=== PATIENT | male | born 1945 | race Caucasian/White ===

== ENCOUNTER 2017-11-04 19:55 | Inpatient (IN) | payer MEDICARE ==
[2017-11-04] VITALS (13 sets, daily range): BP systolic 113–253; BP diastolic 59–162; PULSE 56–108; RESP 16–22; TEMP 96.6–98.9; O2SAT 97–100
[~2017-11-04] VITALS: Ht 180.3 cm; Wt 108.0 kg
[~2017-11-04 19:55] MED LIST: AMIODARONE HCL 150 MG/3 ML VIAL IV ONE
[2017-11-04] MEDS ORDERED: AMIODARONE INJ 150 MG in DEXTROSE 5% IN WATER 100ML INJ 97 ML IV ONE ×2 (20:09)
[2017-11-04] MEDS ORDERED: MIDAZOLAM HCL 5 MG/ML VIAL (1 ML) IV PUSH ONE (20:15)
[2017-11-04] MEDS ORDERED: SODIUM CHLORIDE 0.9% FLUSH 10 ML FLUSH IVF PRN (20:15)
[2017-11-04] MEDS ORDERED: SODIUM CHLOR 0.9% 1000 ML INJ 1,000 ML IV SCH (20:15)
[2017-11-04] MEDS ORDERED: fentaNYL DRIP 250 ML IV PRN (20:15)
[2017-11-04] MEDS ORDERED: MIDAZOLAM HCL 5 MG/ML VIAL (1 ML) ONE (20:16)
[2017-11-04] MEDS ORDERED: fentaNYL DRIP 250 ML ONE (20:18)
--- NOTE | 2017-11-04 20:22 | PD ---
HPI Chief Complaint: cardiac Time Seen by Provider: 20:08 Travel History International Travel<30 days: No Contact w/Intl Traveler<30days: No Traveled to known affect area: No History of Present Illness HPI 72-year-old male was brought in by EMS after patient had a cardiopulmonary arrest. Patient was reportedly driving his and collapsed. Patient became unresponsive. Chest compression was started. EMS was called. Patient was found in V. fib. Patient was defibrillated. Patient regained pulse and blood pressure. Patient remained unresponsive. Patient was transported to ED for evaluation. Unable to obtain any past medical history. Unable to obtain medication or allergies. 2100 p.m. I spoke with patient's . Patient has no past medical history. No history hypertension, diabetes, hyperlipidemia. Patient is a nonsmoker. No family history of heart disease. Patient did not have any complaints prior to arrest. [facility] Social History Tobacco Use: No Allergies-Medications (Allergen,Severity, Reaction): Coded Allergies: No Allergy Information Available (Unverified , 11/04/17) Reported Meds & Prescriptions Reported Meds & Active Scripts Active Active Prescriptions or Reported Medications Unobtainable Review of Systems ROS Limitations: Unresponsive Physical Exam Narrative GENERAL: Well-nourished, well-developed patient. SKIN: Focused skin assessment warm/dry. HEAD: Normocephalic. EYES: No scleral icterus. No injection or drainage. Pupils constricted, minimally reactive NECK: Supple, trachea midline. No JVD or lymphadenopathy. CARDIOVASCULAR: Mild tachycardia rate and rhythm without murmurs, gallops, or rubs. RESPIRATORY: Breath sounds equal bilaterally. No accessory muscle use. Patient will has spontaneous respiration. GASTROINTESTINAL: Abdomen soft, nondistended. MUSCULOSKELETAL: No cyanosis, or edema. BACK: Nontender without obvious deformity. No CVA tenderness. Neurologic exam: Patient unresponsive. Data Data Last Documented VS Vital Signs Date Time Temp Pulse Resp B/P (MAP) Pulse Ox O2 Delivery O2 Flow Rate FiO2 11/04/17 21:18 56 16 124/68 (86) 100 Ventilator 100 11/04/17 20:09 98.9 Orders Orders Ecg Monitoring (11/04/17 20:09) Blood Pressure (11/04/17 20:09) Vital Signs (11/04/17 20:09) Iv Access Insert/Monitor (11/04/17 20:09) Oximetry (11/04/17 20:09) Dextrose 5% In Wate... W/Amiodarone Inj (11/04/17 20:09) Dextrose 5% In Wate... W/Amiodarone Inj (11/04/17 20:24) Sodium Chloride 0.9% Flush (Ns Flush) (11/04/17 20:15) Sodium Chlor 0.9% 1000 Ml Inj (Ns 1000 M (11/04/17 20:15) Propofol 1000 Mg/100 Ml Inj (Diprivan 10 (11/04/17 20:15) ^ Infusion (11/04/17 20:10) RASS (11/04/17 20:10) Neurological Rass Scale FAYE.Q2H (11/04/17 20:10) Neurological Rass Scale Q30MX2,Q2HX4,Q4H (11/04/17 20:10) Fentanyl Drip (Fentanyl Drip) (11/04/17 20:15) Restraints Non-Violent FAYE.Q3H (11/04/17 20:10) Electrocardiogram (11/04/17 20:12) Complete Blood Count With Diff (11/04/17 20:12) Comprehensive Metabolic Panel (11/04/17 20:12) Creatine Kinase (Cpk) (11/04/17 20:12) Troponin I (11/04/17 20:12) B-Type Natriuretic Peptide (11/04/17 20:12) Prothrombin Time / Inr (Pt) (11/04/17 20:12) Act Partial Throm Time (Ptt) (11/04/17 20:12) Arterial Blood Gas (Abg) (11/04/17 20:12) Blood Culture (11/04/17 20:12) Thyroid Stimulating Hormone (11/04/17 20:12) Chest, Single Ap (11/04/17 20:12) Ct Brain W/O Iv Contrast(Rout) (11/04/17 20:12) Urinary Catheter Insert/Apply (11/04/17 20:12) Durga-Gastric Tube Insert/Mon (11/04/17 20:12) Midazolam Inj (Versed Inj) (11/04/17 20:15) Midazolam Inj (Versed Inj) (11/04/17 20:16) Fentanyl Drip (Fentanyl Drip) (11/04/17 20:18) Lactic Acid (11/04/17 20:22) Admit Order (Ed Use Only) (11/04/17 21:23) Labs Laboratory Tests Test 11/04/17 20:10 11/04/17 20:15 White Blood Count 11.5 TH/MM3 Red Blood Count 4.54 MIL/MM3 Hemoglobin 14.1 GM/DL Hematocrit 42.6 % Mean Corpuscular Volume 93.7 FL Mean Corpuscular Hemoglobin 31.1 PG Mean Corpuscular Hemoglobin Concent 33.2 % Red Cell Distribution Width 13.6 % Platelet Count 194 TH/MM3 Mean Platelet Volume 10.3 FL Neutrophils (%) (Auto) 50.1 % Lymphocytes (%) (Auto) 40.9 % Monocytes (%) (Auto) 6.4 % Eosinophils (%) (Auto) 1.9 % Basophils (%) (Auto) 0.7 % Neutrophils # (Auto) 5.8 TH/MM3 Lymphocytes # (Auto) 4.7 TH/MM3 Monocytes # (Auto) 0.7 TH/MM3 Eosinophils # (Auto) 0.2 TH/MM3 Basophils # (Auto) 0.1 TH/MM3 CBC Comment DIFF FINAL Differential Comment Prothrombin Time 9.9 SEC Prothromb Time International Ratio 1.0 RATIO Activated Partial Thromboplast Time 23.4 SEC Blood Urea Nitrogen 17 MG/DL Creatinine 1.44 MG/DL Random Glucose 379 MG/DL Total Protein 7.7 GM/DL Albumin 4.0 GM/DL Calcium Level 8.9 MG/DL Alkaline Phosphatase 138 U/L Aspartate Amino Transf (AST/SGOT) 136 U/L Alanine Aminotransferase (ALT/SGPT) 127 U/L Total Bilirubin 0.3 MG/DL Sodium Level 134 MEQ/L Potassium Level 3.8 MEQ/L Chloride Level 99 MEQ/L Carbon Dioxide Level 23.5 MEQ/L Anion Gap 12 MEQ/L Estimat Glomerular Filtration Rate 48 ML/MIN Total Creatine Kinase 307 U/L Troponin I 0.05 NG/ML B-Type Natriuretic Peptide 112 PG/ML Thyroid Stimulating Hormone 3rd Gen 6.550 uIU/ML Lactic Acid Level 5.7 mmol/L MDM Medical Decision Making Medical Screen Exam Complete: Yes Emergency Medical Condition: Yes Interpretation(s) Last Impressions Chest X-Ray 11/04/172011 Signed Impressions: Service Date/Time: Saturday, November 04, 2017 20:40 - CONCLUSION: ET tube in good position. Lungs are clear. Mike Davalos MD 21:14 PM. CBC within normal limit. Sodium 134. Creatinine 1.44. GFR 48. Glucose 379. Lactic acid 5.7. AST 136. ALT 127. Troponin 0.05. TSH 6.55. Differential Diagnosis Differential diagnosis including cardiopulmonary arrest, arrhythmia, TIA, CVA, sepsis. Narrative Course 72-year-old male had cardiopulmonary arrest. Patient was in V. fib. Patient was defibrillated. Patient regained pulse and blood pressure. Patient unresponsive. Patient was intubated. Normal saline solution 100 cc an hour. Amiodarone 150 mg IV given. Amiodarone drip started. Propofol and fentanyl for sedation. Critical Care Narrative Aggregate critical care time was 60 minutes. Time to perform other separately billable procedures was not included in the critical care time. My time did not include minutes spent treating any other patients simultaneously or on activities that did not directly contribute to the patient's treatment. The services I provided to this patient were to treat and/or prevent clinically significant deterioration that could result in: I provided critical care services requiring my management, as noted below: Chart data review, documentation time, medication orders and management, vital sign assessments/reviewing monitor data, ordering and reviewing lab tests, ordering and interpreting/reviewing x-rays and diagnostic studies, care of the patient and discussion of the patient with the admitting physicians. Procedures Procedure Narrative After the risks and benefits were discussed the following procedure was performed: INTUBATION: The patient was put in optimal position for the procedure. Rapid sequence intubation was initiated by me using 20 milligrams of etomidate IV and 100 milligrams of succinylcholine IV. The patient was intubated with a 7.5 cuffed endotracheal tube. Tube placement was confirmed by visualization of the tube and balloon passing through the cords, capnometry and subsequent chest x- ray. Breath sounds were equal and well aerated bilaterally postintubation. No breath sounds over stomach. Patient tolerated procedure well. Diagnosis Primary Impression: Cardiopulmonary arrest Additional Impressions: VF (ventricular fibrillation) Respiratory failure Qualified Codes: J96.00 - Acute respiratory failure, unspecified whether with hypoxia or hypercapnia Hyperglycemia Admitting Information Admitting Physician Requests: Admit Scripts Unable to Obtain Active Prescriptions or Reported Meds Derrell Luciano MD Nov 04, 2017 20:22
[2017-11-04] MEDS ORDERED: AMIODARONE INJ 450 MG in DEXTROSE 5% IN WATE(EXCEL) INJ 241 ML IV SCH ×2 (20:24)
[2017-11-04] MEDS: PROPOFOL 1000 MG/100 ML INJ 100 ML IV PRN (20:25)
[2017-11-04 20:45] LABS: AUTOMATED NEUTROPHIL # 5.8 TH/MM3 (1.8-7.7); BASOPHIL # 0.1 TH/MM3 (0-0.2); BASOPHIL % 0.7 % (0.0-2.0); EOSINOPHIL # 0.2 TH/MM3 (0-0.4); EOSINOPHIL % 1.9 % (0.0-4.0); HEMATOCRIT 42.6 % (39.0-51.0); HEMOGLOBIN 14.1 GM/DL (13.0-17.0); LYMPH % 40.9 % (9.0-44.0); LYMPHOCYTE # 4.7 TH/MM3 (1.0-4.8); MEAN CELL VOLUME 93.7 FL (80.0-100.0); MEAN CORPUSCULAR HEMOGLOBIN 31.1 PG (27.0-34.0); MEAN CORPUSCULAR HGB CONC 33.2 % (32.0-36.0); MEAN PLATELET VOLUME 10.3 FL (7.0-11.0); MONO % 6.4 % (0.0-8.0); MONOCYTE # 0.7 TH/MM3 (0-0.9); NEUT % 50.1 % (16.0-70.0); PLATELET COUNT 194 TH/MM3 (150-450); RED BLOOD COUNT 4.54 MIL/MM3 (4.50-5.90); RED CELL DISTRIBUTION WIDTH 13.6 % (11.6-17.2); WHITE BLOOD COUNT 11.5 TH/MM3 (4.0-11.0)
--- NOTE | 2017-11-04 20:57 | RADRPT ---
EXAM DATE/TIME: 11/04/2017 20:40 [facility] COMPARISON: No previous studies available for comparison. INDICATIONS : Post intubation MEDICAL HISTORY : Unobtainable SURGICAL HISTORY : Unobtainable ENCOUNTER: Initial ACUITY: 1 day PAIN SCORE: Non-responsive. LOCATION: Bilateral chest FINDINGS: A single view of the chest demonstrates the endotracheal tube is just above the opal. The NG tube i s in good position. There small lung volumes with mild pulmonary vascular congestion.. Osseous struc tures are intact. CONCLUSION: ET tube in good position. Lungs are clear. Mike Davalos MD on November 04, 2017 at 20:54 Board Certified Radiologist. This report was verified electronically.
[2017-11-04 21:02] LABS: AST (GOT) 136 U/L (15-37); BICARBONATE 23.5 MEQ/L (21.0-32.0); BLOOD UREA NITROGEN 17 MG/DL (7-18); CALCIUM 8.9 MG/DL (8.5-10.1); CHLORIDE 99 MEQ/L (98-107); CREATININE 1.44 MG/DL (0.60-1.30); GLOMERULAR FILTRATION RATE 48 ML/MIN (>89); GLUCOSE,RANDOM 379 MG/DL (74-106); SODIUM (NA) 134 MEQ/L (136-145)
[2017-11-04 21:06] LABS: PROTHROMBIN TIME - PATIENT 9.9 SEC (9.8-11.6)
[2017-11-04 21:13] LABS: ALKALINE PHOSPHATASE 138 U/L (45-117); ALT (GPT) 127 U/L (12-78); TOTAL BILIRUBIN ADULT 0.3 MG/DL (0.2-1.0); TOTAL PROTEIN 7.7 GM/DL (6.4-8.2); TROPONIN I 0.05 NG/ML (0.02-0.05)
[2017-11-04] MEDS ORDERED: ACETAMINOPHEN 325 MG TAB PO PRN (22:00)
[2017-11-04] MEDS ORDERED: BISACODYL 10 MG SUPP RECTAL PRN (22:00)
[2017-11-04] MEDS: SODIUM CHLOR 0.9% 1000 ML INJ 1,000 ML IV SCH (22:00)
[2017-11-04] MEDS ORDERED: CHLORHEXIDINE GLUCONATE 2 % 1 PACK (2 CLOTHS) TOP PRN (22:00)
[2017-11-04] MEDS ORDERED: HEPARIN SODIUM - IV 10,000 UNITS/10 ML VIAL IV PUSH ONE (22:00)
[2017-11-04] MEDS ORDERED: SENNOSIDES 8.6 MG TAB PO PRN (22:00)
[2017-11-04] MEDS ORDERED: MISCELLANEOUS NURSING INFORMATION XX SCH (22:00)
[2017-11-04] MEDS ORDERED: LACTULOSE SYRUP 20 GM/30 ML CUP PO PRN (22:00)
[2017-11-04] MEDS ORDERED: MAGNESIUM HYDROXIDE SUSP 30 ML CUP PO PRN (22:00)
[2017-11-04] MEDS ORDERED: SODIUM CHLORIDE 0.9% FLUSH 10 ML FLUSH IV FLUSH PRN (22:00)
[2017-11-04] MEDS ORDERED: MIDAZOLAM HCL 2 MG/2 ML VIAL IV PUSH PRN (22:00)
[2017-11-04] MEDS ORDERED: HEPARIN-D5W 25,000 U/250 ML 250 ML IV PRN (22:00)
--- NOTE | 2017-11-04 22:01 | HHI.HP ---
HPI Service Critical Care Medicine Primary Care Physician No Primary Care Physician Admission Diagnosis cardiopulmonary arrest. V. fib. Respiratory failure. Diagnosis: Travel History International Travel<30 Days: No Contact w/Intl Traveler <30 Da: No Traveled to Known Affected Are: No History of Present Illness 72-year-old male was brought in by EMS after patient had a cardiopulmonary arrest. Patient was reportedly driving his and collapsed. Patient became unresponsive. Chest compression were started. EMS was called. Patient's rhythm was found to be in V. fib and the patient was defibrillated. He regained pulse and blood pressure. On the arrival to emergency department the patient remained unresponsive. Patient has a history of known coronary artery disease with a bun stent in place many years ago, no history of diabetes hypertension or COPD. Review of Systems ROS Unobtainable patient is sedated and intubated Past Family Social History Allergies: Coded Allergies: No Allergy Information Available (Unverified , 11/04/17) Past Medical History Coronary artery disease status post stent placement Past Surgical History Appendectomy Reported Medications Reported Meds & Active Scripts Active Active Prescriptions or Reported Medications Unobtainable Per patient's he takes only homeopathic medications however she cannot recall the names Active Ordered Medications Current Medications Medications (Trade) Dose Ordered Sig/Juan Route PRN Reason Start Time Stop Time Status Last Admin Dose Admin Sodium Chloride 1,000 ml @ 84 mls/hr [id number] IV 11/04/17 22:00 Sodium Chloride (NS Flush) 2 ml UNSCH PRN IV FLUSH FLUSH AFTER USING IV ACCESS 11/04/17 22:00 Sodium Chloride (NS Flush) 2 ml BID IV FLUSH 11/05/17 09:00 Acetaminophen (Tylenol) 650 mg Q6H PRN PO PAIN 1-10 AND/OR FEVER >101F 11/04/17 22:00 Famotidine (Pepcid Inj) 20 mg Q12HR IV PUSH 11/05/17 09:00 Midazolam HCl (Versed Inj) 2 mg Q1H PRN IV PUSH SEDATION 11/04/17 22:00 Artificial Tears (Tears Naturale Opth Soln) 1 drop TID EACH EYE 11/05/17 09:00 Ondansetron HCl (Zofran Inj) 4 mg Q6H PRN IV PUSH NAUSEA OR VOMITING 11/04/17 22:00 Albuterol/ Ipratropium (Duoneb Neb) 1 ampule Q2HR NEB PRN INH WHEEZING 11/04/17 22:00 Miscellaneous Information 1 [id number] XX 11/04/17 22:00 Chlorhexidine Gluconate (Chlorhexidine 2% Cloth) 3 pack Taper DAILY@04 TOP 11/05/17 04:00 11/01/18 03:59 Chlorhexidine Gluconate (Chlorhexidine 2% Cloth) 3 pack UNSCH PRN TOP HYGIENIC CARE 11/04/17 22:00 Senna/Docusate Sodium (Ashley-Colace) 1 tab BID PO 11/05/17 09:00 Magnesium Hydroxide (Milk Of Magnesia Liq) 30 ml Q12H PRN PO Mild constipation 11/04/17 22:00 Sennosides (Senokot) 17.2 mg Q12H PRN PO Moderate constipation 11/04/17 22:00 Bisacodyl (Dulcolax Supp) 10 mg DAILY PRN RECTAL SEVERE CONSITIPATION 11/04/17 22:00 Lactulose (Lactulose Liq) 30 ml DAILY PRN PO SEVERE CONSITIPATION 11/04/17 22:00 Heparin Sodium (Porcine) (Heparin Inj) 5,000 units UNSCH PRN IV PUSH APTT LESS THAN 25 11/05/17 04:00 Heparin Sodium (Porcine) (Heparin Inj) 2,500 units UNSCH PRN IV PUSH APTT 25 TO 39 11/05/17 04:00 Heparin Sodium/ Dextrose 250 ml @ 10 mls/hr TITRATE PRN IV Coagulation Management 11/04/17 22:00 Amiodarone HCl 450 mg/Dextrose 250 ml @ 33.33 mls/ hr Q7H31M PRN IV Per Protocol 11/04/17 22:03 11/04/17 22:06 Chlorhexidine Gluconate (Peridex 0.12% Liq) 15 ml BID@08,20 MT 11/05/17 08:00 Propofol 100 ml @ 3.84 mls/hr TITRATE PRN IV SEDATION 11/04/17 22:00 Fentanyl Citrate 250 ml @ 5 mls/hr TITRATE PRN IV SEDATION 11/04/17 22:00 Family History No family history significant of cancer Social History No alcohol, tobacco, or illicit drug abuse Physical Exam Vital Signs Vital Signs Date Time Temp Pulse Resp B/P (MAP) Pulse Ox O2 Delivery O2 Flow Rate FiO2 1/10/18 21:44 100 100 11/04/17 21:18 56 16 124/68 (86) 100 Ventilator 100 11/04/17 21:00 60 16 123/66 (85) 100 Ventilator 100 11/04/17 20:44 65 16 143/70 (94) 100 Ventilator 100 11/04/17 20:30 72 16 163/70 (101) 100 Ventilator 100 11/04/17 20:15 85 16 178/95 (122) 100 Ventilator 100 11/04/17 20:15 98 179/120 11/04/17 20:09 98.9 108 22 253/162 (192) 98 11/04/17 20:04 98.9 107 20 179/120 (139) 97 11/04/17 19:55 8 98 Non-Rebreather 100 Physical Exam GENERAL: Well-nourished, well-developed patient. SKIN: Focused skin assessment warm/dry. HEAD: Normocephalic. EYES: No scleral icterus. No injection or drainage. Pupils constricted, minimally reactive NECK: Supple, trachea midline. No JVD or lymphadenopathy. CARDIOVASCULAR: Mild tachycardia rate and rhythm without murmurs, gallops, or rubs. RESPIRATORY: Breath sounds equal bilaterally. No accessory muscle use. Patient will has spontaneous respiration. GASTROINTESTINAL: Abdomen soft, nondistended. MUSCULOSKELETAL: No cyanosis, or edema. BACK: Nontender without obvious deformity. No CVA tenderness. Neurologic exam: Patient unresponsive. Withdraws to pain, GCS 6 Laboratory Laboratory Tests Test 11/04/17 20:10 11/04/17 20:15 11/04/17 21:27 White Blood Count 11.5 Red Blood Count 4.54 Hemoglobin 14.1 Hematocrit 42.6 Mean Corpuscular Volume 93.7 Mean Corpuscular Hemoglobin 31.1 Mean Corpuscular Hemoglobin Concent 33.2 Red Cell Distribution Width 13.6 Platelet Count 194 Mean Platelet Volume 10.3 Neutrophils (%) (Auto) 50.1 Lymphocytes (%) (Auto) 40.9 Monocytes (%) (Auto) 6.4 Eosinophils (%) (Auto) 1.9 Basophils (%) (Auto) 0.7 Neutrophils # (Auto) 5.8 Lymphocytes # (Auto) 4.7 Monocytes # (Auto) 0.7 Eosinophils # (Auto) 0.2 Basophils # (Auto) 0.1 CBC Comment DIFF FINAL Differential Comment Prothrombin Time 9.9 Prothromb Time International Ratio 1.0 Activated Partial Thromboplast Time 23.4 Blood Urea Nitrogen 17 Creatinine 1.44 Random Glucose 379 Total Protein 7.7 Albumin 4.0 Calcium Level 8.9 Alkaline Phosphatase 138 Aspartate Amino Transf (AST/SGOT) 136 Alanine Aminotransferase (ALT/SGPT) 127 Total Bilirubin 0.3 Sodium Level 134 Potassium Level 3.8 Chloride Level 99 Carbon Dioxide Level 23.5 Anion Gap 12 Estimat Glomerular Filtration Rate 48 Total Creatine Kinase 307 Troponin I 0.05 B-Type Natriuretic Peptide 112 Thyroid Stimulating Hormone 3rd Gen 6.550 Lactic Acid Level 5.7 Blood Gas Puncture Site RT RADIAL Blood Gas Patient Temperature 96.6 Blood Gas HCO3 25 Blood Gas Base Excess -0.4 Blood Gas Oxygen Saturation 98 Arterial Blood pH 7.35 Arterial Blood Partial Pressure CO2 45 Arterial Blood Partial Pressure O2 479 Arterial Blood Oxygen Content 17.9 Arterial Blood Carboxyhemoglobin 0.6 Arterial Blood Methemoglobin 1.1 Blood Gas Hemoglobin 12.1 Oxygen Delivery Device VENTILATOR Blood Gas Ventilator Setting [id number]/550/+5 Blood Gas Inspired Oxygen 100 Date/Time Source Procedure Growth Status 11/04/17 20:15 Blood Peripheral Aerobic Blood Culture Pending Received 11/04/17 20:15 Blood Peripheral Anaerobic Blood Culture Pending Received Result Diagram: 11/04/17200911/04/172009 Imaging Last [address] 11/04/172011 Signed Impressions: Service Date/Time: Saturday, November 04, 2017 22:10 - CONCLUSION: No acute disease. Mike Davalos MD Chest X-Ray 11/04/172011 Signed Impressions: Service Date/Time: Saturday, November 04, 2017 20:40 - CONCLUSION: ET tube in good position. Lungs are clear. Mike Davalos MD Septic Shock Reassessment Septic shock perfusion: reassessment completed Caprini VTE Risk Assessment Caprini VTE Risk Assessment: Mod/High Risk (score >= 2) Caprini Risk Assessment Model Point Value = 1 Point Value = 2 Point Value = 3 Point Value = 5 Age 41-60 Minor surgery BMI > 25 kg/m2 Swollen legs Varicose veins or History of unexplained or recurrent spontaneous Oral contraceptives or hormone replacement Sepsis (< 1 month) Serious lung disease, including pneumonia (< 1 month) Abnormal pulmonary function Acute myocardial infarction Congestive heart failure (< 1 month) History of inflammatory bowel disease Medical patient at bed rest Age 61-74 Arthroscopic surgery Major open surgery (> 45 min) Laparoscopic surgery (> 45 min) Malignancy Confined to bed (> 72 hours) Immobilizing plaster cast Central venous access Age >= 75 History of VTE Family history of VTE Factor V Leiden Prothrombin [id number] Lupus anticoagulant Anticardiolipin antibodies Elevated serum homocysteine Heparin-induced thrombocytopenia Other congenital or acquired thrombophilia Stroke (< 1 month) Elective arthroplasty Hip, pelvis, or leg fracture Acute spinal cord injury (< 1 month) Prophylaxis Regimen Total Risk Factor Score Risk Level Prophylaxis Regimen 0-1 Low Early ambulation 2 Moderate Order ONE of the following: *Sequential Compression Device (SCD) *Heparin 5000 units SQ BID 3-4 Higher Order ONE of the following medications: *Heparin 5000 units SQ TID *Enoxaparin/Lovenox 40 mg SQ daily (WT < 150 kg, CrCl > 30 mL/min) *Enoxaparin/Lovenox 30 mg SQ daily (WT < 150 kg, CrCl > 10-29 mL/min) *Enoxaparin/Lovenox 30 mg SQ BID (WT < 150 kg, CrCl > 30 mL/min) AND/OR *Sequential Compression Device (SCD) 5 or more Highest Order ONE of the following medications: *Heparin 5000 units SQ TID (Preferred with Epidurals) *Enoxaparin/Lovenox 40 mg SQ daily (WT < 150 kg, CrCl > 30 mL/min) *Enoxaparin/Lovenox 30 mg SQ daily (WT < 150 kg, CrCl > 10-29 mL/min) *Enoxaparin/Lovenox 30 mg SQ BID (WT < 150 kg, CrCl > 30 mL/min) AND *Sequential Compression Device (SCD) Assessment and Plan Assessment and Plan Respiratory failure - Intubated for airway protection - Post cardiac arrest - No weaning until neurologically improved - DuoNeb's when necessary - Chest x-ray and ABG daily Cardiac arrest - V. fib arrest - Underlying coronary artery disease - Ischemic workup per cardiology Dr. Young - Therapeutic hypothermia protocol - Amiodarone drip - Heparin drip - Series of EKGs and troponin levels Lactic acidosis - IV fluid hydration - Monitor trend Acute kidney injury - Unknown baseline - IV fluid hydration - Strict I's and O's - Monitor creatinine and electrolytes levels DVT GI prophylaxis - Teds SCDs - IV heparin - Mina Duarte MD Nov 04, 2017 22:01
[2017-11-04] MEDS: AMIODARONE INJ 450 MG in DEXTROSE 5% IN WATE(EXCEL) INJ 241 ML IV PRN ×2 (22:06)
--- NOTE | 2017-11-04 22:31 | RADRPT ---
EXAM DATE/TIME: 11/04/2017 22:10 [facility] COMPARISON: No previous studies available for comparison. INDICATIONS : Altered mental status, post code. RADIATION DOSE: 69.17 CTDIvol (mGy) MEDICAL HISTORY : Non-responsive. SURGICAL HISTORY : Non-responsive. ENCOUNTER: Initial ACUITY: 1 day PAIN SCALE: Non-responsive LOCATION: cranial TECHNIQUE: Multiple contiguous axial images were obtained of the head. Using automated exposure control and adj ustment of the mA and/or kV according to patient size, radiation dose was kept as low as reasonably a chievable to obtain optimal diagnostic quality images. DICOM format image data is available electro nically for review and comparison. FINDINGS: There is marked central and cortical atrophy with dilatation of ventricular and sulcal spaces. There is no parenchymal hemorrhage, acute infarction or mass lesion identified. There are no extra-axial fluid collections appreciated. The posterior fossa is unremarkable with midline fourth ventricle. T he portion of the orbits and paranasal sinuses visualized are unremarkable. CONCLUSION: No acute disease. Mike Davalos MD on November 04, 2017 at 22:28 Board Certified Radiologist. This report was verified electronically.
--- NOTE | 2017-11-04 23:21 | PD.PROCEDR ---
Procedure Note Procedure Hypothermia cooling catheter placement A time-out was completed verifying correct patient, procedure, site, positioning , and special equipment if applicable. The patient was placed in a dependent position appropriate for central line placement based on the vein to be cannulated. The patients right groin was prepped and draped in sterile fashion. 1% Lidocaine was used to anesthetize the surrounding skin area. A triple lumen 9-[place] hypothermia catheter was introduced into the the common femoral vein using the Seldinger technique and under ultrasound guidance. The catheter was threaded smoothly over the guide wire and appropriate blood return was obtained. Each lumen of the catheter was evacuated of air and flushed with sterile saline. The catheter was then sutured in place to the skin and a sterile dressing applied. Perfusion to the extremity distal to the point of catheter insertion was checked and found to be adequate. Estimated Blood Loss: 1ml The patient tolerated the procedure well and there were no complications. Mina Obando MD Nov 04, 2017 23:21
[2017-11-05] VITALS (34 sets, daily range): BP systolic 86–206; BP diastolic 49–108; PULSE 35–56; RESP 16–18; TEMP 91.4–96.4; O2SAT 100
[2017-11-05] MEDS: PROPOFOL 1000 MG/100 ML INJ 100 ML IV PRN ×4 (00:46→13:26)
[2017-11-05] MEDS: CHLORHEXIDINE GLUCONATE 2 % 1 PACK (2 CLOTHS) TOP SCH (00:46)
[2017-11-05] MEDS ORDERED: busPIRone HCL 5 MG TAB NG PRN (01:15)
[2017-11-05] MEDS ORDERED: MEPERIDINE HCL 25 MG/ML VIAL IV PUSH PRN (01:15)
[2017-11-05] MEDS ORDERED: ARTIFICIAL TEARS OPTH OINT 3.5 APPLIC/3.5 GM TUBO EACH EYE PRN (01:15)
[2017-11-05] MEDS ORDERED: Mix all IV Meds in NS IV SCH (01:15)
[2017-11-05] MEDS ORDERED: POTASSIUM PHOSPHATE MONOBASIC 500 MG TAB PO PRN (01:30)
[2017-11-05] MEDS ORDERED: MAGNESIUM SULFATE INJ 4 GM in SODIUM CHLORIDE 0.9% INJ 92 ML IV PRN (01:30)
[2017-11-05] MEDS ORDERED: POTASSIUM CHLOR 40 MEQ PREMIX 100 ML IV PRN (01:30)
[2017-11-05] MEDS ORDERED: MAGNESIUM OXIDE 400 MG TAB PO PRN (01:30)
[2017-11-05] MEDS ORDERED: POTASSIUM CHLOR 20 MEQ PREMIX 100 ML IV PRN ×2 (01:30)
[2017-11-05] MEDS ORDERED: POTASSIUM PHOSPHATE MONOBASIC 500 MG TAB PO/TUBE PRN (01:30)
[2017-11-05] MEDS ORDERED: MAGNESIUM SULFATE INJ 2 GM in SODIUM CHLORIDE 0.9% INJ 96 ML IV PRN (01:30)
[2017-11-05] MEDS ORDERED: POTASSIUM PHOSPHATE INJ 30 MMOL in SODIUM CHLOR 0.9% 250 ML INJ 250 ML IV PRN (01:30)
[2017-11-05] MEDS: CISATRACURIUM 100 MG/NS 250 ML IV PRN ×10 (01:40→16:40)
[2017-11-05] MEDS: ACETAMINOPHEN 650 MG/20.3 ML UDC NG PRN (01:42)
[2017-11-05] MEDS: ARTIFICIAL TEARS OPTH SOLN 15 ML BTL EACH EYE SCH ×3 (02:19→17:16)
[2017-11-05] MEDS ORDERED: HEPARIN SODIUM - IV 10,000 UNITS/10 ML VIAL IV PUSH PRN (04:00)
[2017-11-05] MEDS: NOREPINEPHRINE 4 MG/250 ML NS IV PRN ×4 (04:00→18:39)
[2017-11-05 04:23] LABS: BASOPHIL % 0.2 % (0.0-2.0); EOSINOPHIL # 0.1 TH/MM3 (0-0.4); EOSINOPHIL % 1.4 % (0.0-4.0); HEMATOCRIT 34.5 % (39.0-51.0); HEMOGLOBIN 11.8 GM/DL (13.0-17.0); LYMPH % 17.7 % (9.0-44.0); LYMPHOCYTE # 1.4 TH/MM3 (1.0-4.8); MEAN CELL VOLUME 91.1 FL (80.0-100.0); MEAN CORPUSCULAR HEMOGLOBIN 31.1 PG (27.0-34.0); MEAN CORPUSCULAR HGB CONC 34.1 % (32.0-36.0); MEAN PLATELET VOLUME 9.8 FL (7.0-11.0); MONO % 4.9 % (0.0-8.0); MONOCYTE # 0.4 TH/MM3 (0-0.9); NEUT % 75.8 % (16.0-70.0); PLATELET COUNT 149 TH/MM3 (150-450); RED BLOOD COUNT 3.78 MIL/MM3 (4.50-5.90); RED CELL DISTRIBUTION WIDTH 13.5 % (11.6-17.2); WHITE BLOOD COUNT 7.9 TH/MM3 (4.0-11.0)
[2017-11-05 04:36] LABS: PROTHROMBIN TIME - PATIENT 10.6 SEC (9.8-11.6)
[2017-11-05 04:59] LABS: ALKALINE PHOSPHATASE 73 U/L (45-117); ALT (GPT) 98 U/L (12-78); AST (GOT) 92 U/L (15-37); BLOOD UREA NITROGEN 20 MG/DL (7-18); CALCIUM 7.9 MG/DL (8.5-10.1); CHLORIDE 106 MEQ/L (98-107); CREATININE 1.13 MG/DL (0.60-1.30); GLOMERULAR FILTRATION RATE 64 ML/MIN (>89); GLUCOSE,RANDOM 244 MG/DL (74-106); MAGNESIUM 1.7 MG/DL (1.5-2.5); PHOSPHORUS 2.8 MG/DL (2.5-4.9); SODIUM (NA) 139 MEQ/L (136-145); TOTAL BILIRUBIN ADULT 0.5 MG/DL (0.2-1.0)
--- NOTE | 2017-11-05 05:22 | RADRPT ---
EXAM DATE/TIME: 11/05/2017 04:15 [facility] COMPARISON: CHEST SINGLE AP, November 04, 2017, 20:40. INDICATIONS : Shortness of breath MEDICAL HISTORY : Non-responsive SURGICAL HISTORY : Non-responsive ENCOUNTER: Subsequent ACUITY: 1 day PAIN SCORE: Non-responsive. LOCATION: Bilateral chest FINDINGS: The cardiac silhouette is enlarged in transverse diameter. The lungs are hypoinflated. Endotracheal t ube is at the opal and could be retracted 2-3 cmThere is prominence of the central pulmonary vascul ature with indistinct vascular margins compatible with vascular congestion but no evidence of overt f ailure. There is no evidence of pneumonia. CONCLUSION: 1. Cardiomegaly and findings of vascular congestion without overt failure. The findings are similar t o the prior exam. 2. Endotracheal tube is above Fredis Connor MD on November 05, 2017 at 5:18 Board Certified Radiologist. This report was verified electronically.
[2017-11-05] MEDS: AMIODARONE INJ 450 MG in DEXTROSE 5% IN WATE(EXCEL) INJ 241 ML IV PRN ×2 (05:36)
[2017-11-05 05:37] LABS: TROPONIN I 4.08 NG/ML (0.02-0.05)
[2017-11-05] MEDS ORDERED: AMIODARONE INJ 450 MG in SODIUM CHLOR 0.9% (EXCEL) INJ 241 ML IV PRN (05:45)
[2017-11-05] MEDS: HEPARIN INJ 25,000 UNITS in SODIUM CHLOR 0.9% 250 ML INJ 247.5 ML IV PRN ×2 (06:05→21:48)
[2017-11-05] MEDS: fentaNYL DRIP 250 ML IV PRN ×2 (07:50→23:37)
[2017-11-05] MEDS: FAMOTIDINE 20 MG/2 ML VIAL IV PUSH SCH ×2 (07:56→20:38)
[2017-11-05] MEDS: SODIUM CHLORIDE 0.9% FLUSH 10 ML FLUSH IV FLUSH SCH ×2 (07:56→20:38)
[2017-11-05] MEDS: DOCUSATE SODIUM 50 MG/SENNA 8.6 MG TAB PO SCH ×2 (07:56→20:38)
[2017-11-05] MEDS: CHLORHEXIDINE 0.12% (ORAL KIT) 15 ML CUP MT SCH ×2 (08:00→20:36)
[2017-11-05] MEDS: POTASSIUM CHLOR 40 MEQ PREMIX 100 ML IV PRN (09:26)
[2017-11-05] MEDS: HEPARIN SODIUM - IV 10,000 UNITS/10 ML VIAL IV PUSH PRN (11:56)
[2017-11-05] MEDS ORDERED: PLEASE DISCONTINUE PREVIOUS SUPPLEMENTAL SCALE INSULIN ORDERS ONE ×2 (12:15→19:45)
[2017-11-05] MEDS ORDERED: GLUCAGON 1 MG/ML VIAL OTHER PRN ×2 (12:15→19:45)
[2017-11-05] MEDS ORDERED: DEXTROSE 50% IN WATER 50 ML VIAL(D50) IV PUSH PRN ×2 (12:15→19:45)
[2017-11-05] MEDS: MIDAZOLAM 100 MG/NS 100 ML DRIP Premix IV PRN (12:18)
[2017-11-05] MEDS: LOW DOSE INSULIN NOVOLIN REGULAR SUPPLEMENTAL SCALE SQ SCH ×2 (12:18→16:00)
[2017-11-05 12:57] LABS: TROPONIN I 1.77 NG/ML (0.02-0.05)
[2017-11-05] MEDS: SODIUM CHLOR 0.9% 1000 ML INJ 1,000 ML IV SCH (13:26)
[2017-11-05] MEDS: SODIUM PHOSPHATE INJ 30 MMOL in SODIUM CHLOR 0.9% 250 ML INJ 240 ML IV PRN (13:41)
[2017-11-05 14:06] LABS: BACTERIA, URINE OCC /hpf; BILIRUBIN, URINE NEG (NEG); BLOOD, URINE NEG (NEG); GLUCOSE,URINE 1000 mg/dL (NEG); KETONE, URINE TRACE mg/dL (NEG); MUCUS URINE FEW /lpf (OCC); NITRITE,URINE NEG (NEG); URINE COLOR LIGHT-YELLOW (YELLW/STRAW); URINE LEUKOCYTE ESTERASE LARGE (NEG); WHITE BLOOD CELL CLUMPS OCC
--- NOTE | 2017-11-05 16:14 | HHI.CCPN ---
Subjective Remarks/Hospital Course 72-year-old male was brought in by EMS after patient had a cardiopulmonary arrest. Patient was reportedly driving his and collapsed. Patient became unresponsive. Chest compression were started. EMS was called. Patient's rhythm was found to be in V. fib and the patient was defibrillated. He regained pulse and blood pressure. On the arrival to emergency department the patient remained unresponsive. Patient has a history of known coronary artery disease with a bun stent in place many years ago, no history of diabetes hypertension or COPD. Subjective: 11/05: Hypothermic cooling in progress. Amiodarone discontinued. She continues on propofol and fentanyl for sedation as well as Nimbex for paralysis. Norepinephrine has been discontinued. Blood urine and sputum cultures obtained. His blood culture specimen revealing gram-positive cocci. Empiric antibiotics initiated. Objective Vital Signs Date Time Temp Pulse Resp B/P (MAP) Pulse Ox O2 Delivery O2 Flow Rate FiO2 11/05/17 15:17 100 40 11/05/17 15:00 91.9 46 16 121/65 (83) 110/57 (74) 11/04/17 22:04 Ventilator Intake and Output 11/05/17 11/05/17 11/06/17 08:00 16:00 00:00 Intake Total 600 ml 2145 ml Output Total 290 ml 996 ml Balance 310 ml 1149 ml Result Diagram: 11/05/17 0340 11/05/17 0340 Other Results Laboratory Tests Test 11/04/17 21:27 Blood Gas Puncture Site RT RADIAL Blood Gas Patient Temperature 96.6 Blood Gas HCO3 25 mmol/L (22-26) Blood Gas Base Excess -0.4 mmol/L (-2-2) Blood Gas Oxygen Saturation 98 % (90-100) Arterial Blood pH 7.35 (7.380-7.420) Arterial Blood Partial Pressure CO2 45 mmHg (38-42) Arterial Blood Partial Pressure O2 479 mmHG (61-120) Arterial Blood Oxygen Content 17.9 Vol % (12.0-20.0) Arterial Blood Carboxyhemoglobin 0.6 % (0-4) Arterial Blood Methemoglobin 1.1 % (0-2) Blood Gas Hemoglobin 12.1 G/DL (12.0-16.0) Oxygen Delivery Device VENTILATOR Blood Gas Ventilator Setting VAC16/550/+5 Blood Gas Inspired Oxygen 100 % Imaging Last [address] 11/04/172011 Signed Impressions: Service Date/Time: Saturday, November 04, 2017 22:10 - CONCLUSION: No acute disease. Mike Davalos MD Chest X-Ray 11/04/172011 Signed Impressions: Service Date/Time: Saturday, November 04, 2017 20:40 - CONCLUSION: ET tube in good position. Lungs are clear. Mike Davalos MD Objective Remarks GENERAL: Well-nourished, well-developed obese male patient obese male patient sedated intubated and paralyzed. SKIN: Focused skin assessment warm/dry. HEAD: Normocephalic. EYES: No scleral icterus. No injection or drainage. Pupils constricted, minimally reactive NECK: Supple, trachea midline. No JVD or lymphadenopathy. CARDIOVASCULAR: Mild tachycardia rate and rhythm without murmurs, gallops, or rubs. RESPIRATORY: Breath sounds equal bilaterally. No accessory muscle use. Patient will has spontaneous respiration. GASTROINTESTINAL: Abdomen soft, nondistended. MUSCULOSKELETAL: No cyanosis, or edema. BACK: Nontender without obvious deformity. No CVA tenderness. Neurologic exam: Patient unresponsive. Withdraws to pain, GCS 6 A/P Assessment and Plan Respiratory failure - Intubated for airway protection - Post cardiac arrest - No weaning until neurologically improved - DuoNeb's when necessary - Chest x-ray and ABG daily ID - Blood urine and sputum cultures - Blood culture gram-positive cocci-vancomycin, cefepime, azithromycin initiated - Follow-up urine and sputum culture Cardiac arrest - V. fib arrest - Underlying coronary artery disease - Ischemic workup per cardiology Dr. Young - Therapeutic hypothermia protocol-begin rewarming at 3 AM - Amiodarone discontinued 11/06 - Heparin drip - Series of EKGs and troponin levels Lactic acidosis - IV fluid hydration - Monitor trend Acute kidney injury - Unknown baseline - IV fluid hydration - Strict I's and O's - Monitor creatinine and electrolytes levels DVT GI prophylaxis - Teds SCDs - IV heparin - Pepcid my billing statement This patient remains critically ill with one or more organ systems which are or may become a threat to life. I have spent in excess of 30 minutes discontinuously in the care and management of this patient. This time is exclusive of procedures, and includes, but is not limited to, evaluation of the patient, review of the medical record, discussions with family, consultants, nursing staff, or respiratory therapy, and documentation in the medical record. Physician Margaret Alvarado MD Nov 05, 2017 16:14
[2017-11-05] MEDS ORDERED: Vancomycin Consult Pharmacy 1 EA OTHER SCH (16:15)
--- NOTE | 2017-11-05 16:45 | MB ---
cc: NATACHA GILMAN MD DATE OF CONSULTATION 11/05/17 HISTORY OF PRESENT ILLNESS A 72 year old white male who was brought after he had a cardiopulmonary arrest. He was driving his . He collapsed, was unresponsive. He was given CPR. EMS found him in ventricle fibrillation and he was defibrillated and began pulse and blood pressure. He remained unresponsive. He was admitted to the ICU. Cooling protocol was started. He has previous history of coronary artery disease with coronary stenting. MEDICAL HISTORY There is no history of diabetes mellitus, hypertension, COPD. There is previous history of appendectomy. MEDICATIONS IV Amiodarone. The patient is sedated and paralyzed. SOCIAL HISTORY The patient does not smoke. He does not drink alcohol. He is . FAMILY HISTORY Negative for heart disease. REVIEW OF SYSTEMS Otherwise negative. PHYSICAL EXAMINATION VITAL SIGNS: Blood pressure 150/73, pulse 48 and regular. The patient is intubated, sedated and paralyzed. HEENT: Negative. 2+ carotid upstrokes. No bruits. LUNGS: Clear. HEART: Regular with no murmur, gallop or rub. ABDOMEN: Soft. No bruits. EXTREMITIES: Without edema. 2+ distal pulses NEUROLOGIC: Exam is grossly nonfocal. The patient is unresponsive. CARDIOLOGY STUDIES EKG was reviewed and showed normal sinus rhythm, inferior Q-waves and nonspecific ST-T changes. LABORATORY DATA Hemoglobin 11.8, potassium 3.5, creatinine 1.1, troponin 4.1 and 1.8. BNP 112, AST 92, ALT 98. DIAGNOSES 1. Ventricular fibrillation arrest. 2. Respiratory failure 3. Acute renal insufficiency. 4. Coronary artery disease, history of coronary stenting DISPOSITION Mr. Back will be monitored in the ICU. We will complete cooling protocol. We will obtain a echocardiogram to evaluate his left ventricular function. We will discontinue IV Amiodarone at this time. If his neurologic status improves, we will proceed with further cardiac evaluation including cardiac catheterization and possible placement of implantable defibrillator. MD MAYRA Soria/ /3:47 PM /4:29 PM [facility]
[2017-11-05] MEDS: CISATRACURIUM INJ 200 MG in SODIUM CHLORID 0.9% 500 ML INJ 480 ML IV PRN (16:57)
[2017-11-05] MEDS: CEFEPIME INJ 2,000 MG in SODIUM CHLORIDE 0.9% INJ 100 ML IV SCH (17:02)
[2017-11-05] MEDS: AZITHROMYCIN INJ 250 MG in SODIUM CHLOR 0.9% 250 ML INJ 250 ML IV SCH (17:15)
[2017-11-05] MEDS: VANCOMYCIN INJ 1,500 MG in SODIUM CHLORID 0.9% 500 ML INJ 500 ML IV SCH (17:15)
[2017-11-05] MEDS ORDERED: MEDIUM DOSE INSULIN NOVOLIN REGULAR SUPPLEMENTAL SCALE SQ SCH (21:00)
[2017-11-06] VITALS (26 sets, daily range): BP systolic 90–174; BP diastolic 51–79; PULSE 40–102; RESP 16–34; O2SAT 94–100
[2017-11-06] MEDS: CISATRACURIUM INJ 200 MG in SODIUM CHLORID 0.9% 500 ML INJ 480 ML IV PRN ×3 (00:45→11:29)
[2017-11-06] MEDS: SODIUM CHLOR 0.9% 1000 ML INJ 1,000 ML IV SCH ×4 (00:46→16:12)
[2017-11-06] MEDS: CEFEPIME INJ 2,000 MG in SODIUM CHLORIDE 0.9% INJ 100 ML IV SCH ×3 (00:46→16:13)
[2017-11-06] MEDS: PROPOFOL 1000 MG/100 ML INJ 100 ML IV PRN ×2 (01:11→07:50)
[2017-11-06] MEDS ORDERED: TERBUTALINE INJ 1 MG/ML AMP SQ PRN (01:15)
[2017-11-06] MEDS: DOPamine 800 MG/D5W PREMIX 500 ML IV PRN ×2 (01:18→21:47)
[2017-11-06] MEDS: SODIUM PHOSPHATE INJ 30 MMOL in SODIUM CHLOR 0.9% 250 ML INJ 240 ML IV PRN (02:45)
[2017-11-06] MEDS: CHLORHEXIDINE GLUCONATE 2 % 1 PACK (2 CLOTHS) TOP SCH (03:11)
[2017-11-06] MEDS: VANCOMYCIN INJ 1,500 MG in SODIUM CHLORID 0.9% 500 ML INJ 500 ML IV SCH ×2 (05:19→17:38)
[2017-11-06] MEDS: MEDIUM DOSE INSULIN NOVOLIN REGULAR SUPPLEMENTAL SCALE SQ SCH ×5 (07:10→23:55)
[2017-11-06] MEDS: DOCUSATE SODIUM 50 MG/SENNA 8.6 MG TAB PO SCH ×2 (07:49→21:00)
[2017-11-06] MEDS: FAMOTIDINE 20 MG/2 ML VIAL IV PUSH SCH ×2 (07:49→21:42)
[2017-11-06] MEDS: ARTIFICIAL TEARS OPTH SOLN 15 ML BTL EACH EYE SCH ×3 (07:49→17:38)
[2017-11-06] MEDS: CHLORHEXIDINE 0.12% (ORAL KIT) 15 ML CUP MT SCH ×2 (07:50→21:41)
[2017-11-06 08:14] LABS: AUTOMATED NEUTROPHIL # 9.9 TH/MM3 (1.8-7.7); BASOPHIL % 0.4 % (0.0-2.0); EOSINOPHIL # 0.1 TH/MM3 (0-0.4); EOSINOPHIL % 0.9 % (0.0-4.0); HEMATOCRIT 33.9 % (39.0-51.0); HEMOGLOBIN 11.6 GM/DL (13.0-17.0); LYMPH % 5.8 % (9.0-44.0); LYMPHOCYTE # 0.6 TH/MM3 (1.0-4.8); MEAN CELL VOLUME 92.2 FL (80.0-100.0); MEAN CORPUSCULAR HEMOGLOBIN 31.4 PG (27.0-34.0); MEAN CORPUSCULAR HGB CONC 34.1 % (32.0-36.0); MEAN PLATELET VOLUME 10.4 FL (7.0-11.0); MONO % 3.2 % (0.0-8.0); MONOCYTE # 0.4 TH/MM3 (0-0.9); NEUT % 89.7 % (16.0-70.0); PLATELET COUNT 122 TH/MM3 (150-450); RED BLOOD COUNT 3.68 MIL/MM3 (4.50-5.90); RED CELL DISTRIBUTION WIDTH 13.4 % (11.6-17.2)
[2017-11-06 08:33] LABS: ALBUMIN 2.5 GM/DL (3.4-5.0); BICARBONATE 21.4 MEQ/L (21.0-32.0); CALCIUM-PROTEIN CORRECTED 7.9 MG/DL (8.5-10.1); CREATININE 0.86 MG/DL (0.60-1.30); MAGNESIUM 1.5 MG/DL (1.5-2.5); TOTAL BILIRUBIN ADULT 0.5 MG/DL (0.2-1.0); TOTAL PROTEIN 5.3 GM/DL (6.4-8.2)
[2017-11-06] MEDS: POTASSIUM CHLOR 40 MEQ PREMIX 100 ML IV PRN (08:53)
[2017-11-06] MEDS ORDERED: CALCIUM GLUCONATE INJ 2 GM in SODIUM CHLORIDE 0.9% INJ 100 ML IV ONE (10:15)
--- NOTE | 2017-11-06 13:31 | PD.CARD.PN ---
Subjective Subjective Remarks Intubated, sedated, warming in process Objective Medications Current Medications Medications (Trade) Dose Ordered Sig/Juan Route Start Time Stop Time Status Last Admin Sodium Chloride 1,000 ml @ 84 mls/hr [id number] IV 11/04/17 22:00 11/06/17 00:46 (Tylenol) 650 mg Q6H PRN PO 11/04/17 22:00 (Pepcid Inj) 20 mg Q12HR IV PUSH 11/05/17 09:00 11/06/17 07:49 (Versed Inj) 2 mg Q1H PRN IV PUSH 11/04/17 22:00 (Tears Naturale Opth Soln) 1 drop TID EACH EYE 11/05/17 09:00 11/06/17 12:29 (Zofran Inj) 4 mg Q6H PRN IV PUSH 11/04/17 22:00 (Duoneb Neb) 1 ampule Q2HR NEB PRN INH 11/04/17 22:00 Miscellaneous Information 1 Q361D XX 11/04/17 22:00 (Chlorhexidine 2% Cloth) 3 pack Taper DAILY@04 TOP 11/05/17 04:00 11/01/18 03:59 (Chlorhexidine 2% Cloth) 3 pack UNSCH PRN TOP 11/04/17 22:00 (Ashley-Colace) 1 tab BID PO 11/05/17 09:00 11/06/17 07:49 (Milk Of Magnesia Liq) 30 ml Q12H PRN PO 11/04/17 22:00 (Senokot) 17.2 mg Q12H PRN PO 11/04/17 22:00 (Dulcolax Supp) 10 mg DAILY PRN RECTAL 11/04/17 22:00 (Lactulose Liq) 30 ml DAILY PRN PO 11/04/17 22:00 (Heparin Inj) 5,000 units UNSCH PRN IV PUSH 11/05/17 04:00 (Heparin Inj) 2,500 units UNSCH PRN IV PUSH 11/05/17 04:00 11/05/17 11:56 (Peridex 0.12% Liq) 15 ml BID@08,20 MT 11/05/17 08:00 11/06/17 07:50 Propofol 100 ml @ 3.84 mls/hr TITRATE PRN IV 11/04/17 22:00 11/06/17 07:50 Fentanyl Citrate 250 ml @ 5 mls/hr TITRATE PRN IV 11/04/17 22:00 11/05/17 23:37 (Ativan Inj) 1 mg Q1H PRN IV PUSH 11/05/17 01:15 Miscellaneous Information ml @ 0 mls/hr UNSCH IV 11/05/17 01:15 (NS Flush) 2 ml UNSCH PRN IV FLUSH 11/05/17 01:15 (NS Flush) 2 ml UNSCH PRN IV FLUSH 11/05/17 01:15 (Demerol Inj) 25 mg Q2H PRN IV PUSH 11/05/17 01:15 11/05/17 01:32 (Tylenol 650 Mg/ 20 ml Liq) 650 mg Q6H PRN NG 11/05/17 01:15 11/05/17 01:42 (Buspar) 15 mg BID PRN NG 11/05/17 01:15 11/05/17 01:42 (Lacrilube Opht Oint) 1 applic Q4H PRN EACH EYE 11/05/17 01:15 Norepinephrine Bitartrate 4 mg/ Sodium Chloride 250 ml @ 7.5 mls/hr Q24H PRN IV 11/05/17 01:15 11/05/17 18:39 Potassium Chloride 100 ml @ 50 mls/hr Q2H PRN IV 11/05/17 01:30 Potassium Chloride 100 ml @ 50 mls/hr Q2H PRN IV 11/05/17 01:30 (K-Lyte Cl Eff) 50 meq UNSCH PRN PO 11/05/17 01:30 Potassium Chloride 100 ml @ 25 mls/hr UNSCH PRN IV 11/05/17 01:30 11/06/17 08:53 Potassium Chloride 100 ml @ 50 mls/hr Q2H PRN IV 11/05/17 01:30 Magnesium Sulfate 4 gm/Sodium Chloride 100 ml @ 50 mls/hr UNSCH PRN IV 11/05/17 01:30 (Mag-Ox) 800 mg UNSCH PRN PO 11/05/17 01:30 Magnesium Sulfate 2 gm/Sodium Chloride 100 ml @ 50 mls/hr UNSCH PRN IV 11/05/17 01:30 11/06/17 09:12 (K-Phos) 2,000 mg Q4H PRN PO 11/05/17 01:30 Sodium Phosphate 30 mmol/Sodium Chloride 250 ml @ 42 mls/hr UNSCH PRN IV 11/05/17 01:30 11/06/17 02:45 (K-Phos) 2,000 mg UNSCH PRN PO/TUBE 11/05/17 01:30 Potassium Phosphate 30 mmol/ Sodium Chloride 260 ml @ 42 mls/hr UNSCH PRN IV 11/05/17 01:30 Amiodarone HCl 450 mg/Sodium Chloride 250 ml @ 33.33 mls/ hr Q7H31M PRN IV 11/05/17 05:45 11/05/17 06:03 Heparin Sodium (Porcine) 16830 units/Sodium Chloride 250 ml @ 10 mls/hr TITRATE PRN IV 11/05/17 06:00 11/05/17 21:48 Midazolam HCl 100 ml @ 2 mls/hr TITRATE PRN IV 11/05/17 12:15 11/05/17 12:18 Pharmacy Profile Note 0 ml @ 0 mls/hr UNSCH OTHER 11/05/17 16:15 Cefepime HCl 2000 mg/Sodium Chloride 100 ml @ 200 mls/hr Q8H IV 11/05/17 17:00 11/06/17 07:50 Azithromycin 250 mg/Sodium Chloride 250 ml @ 250 mls/hr Q24H IV 11/05/17 18:00 11/05/17 17:15 Cisatracurium Besylate 200 mg/ Sodium Chloride 500 ml @ 63.36 mls/ hr TITRATE PRN IV 11/05/17 17:00 11/06/17 11:29 Vancomycin HCl 1500 mg/Sodium Chloride 515 ml @ 250 mls/hr Q12H IV 11/05/17 18:00 11/06/17 05:19 Miscellaneous Information SPECIFIC LAB TO BE DRAWN:[facility]ANCO TROUGH DATE TO BE DRCece. ONCE ONCE .XX 11/07/17 05:45 11/07/17 05:46 (D50w (Vial) Inj) 50 ml UNSCH PRN IV PUSH 11/05/17 19:45 (Glucagon Inj) 1 mg UNSCH PRN OTHER 11/05/17 19:45 Dopamine HCl/ Dextrose 500 ml @ 24 mls/hr CONTINUOUS PRN IV 11/06/17 01:15 1/12/18 01:18 (Brethine Inj) 1 mg UNSCH PRN SQ 11/06/17 01:15 (NovoLIN R SUPPLEMENTAL SCALE) 1 Q4HR SQ 11/06/17 08:00 11/06/17 11:28 Vital Signs / I&O Vital Signs Date Time Temp Pulse Resp B/P (MAP) Pulse Ox O2 Delivery O2 Flow Rate FiO2 11/06/17 13:00 97.5 83 16 125/61 (82) 97 138/59 (85) 11/06/17 13:00 83 11/06/17 12:00 75 11/06/17 12:00 40 11/06/17 12:00 97.0 75 16 114/59 (77) 98 133/56 (81) 11/06/17 11:45 98 40 11/06/17 11:00 96.4 75 16 108/58 (75) 98 131/54 (79) 11/06/17 11:00 75 11/06/17 10:00 95.9 73 16 118/56 (76) 96 141/58 (85) 11/06/17 10:00 73 11/06/17 09:00 75 11/06/17 09:00 95.4 75 16 126/60 (82) 95 150/60 (90) 11/06/17 08:27 98 40 11/06/17 08:00 95.0 66 16 136/66 (89) 96 155/72 (99) 11/06/17 08:00 66 11/06/17 08:00 40 11/06/17 07:50 60 111/46 11/06/17 07:00 58 123/51 11/06/17 07:00 94.3 58 16 104/57 (73) 98 123/51 (75) 11/06/17 07:00 58 11/06/17 06:00 57 11/06/17 06:00 93.7 56 16 108/55 (72) 99 128/53 (78) 11/06/17 05:00 92.8 54 16 118/58 (78) 98 133/56 (81) 11/06/17 05:00 54 11/06/17 04:00 40 11/06/17 04:00 92.1 53 16 114/56 (75) 97 131/54 (79) 11/06/17 04:00 54 11/06/17 03:17 96 40 11/06/17 03:00 52 11/06/17 03:00 91.6 52 16 127/59 (81) 96 142/58 (86) 11/06/17 02:00 58 11/06/17 02:00 91.4 60 16 94 174/79 (110) 11/06/17 01:18 41 98/51 11/06/17 01:00 91.8 42 16 90/51 (64) 100 101/52 (68) 11/06/17 01:00 42 11/06/17 00:21 96 40 11/06/17 00:00 91.8 40 16 100 119/68 (85) 11/06/17 00:00 40 11/06/17 00:00 40 11/05/17 23:00 91.8 43 16 102/57 (72) 100 106/57 (73) 11/05/17 23:00 43 11/05/17 22:00 43 11/05/17 22:00 91.8 43 16 104/59 (74) 100 110/57 (74) 11/05/17 21:00 91.9 44 16 110/62 (78) 100 110/57 (74) 11/05/17 21:00 44 11/05/17 20:00 91.9 42 16 150/66 (94) 100 135/70 (91) 11/05/17 20:00 42 11/05/17 20:00 40 11/05/17 19:54 100 40 11/05/17 19:00 45 11/05/17 18:39 46 100/55 11/05/17 18:00 46 11/05/17 18:00 91.9 46 16 97/57 (70) 100 95/49 (64) 11/05/17 17:00 91.9 45 16 111/63 (79) 100 112/59 (76) 11/05/17 17:00 45 11/05/17 16:00 40 11/05/17 16:00 46 11/05/17 16:00 91.9 46 16 112/65 (81) 100 105/56 (72) 11/05/17 15:17 100 40 11/05/17 15:00 91.9 46 16 121/65 (83) 100 110/57 (74) 11/05/17 15:00 46 11/05/17 14:00 91.9 48 16 150/73 (98) 100 134/61 (85) 11/05/17 14:00 48 I/O 11/05/17 11/05/17 11/05/17 11/06/17 11/06/17 11/06/17 07:00 15:00 23:00 07:00 15:00 23:00 Intake Total 350 ml 2395 ml 2519 ml 9642 ml 1474 ml Output Total 250 ml 1056 ml 385 ml 745 ml 660 ml Balance 100 ml 1339 ml 2134 ml 8897 ml 814 ml Intake IV Total 350 ml 2395 ml 2459 ml 9642 ml 1474 ml Tube Irrigant 60 ml Output Urine Total 250 ml 1056 ml 285 ml 645 ml 660 ml Stool Total 0 ml Gastric Drainage Total 100 ml 100 ml # Voids 25 # Bowel Movements 0 Laboratory Laboratory Tests Test 11/05/17 17:25 11/06/17 00:30 11/06/17 06:40 11/06/17 07:43 Activated Partial Thromboplast Time 65.1 SEC 81.1 SEC 62.6 SEC Potassium Level 3.7 MEQ/L 3.5 MEQ/L Phosphorus Level 2.2 MG/DL White Blood Count 11.0 TH/MM3 Red Blood Count 3.68 MIL/MM3 Hemoglobin 11.6 GM/DL Hematocrit 33.9 % Mean Corpuscular Volume 92.2 FL Mean Corpuscular Hemoglobin 31.4 PG Mean Corpuscular Hemoglobin Concent 34.1 % Red Cell Distribution Width 13.4 % Platelet Count 122 TH/MM3 Mean Platelet Volume 10.4 FL Neutrophils (%) (Auto) 89.7 % Lymphocytes (%) (Auto) 5.8 % Monocytes (%) (Auto) 3.2 % Eosinophils (%) (Auto) 0.9 % Basophils (%) (Auto) 0.4 % Neutrophils # (Auto) 9.9 TH/MM3 Lymphocytes # (Auto) 0.6 TH/MM3 Monocytes # (Auto) 0.4 TH/MM3 Eosinophils # (Auto) 0.1 TH/MM3 Basophils # (Auto) 0.0 TH/MM3 CBC Comment DIFF FINAL Differential Comment Blood Urea Nitrogen 18 MG/DL Creatinine 0.86 MG/DL Random Glucose 207 MG/DL Total Protein 5.3 GM/DL Albumin 2.5 GM/DL Calcium Level 7.0 MG/DL Magnesium Level 1.5 MG/DL Alkaline Phosphatase 53 U/L Aspartate Amino Transf (AST/SGOT) 48 U/L Alanine Aminotransferase (ALT/SGPT) 85 U/L Total Bilirubin 0.5 MG/DL Sodium Level 144 MEQ/L Chloride Level 113 MEQ/L Carbon Dioxide Level 21.4 MEQ/L Anion Gap 10 MEQ/L Estimat Glomerular Filtration Rate 88 ML/MIN Protein Corrected Calcium 7.9 MG/DL Test 11/06/17 13:08 Assessment and Plan Problem List: (1) VF (ventricular fibrillation) ICD Codes: I49.01 - Ventricular fibrillation Status: Acute (2) Respiratory failure ICD Codes: J96.90 - Respiratory failure, unspecified, unspecified whether with hypoxia or hypercapnia Status: Acute (3) Hyperglycemia ICD Codes: R73.9 - Hyperglycemia, unspecified Status: Acute Assessment and Plan Continue ICU care. Sedation withdrawn, cooling completed. Neurologic status unclear, if improved, will proceed with cath and possibly ICD placement next week. Problem Qualifiers (1) Respiratory failure: Qualified Codes: J96.00 - Acute respiratory failure, unspecified whether with hypoxia or hypercapnia Lawrence Alvares MD Nov 06, 2017 13:30
--- NOTE | 2017-11-06 14:22 | EKG ---
Date Performed: 11/04/2017 Time Performed: 20:08:37 PTAGE: 72 years EKG: Sinus rhythm WITH SHORT MT INTERVAL INFERIOR MYOCARDIAL INFARCTION - age indeterminate Repolarization abnormality ABNORMAL ECG NO PREVIOUS TRACING DOCTOR: Jose Bar Interpretating Date/Time 11/06/2017 14:21:15
[2017-11-06] MEDS: fentaNYL DRIP 250 ML IV PRN (14:25)
--- NOTE | 2017-11-06 15:27 | ECHRPT ---
Indication: SHORTNESS OF BREATH CONCLUSIONS The left ventricular systolic function is severely reduced with an estimated ejection fraction in th e range of 30-35%. Normal left ventricular size. Mild concentric left ventricular hypertrophy. No regional wall motion abnormalities are present. Mild thickening of the mitral valve leaflets. Mild mitral valve stenosis. Moderate thickening of the aortic valve leaflets. There is trace tricuspid valve regurgitation. The estimated pulmonary arterial pressure is 35 mmHg. BP: / HR: Rhythm: Sinus MEASUREMENTS (Male / Female) Normal Values Technical Quality:Fair 2D ECHO LV Diastolic Diameter PLAX 4.5 cm 4.2 - 5.9 / 3.9 - 5.3 cm LV Systolic Diameter PLAX 3.8 cm IVS Diastolic Thickness 1.5 cm 0.6 - 1.0 / 0.6 - 0.9 cm LVPW Diastolic Thickness 1.5 cm 0.6 - 1.0 / 0.6 - 0.9 cm LV Relative Wall Thickness 0.7 LVOT Diameter 1.9 cm LV Ejection Fraction MOD 4C 34.2 % LV Ejection Fraction 4C AL 36.1 % M-MODE LV Diastolic Diameter MM 4.8 cm 4.2 - 5.9 / 3.9 - 5.3 cm LV Systolic Diameter MM 4.4 cm LV Ejection Fraction MM Teich 16.3 % IVS Diastolic Thickness MM 1.1 cm 0.6 - 1.0 / 0.6 - 0.9 cm LVPW Diastolic Thickness MM 1.1 cm 0.6 - 1.0 / 0.6 - 0.9 cm LV Relative Wall Thickness MM 0.5 0.24 - 0.42 / 0.22 - 0.42 LV Mass Index MM 78.3 g/m 49 - 115 / 43 - 95 g/m Aortic Root Diameter MM 3.2 cm LA Systolic Diameter MM 3.9 cm LA Ao Ratio MM 1.2 AV Cusp Separation MM 2.1 cm DOPPLER AV Peak Velocity 113.0 cm/s AV Peak Gradient 5.1 mmHg LVOT Peak Velocity 71.6 cm/s LVOT Peak Gradient 2.1 mmHg AV Area Cont Eq pk 1.8 cm MV Peak Velocity 86.8 cm/s MV Peak Gradient 3.0 mmHg MV Mean Velocity 47.8 cm/s MV Mean Gradient 1.0 mmHg MV Area PHT 2.4 cm Mitral E Point Velocity 73.5 cm/s Mitral A Point Velocity 91.3 cm/s Mitral E to A Ratio 0.8 TR Peak Velocity 250.0 cm/s TR Peak Gradient 25.0 mmHg Right Atrial Pressure 10.0 mmHg Pulmonary Artery Systolic Pressu 35.0 mmHg Right Ventricular Systolic Press 35.0 mmHg PV Peak Velocity 60.8 cm/s PV Peak Gradient 1.5 mmHg FINDINGS LEFT VENTRICLE The left ventricular systolic function is severely reduced with an estimated ejection fraction in th e range of 30-35%. Normal left ventricular size. Mild concentric left ventricular hypertrophy. No regional wall motion abnormalities are present. RIGHT VENTRICLE Normal right ventricular size and systolic function. LEFT ATRIUM The left atrial size is normal. RIGHT ATRIUM The right atrial size is normal. ATRIAL SEPTUM Normal atrial septal thickness without atrial level shunting by limited color doppler interrogation. AORTA The aortic root and proximal ascending aorta are normal in size on limited imaging. MITRAL VALVE Mild thickening of the mitral valve leaflets. Mild mitral valve stenosis. AORTIC VALVE Trileaflet aortic valve. Moderate thickening of the aortic valve leaflets. TRICUSPID VALVE Structurally normal tricuspid valve. There is trace tricuspid valve regurgitation. The estimated pulmonary arterial pressure is 35 mmHg. PULMONARY VALVE No pulmonary valve regurgitation or stenosis. VESSELS The inferior vena cava is normal in size. PERICARDIUM No pericardial effusion. Mike Vega MD, FACC (Electronically Signed) Final Date:06 November 2017 15:26
[2017-11-06] MEDS: AZITHROMYCIN INJ 250 MG in SODIUM CHLOR 0.9% 250 ML INJ 250 ML IV SCH (16:48)
--- NOTE | 2017-11-06 17:26 | HHI.CCPN ---
Subjective Remarks/Hospital Course 72-year-old male was brought in by EMS after patient had a cardiopulmonary arrest. Patient was reportedly driving his and collapsed. Patient became unresponsive. Chest compression were started. EMS was called. Patient's rhythm was found to be in V. fib and the patient was defibrillated. He regained pulse and blood pressure. On the arrival to emergency department the patient remained unresponsive. Patient has a history of known coronary artery disease with a bun stent in place many years ago, no history of diabetes hypertension or COPD. Subjective: 11/05: Hypothermic cooling in progress. Amiodarone discontinued. She continues on propofol and fentanyl for sedation as well as Nimbex for paralysis. Norepinephrine has been discontinued. Blood urine and sputum cultures obtained. His blood culture specimen revealing gram-positive cocci. Empiric antibiotics initiated. 11/06-Patient rewarmed to 37 at approximately 1400 today. Muscle relaxants discontinued. Sedation, Versed and fentanyl infusions, currently being weaned off. The patient continues on dopamine at 5 mcgs, to maintain a map greater than 65mmHG. levo fed has been discontinued. Plan for EEG tomorrow. Echo revealed an EF of 30-35 %. Objective Vital Signs Date Time Temp Pulse Resp B/P (MAP) Pulse Ox O2 Delivery O2 Flow Rate FiO2 11/06/17 16:00 99.0 91 34 118/59 (78) 96 125/54 (77) 11/06/17 16:00 40 11/04/17 22:04 Ventilator Intake and Output 11/06/17 11/06/17 11/07/17 08:00 16:00 00:00 Intake Total 9182 ml 2017 ml 530 ml Output Total 805 ml 770 ml Balance 8377 ml 1247 ml 530 ml Result Diagram: 11/06/17 0743 11/06/17 0743 Imaging Last [address] 11/04/172011 Signed Impressions: Service Date/Time: Saturday, November 04, 2017 22:10 - CONCLUSION: No acute disease. Mike Davalos MD Chest X-Ray 11/04/172011 Signed Impressions: Service Date/Time: Saturday, November 04, 2017 20:40 - CONCLUSION: ET tube in good position. Lungs are clear. Mike Davalos MD Objective Remarks GENERAL: Well-nourished, well-developed obese male patient obese male patient sedated and intubated SKIN: Focused skin assessment warm/dry. HEAD: Normocephalic. EYES: No scleral icterus. No injection or drainage. Pupils constricted, minimally reactive NECK: Supple, trachea midline. No JVD or lymphadenopathy. CARDIOVASCULAR: Mild tachycardia rate and rhythm without murmurs, gallops, or rubs. RESPIRATORY: Breath sounds equal bilaterally. No accessory muscle use. Clear to auscultation bilaterally GASTROINTESTINAL: Abdomen soft, nondistended. MUSCULOSKELETAL: No cyanosis, or edema. BACK: Nontender without obvious deformity. No CVA tenderness. Neurologic exam: Currently nonresponsive sedated and intubated A/P Assessment and Plan Respiratory failure - Intubated for airway protection - Post cardiac arrest - No weaning until neurologically improved - DuoNeb's when necessary - Chest x-ray and ABG daily ID - Blood urine and sputum cultures-urine gram-negative rods, sputum Moraxella catarrhalis - Blood culture-staph [id number], cefepime, azithromycin initiated -ID consulted Cardiac arrest - V. fib arrest - Underlying coronary artery disease -IV infusions dopamine at 5 nelida - Ischemic workup per cardiology Dr. Young - Rewarmed 11/06 1330 - Amiodarone discontinued 11/06 - Heparin drip - Series of EKGs and troponin levels - 11/06 EF 30-35 %. No regional wall motion abnormalities. PAP 35. Mild MV stenosis trace TR Lactic acidosis - IV fluid hydration - Monitor trend Acute kidney injury - Unknown baseline - IV fluid hydration - Strict I's and O's - Monitor creatinine and electrolytes levels DVT GI prophylaxis - Teds SCDs - IV heparin infusion - Pepcid my billing statement This patient remains critically ill with one or more organ systems which are or may become a threat to life. I have spent in excess of 35 minutes discontinuously in the care and management of this patient. This time is exclusive of procedures, and includes, but is not limited to, evaluation of the patient, review of the medical record, discussions with family, consultants, nursing staff, or respiratory therapy, and documentation in the medical record. Physician Margaret Alvarado MD Nov 06, 2017 17:26
[2017-11-06] MEDS: MIDAZOLAM 100 MG/NS 100 ML DRIP Premix IV PRN (21:42)
[2017-11-06] MEDS: HEPARIN INJ 25,000 UNITS in SODIUM CHLOR 0.9% 250 ML INJ 247.5 ML IV PRN (21:45)
[2017-11-07] VITALS (19 sets, daily range): BP systolic 95–138; BP diastolic 55–70; PULSE 76–97; RESP 16; TEMP 79–99.3; O2SAT 98–100
[2017-11-07] MEDS: ONDANSETRON HCL 4 MG/2 ML VIAL IV PUSH PRN
[2017-11-07] MEDS: fentaNYL DRIP 250 ML IV PRN
[2017-11-07] MEDS: CHLORHEXIDINE GLUCONATE 2 % 1 PACK (2 CLOTHS) TOP SCH (04:00)
[2017-11-07] MEDS: MEDIUM DOSE INSULIN NOVOLIN REGULAR SUPPLEMENTAL SCALE SQ SCH ×5 (04:00→20:06)
[2017-11-07] MEDS ORDERED: PHARMACY ORDERED LAB ONE (05:45)
[2017-11-07 05:59] LABS: HEMATOCRIT 36.5 % (39.0-51.0); HEMOGLOBIN 12.2 GM/DL (13.0-17.0); MEAN CELL VOLUME 94.2 FL (80.0-100.0); MEAN CORPUSCULAR HEMOGLOBIN 31.4 PG (27.0-34.0); MEAN CORPUSCULAR HGB CONC 33.3 % (32.0-36.0); MEAN PLATELET VOLUME 10.8 FL (7.0-11.0); PLATELET COUNT 132 TH/MM3 (150-450); RED BLOOD COUNT 3.88 MIL/MM3 (4.50-5.90); RED CELL DISTRIBUTION WIDTH 13.7 % (11.6-17.2); WHITE BLOOD COUNT 13.1 TH/MM3 (4.0-11.0)
[2017-11-07 06:16] LABS: INTERNATIONAL NORMALIZED RATIO 1.1 RATIO; PROTHROMBIN TIME - PATIENT 11.6 SEC (9.8-11.6)
[2017-11-07 06:36] LABS: CREATININE 1.33 MG/DL (0.60-1.30)
[2017-11-07] MEDS: CEFEPIME INJ 2,000 MG in SODIUM CHLORIDE 0.9% INJ 100 ML IV SCH ×4 (08:36→20:01)
[2017-11-07] MEDS: FAMOTIDINE 20 MG/2 ML VIAL IV PUSH SCH ×2 (08:37→20:00)
[2017-11-07] MEDS: DOCUSATE SODIUM 50 MG/SENNA 8.6 MG TAB PO SCH ×2 (08:37→20:01)
[2017-11-07] MEDS: ARTIFICIAL TEARS OPTH SOLN 15 ML BTL EACH EYE SCH ×3 (08:37→18:47)
[2017-11-07] MEDS: CHLORHEXIDINE 0.12% (ORAL KIT) 15 ML CUP MT SCH ×2 (08:39→20:02)
[2017-11-07] MEDS: SODIUM CHLOR 0.9% 1000 ML INJ 1,000 ML IV SCH ×2 (08:39→20:56)
[2017-11-07 11:17] LABS: AUTOMATED NEUTROPHIL # 10.5 TH/MM3 (1.8-7.7); BASOPHIL % 0.4 % (0.0-2.0); EOSINOPHIL % 0.2 % (0.0-4.0); HEMATOCRIT 35.3 % (39.0-51.0); HEMOGLOBIN 11.7 GM/DL (13.0-17.0); LYMPH % 5.3 % (9.0-44.0); LYMPHOCYTE # 0.6 TH/MM3 (1.0-4.8); MEAN CELL VOLUME 93.7 FL (80.0-100.0); MEAN CORPUSCULAR HEMOGLOBIN 31.1 PG (27.0-34.0); MEAN CORPUSCULAR HGB CONC 33.2 % (32.0-36.0); MEAN PLATELET VOLUME 11.2 FL (7.0-11.0); MONO % 4.4 % (0.0-8.0); MONOCYTE # 0.5 TH/MM3 (0-0.9); NEUT % 89.7 % (16.0-70.0); PLATELET COUNT 136 TH/MM3 (150-450); RED BLOOD COUNT 3.77 MIL/MM3 (4.50-5.90); RED CELL DISTRIBUTION WIDTH 13.9 % (11.6-17.2); WHITE BLOOD COUNT 11.7 TH/MM3 (4.0-11.0)
[2017-11-07 11:36] LABS: BICARBONATE 22.2 MEQ/L (21.0-32.0); CALCIUM 7.4 MG/DL (8.5-10.1); CREATININE 1.3 MG/DL (0.60-1.30)
[2017-11-07 12:23] LABS: CALCIUM-PROTEIN CORRECTED 7.9 MG/DL (8.5-10.1); TOTAL PROTEIN 6.1 GM/DL (6.4-8.2)
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
[2017-11-07] MEDS: LACTOBACILLUS ACIDOPHILUS TAB PO SCH ×2 (13:29→20:00)
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
[2017-11-07] MEDS: SODIUM CHLORIDE 0.9% FLUSH 10 ML FLUSH IV FLUSH PRN ×2 (20:01)
[2017-11-07] MEDS: DOPamine 800 MG/D5W PREMIX 500 ML IV PRN (20:55)
[2017-11-07] MEDS: HEPARIN INJ 25,000 UNITS in SODIUM CHLOR 0.9% 250 ML INJ 247.5 ML IV PRN (21:35)
[2017-11-08] VITALS (19 sets, daily range): BP systolic 121–188; BP diastolic 62–89; PULSE 57–97; RESP 16–18; TEMP 98.4–98.9; O2SAT 98–100
[2017-11-08] MEDS: CHLORHEXIDINE GLUCONATE 2 % 1 PACK (2 CLOTHS) TOP SCH (03:24)
[2017-11-08 03:49] LABS: HEMOGLOBIN 11.8 GM/DL (13.0-17.0); MEAN CELL VOLUME 94.3 FL (80.0-100.0); MEAN CORPUSCULAR HEMOGLOBIN 31.8 PG (27.0-34.0); MEAN CORPUSCULAR HGB CONC 33.7 % (32.0-36.0); MEAN PLATELET VOLUME 10.2 FL (7.0-11.0); PLATELET COUNT 134 TH/MM3 (150-450); RED CELL DISTRIBUTION WIDTH 13.7 % (11.6-17.2); WHITE BLOOD COUNT 11.5 TH/MM3 (4.0-11.0)
[2017-11-08] MEDS: MEDIUM DOSE INSULIN NOVOLIN REGULAR SUPPLEMENTAL SCALE SQ SCH ×7 (04:00→23:51)
[2017-11-08 04:18] LABS: BICARBONATE 20.2 MEQ/L (21.0-32.0); CALCIUM 7.9 MG/DL (8.5-10.1); CREATININE 1.44 MG/DL (0.60-1.30); FREE T4 0.86 NG/DL (0.76-1.46); MAGNESIUM 2.1 MG/DL (1.5-2.5); PHOSPHORUS 3.4 MG/DL (2.5-4.9)
--- NOTE | 2017-11-08 04:43 | RADRPT ---
EXAM DATE/TIME: 11/08/2017 03:03 [facility] COMPARISON: CHEST SINGLE AP, November 05, 2017, 4:15. INDICATIONS : Shortness of breath, possible pulmonary disease. MEDICAL HISTORY : None. SURGICAL HISTORY : None. ENCOUNTER: Subsequent ACUITY: 4 - 6 days PAIN SCORE: Non-responsive. LOCATION: Bilateral chest FINDINGS: The support devices remain in place. There is a parenchymal infiltrate in the right lung base. There is a smaller infiltrate in the left lung base. There is no pneumothorax. The heart size is stable. Th e bony structures are stable. CONCLUSION: There are new Basilar infiltrates, right greater than left suggestive of atelectasis. Dillan Rosen MD on November 08, 2017 at 4:40 Board Certified Radiologist. This report was verified electronically.
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
[2017-11-08] MEDS: ARTIFICIAL TEARS OPTH SOLN 15 ML BTL EACH EYE SCH ×3 (09:06→17:12)
[2017-11-08] MEDS: CHLORHEXIDINE 0.12% (ORAL KIT) 15 ML CUP MT SCH ×2 (09:06→21:06)
[2017-11-08] MEDS: CEFEPIME INJ 2,000 MG in SODIUM CHLORIDE 0.9% INJ 100 ML IV SCH ×2 (09:07→21:06)
[2017-11-08] MEDS: LACTOBACILLUS ACIDOPHILUS TAB PO SCH ×2 (09:08→21:06)
[2017-11-08] MEDS: FAMOTIDINE 20 MG/2 ML VIAL IV PUSH SCH ×2 (09:08→21:06)
[2017-11-08] MEDS: DOCUSATE SODIUM 50 MG/SENNA 8.6 MG TAB PO SCH ×2 (09:08→21:06)
[2017-11-08] MEDS: SODIUM CHLOR 0.9% 1000 ML INJ 1,000 ML IV SCH ×2 (09:25→21:15)
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
[2017-11-08] MEDS ORDERED: HALOPERIDOL LACTATE 5 MG/ML AMP IV PUSH PRN (13:00)
[2017-11-08] MEDS: fentaNYL DRIP 250 ML IV PRN (17:43)
[2017-11-08] MEDS: HEPARIN INJ 25,000 UNITS in SODIUM CHLOR 0.9% 250 ML INJ 247.5 ML IV PRN (18:03)
[2017-11-08] MEDS: SODIUM CHLORIDE 0.9% FLUSH 10 ML FLUSH IV FLUSH PRN ×2 (21:07)
[2017-11-09] VITALS (23 sets, daily range): BP systolic 129–260; BP diastolic 62–114; PULSE 65–138; RESP 14–24; TEMP 98.8–100.9; O2SAT 93–100
[2017-11-09] MEDS: fentaNYL DRIP 250 ML IV PRN ×2 (02:52→04:57)
[2017-11-09] MEDS: LORazepam 2 MG/ML VIAL IV PUSH PRN ×2 (03:18→04:20)
[2017-11-09 03:43] LABS: HEMATOCRIT 30.6 % (39.0-51.0); HEMOGLOBIN 10.4 GM/DL (13.0-17.0); MEAN CELL VOLUME 94.3 FL (80.0-100.0); MEAN CORPUSCULAR HEMOGLOBIN 31.9 PG (27.0-34.0); MEAN CORPUSCULAR HGB CONC 33.8 % (32.0-36.0); PLATELET COUNT 122 TH/MM3 (150-450); RED BLOOD COUNT 3.25 MIL/MM3 (4.50-5.90); RED CELL DISTRIBUTION WIDTH 13.7 % (11.6-17.2); WHITE BLOOD COUNT 7.9 TH/MM3 (4.0-11.0)
[2017-11-09 03:56] LABS: BICARBONATE 25.4 MEQ/L (21.0-32.0); CALCIUM 8.2 MG/DL (8.5-10.1); CREATININE 1.35 MG/DL (0.60-1.30)
[2017-11-09] MEDS: MEDIUM DOSE INSULIN NOVOLIN REGULAR SUPPLEMENTAL SCALE SQ SCH ×5 (04:00→22:06)
[2017-11-09] MEDS: CHLORHEXIDINE GLUCONATE 2 % 1 PACK (2 CLOTHS) TOP SCH (04:00)
[2017-11-09] MEDS: HEPARIN SODIUM - IV 10,000 UNITS/10 ML VIAL IV PUSH PRN ×2 (05:19→11:47)
[2017-11-09] MEDS: HEPARIN INJ 25,000 UNITS in SODIUM CHLOR 0.9% 250 ML INJ 247.5 ML IV PRN (06:14)
[2017-11-09] MEDS: LACTOBACILLUS ACIDOPHILUS TAB PO SCH ×2 (08:34→22:03)
[2017-11-09] MEDS: DOCUSATE SODIUM 50 MG/SENNA 8.6 MG TAB PO SCH ×2 (08:34→22:03)
[2017-11-09] MEDS: CEFEPIME INJ 2,000 MG in SODIUM CHLORIDE 0.9% INJ 100 ML IV SCH (08:35)
[2017-11-09] MEDS: CHLORHEXIDINE 0.12% (ORAL KIT) 15 ML CUP MT SCH ×2 (08:35→22:03)
[2017-11-09] MEDS: FAMOTIDINE 20 MG/2 ML VIAL IV PUSH SCH ×2 (08:35→22:02)
[2017-11-09] MEDS: ARTIFICIAL TEARS OPTH SOLN 15 ML BTL EACH EYE SCH ×3 (08:35→17:12)
[2017-11-09] MEDS ORDERED: LABETALOL HCL 100 MG/20 ML VIAL IV PUSH ONE ×2 (10:00→15:15)
[2017-11-09] MEDS ORDERED: LABETALOL HCL 100 MG/20 ML VIAL ONE (10:08)
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
[2017-11-09] MEDS: AMIODARONE 200 MG TAB PO SCH ×2 (11:21→22:03)
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
[2017-11-09] MEDS: LABETALOL HCL 100 MG/20 ML VIAL IV PUSH PRN (13:24)
[2017-11-09] MEDS: HALOPERIDOL LACTATE 5 MG/ML AMP IV PUSH PRN (13:30)
[2017-11-09] MEDS: CIPROFLOXACIN 500 MG TAB PO SCH ×2 (13:56→22:05)
[2017-11-09] MEDS: hydrALAZINE HCL 20 MG/ML VIAL IV PUSH PRN ×2 (14:43→22:53)
[2017-11-09] MEDS: SODIUM CHLORIDE 0.9% FLUSH 10 ML FLUSH IV FLUSH PRN (14:43)
--- NOTE | 2017-11-09 16:19 | PD.CARD.PN ---
Subjective Subjective Remarks Intubated, sedated, restless Objective Medications Current Medications Medications (Trade) Dose Ordered Sig/Juan Route Start Time Stop Time Status Last Admin (Tylenol) 650 mg Q6H PRN PO 11/04/17 22:00 (Pepcid Inj) 20 mg Q12HR IV PUSH 11/05/17 09:00 11/09/17 08:35 (Tears Naturale Opth Soln) 1 drop TID EACH EYE 11/05/17 09:00 11/09/17 12:08 (Zofran Inj) 4 mg Q6H PRN IV PUSH 11/04/17 22:00 11/07/17 00:00 (Duoneb Neb) 1 ampule Q2HR NEB PRN INH 11/04/17 22:00 Miscellaneous Information 1 Q361D XX 11/04/17 22:00 11/04/17 22:00 (Chlorhexidine 2% Cloth) 3 pack Taper DAILY@04 TOP 11/05/17 04:00 11/01/18 03:59 11/08/17 03:24 (Chlorhexidine 2% Cloth) 3 pack UNSCH PRN TOP 11/04/17 22:00 (Ashley-Colace) 1 tab BID PO 11/05/17 09:00 11/09/17 08:34 (Milk Of Magnesia Liq) 30 ml Q12H PRN PO 11/04/17 22:00 (Senokot) 17.2 mg Q12H PRN PO 11/04/17 22:00 (Dulcolax Supp) 10 mg DAILY PRN RECTAL 11/04/17 22:00 (Lactulose Liq) 30 ml DAILY PRN PO 11/04/17 22:00 (Heparin Inj) 5,000 units UNSCH PRN IV PUSH 11/05/17 04:00 (Heparin Inj) 2,500 units UNSCH PRN IV PUSH 11/05/17 04:00 11/09/17 11:47 (Peridex 0.12% Liq) 15 ml BID@08,20 MT 11/05/17 08:00 11/09/17 08:35 Fentanyl Citrate 250 ml @ 5 mls/hr TITRATE PRN IV 11/04/17 22:00 11/09/17 04:57 (Ativan Inj) 1 mg Q1H PRN IV PUSH 11/05/17 01:15 11/09/17 04:20 Miscellaneous Information ml @ 0 mls/hr UNSCH IV 11/05/17 01:15 (NS Flush) 2 ml UNSCH PRN IV FLUSH 11/05/17 01:15 11/08/17 21:07 (NS Flush) 2 ml UNSCH PRN IV FLUSH 11/05/17 01:15 11/09/17 14:43 (Tylenol 650 Mg/ 20 ml Liq) 650 mg Q6H PRN NG 11/05/17 01:15 11/05/17 01:42 (Lacrilube Opht Oint) 1 applic Q4H PRN EACH EYE 11/05/17 01:15 Potassium Chloride 100 ml @ 50 mls/hr Q2H PRN IV 11/05/17 01:30 Potassium Chloride 100 ml @ 50 mls/hr Q2H PRN IV 11/05/17 01:30 (K-Lyte Cl Eff) 50 meq UNSCH PRN PO 11/05/17 01:30 Potassium Chloride 100 ml @ 25 mls/hr UNSCH PRN IV 11/05/17 01:30 11/06/17 08:53 Potassium Chloride 100 ml @ 50 mls/hr Q2H PRN IV 11/05/17 01:30 Magnesium Sulfate 4 gm/Sodium Chloride 100 ml @ 50 mls/hr UNSCH PRN IV 11/05/17 01:30 (Mag-Ox) 800 mg UNSCH PRN PO 11/05/17 01:30 Magnesium Sulfate 2 gm/Sodium Chloride 100 ml @ 50 mls/hr UNSCH PRN IV 11/05/17 01:30 11/06/17 09:12 (K-Phos) 2,000 mg Q4H PRN PO 11/05/17 01:30 Sodium Phosphate 30 mmol/Sodium Chloride 250 ml @ 42 mls/hr UNSCH PRN IV 11/05/17 01:30 11/06/17 02:45 (K-Phos) 2,000 mg UNSCH PRN PO/TUBE 11/05/17 01:30 Potassium Phosphate 30 mmol/ Sodium Chloride 260 ml @ 42 mls/hr UNSCH PRN IV 11/05/17 01:30 Heparin Sodium (Porcine) 19515 units/Sodium Chloride 250 ml @ 10 mls/hr TITRATE PRN IV 11/05/17 06:00 11/09/17 06:14 (D50w (Vial) Inj) 50 ml UNSCH PRN IV PUSH 11/05/17 19:45 (Glucagon Inj) 1 mg UNSCH PRN OTHER 11/05/17 19:45 (Brethine Inj) 1 mg UNSCH PRN SQ 11/06/17 01:15 (NovoLIN R SUPPLEMENTAL SCALE) 1 Q4HR SQ 11/06/17 08:00 11/09/17 15:28 (Lactinex) 1 tab Q12HR PO 11/07/17 12:45 11/09/17 08:34 (Trandate Inj) 20 mg Q5M PRN IV PUSH 11/09/17 10:15 11/09/17 13:24 (Apresoline Inj) 10 mg Q30M PRN IV PUSH 11/09/17 10:15 11/09/17 14:43 (Haldol Inj) 10 mg Q1H PRN IV PUSH 11/09/17 10:30 11/09/17 13:30 (Cordarone) 400 mg Q12HR PO 11/09/17 11:00 11/09/17 11:21 (Cipro) 500 mg Q12HR PO 11/09/17 13:00 11/09/17 13:56 (Inderal) 40 mg Q6H PO 11/09/17 16:00 Vital Signs / I&O Vital Signs Date Time Temp Pulse Resp B/P (MAP) Pulse Ox O2 Delivery O2 Flow Rate FiO2 11/09/17 16:08 98 35 11/09/17 14:00 69 11/09/17 12:21 97 35 11/09/17 12:00 76 11/09/17 12:00 35 11/09/17 12:00 100.7 76 17 166/72 (103) 99 194/76 (115) 11/09/17 10:00 74 11/09/17 08:00 101 11/09/17 08:00 35 11/09/17 08:00 100.9 101 17 156/74 (101) 95 204/87 (126) 11/09/17 07:50 100 35 11/09/17 06:00 76 11/09/17 04:45 100 35 11/09/17 04:00 99.5 87 19 133/63 (86) 98 163/63 (96) 11/09/17 04:00 35 11/09/17 04:00 75 11/09/17 03:45 99.5 92 19 163/67 (99) 96 11/09/17 03:30 99.5 100 18 158/68 (98) 93 11/09/17 03:15 99.3 138 14 260/114 (162) 100 11/09/17 03:00 99.1 74 16 129/62 (84) 98 144/64 (90) 11/09/17 02:00 70 11/09/17 01:20 35 11/09/17 01:08 99 35 11/09/17 00:00 71 11/09/17 00:00 98.9 77 16 144/66 (92) 97 163/69 (100) 11/09/17 00:00 40 11/08/17 22:06 100 40 11/08/17 22:00 71 11/08/17 20:00 66 11/08/17 20:00 40 11/08/17 20:00 98.9 63 16 121/64 (83) 100 11/08/17 19:09 100 40 11/08/17 18:00 66 I/O 11/08/17 11/08/17 11/08/17 11/09/17 11/09/17 11/09/17 07:00 15:00 23:00 07:00 15:00 23:00 Intake Total 1528 ml 185 ml 243 ml 1279 ml 562 ml Output Total 830 ml 565 ml 805.0 ml 660.0 ml 520.0 ml Balance 698 ml -380 ml -562.0 ml 619.0 ml 42.0 ml Intake Oral 0 ml IV Total 1428 ml 185 ml 243 ml 707 ml 262 ml Tube Feeding 472 ml 200 ml Tube Irrigant 100 ml Other 100 ml 100 ml Output Urine Total 630 ml 565 ml 505 ml 660 ml 520 ml Gastric Drainage Total 200 ml 300 ml Tube Feeding Residual Discard 0 ml 0 ml 0 ml # Bowel Movements 0 Physical Exam GENERAL: Intubated, sedated SKIN: Warm and dry. HEAD: Normocephalic. EYES: No scleral icterus. No injection or drainage. NECK: Supple, trachea midline. No JVD or lymphadenopathy. CARDIOVASCULAR: Regular rate and rhythm without murmurs, gallops, or rubs. RESPIRATORY: Breath sounds equal bilaterally. No accessory muscle use. GASTROINTESTINAL: Abdomen soft, non-tender, nondistended. MUSCULOSKELETAL: No cyanosis, or edema. Restless, no purposeful movement Laboratory Laboratory Tests Test 11/09/17 03:18 11/09/17 10:55 White Blood Count 7.9 TH/MM3 Red Blood Count 3.25 MIL/MM3 Hemoglobin 10.4 GM/DL Hematocrit 30.6 % Mean Corpuscular Volume 94.3 FL Mean Corpuscular Hemoglobin 31.9 PG Mean Corpuscular Hemoglobin Concent 33.8 % Red Cell Distribution Width 13.7 % Platelet Count 122 TH/MM3 Mean Platelet Volume 10.0 FL Activated Partial Thromboplast Time 29.2 SEC 26.4 SEC Blood Urea Nitrogen 40 MG/DL Creatinine 1.35 MG/DL Random Glucose 220 MG/DL Calcium Level 8.2 MG/DL Sodium Level 144 MEQ/L Potassium Level 4.4 MEQ/L Chloride Level 115 MEQ/L Carbon Dioxide Level 25.4 MEQ/L Anion Gap 4 MEQ/L Estimat Glomerular Filtration Rate 52 ML/MIN Assessment and Plan Problem List: (1) VF (ventricular fibrillation) ICD Codes: I49.01 - Ventricular fibrillation Status: Acute (2) Respiratory failure ICD Codes: J96.90 - Respiratory failure, unspecified, unspecified whether with hypoxia or hypercapnia Status: Acute (3) Hyperglycemia ICD Codes: R73.9 - Hyperglycemia, unspecified Status: Acute (4) Anoxic encephalopathy ICD Codes: G93.1 - Anoxic brain damage, not elsewhere classified Assessment and Plan Continue ICU care. Neurologic status without significant improvement. EEG c/w anoxic encephalopathy. Recommend palliative care involvement. Overall prognosis poor. Problem Qualifiers (1) Respiratory failure: Qualified Codes: J96.00 - Acute respiratory failure, unspecified whether with hypoxia or hypercapnia Lawrence Alvares MD Nov 09, 2017 16:19
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
[2017-11-09] MEDS: PROPRANOLOL HCL 40 MG TAB PO SCH ×2 (17:12→22:03)
[2017-11-10] VITALS (19 sets, daily range): BP systolic 146–209; BP diastolic 68–107; PULSE 57–85; RESP 23–26; TEMP 98.2–101.6; O2SAT 96–100
[2017-11-10] MEDS: HEPARIN INJ 25,000 UNITS in SODIUM CHLOR 0.9% 250 ML INJ 247.5 ML IV PRN ×2 (00:16→16:13)
[2017-11-10] MEDS: HEPARIN SODIUM - IV 10,000 UNITS/10 ML VIAL IV PUSH PRN ×3 (00:26→16:14)
[2017-11-10] MEDS: MEDIUM DOSE INSULIN NOVOLIN REGULAR SUPPLEMENTAL SCALE SQ SCH ×6 (00:26→21:45)
[2017-11-10] MEDS: hydrALAZINE HCL 20 MG/ML VIAL IV PUSH PRN ×3 (00:35→21:44)
[2017-11-10 06:13] LABS: HEMATOCRIT 31.4 % (39.0-51.0); HEMOGLOBIN 10.4 GM/DL (13.0-17.0); MEAN CELL VOLUME 93.4 FL (80.0-100.0); MEAN CORPUSCULAR HGB CONC 33.2 % (32.0-36.0); PLATELET COUNT 132 TH/MM3 (150-450); RED BLOOD COUNT 3.36 MIL/MM3 (4.50-5.90); RED CELL DISTRIBUTION WIDTH 14.2 % (11.6-17.2)
[2017-11-10] MEDS: PROPRANOLOL HCL 40 MG TAB PO SCH ×4 (06:15→21:45)
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
[2017-11-10 07:01] LABS: BICARBONATE 21.4 MEQ/L (21.0-32.0); CALCIUM 9.1 MG/DL (8.5-10.1); CREATININE 1.38 MG/DL (0.60-1.30)
[2017-11-10] MEDS: CHLORHEXIDINE 0.12% (ORAL KIT) 15 ML CUP MT SCH (07:32)
[2017-11-10] MEDS: SODIUM CHLORIDE 0.9% FLUSH 10 ML FLUSH IV FLUSH PRN (07:32)
[2017-11-10] MEDS: POTASSIUM CHLORIDE 25 MEQ EFFERVESCENT TAB PO PRN (07:32)
[2017-11-10] MEDS: ACETAMINOPHEN 650 MG/20.3 ML UDC NG PRN (07:48)
[2017-11-10] MEDS: DOCUSATE SODIUM 50 MG/SENNA 8.6 MG TAB PO SCH ×2 (08:11→21:45)
[2017-11-10] MEDS: CIPROFLOXACIN 500 MG TAB PO SCH ×2 (08:11→21:45)
[2017-11-10] MEDS: FAMOTIDINE 20 MG/2 ML VIAL IV PUSH SCH ×2 (08:11→21:44)
[2017-11-10] MEDS: LACTOBACILLUS ACIDOPHILUS TAB PO SCH ×2 (08:11→21:46)
[2017-11-10] MEDS: AMIODARONE 200 MG TAB PO SCH ×2 (08:11→21:45)
[2017-11-10] MEDS: ARTIFICIAL TEARS OPTH SOLN 15 ML BTL EACH EYE SCH ×3 (08:12→16:18)
[2017-11-10] MEDS: HALOPERIDOL LACTATE 5 MG/ML AMP IV PUSH PRN ×3 (08:25→21:44)
--- NOTE | 2017-11-10 09:42 | HHI.CCPN ---
Subjective Remarks/Hospital Course 72-year-old male was brought in by EMS after patient had a cardiopulmonary arrest. Patient was reportedly driving his and collapsed. Patient became unresponsive. Chest compression were started. EMS was called. Patient's rhythm was found to be in V. fib and the patient was defibrillated. He regained pulse and blood pressure. On the arrival to emergency department the patient remained unresponsive. Patient has a history of known coronary artery disease with a bun stent in place many years ago, no history of diabetes hypertension or COPD. Subjective: 11/05: Hypothermic cooling in progress. Amiodarone discontinued. She continues on propofol and fentanyl for sedation as well as Nimbex for paralysis. Norepinephrine has been discontinued. Blood urine and sputum cultures obtained. His blood culture specimen revealing gram-positive cocci. Empiric antibiotics initiated. 11/06-Patient rewarmed to 37 at approximately 1400 today. Muscle relaxants discontinued. Sedation, Versed and fentanyl infusions, currently being weaned off. The patient continues on dopamine at 5 mcgs, to maintain a map greater than 65mmHG. levo fed has been discontinued. Plan for EEG tomorrow. Echo revealed an EF of 30-35 %. 11/07: Patient continues to be nonresponsive all sedation 12 hours. Patient withdraws to pain. EEG in process, awaiting results. Neurology consulted. The patient continues on Dopamine at 5 mcgs. 11/08: encephalopathy persists. does ?localize. vigorously withdraws to pain. EEG c/w encephalopathy. on fentanyl at 100mcg/hr. 11/09: remains encephalopathic. on fentanyl. becomes agitated with sedation vacation. hemodynamics stabilized. 11/10 Patient remains intubated and sedated. T: 101.6/ For MRI brain and EEG today. Objective Vital Signs Date Time Temp Pulse Resp B/P (MAP) Pulse Ox O2 Delivery O2 Flow Rate FiO2 11/10/17 07:27 96 35 11/10/17 06:00 79 11/10/17 04:00 99.1 25 156/74 (101) 171/78 (109) Intake and Output 11/10/17 11/10/17 11/11/17 08:00 16:00 00:00 Intake Total 1031 ml Output Total 300 ml Balance 731 ml Result Diagram: 11/10/1730 11/10/17 0530 Other Results Laboratory Tests Test 11/09/17 10:55 11/09/17 19:00 11/10/17 05:30 Activated Partial Thromboplast Time 26.4 SEC 34.7 SEC 37.5 SEC White Blood Count 10.0 TH/MM3 Red Blood Count 3.36 MIL/MM3 Hemoglobin 10.4 GM/DL Hematocrit 31.4 % Mean Corpuscular Volume 93.4 FL Mean Corpuscular Hemoglobin 31.0 PG Mean Corpuscular Hemoglobin Concent 33.2 % Red Cell Distribution Width 14.2 % Platelet Count 132 TH/MM3 Mean Platelet Volume 10.0 FL Blood Urea Nitrogen 45 MG/DL Creatinine 1.38 MG/DL Random Glucose 253 MG/DL Calcium Level 9.1 MG/DL Sodium Level 142 MEQ/L Potassium Level 3.5 MEQ/L Chloride Level 112 MEQ/L Carbon Dioxide Level 21.4 MEQ/L Anion Gap 9 MEQ/L Estimat Glomerular Filtration Rate 51 ML/MIN Imaging Last Impressions Chest X-Ray 11/08/17 0600 Signed Impressions: Service Date/Time: Wednesday, November 08, 2017 03:03 - CONCLUSION: There are new Basilar infiltrates, right greater than left suggestive of atelectasis. Dillan Rosen MD Head CT 11/04/172011 Signed Impressions: Service Date/Time: Saturday, November 04, 2017 22:10 - CONCLUSION: No acute disease. Mike Davalos MD Objective Remarks GENERAL: elderly obese male patient intubated, encephalopathic SKIN: Focused skin assessment warm/dry. HEAD: Normocephalic. EYES: No scleral icterus. No injection or drainage. Pupils 3 mm and reactive, sluggish. NECK: Supple, trachea midline. No JVD. CARDIOVASCULAR: Normal rate and rhythm. sinus by telemetry. RESPIRATORY: equal chest rise. volume control ventilation. fio2 35%. GASTROINTESTINAL: Abdomen soft, nondistended. no guarding. MUSCULOSKELETAL: No cyanosis, or edema. Neurologic exam: RASS -3. pupils as above. eyes open spontaneously and pupils are conjugate but do not track. withdraws briskly x 4. ?localizes to pain, but not consistently. does not follow commands. +cough. +gag. A/P Assessment and Plan [id number] with hypoxic ischemic encephalopathy s/p [id number] v. fib arrest. continue frequent neuro checks and supportive care. off pathway and remains intubated and encephalopathic. critically ill. if we withdraw support, he would . will work towards controlling agitation and hemodynamics. family continues to press on for aggressive care: will likely need long-term care in LTAC facility. may require tracheostomy if encephalopathy persists. Acute hypoxic and hypercarbic Respiratory failure - Post cardiac arrest -Continue with vent support keep sat >92% -Bronchodilators - No weaning until neurologically improved - DuoNeb's when necessary Hypoxic ischemic encephalopathy Agitated Delirium -Neurology consulted 11/07. -EEG 11/07 c/w severe encephalopathy. no ictal activity. - continue frequent neuro checks - Off sedation. For MRI and EEG today - Haldol to 10mg iv q1h prn for agitation. Hypertension - Monitor HR and BP keep MAP>65mmHg -On Amiodarone 400mg BID, Inderal 40mg Q6 ID Community Acquired Klebsiella UTI Coag negative staph bacteremia- likely contaminant Pneumonia _ sputum cx: + M. Catarrhalis, strep pneumonia Continue with abx ( Cipro) -ID following Monitor for signs of infections ( Fever, WBC) Will panculture for new onset fever GI: Continue with tube feeds- Jevity 1.5@60ml/hr On Pepcid for GI prophylaxis Out of Hospital V. Fib Cardiac arrest Hypertension - Monitor HR and BP keep MAP>65mmHg -On Amiodarone 400mg BID, Inderal 40mg Q6 - V. fib arrest - Underlying coronary artery disease - Ischemic workup per cardiology Dr. Alvares - Rewarmed 11/06 1330 - Heparin drip-Monitor PTT - 11/06 EF 30-35 %. No regional wall motion abnormalities. PAP 35. Mild MV stenosis trace TR Lactic acidosis - resolved. : Acute kidney injury - -Monitor renal function, I/O's, avoid nephrotoxins -Cr: 1.38 today Heme: Monitor CBC Endi: On medium SSI, add Levemir 5unuts qhs DVT GI prophylaxis - Teds SCDs - IV heparin infusion - Pepcid Level 3 Kesha Salcedo MD Nov 10, 2017 09:42
--- NOTE | 2017-11-10 11:56 | RADRPT ---
EXAM DATE/TIME: 11/10/2017 10:59 [facility] COMPARISON: No previous studies available for comparison. INDICATIONS : Evaluate for MRI clearance. MEDICAL HISTORY : Unobtainable. SURGICAL HISTORY : Unobtainable. ENCOUNTER: Subsequent ACUITY: 4 - 6 days PAIN SCORE: Non-responsive. LOCATION: Bilateral Abdomen FINDINGS: 2 supine frontal views of the abdomen demonstrate no metallic or concerning radiopaque foreign bodies . Nasogastric tube is present. There is a nonobstructive bowel gas pattern. Degenerative changes are present throughout the visualized spine. CONCLUSION: No metallic radiopaque foreign bodies are present to preclude MRI. Sancho Clifford MD on November 10, 2017 at 11:53 Board Certified Radiologist. This report was verified electronically.
--- NOTE | 2017-11-10 14:08 | HHI.HCPN ---
Reason for visit a. To assist with evaluation and management of symptoms including: pain; dyspnea, encephalopathy. b. To assist medical decision maker(s) with: better understanding of current medical conditions; weighing benefits/burdens of medical treatment options; making medical treatment decisions. Subjective/Interval History Patient seen and examined in ICU. Discussed with nurse and Dr. Cross. No family at bedside. Patient does not open eyes to voice, exam or pain. He withdraws to painful stimuli all extremities. Non purposeful movements noted. Tmax 101.6. WBC 10.0. Creatinine stable at 1.38. Repeat sputum culture pending. Radiology at bedside for Abdominal xray to evaluate for metallic foreign bodies , as family has not returned call to complete MRI history sheet. Later resulted no metallic radiopaque foreign bodies present. Awaiting MRI brain per neurology, Dr. Llanes recommendations. . Family/friend interactions Attempted to call spouse 11/09, unable to leave message. Left message for spouse to return call 11/10. awaiting return call. Asked nursing staff to call if family arrives at bedside. 5:30pm call from nurse to report (Katie) and daughter (Nargis) at bedside. Met with them in consult room. Also present Candy PEREZ. Items discussed: * Palliative care role, purpose, approach * Additional medical, psychosocial, and spiritual history * Patients general health, functional status, and cognitive changes in the months leading up to the current hospitalization * Patient/family understanding of the current medical problems * Patient/family understanding of prognosis * Code Status [FULL CODE] * Current medical treatment options and benefits/burdens of those options * Likely scenarios comparing ongoing aggressive care with a transition to comfort measures only * Questions answered to the best of my ability * Palliative care contact information provided Additional social information obtained: for 52 years. Had one son and one daughter, Nargis who lives in [place].. Son , of renal issues 3 years ago. Patient worked for [employer] for 42 years. Was recently working at [employer]. No experience. Has not sought medical attention since his PA in 1991, was seen a homeopathic provider. Attends [employer] in [facility]. Past medical history: PA 1991 - no cardiac stents hiatal hernia asthma GERD right trigger finger - requests splint knees hurt - question arthritis Past surgical history: cardiac catheterization times 2 appendectomy 45 years ago indicates that they do not want surgeries Medication use: used only herbal/natural medications senior multivitamin occasional aspirin enzymes for food digestion natural anti-inflammatory In summary, has a great deal of celine and is hoping for a miracle. She now has a good understanding of current medical problems and challenges ahead. desires continued aggressive care including FULL CODE. At the end of the meeting , she indicates she feels sick. Palliative care number provided. Offered support. . Advance Directives Advance Directive Specifics Health Care Surrogate(s): Patient is incapacitated to make his own health care decision, unlikely he will regain capacity due to anoxic brain injury. In the absence of written advanced directives, according to [place] statutes, health care proxy decision making falls to his spouse. . Significant change in goals: FULL CODE. Goals remain aggressive. . Objective Vital Signs Date Time Temp Pulse Resp B/P (MAP) Pulse Ox O2 Delivery O2 Flow Rate FiO2 11/10/17 11:38 99 35 11/10/17 10:00 67 11/10/17 08:00 75 11/10/17 08:00 101.6 75 26 155/72 (99) 97 169/75 (106) 11/10/17 08:00 35 11/10/17 07:27 96 35 11/10/17 06:00 79 11/10/17 04:00 35 11/10/17 04:00 99.1 79 25 156/74 (101) 98 171/78 (109) 11/10/17 04:00 79 11/10/17 03:13 96 35 11/10/17 02:00 85 11/10/17 00:00 85 11/10/17 00:00 98.7 80 24 146/70 (95) 96 209/107 (141) 11/09/17 23:30 96 35 11/09/17 22:00 85 11/09/17 20:00 35 11/09/17 20:00 85 11/09/17 20:00 98.8 74 24 169/98 (121) 98 204/96 (132) 11/09/17 20:00 98.8 74 24 169/98 (121) 96 204/96 (132) 11/09/17 19:21 99 35 11/09/17 18:00 65 11/09/17 16:08 98 35 11/09/17 16:00 99.1 73 24 143/65 (91) 98 167/83 (111) 11/09/17 16:00 73 11/09/17 16:00 35 11/09/17 14:00 69 Intake & Output 11/10/17 11/10/17 07:00 19:00 Intake Total 1031 ml Output Total 300 ml 0 ml Balance 731 ml 0 ml IV Total 316 ml Tube Feeding 715 ml Output Urine Total 300 ml Tube Feeding Residual Discard 0 ml # Voids 2 Physical Exam CONSTITUTIONAL/GENERAL: This is an adequately nourished patient, in no apparent distress, on mechanical ventilation. TUBES/LINES/DRAINS: ETT, OG tube with TF; PIVs; christopher catheter; SCDs; podus boots SKIN: No jaundice, rashes, or lesions. Ecchymoses on upper extremities. Skin temperature appropriate. Not diaphoretic. EYES: Pupils sluggish. No injection or drainage. ENT: Unable to assess hearing. no bleeding or drainage; oral mucosa difficult to visualize given multiple oral tubes CARDIOVASCULAR: Heart sounds somewhat faint; difficult to auscultate. RESPIRATORY/CHEST: Symmetric, unlabored respirations on vent. Breath sounds equal bilaterally. Scattered rales bilaterally GASTROINTESTINAL: Abdomen soft, protuberant. No guarding. Bowel sounds present. GENITOURINARY: Without palpable bladder distension. Christopher catheter in place. MUSCULOSKELETAL: Extremities without clubbing or cyanosis; generalized anasarca but no gross deformities NEUROLOGICAL: Does not arouse or follow commands; withdraws to noxious stimuli. PSYCHIATRIC: Unable to assess . Diagnostic Tests Laboratory Laboratory Tests Test 11/07/17 20:15 11/08/17 03:30 11/08/17 04:58 11/09/17 03:18 Activated Partial Thromboplast Time 39.6 SEC (24.3-30.1) 40.1 SEC (24.3-30.1) 29.2 SEC (24.3-30.1) White Blood Count 11.5 TH/MM3 (4.0-11.0) 7.9 TH/MM3 (4.0-11.0) Red Blood Count 3.70 MIL/MM3 (4.50-5.90) 3.25 MIL/MM3 (4.50-5.90) Hemoglobin 11.8 GM/DL (13.0-17.0) 10.4 GM/DL (13.0-17.0) Hematocrit 35.0 % (39.0-51.0) 30.6 % (39.0-51.0) Mean Corpuscular Volume 94.3 FL (80.0-100.0) 94.3 FL (80.0-100.0) Mean Corpuscular Hemoglobin 31.8 PG (27.0-34.0) 31.9 PG (27.0-34.0) Mean Corpuscular Hemoglobin Concent 33.7 % (32.0-36.0) 33.8 % (32.0-36.0) Red Cell Distribution Width 13.7 % (11.6-17.2) 13.7 % (11.6-17.2) Platelet Count 134 TH/MM3 (150-450) 122 TH/MM3 (150-450) Mean Platelet Volume 10.2 FL (7.0-11.0) 10.0 FL (7.0-11.0) Blood Urea Nitrogen 31 MG/DL (7-18) 40 MG/DL (7-18) Creatinine 1.44 MG/DL (0.60-1.30) 1.35 MG/DL (0.60-1.30) Random Glucose 188 MG/DL (74-106) 220 MG/DL (74-106) Calcium Level 7.9 MG/DL (8.5-10.1) 8.2 MG/DL (8.5-10.1) Phosphorus Level 3.4 MG/DL (2.5-4.9) Magnesium Level 2.1 MG/DL (1.5-2.5) Sodium Level 143 MEQ/L (136-145) 144 MEQ/L (136-145) Potassium Level 4.4 MEQ/L (3.5-5.1) 4.4 MEQ/L (3.5-5.1) Chloride Level 114 MEQ/L (98-107) 115 MEQ/L (98-107) Carbon Dioxide Level 20.2 MEQ/L (21.0-32.0) 25.4 MEQ/L (21.0-32.0) Anion Gap 9 MEQ/L (5-15) 4 MEQ/L (5-15) Estimat Glomerular Filtration Rate 48 ML/MIN (>89) 52 ML/MIN (>89) Ammonia 24 MCMOL/L (11-32) Free Thyroxine 0.86 NG/DL (0.76-1.46) Thyroid Stimulating Hormone 3rd Gen 0.439 uIU/ML (0.358-3.740) Random Cortisol 39.2 MCG/DL Blood Gas Puncture Site LT RADIAL Blood Gas Patient Temperature 98.6 Blood Gas HCO3 19 mmol/L (22-26) Blood Gas Base Excess -6.2 mmol/L (-2-2) Blood Gas Oxygen Saturation 96 % (90-100) Arterial Blood pH 7.30 (7.380-7.420) Arterial Blood Partial Pressure CO2 40 mmHg (38-42) Arterial Blood Partial Pressure O2 152 mmHg (61-120) Arterial Blood Oxygen Content 16.5 Vol % (12.0-20.0) Arterial Blood Carboxyhemoglobin 0.7 % (0-4) Arterial Blood Methemoglobin 1.6 % (0-2) Blood Gas Hemoglobin 12.0 G/DL (12.0-16.0) Oxygen Delivery Device VENT Blood Gas Ventilator Setting SEE COMMENTS Blood Gas Inspired Oxygen 40 % Test 11/09/17 10:55 11/09/17 19:00 11/10/17 05:30 Activated Partial Thromboplast Time 26.4 SEC (24.3-30.1) 34.7 SEC (24.3-30.1) 37.5 SEC (24.3-30.1) White Blood Count 10.0 TH/MM3 (4.0-11.0) Red Blood Count 3.36 MIL/MM3 (4.50-5.90) Hemoglobin 10.4 GM/DL (13.0-17.0) Hematocrit 31.4 % (39.0-51.0) Mean Corpuscular Volume 93.4 FL (80.0-100.0) Mean Corpuscular Hemoglobin 31.0 PG (27.0-34.0) Mean Corpuscular Hemoglobin Concent 33.2 % (32.0-36.0) Red Cell Distribution Width 14.2 % (11.6-17.2) Platelet Count 132 TH/MM3 (150-450) Mean Platelet Volume 10.0 FL (7.0-11.0) Blood Urea Nitrogen 45 MG/DL (7-18) Creatinine 1.38 MG/DL (0.60-1.30) Random Glucose 253 MG/DL (74-106) Calcium Level 9.1 MG/DL (8.5-10.1) Sodium Level 142 MEQ/L (136-145) Potassium Level 3.5 MEQ/L (3.5-5.1) Chloride Level 112 MEQ/L (98-107) Carbon Dioxide Level 21.4 MEQ/L (21.0-32.0) Anion Gap 9 MEQ/L (5-15) Estimat Glomerular Filtration Rate 51 ML/MIN (>89) Result Diagram: 11/10/17 0530 11/10/17 0530 Microbiology Microbiology Date/Time Source Procedure Growth Status 11/10/17 12:30 Sputum Endotracheal Gram Stain Pending Received 11/10/17 12:30 Sputum Endotracheal Sputum Culture Pending Received Imaging Last Impressions Abdomen X-Ray 11/10/17 0000 Signed Impressions: Service Date/Time: Friday, November 10, 2017 10:59 - CONCLUSION: No metallic radiopaque foreign bodies are present to preclude MRI. Sancho Clifford MD Chest X-Ray 11/08/17 0600 Signed Impressions: Service Date/Time: Wednesday, November 08, 2017 03:03 - CONCLUSION: There are new Basilar infiltrates, right greater than left suggestive of atelectasis. Dillan Rosen MD Head CT 11/04/172011 Signed Impressions: Service Date/Time: Saturday, November 04, 2017 22:10 - CONCLUSION: No acute disease. Mike Davalos MD Procedures * 11/04/17 - emergent intubation * 11/04/17 - right groin central line placement . Assessment and Plan Disease Oriented Problem List: (1) VF (ventricular fibrillation) (2) Cardiopulmonary arrest (3) Respiratory failure (4) Anoxic encephalopathy (5) Hyperglycemia Symptom Scale: (1) Pain 0-10 Scale: Unable to quantify Comment: Off sedation, no evidence of neurologic improvement. . (2) Dyspnea 0-10 Scale: Unable to quantify Comment: Continues on mechanical ventilation Pertinent Non-Medical Issues Psychosocial: . Spiritual: Caodaism celine. Legal: Patient is incapacitated to make his own health care decision, unlikely he will regain capacity due to anoxic brain injury. In the absence of written advanced directives, according to [place] statutes, health care proxy decision making falls to his spouse. Ethical issues impacting care: Important Contacts * Katie Back, spouse/ HCP; [phone] (call this number 1st) or [phone] * Nargis Back, daughter: [phone] lives in [place], here until Thursday . Prognosis Mr. Back is a 72 year old male with hypoxic ischemic encephalopathy s/p out-of- hospital V. fib arrest. He remains intubated and encephalopathic, critically ill. Overall prognosis for meaningful recovery is poor. If he survives, he will likely need LTAC facility and then possible usp care. . Code Status: Full Code Plan * Patient is incapacitated to make his own health care decision, unlikely he will regain capacity due to anoxic brain injury. In the absence of written advanced directives, according to [place] statutes, health care proxy decision making falls to his spouse. * FULL CODE * Discussed with Dr. Cross and nursing staff. * 11/10/17: Palliative care Met with , Katie and daughter, Nargis. In summary, has a great deal of celine and is hoping for a miracle. She now has a good understanding of current medical problems and challenges ahead. desires continued aggressive care including FULL CODE. At the end of the meeting , she indicates she feels sick, escorted to restroom and then brought to patient room. * SYMPTOMS: Pain: due to recent V. Fib arrest, resuscitation, tubes, etc. Has Fentanyl drip currently on hold to monitor neuro status. Dyspnea: on [facility] vent. No new medication recommendations at this time. * Palliative care number provided. * Palliative care will continue to follow to assist with symptom management and clarification of treatment goals throughout hospital course. . Attestation To help prompt me to consider important information that might be impacting today's encounter and assessment, information from prior notes written by myself or my colleagues may have been "brought forward" into today's note. My signature on this note, however, is an attestation that I personally performed the exam, history, and/or decision-making noted today, and, unless otherwise indicated, the interactions with patient, family, and staff as well as the review of records all occurred today. I also attest that the listed assessment and stated plan reflect my best clinical judgment today based on the combination of historical information, prior notes, and today's exam/ interactions. When time spent is documented, it refers only to time spent today by the signer, or if indicated, combined time spent today by collaborating physician/nurse practitioner. Kerri Lord Nov 10, 2017 14:08
--- NOTE | 2017-11-10 14:43 | RADRPT ---
EXAM DATE/TIME: 11/10/2017 14:05 [facility] COMPARISON: CT BRAIN W/O CONTRAST, November 04, 2017, 22:10. INDICATIONS : Post code. Altered mental status. MEDICAL HISTORY : Cleared by rad. SURGICAL HISTORY : Appendectomy. ENCOUNTER: Initial ACUITY: 2 weeks PAIN SCORE: Nonresponsive. LOCATION: head TECHNIQUE: Multiplanar, multisequence MRI of the brain was performed without contrast. FINDINGS: CEREBRUM: The ventricles are normal for age. No evidence of midline shift, mass lesion, hemorrhage or acute in farction. No extraaxial fluid collections are seen. The pituitary gland and suprasellar cistern are normal in configuration. WHITE MATTER: Periventricular and deep white matter coalesce microvascular ischemic demyelinization. POSTERIOR FOSSA: The cerebellum and brainstem are intact. The 4th ventricle is midline. The cerebellopontine angle is unremarkable. The cerebellar tonsils are normal in position. DIFFUSION IMAGING: No focal areas of restricted diffusion are seen. No evidence of acute infarction. EXTRACRANIAL: The visualized portions of the orbits and paranasal sinuses are unremarkable. CONCLUSION: No acute intracranial process. Periventricular and deep white matter coalesced demyelinizati on most likely microvascular ischemic basis Octaviano Holland MD on November 10, 2017 at 14:38 Board Certified Radiologist. This report was verified electronically.
--- NOTE | 2017-11-10 17:07 | PD.CARD.PN ---
Subjective Subjective Remarks Intubated, sedated, restless Objective Medications Current Medications Medications (Trade) Dose Ordered Sig/Juan Route Start Time Stop Time Status Last Admin (Tylenol) 650 mg Q6H PRN PO 11/04/17 22:00 (Pepcid Inj) 20 mg Q12HR IV PUSH 11/05/17 09:00 11/10/17 08:11 (Tears Naturale Opth Soln) 1 drop TID EACH EYE 11/05/17 09:00 11/10/17 16:18 (Zofran Inj) 4 mg Q6H PRN IV PUSH 11/04/17 22:00 11/07/17 00:00 (Duoneb Neb) 1 ampule Q2HR NEB PRN INH 11/04/17 22:00 Miscellaneous Information 1 Q361D XX 11/04/17 22:00 11/04/17 22:00 (Chlorhexidine 2% Cloth) Taper DAILY@04 TOP 11/05/17 04:00 11/01/18 03:59 11/08/17 03:24 (Chlorhexidine 2% Cloth) 3 pack UNSCH PRN TOP 11/04/17 22:00 (Ashley-Colace) 1 tab BID PO 11/05/17 09:00 11/10/17 08:11 (Milk Of Magnesia Liq) 30 ml Q12H PRN PO 11/04/17 22:00 (Senokot) 17.2 mg Q12H PRN PO 11/04/17 22:00 (Dulcolax Supp) 10 mg DAILY PRN RECTAL 11/04/17 22:00 (Lactulose Liq) 30 ml DAILY PRN PO 11/04/17 22:00 (Heparin Inj) 5,000 units UNSCH PRN IV PUSH 11/05/17 04:00 (Heparin Inj) 2,500 units UNSCH PRN IV PUSH 11/05/17 04:00 11/10/17 16:14 (Peridex 0.12% Liq) 15 ml BID@08,20 MT 11/05/17 08:00 11/10/17 07:32 Fentanyl Citrate 250 ml @ 5 mls/hr TITRATE PRN IV 11/04/17 22:00 11/09/17 04:57 (Ativan Inj) 1 mg Q1H PRN IV PUSH 11/05/17 01:15 11/09/17 04:20 Miscellaneous Information ml @ 0 mls/hr UNSCH IV 11/05/17 01:15 (NS Flush) 2 ml UNSCH PRN IV FLUSH 11/05/17 01:15 11/10/17 07:32 (NS Flush) 2 ml UNSCH PRN IV FLUSH 11/05/17 01:15 11/09/17 14:43 (Tylenol 650 Mg/ 20 ml Liq) 650 mg Q6H PRN NG 11/05/17 01:15 11/10/17 07:48 (Lacrilube Opht Oint) 1 applic Q4H PRN EACH EYE 11/05/17 01:15 Potassium Chloride 100 ml @ 50 mls/hr Q2H PRN IV 11/05/17 01:30 Potassium Chloride 100 ml @ 50 mls/hr Q2H PRN IV 11/05/17 01:30 (K-Lyte Cl Eff) 50 meq UNSCH PRN PO 11/05/17 01:30 11/10/17 07:32 Potassium Chloride 100 ml @ 25 mls/hr UNSCH PRN IV 11/05/17 01:30 11/06/17 08:53 Potassium Chloride 100 ml @ 50 mls/hr Q2H PRN IV 11/05/17 01:30 Magnesium Sulfate 4 gm/Sodium Chloride 100 ml @ 50 mls/hr UNSCH PRN IV 11/05/17 01:30 (Mag-Ox) 800 mg UNSCH PRN PO 11/05/17 01:30 Magnesium Sulfate 2 gm/Sodium Chloride 100 ml @ 50 mls/hr UNSCH PRN IV 11/05/17 01:30 11/06/17 09:12 (K-Phos) 2,000 mg Q4H PRN PO 11/05/17 01:30 Sodium Phosphate 30 mmol/Sodium Chloride 250 ml @ 42 mls/hr UNSCH PRN IV 11/05/17 01:30 11/06/17 02:45 (K-Phos) 2,000 mg UNSCH PRN PO/TUBE 11/05/17 01:30 Potassium Phosphate 30 mmol/ Sodium Chloride 260 ml @ 42 mls/hr UNSCH PRN IV 11/05/17 01:30 Heparin Sodium (Porcine) 31363 units/Sodium Chloride 250 ml @ 10 mls/hr TITRATE PRN IV 11/05/17 06:00 11/10/17 16:13 (D50w (Vial) Inj) 50 ml UNSCH PRN IV PUSH 11/05/17 19:45 (Glucagon Inj) 1 mg UNSCH PRN OTHER 11/05/17 19:45 (Brethine Inj) 1 mg UNSCH PRN SQ 11/06/17 01:15 (NovoLIN R SUPPLEMENTAL SCALE) 1 Q4HR SQ 11/06/17 08:00 11/10/17 16:18 (Lactinex) 1 tab Q12HR PO 11/07/17 12:45 11/10/17 08:11 (Trandate Inj) 20 mg Q5M PRN IV PUSH 11/09/17 10:15 11/09/17 13:24 (Apresoline Inj) 10 mg Q30M PRN IV PUSH 11/09/17 10:15 11/10/17 06:23 (Haldol Inj) 10 mg Q1H PRN IV PUSH 11/09/17 10:30 11/10/17 14:00 (Cordarone) 400 mg Q12HR PO 11/09/17 11:00 11/10/17 08:11 (Cipro) 500 mg Q12HR PO 11/09/17 13:00 11/12/17 12:59 11/10/17 08:11 (Inderal) 40 mg Q6H PO 11/09/17 16:00 11/10/17 16:12 (Levemir Inj) 5 units HS SQ 11/10/17 21:00 Vital Signs / I&O Vital Signs Date Time Temp Pulse Resp B/P (MAP) Pulse Ox O2 Delivery O2 Flow Rate FiO2 11/10/17 16:00 100.3 61 23 160/68 (98) 99 11/10/17 16:00 61 11/10/17 16:00 35 11/10/17 15:55 99 35 11/10/17 14:44 100 100 11/10/17 14:00 61 11/10/17 12:00 63 11/10/17 12:00 98.9 63 24 151/72 (98) 99 181/83 (115) 11/10/17 12:00 35 11/10/17 11:38 99 35 11/10/17 10:00 67 11/10/17 08:00 75 11/10/17 08:00 101.6 75 26 155/72 (99) 97 169/75 (106) 11/10/17 08:00 35 11/10/17 07:27 96 35 11/10/17 06:00 79 11/10/17 04:00 35 11/10/17 04:00 99.1 79 25 156/74 (101) 98 171/78 (109) 11/10/17 04:00 79 11/10/17 03:13 96 35 11/10/17 02:00 85 11/10/17 00:00 85 11/10/17 00:00 98.7 80 24 146/70 (95) 96 209/107 (141) 11/09/17 23:30 96 35 11/09/17 22:00 85 11/09/17 20:00 35 11/09/17 20:00 85 11/09/17 20:00 98.8 74 24 169/98 (121) 98 204/96 (132) 11/09/17 20:00 98.8 74 24 169/98 (121) 96 204/96 (132) 11/09/17 19:21 99 35 11/09/17 18:00 65 I/O 11/09/17 11/09/17 11/09/17 11/10/17 11/10/17 11/10/17 07:00 15:00 23:00 07:00 15:00 23:00 Intake Total 1279 ml 562 ml 1023 ml 1031 ml Output Total 660.0 ml 520.0 ml 525 ml 300 ml 0 ml 0 ml Balance 619.0 ml 42.0 ml 498 ml 731 ml 0 ml 0 ml IV Total 707 ml 262 ml 203 ml 316 ml Tube Feeding 472 ml 200 ml 720 ml 715 ml Other 100 ml 100 ml 100 ml Output Urine Total 660 ml 520 ml 525 ml 300 ml Tube Feeding Residual Discard 0 ml 0 ml 0 ml 0 ml 0 ml # Voids 2 # Bowel Movements 0 0 Physical Exam GENERAL: Intubated, sedated SKIN: Warm and dry. HEAD: Normocephalic. EYES: No scleral icterus. No injection or drainage. NECK: Supple, trachea midline. No JVD or lymphadenopathy. CARDIOVASCULAR: Regular rate and rhythm without murmurs, gallops, or rubs. RESPIRATORY: Breath sounds equal bilaterally. No accessory muscle use. GASTROINTESTINAL: Abdomen soft, non-tender, nondistended. MUSCULOSKELETAL: No cyanosis, or edema. Restless, no purposeful movement Laboratory Laboratory Tests Test 11/09/17 19:00 11/10/17 05:30 11/10/17 14:50 Activated Partial Thromboplast Time 34.7 SEC 37.5 SEC 33.9 SEC White Blood Count 10.0 TH/MM3 Red Blood Count 3.36 MIL/MM3 Hemoglobin 10.4 GM/DL Hematocrit 31.4 % Mean Corpuscular Volume 93.4 FL Mean Corpuscular Hemoglobin 31.0 PG Mean Corpuscular Hemoglobin Concent 33.2 % Red Cell Distribution Width 14.2 % Platelet Count 132 TH/MM3 Mean Platelet Volume 10.0 FL Blood Urea Nitrogen 45 MG/DL Creatinine 1.38 MG/DL Random Glucose 253 MG/DL Calcium Level 9.1 MG/DL Sodium Level 142 MEQ/L Potassium Level 3.5 MEQ/L Chloride Level 112 MEQ/L Carbon Dioxide Level 21.4 MEQ/L Anion Gap 9 MEQ/L Estimat Glomerular Filtration Rate 51 ML/MIN Imaging Last 24 hours Impressions Brain MRI 11/10/17 0000 Signed Impressions: Service Date/Time: Friday, November 10, 2017 14:05 - CONCLUSION: No acute intracranial process. Periventricular and deep white matter coalesced demyelinization most likely microvascular ischemic basis Octaviano Holland MD Abdomen X-Ray 11/10/17 0000 Signed Impressions: Service Date/Time: Friday, November 10, 2017 10:59 - CONCLUSION: No metallic radiopaque foreign bodies are present to preclude MRI. Sancho Clifford MD Assessment and Plan Problem List: (1) VF (ventricular fibrillation) ICD Codes: I49.01 - Ventricular fibrillation Status: Acute (2) Respiratory failure ICD Codes: J96.90 - Respiratory failure, unspecified, unspecified whether with hypoxia or hypercapnia Status: Acute (3) Hyperglycemia ICD Codes: R73.9 - Hyperglycemia, unspecified Status: Acute (4) Anoxic encephalopathy ICD Codes: G93.1 - Anoxic brain damage, not elsewhere classified Assessment and Plan No change. Continue ICU care. Neurologic status without significant improvement. EEG c/w anoxic encephalopathy, neurology following. Recommend palliative care, DNR status and comfort care. Overall prognosis very poor. Problem Qualifiers (1) Respiratory failure: Qualified Codes: J96.00 - Acute respiratory failure, unspecified whether with hypoxia or hypercapnia Lawrence Alvares MD Nov 10, 2017 17:07
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
[2017-11-10] MEDS ORDERED: INSULIN DETEMIR 100 UNITS/ML VIAL SQ SCH (21:00)
[2017-11-11] VITALS (30 sets, daily range): BP systolic 109–211; BP diastolic 76–143; PULSE 58–89; RESP 22–32; TEMP 98.7–100.4; O2SAT 96–100
[2017-11-11] MEDS: MEDIUM DOSE INSULIN NOVOLIN REGULAR SUPPLEMENTAL SCALE SQ SCH ×6 (00:50→20:24)
[2017-11-11] MEDS: HEPARIN SODIUM - IV 10,000 UNITS/10 ML VIAL IV PUSH PRN (01:10)
--- NOTE | 2017-11-11 05:08 | RADRPT ---
EXAM DATE/TIME: 11/11/2017 03:31 [facility] COMPARISON: CHEST SINGLE AP, November 08, 2017, 3:03. INDICATIONS : Short of breath. MEDICAL HISTORY : None. SURGICAL HISTORY : None. ENCOUNTER: Subsequent ACUITY: 4 - 6 days PAIN SCORE: 0/10 LOCATION: Bilateral chest FINDINGS: ET tube and NG tube are well placed. The heart size is enlarged. There is diffuse increased density s een throughout the lungs. There is silhouetting of the hemidiaphragms. CONCLUSION: Diffuse consolidation likely represent diffuse edema. Some degree of effusions cannot be excluded. Sancho Ruiz MD on November 11, 2017 at 5:04 Board Certified Radiologist. This report was verified electronically.
[2017-11-11] MEDS: PROPRANOLOL HCL 40 MG TAB PO SCH ×4 (05:19→22:07)
[2017-11-11] MEDS: HEPARIN INJ 25,000 UNITS in SODIUM CHLOR 0.9% 250 ML INJ 247.5 ML IV PRN (05:22)
[2017-11-11 05:56] LABS: HEMATOCRIT 31.1 % (39.0-51.0); HEMOGLOBIN 10.5 GM/DL (13.0-17.0); MEAN CELL VOLUME 93.5 FL (80.0-100.0); MEAN CORPUSCULAR HEMOGLOBIN 31.7 PG (27.0-34.0); MEAN CORPUSCULAR HGB CONC 33.9 % (32.0-36.0); MEAN PLATELET VOLUME 9.8 FL (7.0-11.0); PLATELET COUNT 137 TH/MM3 (150-450); RED BLOOD COUNT 3.32 MIL/MM3 (4.50-5.90); RED CELL DISTRIBUTION WIDTH 14.3 % (11.6-17.2); WHITE BLOOD COUNT 12.2 TH/MM3 (4.0-11.0)
[2017-11-11 06:24] LABS: BICARBONATE 23.2 MEQ/L (21.0-32.0); CALCIUM 8.8 MG/DL (8.5-10.1); CREATININE 1.42 MG/DL (0.60-1.30)
[2017-11-11] MEDS: FAMOTIDINE 20 MG/2 ML VIAL IV PUSH SCH ×2 (08:20→20:23)
[2017-11-11] MEDS: CIPROFLOXACIN 500 MG TAB PO SCH ×2 (08:20→20:23)
[2017-11-11] MEDS: DOCUSATE SODIUM 50 MG/SENNA 8.6 MG TAB PO SCH ×2 (08:20→20:23)
[2017-11-11] MEDS: LACTOBACILLUS ACIDOPHILUS TAB PO SCH ×2 (08:20→20:23)
[2017-11-11] MEDS: ARTIFICIAL TEARS OPTH SOLN 15 ML BTL EACH EYE SCH ×3 (08:20→16:05)
[2017-11-11] MEDS: AMIODARONE 200 MG TAB PO SCH ×2 (08:20→20:23)
[2017-11-11] MEDS: CHLORHEXIDINE 0.12% (ORAL KIT) 15 ML CUP MT SCH ×2 (08:21→20:42)
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
[2017-11-11] MEDS: LABETALOL HCL 100 MG/20 ML VIAL IV PUSH PRN ×5 (12:28→23:55)
[2017-11-11] MEDS: SODIUM CHLORIDE 0.9% FLUSH 10 ML FLUSH IV FLUSH PRN ×2 (14:07→20:23)
--- NOTE | 2017-11-11 15:52 | HHI.HCPN ---
Reason for visit a. To assist with evaluation and management of symptoms including: pain; dyspnea, encephalopathy. b. To assist medical decision maker(s) with: better understanding of current medical conditions; weighing benefits/burdens of medical treatment options; making medical treatment decisions. Subjective/Interval History Patient seen and examined in ICU. Discussed with nurse. No family at bedside during exam. Patient does not open eyes to voice, exam or pain. He withdraws to painful stimuli all extremities. Non purposeful movements noted. Tmax 100.2. Intermittent hypertension. WBC 12.2. Creatinine stable at 1.42. Repeat sputum culture moderate growth normal respiratory lorrie. Blood culture, no growth in 1 day. Chest xray - diffuse consolidation likely represents diffuse edema, effusions cannot be excluded. MRI brain no acute intracranial process, periventricular and deep white matter coalesced demyelinization likely microvascular ischemic nolan. EEG moderate diffuse encephalopathy, no seizures. Dr. Griffith asked me to talk to family about trach/PEG decisions. Discussed with GI and general surgery, Dr. Smith. . Family/friend interactions Met with and daughter at bedside. Also present Heidi Harding LCSW and Isis nurse. Items discussed: * Medical update provided * Reviewed options of continued aggressive care with trach/PEG vs transition to comfort - Family considering options, wants to think it about it overnight and pray about it. In summary, is leaning toward proceeding with proceeding with trach and PEG , but not yet ready to make this decision. Family will let me know on 11/12/17. . Advance Directives Living Will: Never completed Health Care Surrogate: Never completed Durable Power of Dairy Clerk: Never completed Advance Directive Specifics Health Care Surrogate(s): Patient is incapacitated to make his own health care decision, unlikely he will regain capacity due to anoxic brain injury. In the absence of written advanced directives, according to [place] statutes, health care proxy decision making falls to his spouse. . Significant change in goals: FULL CODE. Family considering trach and PEG decisions, will notify pal care of decision on 11/12/17. . Objective Vital Signs Date Time Temp Pulse Resp B/P (MAP) Pulse Ox O2 Delivery O2 Flow Rate FiO2 11/11/17 15:29 98 35 11/11/17 14:00 63 11/11/17 12:31 61 26 183/88 (119) 96 11/11/17 12:30 62 25 97 11/11/17 12:00 35 11/11/17 12:00 62 22 210/94 (132) 98 11/11/17 12:00 59 11/11/17 11:40 66 22 199/127 (151) 98 11/11/17 11:30 64 25 99 11/11/17 11:04 98 35 11/11/17 11:00 65 26 202/139 (160) 98 180/143 (155) 11/11/17 10:30 64 25 123/104 (110) 99 11/11/17 10:00 66 28 204/94 (130) 99 128/111 (117) 11/11/17 10:00 66 11/11/17 09:30 64 32 124/96 (105) 97 11/11/17 09:01 64 23 184/81 (115) 97 117/101 (106) 11/11/17 09:00 64 24 109/92 (98) 96 11/11/17 08:30 62 24 109/86 (94) 100 11/11/17 08:01 64 26 211/103 (139) 99 183/94 (123) 11/11/17 08:00 63 27 152/111 (125) 100 11/11/17 08:00 98.7 63 27 184/81 (115) 100 11/11/17 08:00 63 11/11/17 08:00 35 11/11/17 07:12 98 35 11/11/17 06:00 89 11/11/17 04:00 100.2 89 25 123/95 (104) 98 202/88 (126) 11/11/17 04:00 35 11/11/17 04:00 89 11/11/17 03:43 99 35 11/11/17 02:00 84 11/11/17 00:00 35 11/11/17 00:00 99.2 66 22 161/76 (104) 98 163/98 (119) 11/11/17 00:00 84 11/10/17 23:32 98 35 18 22:00 78 11/10/17 20:00 78 18 20:00 35 11/10/17 20:00 98.2 60 23 191/87 (121) 98 11/10/17 19:16 99 35 11/10/17 18:00 57 1/16/18 16:00 100.3 61 23 160/68 (98) 99 11/10/17 16:00 61 11/10/17 16:00 35 11/10/17 15:55 99 35 Intake & Output 11/11/17 11/11/17 07:00 19:00 Intake Total 794 ml Output Total 701 ml 0 ml Balance 93 ml 0 ml IV Total 127 ml Tube Feeding 667 ml Output Urine Total 700 ml Stool Total 1 ml Tube Feeding Residual Discard 0 ml Physical Exam CONSTITUTIONAL/GENERAL: This is an adequately nourished patient, in no apparent distress, on mechanical ventilation. TUBES/LINES/DRAINS: ETT, OG tube with TF; PIVs; christopher catheter; SCDs; podus boots SKIN: No jaundice, rashes, or lesions. Ecchymoses on upper extremities. Skin temperature appropriate. Not diaphoretic. EYES: Pupils sluggish. No injection or drainage. ENT: Unable to assess hearing. no bleeding or drainage; oral mucosa difficult to visualize given multiple oral tubes CARDIOVASCULAR: Heart sounds somewhat faint; difficult to auscultate. RESPIRATORY/CHEST: Symmetric, unlabored respirations on vent. Breath sounds equal bilaterally. Scattered rales bilaterally GASTROINTESTINAL: Abdomen soft, protuberant. No guarding. Bowel sounds present. GENITOURINARY: Without palpable bladder distension. Christopher catheter in place. MUSCULOSKELETAL: Extremities without clubbing or cyanosis; generalized anasarca but no gross deformities NEUROLOGICAL: Does not arouse or follow commands; withdraws to noxious stimuli. PSYCHIATRIC: Unable to assess . Diagnostic Tests Laboratory Laboratory Tests Test 11/09/17 03:18 11/09/17 10:55 11/09/17 19:00 11/10/17 05:30 White Blood Count 7.9 TH/MM3 (4.0-11.0) 10.0 TH/MM3 (4.0-11.0) Red Blood Count 3.25 MIL/MM3 (4.50-5.90) 3.36 MIL/MM3 (4.50-5.90) Hemoglobin 10.4 GM/DL (13.0-17.0) 10.4 GM/DL (13.0-17.0) Hematocrit 30.6 % (39.0-51.0) 31.4 % (39.0-51.0) Mean Corpuscular Volume 94.3 FL (80.0-100.0) 93.4 FL (80.0-100.0) Mean Corpuscular Hemoglobin 31.9 PG (27.0-34.0) 31.0 PG (27.0-34.0) Mean Corpuscular Hemoglobin Concent 33.8 % (32.0-36.0) 33.2 % (32.0-36.0) Red Cell Distribution Width 13.7 % (11.6-17.2) 14.2 % (11.6-17.2) Platelet Count 122 TH/MM3 (150-450) 132 TH/MM3 (150-450) Mean Platelet Volume 10.0 FL (7.0-11.0) 10.0 FL (7.0-11.0) Activated Partial Thromboplast Time 29.2 SEC (24.3-30.1) 26.4 SEC (24.3-30.1) 34.7 SEC (24.3-30.1) 37.5 SEC (24.3-30.1) Blood Urea Nitrogen 40 MG/DL (7-18) 45 MG/DL (7-18) Creatinine 1.35 MG/DL (0.60-1.30) 1.38 MG/DL (0.60-1.30) Random Glucose 220 MG/DL (74-106) 253 MG/DL (74-106) Calcium Level 8.2 MG/DL (8.5-10.1) 9.1 MG/DL (8.5-10.1) Sodium Level 144 MEQ/L (136-145) 142 MEQ/L (136-145) Potassium Level 4.4 MEQ/L (3.5-5.1) 3.5 MEQ/L (3.5-5.1) Chloride Level 115 MEQ/L (98-107) 112 MEQ/L (98-107) Carbon Dioxide Level 25.4 MEQ/L (21.0-32.0) 21.4 MEQ/L (21.0-32.0) Anion Gap 4 MEQ/L (5-15) 9 MEQ/L (5-15) Estimat Glomerular Filtration Rate 52 ML/MIN (>89) 51 ML/MIN (>89) Test 11/10/17 14:50 11/10/17 23:40 11/11/17 05:40 11/11/17 14:10 Activated Partial Thromboplast Time 33.9 SEC (24.3-30.1) 31.2 SEC (24.3-30.1) 45.1 SEC (24.3-30.1) White Blood Count 12.2 TH/MM3 (4.0-11.0) Red Blood Count 3.32 MIL/MM3 (4.50-5.90) Hemoglobin 10.5 GM/DL (13.0-17.0) Hematocrit 31.1 % (39.0-51.0) Mean Corpuscular Volume 93.5 FL (80.0-100.0) Mean Corpuscular Hemoglobin 31.7 PG (27.0-34.0) Mean Corpuscular Hemoglobin Concent 33.9 % (32.0-36.0) Red Cell Distribution Width 14.3 % (11.6-17.2) Platelet Count 137 TH/MM3 (150-450) Mean Platelet Volume 9.8 FL (7.0-11.0) Blood Urea Nitrogen 52 MG/DL (7-18) Creatinine 1.42 MG/DL (0.60-1.30) Random Glucose 276 MG/DL (74-106) Calcium Level 8.8 MG/DL (8.5-10.1) Sodium Level 146 MEQ/L (136-145) Potassium Level 3.8 MEQ/L (3.5-5.1) Chloride Level 114 MEQ/L (98-107) Carbon Dioxide Level 23.2 MEQ/L (21.0-32.0) Anion Gap 9 MEQ/L (5-15) Estimat Glomerular Filtration Rate 49 ML/MIN (>89) Result Diagram: 11/11/17 0540 11/11/17 0540 Microbiology Microbiology Date/Time Source Procedure Growth Status 11/10/17 19:35 Blood Peripheral Aerobic Blood Culture - Preliminary NO GROWTH IN 1 DAY Resulted 11/10/17 19:35 Blood Peripheral Anaerobic Blood Culture - Preliminary NO GROWTH IN 1 DAY Resulted 11/10/17 19:30 Blood Peripheral Aerobic Blood Culture - Preliminary NO GROWTH IN 1 DAY Resulted 11/10/17 19:30 Blood Peripheral Anaerobic Blood Culture - Preliminary NO GROWTH IN 1 DAY Resulted 11/10/17 12:30 Sputum Endotracheal Gram Stain - Final Resulted 11/10/17 12:30 Sputum Endotracheal Sputum Culture - Preliminary MODERATE GROWTH NORMAL RESPIRATORY FL... Resulted Procedures * 11/04/17 - emergent intubation * 11/04/17 - right groin central line placement . Assessment and Plan Disease Oriented Problem List: (1) VF (ventricular fibrillation) (2) Cardiopulmonary arrest (3) Respiratory failure (4) Anoxic encephalopathy (5) Hyperglycemia Symptom Scale: (1) Pain 0-10 Scale: Unable to quantify Comment: Off sedation, no evidence of neurologic improvement. . (2) Dyspnea 0-10 Scale: Unable to quantify Comment: Continues on mechanical ventilation Pertinent Non-Medical Issues Psychosocial: . Spiritual: Mormonism celine. Legal: Patient is incapacitated to make his own health care decision, unlikely he will regain capacity due to anoxic brain injury. In the absence of written advanced directives, according to [place] statutes, health care proxy decision making falls to his spouse. Ethical issues impacting care: Important Contacts * Katie Back, spouse/ HCP; (call this number 1st) or * Nargis Back, daughter: [phone] lives in [place], here until Thursday . Prognosis Mr. Back is a 72 year old male with hypoxic ischemic encephalopathy s/p out-of- hospital V. fib arrest. He remains intubated and encephalopathic, critically ill. Overall prognosis for meaningful recovery is poor. If he survives, he will likely need LTAC facility and then possible half-way care. . Code Status: Full Code Plan * Patient is incapacitated to make his own health care decision, unlikely he will regain capacity due to anoxic brain injury. In the absence of written advanced directives, according to [place] statutes, health care proxy decision making falls to his spouse. * FULL CODE * Discussed with general surgery, GI and nursing staff. * 11/11/17: Palliative care Met with , Katie and daughter, Nargis. In summary, is leaning toward proceeding with proceeding with trach and PEG, but not yet ready to make this decision. Family will let me know on 11/12/17. * SYMPTOMS: Pain: due to recent V. Fib arrest, resuscitation, tubes, etc. Has Fentanyl drip currently on hold to monitor neuro status. Dyspnea: on mech vent. No new medication recommendations at this time. * Palliative care will continue to follow to assist with symptom management and clarification of treatment goals throughout hospital course. . Attestation To help prompt me to consider important information that might be impacting today's encounter and assessment, information from prior notes written by myself or my colleagues may have been "brought forward" into today's note. My signature on this note, however, is an attestation that I personally performed the exam, history, and/or decision-making noted today, and, unless otherwise indicated, the interactions with patient, family, and staff as well as the review of records all occurred today. I also attest that the listed assessment and stated plan reflect my best clinical judgment today based on the combination of historical information, prior notes, and today's exam/ interactions. When time spent is documented, it refers only to time spent today by the signer, or if indicated, combined time spent today by collaborating physician/nurse practitioner. Kerri Lord Nov 11, 2017 15:52
--- NOTE | 2017-11-11 16:02 | PD.CONS ---
HPI History of Present Illness This is a 72 year old male who presented after cardiopulmonary arrest. He was found to be in V fib, defibrillated, unresponsive. He is s/p cooling, encephalopathic. GI consulted for poss PEG tube placement. Pt has had mainly alternative and homeopathic medical care and therapies since the 's when he had an NC. Tolerating TF via OGT. Per RN and palliative care family is to discuss care goals this evening and make decision on whether to proceed with tracheostomy and PEG tube placement. (Esther Banerjee) PFSH Past Medical History NC 1991 - no cardiac stents per report, she wants everyone to be clear that history of cardiac stents is not accurate hiatal hernia asthma GERD right trigger finger - requests splint knees hurt - ?? arthritis . Past Surgical History Appendectomy ~ 45 years ago cardiac catheterization x 2 - No cardiac stents indicates that they do not want surgeries . (Esther Banerjee) Coded Allergies: No Known Allergies (Verified Allergy, Unknown, 11/07/17) Family History Son , of renal issues 3 years ago. . Social History unk (Esther Banerjee) Review of Systems noncontributory (Esther Banerjee) GI Exam Vitals I&O Vital Signs Date Time Temp Pulse Resp B/P (MAP) Pulse Ox O2 Delivery O2 Flow Rate FiO2 11/11/17 15:29 98 35 11/11/17 14:00 63 11/11/17 12:31 61 26 183/88 (119) 96 11/11/17 12:30 62 25 97 11/11/17 12:00 35 11/11/17 12:00 62 22 210/94 (132) 98 11/11/17 12:00 59 11/11/17 11:40 66 22 199/127 (151) 98 11/11/17 11:30 64 25 99 11/11/17 11:04 98 35 11/11/17 11:00 65 26 202/139 (160) 98 180/143 (155) 11/11/17 10:30 64 25 123/104 (110) 99 11/11/17 10:00 66 28 204/94 (130) 99 128/111 (117) 11/11/17 10:00 66 11/11/17 09:30 64 32 124/96 (105) 97 11/11/17 09:01 64 23 184/81 (115) 97 117/101 (106) 11/11/17 09:00 64 24 109/92 (98) 96 11/11/17 08:30 62 24 109/86 (94) 100 11/11/17 08:01 64 26 211/103 (139) 99 183/94 (123) 11/11/17 08:00 63 27 152/111 (125) 100 11/11/17 08:00 98.7 63 27 184/81 (115) 100 18 08:00 63 11/11/17 08:00 35 11/11/17 07:12 98 35 11/11/17 06:00 89 11/11/17 04:00 100.2 89 25 123/95 (104) 98 202/88 (126) 11/11/17 04:00 35 11/11/17 04:00 89 11/11/17 03:43 99 35 11/11/17 02:00 84 11/11/17 00:00 35 11/11/17 00:00 99.2 66 22 161/76 (104) 98 163/98 (119) 11/11/17 00:00 84 11/10/17 23:32 98 35 11/10/17 22:00 78 11/10/17 20:00 78 11/10/17 20:00 35 11/10/17 20:00 98.2 60 23 191/87 (121) 98 11/10/17 19:16 99 35 11/10/17 18:00 57 11/10/17 16:00 100.3 61 23 160/68 (98) 99 18 16:00 61 18 16:00 35 18 15:55 99 35 I/O 11/10/18 11/10/18 18 18 11/11/17 11/11/17 07:00 15:00 23:00 07:00 15:00 23:00 Intake Total 1031 ml 1140 ml 794 ml Output Total 300 ml 0 ml 450 ml 701 ml 0 ml Balance 731 ml 0 ml 690 ml 93 ml 0 ml IV Total 316 ml 286 ml 127 ml Tube Feeding 715 ml 614 ml 667 ml Other 240 ml Output Urine Total 300 ml 450 ml 700 ml Stool Total 1 ml Tube Feeding Residual Discard 0 ml 0 ml 0 ml # Voids 2 Imaging Last Impressions Chest X-Ray 11/11/17 0000 Signed Impressions: Service Date/Time: Saturday, November 11, 2017 03:31 - CONCLUSION: Diffuse consolidation likely represent diffuse edema. Some degree of effusions cannot be excluded. Sancho Ruiz MD Brain MRI 11/10/17 0000 Signed Impressions: Service Date/Time: Friday, November 10, 2017 14:05 - CONCLUSION: No acute intracranial process. Periventricular and deep white matter coalesced demyelinization most likely microvascular ischemic basis Octaviano Holland MD Abdomen X-Ray 11/10/17 0000 Signed Impressions: Service Date/Time: Friday, November 10, 2017 10:59 - CONCLUSION: No metallic radiopaque foreign bodies are present to preclude MRI. Sancho Clifford MD Head CT 11/04/172011 Signed Impressions: Service Date/Time: Saturday, November 04, 2017 22:10 - CONCLUSION: No acute disease. Mike Daavlos MD Laboratory Test 11/10/17 23:40 11/11/17 05:40 11/11/17 14:10 Activated Partial Thromboplast Time 31.2 SEC 45.1 SEC 41.7 SEC White Blood Count 12.2 TH/MM3 Red Blood Count 3.32 MIL/MM3 Hemoglobin 10.5 GM/DL Hematocrit 31.1 % Mean Corpuscular Volume 93.5 FL Mean Corpuscular Hemoglobin 31.7 PG Mean Corpuscular Hemoglobin Concent 33.9 % Red Cell Distribution Width 14.3 % Platelet Count 137 TH/MM3 Mean Platelet Volume 9.8 FL Blood Urea Nitrogen 52 MG/DL Creatinine 1.42 MG/DL Random Glucose 276 MG/DL Calcium Level 8.8 MG/DL Sodium Level 146 MEQ/L Potassium Level 3.8 MEQ/L Chloride Level 114 MEQ/L Carbon Dioxide Level 23.2 MEQ/L Anion Gap 9 MEQ/L Estimat Glomerular Filtration Rate 49 ML/MIN Date/Time Source Procedure Growth Status 11/10/17 19:35 Blood Peripheral Aerobic Blood Culture - Preliminary NO GROWTH IN 1 DAY Resulted 11/10/17 19:35 Blood Peripheral Anaerobic Blood Culture - Preliminary NO GROWTH IN 1 DAY Resulted 11/10/17 12:30 Sputum Endotracheal Gram Stain - Final Resulted 11/10/17 12:30 Sputum Endotracheal Sputum Culture - Preliminary MODERATE GROWTH NORMAL RESPIRATORY FL... Resulted 11/05/17 13:20 Urine Catheterized Urine Urine Culture - Final Klebsiella Oxytoca Complete Physical Examination HEENT: PERRL; normocephalic; atraumatic; no jaundice. intubated OGT CHEST: coarse CARDIAC: RRR ABDOMEN: Soft, obese, nontender; no hepatosplenomegaly; bowel sounds are present in all four quadrants. EXTREMITIES: No clubbing, cyanosis, or edema. SKIN: Normal; no rash; no jaundice. MODEL MAKING SUPERVISOR: intubated, sedated on vent (Esther Banerjee) Assessment and Plan Plan ASSESSMENT - dysphagia - pt had cardiopulmonary arrest, now in [facility] [place], encephalopathic. GI consulted for PEG tube placement. per palliative care family will discuss goals of care this evening and decide tomorrow if they want to proceed with trach and PEG tube. GS will plan to do trach tomorrow afternoon if it can be done in concert with bedside PEG placement. d/w GS, d/w RN, d/w palliative PLAN - EGD with PEG tube placement if family agrees - call GI when family has made decision - hold TF after MN - will need to hold heparin gtt - further recs to follow pt seen by myself and Dr Alonzo and this note is written on his behalf (Esther Banerjee) Physician Comments Patient seen and examined Agree with above Continue with current supportive care Monitor labs Await family decision for PEG placement Reconsult as needed we will sign off for now (Yasmani Alonzo MD) Esther Banerjee Nov 11, 2017 16:02 Yasmani Alonzo MD Nov 11, 2017 21:30
--- NOTE | 2017-11-11 18:08 | PD.CARD.PN ---
Subjective Subjective Remarks Intubated, on the vent Objective Medications Current Medications Medications (Trade) Dose Ordered Sig/Juan Route Start Time Stop Time Status Last Admin (Tylenol) 650 mg Q6H PRN PO 11/04/17 22:00 (Pepcid Inj) 20 mg Q12HR IV PUSH 11/05/17 09:00 11/11/17 08:20 (Tears Naturale Opth Soln) 1 drop TID EACH EYE 11/05/17 09:00 11/11/17 16:05 (Zofran Inj) 4 mg Q6H PRN IV PUSH 11/04/17 22:00 11/07/17 00:00 (Duoneb Neb) 1 ampule Q2HR NEB PRN INH 11/04/17 22:00 Miscellaneous Information 1 Q361D XX 11/04/17 22:00 11/04/17 22:00 (Chlorhexidine 2% Cloth) Taper DAILY@04 TOP 11/05/17 04:00 11/01/18 03:59 11/08/17 03:24 (Chlorhexidine 2% Cloth) 3 pack UNSCH PRN TOP 11/04/17 22:00 (Ashley-Colace) 1 tab BID PO 11/05/17 09:00 11/11/17 08:20 (Milk Of Magnesia Liq) 30 ml Q12H PRN PO 11/04/17 22:00 (Senokot) 17.2 mg Q12H PRN PO 11/04/17 22:00 (Dulcolax Supp) 10 mg DAILY PRN RECTAL 11/04/17 22:00 (Lactulose Liq) 30 ml DAILY PRN PO 11/04/17 22:00 (Heparin Inj) 5,000 units UNSCH PRN IV PUSH 11/05/17 04:00 (Heparin Inj) 2,500 units UNSCH PRN IV PUSH 11/05/17 04:00 11/11/17 01:10 (Peridex 0.12% Liq) 15 ml BID@08,20 MT 11/05/17 08:00 11/11/17 08:21 (Ativan Inj) 1 mg Q1H PRN IV PUSH 11/05/17 01:15 11/09/17 04:20 Miscellaneous Information ml @ 0 mls/hr UNSCH IV 11/05/17 01:15 (NS Flush) 2 ml UNSCH PRN IV FLUSH 11/05/17 01:15 11/11/17 14:07 (NS Flush) 2 ml UNSCH PRN IV FLUSH 11/05/17 01:15 11/09/17 14:43 (Tylenol 650 Mg/ 20 ml Liq) 650 mg Q6H PRN NG 11/05/17 01:15 11/10/17 07:48 (Lacrilube Opht Oint) 1 applic Q4H PRN EACH EYE 11/05/17 01:15 Potassium Chloride 100 ml @ 50 mls/hr Q2H PRN IV 11/05/17 01:30 Potassium Chloride 100 ml @ 50 mls/hr Q2H PRN IV 11/05/17 01:30 (K-Lyte Cl Eff) 50 meq UNSCH PRN PO 11/05/17 01:30 11/10/17 07:32 Potassium Chloride 100 ml @ 25 mls/hr UNSCH PRN IV 11/05/17 01:30 11/06/17 08:53 Potassium Chloride 100 ml @ 50 mls/hr Q2H PRN IV 11/05/17 01:30 Magnesium Sulfate 4 gm/Sodium Chloride 100 ml @ 50 mls/hr UNSCH PRN IV 11/05/17 01:30 (Mag-Ox) 800 mg UNSCH PRN PO 11/05/17 01:30 Magnesium Sulfate 2 gm/Sodium Chloride 100 ml @ 50 mls/hr UNSCH PRN IV 11/05/17 01:30 11/06/17 09:12 (K-Phos) 2,000 mg Q4H PRN PO 11/05/17 01:30 Sodium Phosphate 30 mmol/Sodium Chloride 250 ml @ 42 mls/hr UNSCH PRN IV 11/05/17 01:30 11/06/17 02:45 (K-Phos) 2,000 mg UNSCH PRN PO/TUBE 11/05/17 01:30 Potassium Phosphate 30 mmol/ Sodium Chloride 260 ml @ 42 mls/hr UNSCH PRN IV 11/05/17 01:30 Heparin Sodium (Porcine) 90659 units/Sodium Chloride 250 ml @ 10 mls/hr TITRATE PRN IV 11/05/17 06:00 11/11/17 05:22 (D50w (Vial) Inj) 50 ml UNSCH PRN IV PUSH 11/05/17 19:45 (Glucagon Inj) 1 mg UNSCH PRN OTHER 11/05/17 19:45 (Brethine Inj) 1 mg UNSCH PRN SQ 11/06/17 01:15 (NovoLIN R SUPPLEMENTAL SCALE) 1 Q4HR SQ 11/06/17 08:00 11/11/17 16:05 (Lactinex) 1 tab Q12HR PO 11/07/17 12:45 11/11/17 08:20 (Trandate Inj) 20 mg Q5M PRN IV PUSH 11/09/17 10:15 11/11/17 17:49 (Apresoline Inj) 10 mg Q30M PRN IV PUSH 11/09/17 10:15 11/10/17 21:44 (Cordarone) 400 mg Q12HR PO 11/09/17 11:00 11/11/17 08:20 (Cipro) 500 mg Q12HR PO 11/09/17 13:00 11/12/17 12:59 11/11/17 08:20 (Inderal) 40 mg Q6H PO 11/09/17 16:00 11/11/17 16:05 (Levemir Inj) 10 units Q12HR SQ 11/11/17 21:00 Propofol 100 ml @ 0 mls/hr TITRATE PRN IV 11/11/17 09:30 Vital Signs / I&O Vital Signs Date Time Temp Pulse Resp B/P (MAP) Pulse Ox O2 Delivery O2 Flow Rate FiO2 11/11/17 16:00 35 11/11/17 16:00 99.9 64 25 177/81 (113) 96 11/11/17 16:00 64 11/11/17 15:29 98 35 11/11/17 14:00 63 11/11/17 12:31 61 26 183/88 (119) 96 11/11/17 12:30 62 25 97 11/11/17 12:00 35 11/11/17 12:00 62 22 210/94 (132) 98 11/11/17 12:00 59 11/11/17 11:40 66 22 199/127 (151) 98 11/11/17 11:30 64 25 99 11/11/17 11:04 98 35 11/11/17 11:00 65 26 202/139 (160) 98 180/143 (155) 11/11/17 10:30 64 25 123/104 (110) 99 11/11/17 10:00 66 28 204/94 (130) 99 128/111 (117) 11/11/17 10:00 66 11/11/17 09:30 64 32 124/96 (105) 97 11/11/17 09:01 64 23 184/81 (115) 97 117/101 (106) 11/11/17 09:00 64 24 109/92 (98) 96 11/11/17 08:30 62 24 109/86 (94) 100 11/11/17 08:01 64 26 211/103 (139) 99 183/94 (123) 11/11/17 08:00 63 27 152/111 (125) 100 11/11/17 08:00 98.7 63 27 184/81 (115) 100 11/11/17 08:00 63 11/11/17 08:00 35 11/11/17 07:12 98 35 11/11/17 06:00 89 11/11/17 04:00 100.2 89 25 123/95 (104) 98 202/88 (126) 11/11/17 04:00 35 11/11/17 04:00 89 11/11/17 03:43 99 35 11/11/17 02:00 84 11/11/17 00:00 35 11/11/17 00:00 99.2 66 22 161/76 (104) 98 163/98 (119) 11/11/17 00:00 84 11/10/17 23:32 98 35 11/10/17 22:00 78 11/10/17 20:00 78 11/10/17 20:00 35 11/10/17 20:00 98.2 60 23 191/87 (121) 98 11/10/17 19:16 99 35 I/O 11/10/17 11/10/17 11/10/17 11/11/17 11/11/17 11/11/17 07:00 15:00 23:00 07:00 15:00 23:00 Intake Total 1031 ml 1140 ml 794 ml Output Total 300 ml 0 ml 450 ml 701 ml 0 ml 0 ml Balance 731 ml 0 ml 690 ml 93 ml 0 ml 0 ml IV Total 316 ml 286 ml 127 ml Tube Feeding 715 ml 614 ml 667 ml Other 240 ml Output Urine Total 300 ml 450 ml 700 ml Stool Total 1 ml Tube Feeding Residual Discard 0 ml 0 ml 0 ml 0 ml # Voids 2 Physical Exam GENERAL: Intubated, sedated SKIN: Warm and dry. HEAD: Normocephalic. EYES: No scleral icterus. No injection or drainage. NECK: Supple, trachea midline. No JVD or lymphadenopathy. CARDIOVASCULAR: Regular rate and rhythm without murmurs, gallops, or rubs. RESPIRATORY: Breath sounds equal bilaterally. No accessory muscle use. GASTROINTESTINAL: Abdomen soft, non-tender, nondistended. MUSCULOSKELETAL: No cyanosis, or edema. Restless, no purposeful movement Laboratory Laboratory Tests Test 11/10/17 23:40 11/11/17 05:40 11/11/17 14:10 Activated Partial Thromboplast Time 31.2 SEC 45.1 SEC 41.7 SEC White Blood Count 12.2 TH/MM3 Red Blood Count 3.32 MIL/MM3 Hemoglobin 10.5 GM/DL Hematocrit 31.1 % Mean Corpuscular Volume 93.5 FL Mean Corpuscular Hemoglobin 31.7 PG Mean Corpuscular Hemoglobin Concent 33.9 % Red Cell Distribution Width 14.3 % Platelet Count 137 TH/MM3 Mean Platelet Volume 9.8 FL Blood Urea Nitrogen 52 MG/DL Creatinine 1.42 MG/DL Random Glucose 276 MG/DL Calcium Level 8.8 MG/DL Sodium Level 146 MEQ/L Potassium Level 3.8 MEQ/L Chloride Level 114 MEQ/L Carbon Dioxide Level 23.2 MEQ/L Anion Gap 9 MEQ/L Estimat Glomerular Filtration Rate 49 ML/MIN Imaging Last 24 hours Impressions Chest X-Ray 11/11/17 0000 Signed Impressions: Service Date/Time: Saturday, November 11, 2017 03:31 - CONCLUSION: Diffuse consolidation likely represent diffuse edema. Some degree of effusions cannot be excluded. Sancho Ruiz MD Assessment and Plan Problem List: (1) VF (ventricular fibrillation) ICD Codes: I49.01 - Ventricular fibrillation Status: Acute (2) Respiratory failure ICD Codes: J96.90 - Respiratory failure, unspecified, unspecified whether with hypoxia or hypercapnia Status: Acute (3) Hyperglycemia ICD Codes: R73.9 - Hyperglycemia, unspecified Status: Acute (4) Anoxic encephalopathy ICD Codes: G93.1 - Anoxic brain damage, not elsewhere classified Assessment and Plan No change, neurologic status without any improvement. EEG c/w anoxic encephalopathy, neurology following. Recommend palliative care, DNR status and comfort care. Overall prognosis extremely poor. deciding about care withdrawal vs trach/PEG. Problem Qualifiers (1) Respiratory failure: Qualified Codes: J96.00 - Acute respiratory failure, unspecified whether with hypoxia or hypercapnia Lawrence Alvares MD Nov 11, 2017 18:08
[2017-11-11] MEDS ORDERED: HEPARIN INJ 25,000 UNITS in SODIUM CHLOR 0.9% 250 ML INJ 247.5 ML IV PRN (19:30)
[2017-11-11] MEDS: INSULIN DETEMIR 100 UNITS/ML VIAL SQ SCH (20:24)
[2017-11-11 22:43] LABS: ALBUMIN 2.2 GM/DL (3.4-5.0); MAGNESIUM 2.4 MG/DL (1.5-2.5)
[2017-11-11 22:46] LABS: PHOSPHORUS 2.3 MG/DL (2.5-4.9)
[2017-11-11 22:49] LABS: TOTAL BILIRUBIN ADULT 0.3 MG/DL (0.2-1.0); TOTAL PROTEIN 6.4 GM/DL (6.4-8.2)
[2017-11-12] VITALS (27 sets, daily range): BP systolic 116–203; BP diastolic 56–98; PULSE 49–78; RESP 18–27; TEMP 98.9–100.2; O2SAT 95–100
[2017-11-12] MEDS: SODIUM CHLOR 0.45% 1000 ML INJ 1,000 ML IV SCH ×2 (00:01→10:00)
[2017-11-12] MEDS: PROPOFOL 1000 MG/100 ML INJ 100 ML IV PRN (01:59)
[2017-11-12] MEDS: CHLORHEXIDINE GLUCONATE 2 % 1 PACK (2 CLOTHS) TOP SCH (04:00)
[2017-11-12] MEDS: PROPRANOLOL HCL 40 MG TAB PO SCH ×2 (04:00→10:29)
[2017-11-12] MEDS: MEDIUM DOSE INSULIN NOVOLIN REGULAR SUPPLEMENTAL SCALE SQ SCH ×6 (04:06→20:28)
[2017-11-12 06:22] LABS: HEMATOCRIT 27.6 % (39.0-51.0); HEMOGLOBIN 9.4 GM/DL (13.0-17.0); MEAN CELL VOLUME 93.5 FL (80.0-100.0); MEAN CORPUSCULAR HEMOGLOBIN 31.8 PG (27.0-34.0); MEAN PLATELET VOLUME 10.6 FL (7.0-11.0); PLATELET COUNT 146 TH/MM3 (150-450); RED BLOOD COUNT 2.95 MIL/MM3 (4.50-5.90); WHITE BLOOD COUNT 11.1 TH/MM3 (4.0-11.0)
--- NOTE | 2017-11-12 06:39 | MB ---
cc: TANIA JESUS M.D. DATE OF CONSULTATION 11/11/2017 REASON FOR CONSULTATION Tracheostomy placement. HISTORY OF PRESENT ILLNESS The patient is a 72-year-old gentleman with a history of coronary artery disease with stent placement and who developed pulseless defibrillation on 11/04/2017. The patient was resuscitated and placed under cold/cool. The patient had rewarming, but continued to remain unresponsive and had EEG findings consistent with moderate to severe hypoxemia. The patient remained in ICU on mechanical ventilation. He is off pressors, but is encephalopathic. There is some withdrawal to pain. REVIEW OF SYSTEMS Unable to be obtained as the patient is unresponsive. ALLERGIES He has no known allergies. PAST MEDICAL HISTORY 1. He had an UT in 1991. 2. History of hiatal hernia. 3. Asthma 4. GE reflux disease 5. Right trigger finger PAST SURGICAL HISTORY Past surgeries include: 1. Appendectomy 45 years ago. 2. Cardiac catheterization x2. MEDICATIONS He has had no active prescriptions upon arrival to the facility. He is only naturopathic compounds prior to the event. SOCIAL HISTORY Substance use, he is a former smoker, does not drink alcohol and no illicit drug use. PHYSICAL EXAMINATION An obese male who is intubated and unresponsive other than grimacing to manipulation. VITALS: BP 177/81, pulse 64 and respiratory rate 25, temperature 99.9 and 96% saturation on 35% FIO2. CHEST: Clear to auscultation. CARDIAC: Exam reveals a regular rate and rhythm. ABDOMEN: Soft with some grimacing to deep palpation. Pulses are present. NEUROLOGIC EXAMINATION: Patient is intermittently partially responsive to painful stimuli. LABORATORY VALUES Demonstrate WBC of 12.2, platelets 137,000, PTT is 41.7 and the patient is on a heparin drip. BUN and creatinine are elevated at 52 and 1.4. Sodium is 146, glucose 276. IMAGING STUDIES Chest x-ray from today demonstrates heart size enlarged with diffuse increased density throughout the lungs. Abdominal film yesterday demonstrates a nonobstructive bowel gas pattern. ASSESSMENT Unresponsiveness secondary hypoxic injury from a cardiac event. PLAN The patient's is deciding on whether or not to continue to pursue aggressive care or have palliative care take over and have the patient have comfort measures only. We will stand by and depending on the 's decision tomorrow morning, we will proceed accordingly. If she decides on withdrawing care, we will stand down; if she wants further intervention, we will plan for percutaneous tracheostomy on November 12. MD ROMAIN Briseno/DJL /7:01 PM /6:24 AM
[2017-11-12 06:49] LABS: BICARBONATE 25.1 MEQ/L (21.0-32.0); CALCIUM 8.5 MG/DL (8.5-10.1); CREATININE 1.32 MG/DL (0.60-1.30)
[2017-11-12] MEDS: ARTIFICIAL TEARS OPTH SOLN 15 ML BTL EACH EYE SCH ×3 (08:03→17:10)
[2017-11-12] MEDS: CIPROFLOXACIN 500 MG TAB PO SCH (08:03)
[2017-11-12] MEDS: FAMOTIDINE 20 MG/2 ML VIAL IV PUSH SCH ×2 (08:04→20:28)
[2017-11-12] MEDS: DOCUSATE SODIUM 50 MG/SENNA 8.6 MG TAB PO SCH ×2 (08:04→20:28)
[2017-11-12] MEDS: AMIODARONE 200 MG TAB PO SCH ×3 (08:04→20:28)
[2017-11-12] MEDS: LACTOBACILLUS ACIDOPHILUS TAB PO SCH ×2 (08:04→20:29)
[2017-11-12] MEDS: INSULIN DETEMIR 100 UNITS/ML VIAL SQ SCH ×2 (08:05→20:28)
[2017-11-12] MEDS: CHLORHEXIDINE 0.12% (ORAL KIT) 15 ML CUP MT SCH ×2 (08:06→20:28)
[2017-11-12] MEDS ORDERED: MISC INFORMATION OTHER ONE (08:30)
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
[2017-11-12] MEDS ORDERED: FUROSEMIDE 40 MG/4 ML VIAL IV PUSH ONE (11:00)
--- NOTE | 2017-11-12 11:12 | HHI.HCPN ---
Reason for visit a. To assist with evaluation and management of symptoms including: pain; dyspnea. b. To assist medical decision maker(s) with: better understanding of current medical conditions; weighing benefits/burdens of medical treatment options; making medical treatment decisions. Subjective/Interval History Patient seen and examined in ICU. Discussed with nurse. No family at bedside during exam. Off sedation. Patient opens eyes to voice. He is following simple and some more complex commands today. Left upper extremity appears weak, not squeezing with left. Shows thumbs up on right. Attempts to lift feet off bed ( profoundly weak, not really able to lift) and wiggles toes on command. Opens and closes eyes on command. He withdraws to painful stimuli all extremities. [facility], FiO2 35%. Tmax 100.4. Intermittent hypertension. WBC 11.1. Creatinine stable at 1.32. Repeat sputum culture moderate growth normal respiratory lorrie. Blood culture, no growth in 1 day. No new imaging today. Spoke with Dr. Cross we agreed we should monitor patient status over the weekend in hopes for continued neurologic recovery and possible medical extubation. Trach and PEG on hold for now, notified GI and general surgery. Will reevaluate on Thursday. . Family/friend interactions Called to notify of clinical change. I advised we will monitor clinical status over the weekend in hopes that patient will be able to make more neurologic improvement and attempt CPAP trials. Explained will place trach and PEG on hold for now and that we would reevaluate on Thursday. I explained he may still need to consider trach and PEG if unable to be weaned. is of course thrilled with changes and will be here in about an hour. She tells me they have been praying, the protestant has been fasting and praying for him and that God is good. . Advance Directives Living Will: Never completed Health Care Surrogate: Never completed Durable Power of Mingler Operator: Never completed Advance Directive Specifics Health Care Surrogate(s): Patient is incapacitated to make his own health care decision, unlikely he will regain capacity due to anoxic brain injury. In the absence of written advanced directives, according to [place] statutes, health care proxy decision making falls to his spouse. . Significant change in goals: FULL CODE. Goals remain aggressive. . Objective Vital Signs Date Time Temp Pulse Resp B/P (MAP) Pulse Ox O2 Delivery O2 Flow Rate FiO2 1/18/18 10:12 98 35 11/12/17 10:11 35 11/12/17 07:33 95 35 11/12/17 06:00 51 11/12/17 04:31 96 35 11/12/17 04:01 99.2 51 18 117/56 (76) 96 11/12/17 04:00 35 11/12/17 04:00 51 11/12/17 02:00 59 11/12/17 01:47 98 35 11/12/17 00:00 98.9 60 24 156/76 (102) 97 11/12/17 00:00 60 11/12/17 00:00 35 11/11/17 22:29 97 35 11/11/17 22:00 63 11/11/17 20:07 100.4 66 28 171/76 (107) 97 Arterial Line 11/11/17 20:00 66 11/11/17 20:00 35 11/11/17 19:20 97 35 11/11/17 18:00 58 11/11/17 16:00 35 11/11/17 16:00 99.9 64 25 177/81 (113) 96 11/11/17 16:00 64 11/11/17 15:29 98 35 11/11/17 14:00 63 11/11/17 12:31 61 26 183/88 (119) 96 11/11/17 12:30 62 25 97 11/11/17 12:00 35 11/11/17 12:00 62 22 210/94 (132) 98 11/11/17 12:00 59 11/11/17 11:40 66 22 199/127 (151) 98 11/11/17 11:30 64 25 99 11/11/17 11:04 98 35 11/11/17 11:00 65 26 202/139 (160) 98 180/143 (155) Intake & Output 11/12/17 11/12/17 06:59 18:59 Intake Total 1008 ml Output Total 725 ml Balance 283 ml IV Total 448 ml Tube Feeding 360 ml Other 200 ml Output Urine Total 725 ml Physical Exam CONSTITUTIONAL/GENERAL: This is an adequately nourished patient, in no apparent distress, on mechanical ventilation. TUBES/LINES/DRAINS: ETT, OG tube with TF; PIVs; christopher catheter; SCDs; podus boots SKIN: No jaundice, rashes, or lesions. Ecchymoses on upper extremities. Skin temperature appropriate. Not diaphoretic. EYES: Pupils equal and reactive. ENT: Unable to assess hearing. no bleeding or drainage; oral mucosa difficult to visualize given multiple oral tubes CARDIOVASCULAR: Heart sounds somewhat faint; difficult to auscultate. RESPIRATORY/CHEST: Symmetric, unlabored respirations on vent. Breath sounds equal bilaterally. Scattered rales bilaterally GASTROINTESTINAL: Abdomen soft, protuberant. No guarding. Bowel sounds present. GENITOURINARY: Without palpable bladder distension. Christopher catheter in place. MUSCULOSKELETAL: Extremities without clubbing or cyanosis; generalized anasarca but no gross deformities NEUROLOGICAL: Awakens easily, follows some simple and complex commands. PSYCHIATRIC: Awakens, intermittent restlessness. . Diagnostic Tests Laboratory Laboratory Tests Test 11/09/17 10:55 11/09/17 19:00 11/10/17 05:30 11/10/17 14:50 Activated Partial Thromboplast Time 26.4 SEC (24.3-30.1) 34.7 SEC (24.3-30.1) 37.5 SEC (24.3-30.1) 33.9 SEC (24.3-30.1) White Blood Count 10.0 TH/MM3 (4.0-11.0) Red Blood Count 3.36 MIL/MM3 (4.50-5.90) Hemoglobin 10.4 GM/DL (13.0-17.0) Hematocrit 31.4 % (39.0-51.0) Mean Corpuscular Volume 93.4 FL (80.0-100.0) Mean Corpuscular Hemoglobin 31.0 PG (27.0-34.0) Mean Corpuscular Hemoglobin Concent 33.2 % (32.0-36.0) Red Cell Distribution Width 14.2 % (11.6-17.2) Platelet Count 132 TH/MM3 (150-450) Mean Platelet Volume 10.0 FL (7.0-11.0) Blood Urea Nitrogen 45 MG/DL (7-18) Creatinine 1.38 MG/DL (0.60-1.30) Random Glucose 253 MG/DL (74-106) Calcium Level 9.1 MG/DL (8.5-10.1) Sodium Level 142 MEQ/L (136-145) Potassium Level 3.5 MEQ/L (3.5-5.1) Chloride Level 112 MEQ/L (98-107) Carbon Dioxide Level 21.4 MEQ/L (21.0-32.0) Anion Gap 9 MEQ/L (5-15) Estimat Glomerular Filtration Rate 51 ML/MIN (>89) Test 11/10/17 23:40 11/11/17 05:40 11/11/17 14:10 11/12/17 04:31 Activated Partial Thromboplast Time 31.2 SEC (24.3-30.1) 45.1 SEC (24.3-30.1) 41.7 SEC (24.3-30.1) White Blood Count 12.2 TH/MM3 (4.0-11.0) 11.1 TH/MM3 (4.0-11.0) Red Blood Count 3.32 MIL/MM3 (4.50-5.90) 2.95 MIL/MM3 (4.50-5.90) Hemoglobin 10.5 GM/DL (13.0-17.0) 9.4 GM/DL (13.0-17.0) Hematocrit 31.1 % (39.0-51.0) 27.6 % (39.0-51.0) Mean Corpuscular Volume 93.5 FL (80.0-100.0) 93.5 FL (80.0-100.0) Mean Corpuscular Hemoglobin 31.7 PG (27.0-34.0) 31.8 PG (27.0-34.0) Mean Corpuscular Hemoglobin Concent 33.9 % (32.0-36.0) 34.0 % (32.0-36.0) Red Cell Distribution Width 14.3 % (11.6-17.2) 14.0 % (11.6-17.2) Platelet Count 137 TH/MM3 (150-450) 146 TH/MM3 (150-450) Mean Platelet Volume 9.8 FL (7.0-11.0) 10.6 FL (7.0-11.0) Blood Urea Nitrogen 52 MG/DL (7-18) 51 MG/DL (7-18) Creatinine 1.42 MG/DL (0.60-1.30) 1.32 MG/DL (0.60-1.30) Random Glucose 276 MG/DL (74-106) 218 MG/DL (74-106) Calcium Level 8.8 MG/DL (8.5-10.1) 8.5 MG/DL (8.5-10.1) Sodium Level 146 MEQ/L (136-145) 147 MEQ/L (136-145) Potassium Level 3.8 MEQ/L (3.5-5.1) 3.6 MEQ/L (3.5-5.1) Chloride Level 114 MEQ/L (98-107) 114 MEQ/L (98-107) Carbon Dioxide Level 23.2 MEQ/L (21.0-32.0) 25.1 MEQ/L (21.0-32.0) Anion Gap 9 MEQ/L (5-15) 8 MEQ/L (5-15) Estimat Glomerular Filtration Rate 49 ML/MIN (>89) 53 ML/MIN (>89) Phosphorus Level 2.3 MG/DL (2.5-4.9) Magnesium Level 2.4 MG/DL (1.5-2.5) Total Bilirubin 0.3 MG/DL (0.2-1.0) Aspartate Amino Transf (AST/SGOT) 15 U/L (15-37) Alanine Aminotransferase (ALT/SGPT) 34 U/L (12-78) Alkaline Phosphatase 69 U/L (45-117) Total Protein 6.4 GM/DL (6.4-8.2) Albumin 2.2 GM/DL (3.4-5.0) Test 11/12/17 04:37 Activated Partial Thromboplast Time 38.9 SEC (24.3-30.1) Result Diagram: 11/12/17 0431 11/12/17 0431 Microbiology Microbiology Date/Time Source Procedure Growth Status 11/10/17 19:35 Blood Peripheral Aerobic Blood Culture - Preliminary NO GROWTH IN 1 DAY Resulted 11/10/17 19:35 Blood Peripheral Anaerobic Blood Culture - Preliminary NO GROWTH IN 1 DAY Resulted 11/10/17 19:30 Blood Peripheral Aerobic Blood Culture - Preliminary NO GROWTH IN 1 DAY Resulted 11/10/17 19:30 Blood Peripheral Anaerobic Blood Culture - Preliminary NO GROWTH IN 1 DAY Resulted 11/10/17 12:30 Sputum Endotracheal Gram Stain - Final Complete 1/16/18 12:30 Sputum Endotracheal Sputum Culture - Final MODERATE GROWTH NORMAL RESPIRATORY LORRIE Complete Imaging Last Impressions Chest X-Ray 11/11/17 0000 Signed Impressions: Service Date/Time: Saturday, November 11, 2017 03:31 - CONCLUSION: Diffuse consolidation likely represent diffuse edema. Some degree of effusions cannot be excluded. Sancoh Ruiz MD Brain MRI 11/10/17 0000 Signed Impressions: Service Date/Time: Friday, November 10, 2017 14:05 - CONCLUSION: No acute intracranial process. Periventricular and deep white matter coalesced demyelinization most likely microvascular ischemic basis Octaviano Holland MD Abdomen X-Ray 11/10/17 0000 Signed Impressions: Service Date/Time: Friday, November 10, 2017 10:59 - CONCLUSION: No metallic radiopaque foreign bodies are present to preclude MRI. Sancho Clifford MD Head CT 11/04/172011 Signed Impressions: Service Date/Time: Saturday, November 04, 2017 22:10 - CONCLUSION: No acute disease. Mike Davalos MD . Procedures * 11/04/17 - emergent intubation * 11/04/17 - right groin central line placement . Assessment and Plan Disease Oriented Problem List: (1) VF (ventricular fibrillation) (2) Cardiopulmonary arrest (3) Respiratory failure (4) Anoxic encephalopathy (5) Hyperglycemia Symptom Scale: (1) Pain 0-10 Scale: Unable to quantify Comment: Off sedation, no evidence of neurologic improvement. . (2) Dyspnea 0-10 Scale: Unable to quantify Comment: Continues on mechanical ventilation Pertinent Non-Medical Issues Psychosocial: . Spiritual: [employer] celine. Legal: Patient is incapacitated to make his own health care decision, unlikely he will regain capacity due to anoxic brain injury. In the absence of written advanced directives, according to [place] statutes, health care proxy decision making falls to his spouse. Ethical issues impacting care: Important Contacts * Katie Back, spouse/ HCP; (call this number 1st) or [phone] * Nargis Back, daughter: [phone] lives in [place], here until Thursday . Prognosis Mr. Back is a 72 year old male with hypoxic ischemic encephalopathy s/p out-of- hospital V. fib arrest. He remains intubated and encephalopathic, critically ill. Overall prognosis for meaningful recovery is poor. If he survives, he will likely need LTAC facility and then possible rat exterminator care. . Code Status: Full Code Plan * Patient is incapacitated to make his own health care decision, unlikely he will regain capacity due to anoxic brain injury. In the absence of written advanced directives, according to [place] statutes, health care proxy decision making falls to his spouse. * FULL CODE * Discussed with Dr. Cross, general surgery, GI and nursing staff. Trach and PEG on hold for now, will reevaluate on Thursday for possible trach/PEG need. * Goals remain aggressive. * SYMPTOMS: Pain: due to recent V. Fib arrest, resuscitation, tubes, etc. Off sedation to monitor neuro status. Dyspnea: on [facility]. No new medication recommendations at this time. * Palliative care will continue to follow to assist with symptom management and clarification of treatment goals throughout hospital course. . Attestation To help prompt me to consider important information that might be impacting today's encounter and assessment, information from prior notes written by myself or my colleagues may have been "brought forward" into today's note. My signature on this note, however, is an attestation that I personally performed the exam, history, and/or decision-making noted today, and, unless otherwise indicated, the interactions with patient, family, and staff as well as the review of records all occurred today. I also attest that the listed assessment and stated plan reflect my best clinical judgment today based on the combination of historical information, prior notes, and today's exam/ interactions. When time spent is documented, it refers only to time spent today by the signer, or if indicated, combined time spent today by collaborating physician/nurse practitioner. Kerri Lord Nov 12, 2017 11:12
[2017-11-12] MEDS: hydrALAZINE HCL 20 MG/ML VIAL IV PUSH PRN ×2 (12:04→17:10)
--- NOTE | 2017-11-12 13:29 | PD.CARD.PN ---
Subjective Subjective Remarks Intubated, on the vent, no improvement Objective Medications Current Medications Medications (Trade) Dose Ordered Sig/Juan Route Start Time Stop Time Status Last Admin (Tylenol) 650 mg Q6H PRN PO 11/04/17 22:00 (Pepcid Inj) 20 mg Q12HR IV PUSH 11/05/17 09:00 11/12/17 08:04 (Tears Naturale Opth Soln) 1 drop TID EACH EYE 11/05/17 09:00 11/12/17 12:05 (Zofran Inj) 4 mg Q6H PRN IV PUSH 11/04/17 22:00 11/07/17 00:00 (Duoneb Neb) 1 ampule Q2HR NEB PRN INH 11/04/17 22:00 Miscellaneous Information 1 Q361D XX 11/04/17 22:00 11/04/17 22:00 (Chlorhexidine 2% Cloth) Taper DAILY@04 TOP 11/05/17 04:00 11/01/18 03:59 11/08/17 03:24 (Chlorhexidine 2% Cloth) 3 pack UNSCH PRN TOP 11/04/17 22:00 (Ashley-Colace) 1 tab BID PO 11/05/17 09:00 11/11/17 20:23 (Milk Of Magnesia Liq) 30 ml Q12H PRN PO 11/04/17 22:00 (Senokot) 17.2 mg Q12H PRN PO 11/04/17 22:00 (Dulcolax Supp) 10 mg DAILY PRN RECTAL 11/04/17 22:00 (Lactulose Liq) 30 ml DAILY PRN PO 11/04/17 22:00 (Heparin Inj) 5,000 units UNSCH PRN IV PUSH 11/05/17 04:00 (Heparin Inj) 2,500 units UNSCH PRN IV PUSH 11/05/17 04:00 11/11/17 01:10 (Peridex 0.12% Liq) 15 ml BID@08,20 MT 11/05/17 08:00 11/12/17 08:06 (Ativan Inj) 1 mg Q1H PRN IV PUSH 11/05/17 01:15 11/09/17 04:20 Miscellaneous Information ml @ 0 mls/hr UNSCH IV 11/05/17 01:15 (NS Flush) 2 ml UNSCH PRN IV FLUSH 11/05/17 01:15 11/11/17 20:23 (NS Flush) 2 ml UNSCH PRN IV FLUSH 11/05/17 01:15 11/09/17 14:43 (Tylenol 650 Mg/ 20 ml Liq) 650 mg Q6H PRN NG 11/05/17 01:15 11/10/17 07:48 (Lacrilube Opht Oint) 1 applic Q4H PRN EACH EYE 11/05/17 01:15 Potassium Chloride 100 ml @ 50 mls/hr Q2H PRN IV 11/05/17 01:30 Potassium Chloride 100 ml @ 50 mls/hr Q2H PRN IV 11/05/17 01:30 (K-Lyte Cl Eff) 50 meq UNSCH PRN PO 11/05/17 01:30 11/10/17 07:32 Potassium Chloride 100 ml @ 25 mls/hr UNSCH PRN IV 11/05/17 01:30 11/06/17 08:53 Potassium Chloride 100 ml @ 50 mls/hr Q2H PRN IV 11/05/17 01:30 Magnesium Sulfate 4 gm/Sodium Chloride 100 ml @ 50 mls/hr UNSCH PRN IV 11/05/17 01:30 (Mag-Ox) 800 mg UNSCH PRN PO 11/05/17 01:30 Magnesium Sulfate 2 gm/Sodium Chloride 100 ml @ 50 mls/hr UNSCH PRN IV 11/05/17 01:30 11/06/17 09:12 (K-Phos) 2,000 mg Q4H PRN PO 11/05/17 01:30 Sodium Phosphate 30 mmol/Sodium Chloride 250 ml @ 42 mls/hr UNSCH PRN IV 11/05/17 01:30 11/06/17 02:45 (K-Phos) 2,000 mg UNSCH PRN PO/TUBE 11/05/17 01:30 Potassium Phosphate 30 mmol/ Sodium Chloride 260 ml @ 42 mls/hr UNSCH PRN IV 11/05/17 01:30 (D50w (Vial) Inj) 50 ml UNSCH PRN IV PUSH 11/05/17 19:45 (Glucagon Inj) 1 mg UNSCH PRN OTHER 11/05/17 19:45 (Brethine Inj) 1 mg UNSCH PRN SQ 11/06/17 01:15 (NovoLIN R SUPPLEMENTAL SCALE) 1 Q4HR SQ 11/06/17 08:00 11/12/17 12:05 (Lactinex) 1 tab Q12HR PO 11/07/17 12:45 11/12/17 08:04 (Trandate Inj) 20 mg Q5M PRN IV PUSH 11/09/17 10:15 11/11/17 23:55 (Apresoline Inj) 10 mg Q30M PRN IV PUSH 11/09/17 10:15 11/12/17 12:04 (Cordarone) 400 mg Q12HR PO 11/09/17 11:00 11/11/17 20:23 (Inderal) 40 mg Q6H PO 11/09/17 16:00 11/12/17 10:29 (Levemir Inj) 10 units Q12HR SQ 11/11/17 21:00 11/12/17 08:05 Propofol 100 ml @ 3.84 mls/hr TITRATE PRN IV 11/11/17 09:30 Future hold 11/12/17 01:59 Heparin Sodium (Porcine) 80248 units/Sodium Chloride 250 ml @ 10 mls/hr TITRATE PRN IV 11/11/17 19:30 Future Hold 11/11/17 19:29 Vital Signs / I&O Vital Signs Date Time Temp Pulse Resp B/P (MAP) Pulse Ox O2 Delivery O2 Flow Rate FiO2 11/12/17 12:00 53 11/12/17 12:00 53 19 184/98 (126) 98 11/12/17 12:00 35 11/12/17 11:30 97 35 11/12/17 11:01 55 20 181/87 (118) 98 11/12/17 10:30 35 11/12/17 10:12 98 35 11/12/17 10:11 35 11/12/17 10:00 57 11/12/17 10:00 57 24 203/88 (126) 96 11/12/17 09:41 57 23 177/87 (117) 97 11/12/17 09:00 58 24 192/93 (126) 97 11/12/17 08:00 99.1 49 18 116/56 (76) 95 11/12/17 08:00 35 11/12/17 08:00 49 11/12/17 07:33 95 35 11/12/17 06:00 51 11/12/17 04:31 96 35 11/12/17 04:01 99.2 51 18 117/56 (76) 96 11/12/17 04:00 35 11/12/17 04:00 51 11/12/17 02:00 59 11/12/17 01:47 98 35 11/12/17 00:00 98.9 60 24 156/76 (102) 97 11/12/17 00:00 60 11/12/17 00:00 35 11/11/17 22:29 97 35 11/11/17 22:00 63 11/11/17 20:07 100.4 66 28 171/76 (107) 97 Arterial Line 11/11/17 20:00 66 11/11/17 20:00 35 11/11/17 19:20 97 35 11/11/17 18:00 58 11/11/17 16:00 35 11/11/17 16:00 99.9 64 25 177/81 (113) 96 11/11/17 16:00 64 11/11/17 15:29 98 35 11/11/17 14:00 63 I/O 11/11/17 11/11/17 11/11/17 11/12/17 11/12/17 11/12/17 07:00 15:00 23:00 07:00 15:00 23:00 Intake Total 794 ml 1170 ml 758 ml 68 ml Output Total 701 ml 0 ml 1201 ml 725 ml Balance 93 ml 0 ml -31 ml 33 ml 68 ml IV Total 127 ml 250 ml 198 ml 68 ml Tube Feeding 667 ml 720 ml 360 ml Other 200 ml 200 ml Output Urine Total 700 ml 1200 ml 725 ml Stool Total 1 ml 1 ml Tube Feeding Residual Discard 0 ml 0 ml Physical Exam GENERAL: Intubated SKIN: Warm and dry. HEAD: Normocephalic. EYES: No scleral icterus. No injection or drainage. NECK: Supple, trachea midline. No JVD or lymphadenopathy. CARDIOVASCULAR: Regular rate and rhythm without murmurs, gallops, or rubs. RESPIRATORY: Breath sounds equal bilaterally. No accessory muscle use. GASTROINTESTINAL: Abdomen soft, non-tender, nondistended. MUSCULOSKELETAL: No cyanosis, trace edema. Laboratory Laboratory Tests Test 11/11/17 14:10 11/12/17 04:31 11/12/17 04:37 11/12/17 12:08 Activated Partial Thromboplast Time 41.7 SEC 38.9 SEC White Blood Count 11.1 TH/MM3 Red Blood Count 2.95 MIL/MM3 Hemoglobin 9.4 GM/DL Hematocrit 27.6 % Mean Corpuscular Volume 93.5 FL Mean Corpuscular Hemoglobin 31.8 PG Mean Corpuscular Hemoglobin Concent 34.0 % Red Cell Distribution Width 14.0 % Platelet Count 146 TH/MM3 Mean Platelet Volume 10.6 FL Blood Urea Nitrogen 51 MG/DL Creatinine 1.32 MG/DL Random Glucose 218 MG/DL Calcium Level 8.5 MG/DL Sodium Level 147 MEQ/L Potassium Level 3.6 MEQ/L Chloride Level 114 MEQ/L Carbon Dioxide Level 25.1 MEQ/L Anion Gap 8 MEQ/L Estimat Glomerular Filtration Rate 53 ML/MIN Assessment and Plan Problem List: (1) VF (ventricular fibrillation) ICD Codes: I49.01 - Ventricular fibrillation Status: Acute (2) Respiratory failure ICD Codes: J96.90 - Respiratory failure, unspecified, unspecified whether with hypoxia or hypercapnia Status: Acute (3) Hyperglycemia ICD Codes: R73.9 - Hyperglycemia, unspecified Status: Acute (4) Anoxic encephalopathy ICD Codes: G93.1 - Anoxic brain damage, not elsewhere classified Assessment and Plan Remains comatose. Neurologic status without any improvement. EEG c/w anoxic encephalopathy, neurology following. Recommend palliative care, DNR status and comfort care. Overall prognosis extremely poor. to decide about trach/PEG. Problem Qualifiers (1) Respiratory failure: Qualified Codes: J96.00 - Acute respiratory failure, unspecified whether with hypoxia or hypercapnia Lawrence Alvares MD Nov 12, 2017 13:28
[2017-11-12] MEDS: hydrALAZINE HCL 50 MG TAB PO SCH ×2 (15:00→22:06)
[2017-11-12] MEDS: SODIUM CHLORIDE 0.9% FLUSH 10 ML FLUSH IV FLUSH PRN (20:30)
[2017-11-13] VITALS (34 sets, daily range): BP systolic 133–188; BP diastolic 63–96; PULSE 64–102; RESP 18–31; TEMP 99–99.8; O2SAT 89–98
[2017-11-13] MEDS: hydrALAZINE HCL 20 MG/ML VIAL IV PUSH PRN ×3 (00:10→22:41)
[2017-11-13] MEDS: MEDIUM DOSE INSULIN NOVOLIN REGULAR SUPPLEMENTAL SCALE SQ SCH ×6 (00:17→20:00)
[2017-11-13] MEDS: DEXMEDETOMIDINE 200 MCG in NS 48 ML IV PRN ×2 (03:11→07:00)
[2017-11-13] MEDS: CHLORHEXIDINE GLUCONATE 2 % 1 PACK (2 CLOTHS) TOP SCH (04:00)
[2017-11-13] MEDS: hydrALAZINE HCL 50 MG TAB PO SCH ×4 (06:34→22:26)
[2017-11-13] MEDS: SODIUM CHLORIDE 0.9% FLUSH 10 ML FLUSH IV FLUSH PRN ×2 (07:31→20:06)
[2017-11-13] MEDS: INSULIN DETEMIR 100 UNITS/ML VIAL SQ SCH ×2 (07:31→20:10)
[2017-11-13] MEDS: FAMOTIDINE 20 MG/2 ML VIAL IV PUSH SCH ×2 (07:31→20:05)
[2017-11-13] MEDS: AMIODARONE 200 MG TAB PO SCH ×3 (07:32→20:06)
[2017-11-13] MEDS: ARTIFICIAL TEARS OPTH SOLN 15 ML BTL EACH EYE SCH ×3 (07:32→18:02)
[2017-11-13] MEDS: DOCUSATE SODIUM 50 MG/SENNA 8.6 MG TAB PO SCH ×2 (07:32→20:06)
[2017-11-13] MEDS: LACTOBACILLUS ACIDOPHILUS TAB PO SCH ×2 (07:32→20:06)
[2017-11-13] MEDS: CHLORHEXIDINE 0.12% (ORAL KIT) 15 ML CUP MT SCH ×2 (07:33→20:00)
[2017-11-13 07:50] LABS: AUTOMATED NEUTROPHIL # 10.9 TH/MM3 (1.8-7.7); BASOPHIL % 0.3 % (0.0-2.0); EOSINOPHIL % 0.3 % (0.0-4.0); HEMATOCRIT 32.2 % (39.0-51.0); HEMOGLOBIN 10.7 GM/DL (13.0-17.0); LYMPH % 5.5 % (9.0-44.0); LYMPHOCYTE # 0.7 TH/MM3 (1.0-4.8); MEAN CELL VOLUME 93.2 FL (80.0-100.0); MEAN CORPUSCULAR HEMOGLOBIN 31.1 PG (27.0-34.0); MEAN CORPUSCULAR HGB CONC 33.3 % (32.0-36.0); MEAN PLATELET VOLUME 10.7 FL (7.0-11.0); MONOCYTE # 0.7 TH/MM3 (0-0.9); NEUT % 87.9 % (16.0-70.0); PLATELET COUNT 169 TH/MM3 (150-450); RED BLOOD COUNT 3.45 MIL/MM3 (4.50-5.90); RED CELL DISTRIBUTION WIDTH 13.8 % (11.6-17.2); WHITE BLOOD COUNT 12.4 TH/MM3 (4.0-11.0)
[2017-11-13 08:05] LABS: BICARBONATE 27.8 MEQ/L (21.0-32.0); CALCIUM 8.3 MG/DL (8.5-10.1); CREATININE 1.25 MG/DL (0.60-1.30); MAGNESIUM 2.4 MG/DL (1.5-2.5); PHOSPHORUS 3.3 MG/DL (2.5-4.9)
--- NOTE | 2017-11-13 08:06 | HHI.CCPN ---
Subjective Remarks/Hospital Course 72-year-old male was brought in by EMS after patient had a cardiopulmonary arrest. Patient was reportedly driving his and collapsed. Patient became unresponsive. Chest compression were started. EMS was called. Patient's rhythm was found to be in V. fib and the patient was defibrillated. He regained pulse and blood pressure. On the arrival to emergency department the patient remained unresponsive. Patient has a history of known coronary artery disease with a bun stent in place many years ago, no history of diabetes hypertension or COPD. Subjective: 11/05: Hypothermic cooling in progress. Amiodarone discontinued. She continues on propofol and fentanyl for sedation as well as Nimbex for paralysis. Norepinephrine has been discontinued. Blood urine and sputum cultures obtained. His blood culture specimen revealing gram-positive cocci. Empiric antibiotics initiated. 11/06-Patient rewarmed to 37 at approximately 1400 today. Muscle relaxants discontinued. Sedation, Versed and fentanyl infusions, currently being weaned off. The patient continues on dopamine at 5 mcgs, to maintain a map greater than 65mmHG. levo fed has been discontinued. Plan for EEG tomorrow. Echo revealed an EF of 30-35 %. 11/07: Patient continues to be nonresponsive all sedation 12 hours. Patient withdraws to pain. EEG in process, awaiting results. Neurology consulted. The patient continues on Dopamine at 5 mcgs. 11/08: encephalopathy persists. does ?localize. vigorously withdraws to pain. EEG c/w encephalopathy. on fentanyl at 100mcg/hr. 11/09: remains encephalopathic. on fentanyl. becomes agitated with sedation vacation. hemodynamics stabilized. 11/10 Patient remains intubated and sedated. T: 101.6/ For MRI brain and EEG today. 11/11: Remains encephalopathic, orally intubated on mechanical ventilation. Fingerstick glucose in the 200s. We will change tube feeds from Jevity to Glucerna. 11/12 No events overnight. Remains intubated and on low dose Diprivan drip for sedation. 11/13 Patient remains intubated improving neurologically and now following commands. On Precedex drip. T:100.2 last night. Tolerated CPAP for several hrs yesterday, Off Heparin drip. Objective Vital Signs Date Time Temp Pulse Resp B/P (MAP) Pulse Ox O2 Delivery O2 Flow Rate FiO2 11/13/17 06:00 68 11/13/17 04:25 96 35 11/13/17 04:00 99.4 23 160/75 (103) Intake and Output 11/13/17 11/13/17 11/14/17 08:00 16:00 00:00 Intake Total 667 ml Output Total 500 ml Balance 167 ml Result Diagram: 11/13/17 0527 11/12/17 0431 Other Results Laboratory Tests Test 11/12/17 14:01 11/13/17 05:27 Activated Partial Thromboplast Time 25.7 SEC White Blood Count 12.4 TH/MM3 Red Blood Count 3.45 MIL/MM3 Hemoglobin 10.7 GM/DL Hematocrit 32.2 % Mean Corpuscular Volume 93.2 FL Mean Corpuscular Hemoglobin 31.1 PG Mean Corpuscular Hemoglobin Concent 33.3 % Red Cell Distribution Width 13.8 % Platelet Count 169 TH/MM3 Mean Platelet Volume 10.7 FL Neutrophils (%) (Auto) 87.9 % Lymphocytes (%) (Auto) 5.5 % Monocytes (%) (Auto) 6.0 % Eosinophils (%) (Auto) 0.3 % Basophils (%) (Auto) 0.3 % Neutrophils # (Auto) 10.9 TH/MM3 Lymphocytes # (Auto) 0.7 TH/MM3 Monocytes # (Auto) 0.7 TH/MM3 Eosinophils # (Auto) 0.0 TH/MM3 Basophils # (Auto) 0.0 TH/MM3 CBC Comment AUTO DIFF Imaging Last Impressions Chest X-Ray 11/11/17 0000 Signed Impressions: Service Date/Time: Saturday, November 11, 2017 03:31 - CONCLUSION: Diffuse consolidation likely represent diffuse edema. Some degree of effusions cannot be excluded. Sancho Ruiz MD Brain MRI 11/10/17 0000 Signed Impressions: Service Date/Time: Friday, November 10, 2017 14:05 - CONCLUSION: No acute intracranial process. Periventricular and deep white matter coalesced demyelinization most likely microvascular ischemic basis Octaviano Holland MD Abdomen X-Ray 11/10/17 0000 Signed Impressions: Service Date/Time: Friday, November 10, 2017 10:59 - CONCLUSION: No metallic radiopaque foreign bodies are present to preclude MRI. Sancho Clifford MD Head CT 11/04/172011 Signed Impressions: Service Date/Time: Saturday, November 04, 2017 22:10 - CONCLUSION: No acute disease. Mike Davalos MD Objective Remarks GENERAL: elderly obese male patient intubated, SKIN: Focused skin assessment warm/dry. HEAD: Normocephalic. EYES: No scleral icterus. No injection or drainage. Pupils 3 mm and reactive, sluggish. NECK: Supple, trachea midline. No JVD. CARDIOVASCULAR: Normal rate and rhythm. sinus by telemetry. RESPIRATORY: equal chest rise. volume control ventilation. fio2 35%. GASTROINTESTINAL: Abdomen soft, nondistended. no guarding. MUSCULOSKELETAL: No cyanosis, or edema. Neurologic exam: Intubated follows commands off sedation. A/P Assessment and Plan Acute hypoxic and hypercarbic Respiratory failure - Post cardiac arrest -Continue with vent support keep sat >92% -Bronchodilators, ICU vent bundle. Check CXR -Daily C Pap trials. - DuoNeb's when necessary Hypoxic ischemic encephalopathy Agitated Delirium -Neurology consulted 11/07. -EEG 11/07 c/w severe encephalopathy. no ictal activity. - continue frequent neuro checks -On Precedex drip to facilitate with weaning trials. -MRI brain 11/10: No acute intracranial process EEG 11/10: Mod encephalopathy, no seizure activity. CV Hypertension Out of Hospital V. Fib Cardiac arrest - Monitor HR and BP keep MAP>65mmHg -Decrease Amiodarone 200mg BID, Hydralazine 50mg Q8 - V. fib arrest - Underlying coronary artery disease - Ischemic workup per cardiology Quadrat - Rewarmed 11/06 1330 - 11/06 EF 30-35 %. No regional wall motion abnormalities. PAP 35. Mild MV stenosis trace TR ID Community Acquired Klebsiella UTI Coag negative staph bacteremia- likely contaminant Pneumonia _ sputum cx: + M. Catarrhalis, strep pneumonia Off abx ( Cipro) -ID following- last dose Cipro 11/12 Monitor for signs of infections ( Fever, WBC) BC 11/10: NGTD, sputum: normal resp lorrie GI: Continue tube feeds (Glucerna 1.5 tube feeds on hold) On Pepcid for GI prophylaxis : Acute kidney injury -Resolved -Monitor renal function, I/O's, avoid nephrotoxins -Electrolytes replacement per protocol. Will need K replacement today -Add Free water 250ml Q8, monitor sodium level. Heme: Monitor CBC Endi: On medium SSI, Levemir to 10 units [id number] DVT GI prophylaxis - Teds SCDs - Heparin SQ - Pepcid Level 3 Kesha Salcedo MD Nov 13, 2017 08:06
[2017-11-13] MEDS: FREE WATER G-TUBE SCH ×3 (08:15→21:31)
[2017-11-13 08:33] LABS: BANDS 1 % (0-6); LYMPHOCYTES 5 % (9-44); MONOCYTES 6 % (0-8); MYELOCYTES 2 % (0-0); POLYS (SEG NEUTROPHILS) 86 % (16-70)
--- NOTE | 2017-11-13 08:50 | RADRPT ---
EXAM DATE/TIME: 11/13/2017 08:09 [facility] COMPARISON: CHEST SINGLE AP, November 11, 2017, 3:31. INDICATIONS : Short of breath, respiratory failure, VDRL MEDICAL HISTORY : Venous insufficiency. VDRL, cardiopulmonary arrest SURGICAL HISTORY : None. ENCOUNTER: Subsequent ACUITY: 1 week PAIN SCORE: Non-responsive. LOCATION: Bilateral chest FINDINGS: Endotracheal tube is present good position with tip 3 cm above the opal. Nasogastric tube descends into the stomach. Diffuse hazy bilateral pleural-parenchymal opacity persists without significant eva nge. Cardiac contours are grossly stable. CONCLUSION: No significant change Sancho Preston MD on November 13, 2017 at 8:48 Board Certified Radiologist. This report was verified electronically.
[2017-11-13] MEDS: POTASSIUM CHLORIDE 25 MEQ EFFERVESCENT TAB PO PRN (08:51)
--- NOTE | 2017-11-13 11:28 | HHI.HCPN ---
Reason for visit a. To assist with evaluation and management of symptoms including: pain; dyspnea. b. To assist medical decision maker(s) with: better understanding of current medical conditions; weighing benefits/burdens of medical treatment options; making medical treatment decisions. Subjective/Interval History Patient seen and examined in ICU. No family at bedside during exam. Discussed with Dr. Cross, plan for possible medical extubation later today. Off sedation. Patient opens eyes to voice, following commands. Nods yes/no appropriately. On CPAP this morning. Tmax 100.2. Vital signs stable. WBC 12.4. Creatinine stable at 1.25. Repeat sputum culture moderate growth normal respiratory lorrie. Blood culture, no growth in 3 day. Chest xray with persistent diffuse hazy bilateral pleural-parenchymal opacity. . Family/friend interactions No family present. . Advance Directives Living Will: Never completed Health Care Surrogate: Never completed Durable Power of [employer]: Never completed Advance Directive Specifics Health Care Surrogate(s): Patient is incapacitated to make his own health care decision, unlikely he will regain capacity due to anoxic brain injury. In the absence of written advanced directives, according to [place] statutes, health care proxy decision making falls to his spouse. . Significant change in goals: FULL CODE. Goals remain aggressive. Will attempt to speak with patient regarding goals of care if able to be extubated. . Objective Vital Signs Date Time Temp Pulse Resp B/P (MAP) Pulse Ox O2 Delivery O2 Flow Rate FiO2 11/13/17 11:01 78 22 144/67 (92) 97 11/13/17 10:01 75 20 148/68 (94) 98 11/13/17 10:00 72 11/13/17 09:00 70 24 148/96 (113) 96 11/13/17 08:34 35 11/13/17 08:30 35 11/13/17 08:11 92 35 11/13/17 08:00 99.5 66 23 136/64 (88) 92 11/13/17 08:00 35 11/13/17 08:00 66 11/13/17 07:53 66 24 137/67 (90) 92 11/13/17 07:00 68 24 146/66 (92) 97 11/13/17 06:30 64 18 133/63 (86) 96 11/13/17 06:00 68 23 151/72 (98) 97 1/19/18 06:00 68 11/13/17 05:31 71 28 145/71 (95) 92 11/13/17 05:00 67 21 158/77 (104) 95 11/13/17 04:25 96 35 11/13/17 04:00 74 11/13/17 04:00 35 11/13/17 04:00 99.4 74 23 160/75 (103) 96 11/13/17 02:00 70 11/13/17 01:05 96 35 11/13/17 00:06 99.8 70 22 173/79 (110) 96 11/13/17 00:00 73 11/13/17 00:00 35 11/12/17 22:10 97 35 11/12/17 22:00 72 11/12/17 20:00 77 11/12/17 20:00 35 11/12/17 20:00 100.2 77 27 184/79 (114) 96 11/12/17 19:07 96 35 11/12/17 18:00 78 11/12/17 17:34 35 11/12/17 17:29 95 35 11/12/17 16:20 100 35 11/12/17 16:00 35 11/12/17 16:00 66 11/12/17 16:00 99.2 66 26 165/73 (103) 95 11/12/17 15:00 62 23 161/73 (102) 95 11/12/17 14:00 63 23 166/77 (106) 95 11/12/17 14:00 63 11/12/17 13:00 61 26 155/74 (101) 96 11/12/17 12:00 53 11/12/17 12:00 53 19 184/98 (126) 98 11/12/17 12:00 35 11/12/17 11:30 97 35 Intake & Output 11/13/17 11/13/17 07:00 19:00 Intake Total 667 ml 55 ml Output Total 500 ml Balance 167 ml 55 ml IV Total 55 ml Tube Feeding 667 ml Output Urine Total 500 ml # Voids 3 # Bowel Movements 2 Physical Exam CONSTITUTIONAL/GENERAL: This is an adequately nourished patient, in no apparent distress, on mechanical ventilation. TUBES/LINES/DRAINS: ETT, OG tube with TF; PIVs; christopher catheter; SCDs; podus boots SKIN: No jaundice, rashes, or lesions. Ecchymoses on upper extremities. Skin temperature appropriate. Not diaphoretic. EYES: Pupils equal and reactive. ENT: Unable to assess hearing. no bleeding or drainage; oral mucosa difficult to visualize given multiple oral tubes CARDIOVASCULAR: Heart sounds somewhat faint; difficult to auscultate. RESPIRATORY/CHEST: Symmetric, unlabored respirations on vent. Breath sounds equal bilaterally. Scattered rales bilaterally GASTROINTESTINAL: Abdomen soft, protuberant. No guarding. Bowel sounds present. GENITOURINARY: Without palpable bladder distension. Christopher catheter in place. MUSCULOSKELETAL: Extremities without clubbing or cyanosis; generalized anasarca but no gross deformities NEUROLOGICAL: Awakens easily, follows some simple and complex commands. PSYCHIATRIC: Awakens, intermittent restlessness. . Diagnostic Tests Laboratory Laboratory Tests Test 11/10/17 14:50 11/10/17 23:40 11/11/17 05:40 11/11/17 14:10 Activated Partial Thromboplast Time 33.9 SEC (24.3-30.1) 31.2 SEC (24.3-30.1) 45.1 SEC (24.3-30.1) 41.7 SEC (24.3-30.1) White Blood Count 12.2 TH/MM3 (4.0-11.0) Red Blood Count 3.32 MIL/MM3 (4.50-5.90) Hemoglobin 10.5 GM/DL (13.0-17.0) Hematocrit 31.1 % (39.0-51.0) Mean Corpuscular Volume 93.5 FL (80.0-100.0) Mean Corpuscular Hemoglobin 31.7 PG (27.0-34.0) Mean Corpuscular Hemoglobin Concent 33.9 % (32.0-36.0) Red Cell Distribution Width 14.3 % (11.6-17.2) Platelet Count 137 TH/MM3 (150-450) Mean Platelet Volume 9.8 FL (7.0-11.0) Blood Urea Nitrogen 52 MG/DL (7-18) Creatinine 1.42 MG/DL (0.60-1.30) Random Glucose 276 MG/DL (74-106) Calcium Level 8.8 MG/DL (8.5-10.1) Sodium Level 146 MEQ/L (136-145) Potassium Level 3.8 MEQ/L (3.5-5.1) Chloride Level 114 MEQ/L (98-107) Carbon Dioxide Level 23.2 MEQ/L (21.0-32.0) Anion Gap 9 MEQ/L (5-15) Estimat Glomerular Filtration Rate 49 ML/MIN (>89) Phosphorus Level 2.3 MG/DL (2.5-4.9) Magnesium Level 2.4 MG/DL (1.5-2.5) Total Bilirubin 0.3 MG/DL (0.2-1.0) Aspartate Amino Transf (AST/SGOT) 15 U/L (15-37) Alanine Aminotransferase (ALT/SGPT) 34 U/L (12-78) Alkaline Phosphatase 69 U/L (45-117) Total Protein 6.4 GM/DL (6.4-8.2) Albumin 2.2 GM/DL (3.4-5.0) Test 11/12/17 04:31 11/12/17 04:37 11/12/17 14:01 11/13/17 05:27 White Blood Count 11.1 TH/MM3 (4.0-11.0) 12.4 TH/MM3 (4.0-11.0) Red Blood Count 2.95 MIL/MM3 (4.50-5.90) 3.45 MIL/MM3 (4.50-5.90) Hemoglobin 9.4 GM/DL (13.0-17.0) 10.7 GM/DL (13.0-17.0) Hematocrit 27.6 % (39.0-51.0) 32.2 % (39.0-51.0) Mean Corpuscular Volume 93.5 FL (80.0-100.0) 93.2 FL (80.0-100.0) Mean Corpuscular Hemoglobin 31.8 PG (27.0-34.0) 31.1 PG (27.0-34.0) Mean Corpuscular Hemoglobin Concent 34.0 % (32.0-36.0) 33.3 % (32.0-36.0) Red Cell Distribution Width 14.0 % (11.6-17.2) 13.8 % (11.6-17.2) Platelet Count 146 TH/MM3 (150-450) 169 TH/MM3 (150-450) Mean Platelet Volume 10.6 FL (7.0-11.0) 10.7 FL (7.0-11.0) Blood Urea Nitrogen 51 MG/DL (7-18) 52 MG/DL (7-18) Creatinine 1.32 MG/DL (0.60-1.30) 1.25 MG/DL (0.60-1.30) Random Glucose 218 MG/DL (74-106) 154 MG/DL (74-106) Calcium Level 8.5 MG/DL (8.5-10.1) 8.3 MG/DL (8.5-10.1) Sodium Level 147 MEQ/L (136-145) 149 MEQ/L (136-145) Potassium Level 3.6 MEQ/L (3.5-5.1) 3.2 MEQ/L (3.5-5.1) Chloride Level 114 MEQ/L (98-107) 113 MEQ/L (98-107) Carbon Dioxide Level 25.1 MEQ/L (21.0-32.0) 27.8 MEQ/L (21.0-32.0) Anion Gap 8 MEQ/L (5-15) 8 MEQ/L (5-15) Estimat Glomerular Filtration Rate 53 ML/MIN (>89) 57 ML/MIN (>89) Activated Partial Thromboplast Time 38.9 SEC (24.3-30.1) 25.7 SEC (24.3-30.1) Neutrophils (%) (Auto) 87.9 % (16.0-70.0) Lymphocytes (%) (Auto) 5.5 % (9.0-44.0) Monocytes (%) (Auto) 6.0 % (0.0-8.0) Eosinophils (%) (Auto) 0.3 % (0.0-4.0) Basophils (%) (Auto) 0.3 % (0.0-2.0) Neutrophils # (Auto) 10.9 TH/MM3 (1.8-7.7) Lymphocytes # (Auto) 0.7 TH/MM3 (1.0-4.8) Monocytes # (Auto) 0.7 TH/MM3 (0-0.9) Eosinophils # (Auto) 0.0 TH/MM3 (0-0.4) Basophils # (Auto) 0.0 TH/MM3 (0-0.2) CBC Comment AUTO DIFF Differential Total Cells Counted 100 Neutrophils % (Manual) 86 % (16-70) Band Neutrophils % 1 % (0-6) Lymphocytes % 5 % (9-44) Monocytes % 6 % (0-8) Neutrophils # (Manual) 11.0 TH/MM3 (1.8-7.7) Myelocytes 2 % (0-0) Differential Comment FINAL DIFF MANUAL Platelet Estimate NORMAL (NORMAL) Platelet Morphology Comment ENLARGED (NORMAL) Red Cell Morphology Comment NORMAL (NORMAL) Phosphorus Level 3.3 MG/DL (2.5-4.9) Magnesium Level 2.4 MG/DL (1.5-2.5) Result Diagram: 11/13/1752611/13/17526 Microbiology Microbiology Date/Time Source Procedure Growth Status 11/10/17 19:35 Blood Peripheral Aerobic Blood Culture - Preliminary NO GROWTH IN 3 DAYS Resulted 11/10/17 19:35 Blood Peripheral Anaerobic Blood Culture - Preliminary NO GROWTH IN 3 DAYS Resulted 11/10/17 19:30 Blood Peripheral Aerobic Blood Culture - Preliminary NO GROWTH IN 3 DAYS Resulted 11/10/17 19:30 Blood Peripheral Anaerobic Blood Culture - Preliminary NO GROWTH IN 3 DAYS Resulted 11/10/17 12:30 Sputum Endotracheal Gram Stain - Final Complete 11/10/17 12:30 Sputum Endotracheal Sputum Culture - Final MODERATE GROWTH NORMAL RESPIRATORY LORRIE Complete Imaging Last Impressions Chest X-Ray 11/13/17 0000 Signed Impressions: Service Date/Time: Monday, November 13, 2017 08:09 - CONCLUSION: No significant change Sancho Preston MD Brain MRI 11/10/17 0000 Signed Impressions: Service Date/Time: Friday, November 10, 2017 14:05 - CONCLUSION: No acute intracranial process. Periventricular and deep white matter coalesced demyelinization most likely microvascular ischemic basis Octaviano Holland MD Abdomen X-Ray 11/10/17 0000 Signed Impressions: Service Date/Time: Friday, November 10, 2017 10:59 - CONCLUSION: No metallic radiopaque foreign bodies are present to preclude MRI. Sancho Clifford MD Head CT 11/04/172011 Signed Impressions: Service Date/Time: Saturday, November 04, 2017 22:10 - CONCLUSION: No acute disease. Mike Davalos MD Procedures * 11/04/17 - emergent intubation * 11/04/17 - right groin central line placement . Assessment and Plan Disease Oriented Problem List: (1) VF (ventricular fibrillation) (2) Cardiopulmonary arrest (3) Respiratory failure (4) Anoxic encephalopathy (5) Hyperglycemia Symptom Scale: (1) Pain 0-10 Scale: Unable to quantify Comment: Off sedation, no evidence of neurologic improvement. . (2) Dyspnea 0-10 Scale: Unable to quantify Comment: Continues on mechanical ventilation Pertinent Non-Medical Issues Psychosocial: . Spiritual: Zoroastrianism celine. Legal: Patient is incapacitated to make his own health care decision, unlikely he will regain capacity due to anoxic brain injury. In the absence of written advanced directives, according to [place] statutes, health care proxy decision making falls to his spouse. Ethical issues impacting care: Important Contacts * Katie Back, spouse/ HCP; (call this number 1st) or * Nargis Back, daughter: [phone] lives in [place], here until Thursday . Prognosis Mr. Back is a 72 year old male with hypoxic ischemic encephalopathy s/p out-of- hospital V. fib arrest. He remains intubated and encephalopathic, critically ill. Overall prognosis for meaningful recovery is poor. If he survives, he will likely need LTAC facility and then possible longterm care. . Code Status: Full Code Plan * Patient is incapacitated to make his own health care decision, unlikely he will regain capacity due to anoxic brain injury. In the absence of written advanced directives, according to [place] statutes, health care proxy decision making falls to his spouse. * FULL CODE * Discussed with Dr. Cross, possible medical extubation. Will need to clarify goals if medically extubated. * Goals remain aggressive. * SYMPTOMS: Pain: due to recent V. Fib arrest, resuscitation, tubes, etc. Off sedation to monitor neuro status. Dyspnea: on mech vent. No new medication recommendations at this time. * Palliative care will continue to follow to assist with symptom management and clarification of treatment goals throughout hospital course. . Attestation To help prompt me to consider important information that might be impacting today's encounter and assessment, information from prior notes written by myself or my colleagues may have been "brought forward" into today's note. My signature on this note, however, is an attestation that I personally performed the exam, history, and/or decision-making noted today, and, unless otherwise indicated, the interactions with patient, family, and staff as well as the review of records all occurred today. I also attest that the listed assessment and stated plan reflect my best clinical judgment today based on the combination of historical information, prior notes, and today's exam/ interactions. When time spent is documented, it refers only to time spent today by the signer, or if indicated, combined time spent today by collaborating physician/nurse practitioner. Kerri Lord Nov 13, 2017 11:28
--- NOTE | 2017-11-13 16:04 | HHI.PR ---
cc: Alfredo Smith MD Subjective Subjective Notes Extubated; on NC Objective Vitals/I&O Vital Signs Date Time Temp Pulse Resp B/P (MAP) Pulse Ox O2 Delivery O2 Flow Rate FiO2 11/13/17 15:12 96 Nasal Cannula 5.00 11/13/17 15:09 40 11/13/17 12:00 79 11/13/17 12:00 99.4 22 148/71 (96) Labs Laboratory Tests Test 11/13/17 05:27 11/13/17 14:22 White Blood Count 12.4 Red Blood Count 3.45 Hemoglobin 10.7 Hematocrit 32.2 Mean Corpuscular Volume 93.2 Mean Corpuscular Hemoglobin 31.1 Mean Corpuscular Hemoglobin Concent 33.3 Red Cell Distribution Width 13.8 Platelet Count 169 Mean Platelet Volume 10.7 Neutrophils (%) (Auto) 87.9 Lymphocytes (%) (Auto) 5.5 Monocytes (%) (Auto) 6.0 Eosinophils (%) (Auto) 0.3 Basophils (%) (Auto) 0.3 Neutrophils # (Auto) 10.9 Lymphocytes # (Auto) 0.7 Monocytes # (Auto) 0.7 Eosinophils # (Auto) 0.0 Basophils # (Auto) 0.0 CBC Comment AUTO DIFF Differential Total Cells Counted 100 Neutrophils % (Manual) 86 Band Neutrophils % 1 Lymphocytes % 5 Monocytes % 6 Neutrophils # (Manual) 11.0 Myelocytes 2 Differential Comment FINAL DIFF MANUAL Platelet Estimate NORMAL Platelet Morphology Comment ENLARGED Red Cell Morphology Comment NORMAL Blood Urea Nitrogen 52 Creatinine 1.25 Random Glucose 154 Calcium Level 8.3 Sodium Level 149 Potassium Level 3.2 Chloride Level 113 Carbon Dioxide Level 27.8 Anion Gap 8 Estimat Glomerular Filtration Rate 57 Phosphorus Level 3.3 Magnesium Level 2.4 Blood Gas Puncture Site RT RADIAL Blood Gas Patient Temperature 98.6 Blood Gas HCO3 26 Blood Gas Base Excess 3.0 Blood Gas Oxygen Saturation 96 Arterial Blood pH 7.48 Arterial Blood Partial Pressure CO2 36 Arterial Blood Partial Pressure O2 92 Arterial Blood Oxygen Content 17.2 Arterial Blood Carboxyhemoglobin 1.0 Arterial Blood Methemoglobin 0.9 Blood Gas Hemoglobin 12.7 Oxygen Delivery Device VENTILATOR Blood Gas Ventilator Setting CPAP 10/5 Blood Gas Inspired Oxygen 35 Date/Time Source Procedure Growth Status 11/10/17 19:35 Blood Peripheral Aerobic Blood Culture - Preliminary NO GROWTH IN 3 DAYS Resulted 11/10/17 19:35 Blood Peripheral Anaerobic Blood Culture - Preliminary NO GROWTH IN 3 DAYS Resulted 11/10/17 12:30 Sputum Endotracheal Gram Stain - Final Complete 11/10/17 12:30 Sputum Endotracheal Sputum Culture - Final MODERATE GROWTH NORMAL RESPIRATORY BENNY Complete 11/05/17 13:20 Urine Catheterized Urine Urine Culture - Final Klebsiella Oxytoca Complete Cardiovascular: Regular Lungs: Clear Abdomen: Non-distended, Non-tender Extremities: No edema A/P Assessment and Plan 72 year old male s/p cardiopulmonary arrest; possible need for trach placement -Patient extubated today -GS will sign off; please call if needed Attending Note - Dr. Smith Extubated and responsive. No need for trach at this time The exam, history, and the medical decision-making described in the above note were completed with the assistance of the mid-level provider. I reviewed and agree with the findings presented. I attest that I had a [id number] encounter with the patient on the same day, and personally performed and documented my assessment and findings in the medical record. Annita Flores Nov 13, 2017 16:04 Alfredo Smith MD Nov 17, 2017 11:52
--- NOTE | 2017-11-13 17:30 | HHI.HCPN ---
Follow-up for further clarifications of goals of care. Patient medically extubated this afternoon, currently tolerating O2 via nasal cannula. Patient intermittently confused, following simple commands. Verbal but not always able to communicate needs secondary to confusion. Patient's and daughter Nargis bedside. Cardiology, Dr. Alvares discussing case with family. Plan for cardiac catheter this coming Thursday, likely AICD placement sometime next week. Goals of care readdressed with family given recent medical extubation. Goals of care remain aggressive, family and patient wishing to pursue aggressive management to include FULL code. Reviewed with patient and family high risk for reintubation, continue decline and . Family verbalized understanding. ANA Matta. Palliative care . . Jes Salvador Nov 13, 2017 17:30
--- NOTE | 2017-11-13 18:24 | PD.CARD.PN ---
Subjective Subjective Remarks Extubated, confused, but responding to questions, family present Objective Medications Current Medications Medications (Trade) Dose Ordered Sig/Juan Route Start Time Stop Time Status Last Admin (Tylenol) 650 mg Q6H PRN PO 11/04/17 22:00 (Pepcid Inj) 20 mg Q12HR IV PUSH 11/05/17 09:00 11/13/17 07:31 (Tears Naturale Opth Soln) 1 drop TID EACH EYE 11/05/17 09:00 11/13/17 18:02 (Zofran Inj) 4 mg Q6H PRN IV PUSH 11/04/17 22:00 11/07/17 00:00 (Duoneb Neb) 1 ampule Q2HR NEB PRN INH 11/04/17 22:00 Miscellaneous Information 1 Q361D XX 11/04/17 22:00 11/04/17 22:00 (Chlorhexidine 2% Cloth) Taper DAILY@04 TOP 11/05/17 04:00 11/01/18 03:59 11/08/17 03:24 (Chlorhexidine 2% Cloth) 3 pack UNSCH PRN TOP 11/04/17 22:00 (Ashley-Colace) 1 tab BID PO 11/05/17 09:00 11/13/17 07:32 (Milk Of Magnesia Liq) 30 ml Q12H PRN PO 11/04/17 22:00 (Senokot) 17.2 mg Q12H PRN PO 11/04/17 22:00 (Dulcolax Supp) 10 mg DAILY PRN RECTAL 11/04/17 22:00 (Lactulose Liq) 30 ml DAILY PRN PO 11/04/17 22:00 (Heparin Inj) 5,000 units UNSCH PRN IV PUSH 11/05/17 04:00 (Heparin Inj) 2,500 units UNSCH PRN IV PUSH 11/05/17 04:00 11/11/17 01:10 (Peridex 0.12% Liq) 15 ml BID@08,20 MT 11/05/17 08:00 11/13/17 07:33 (Ativan Inj) 1 mg Q1H PRN IV PUSH 11/05/17 01:15 11/09/17 04:20 Miscellaneous Information ml @ 0 mls/hr UNSCH IV 11/05/17 01:15 (NS Flush) 2 ml UNSCH PRN IV FLUSH 11/05/17 01:15 11/13/17 07:31 (NS Flush) 2 ml UNSCH PRN IV FLUSH 11/05/17 01:15 11/09/17 14:43 (Tylenol 650 Mg/ 20 ml Liq) 650 mg Q6H PRN NG 11/05/17 01:15 11/10/17 07:48 (Lacrilube Opht Oint) 1 applic Q4H PRN EACH EYE 11/05/17 01:15 Potassium Chloride 100 ml @ 50 mls/hr Q2H PRN IV 11/05/17 01:30 Potassium Chloride 100 ml @ 50 mls/hr Q2H PRN IV 11/05/17 01:30 11/13/17 08:51 (K-Lyte Cl Eff) 50 meq UNSCH PRN PO 11/05/17 01:30 11/13/17 08:51 Potassium Chloride 100 ml @ 25 mls/hr UNSCH PRN IV 11/05/17 01:30 11/06/17 08:53 Potassium Chloride 100 ml @ 50 mls/hr Q2H PRN IV 11/05/17 01:30 Magnesium Sulfate 4 gm/Sodium Chloride 100 ml @ 50 mls/hr UNSCH PRN IV 11/05/17 01:30 (Mag-Ox) 800 mg UNSCH PRN PO 11/05/17 01:30 Magnesium Sulfate 2 gm/Sodium Chloride 100 ml @ 50 mls/hr UNSCH PRN IV 11/05/17 01:30 11/06/17 09:12 (K-Phos) 2,000 mg Q4H PRN PO 11/05/17 01:30 Sodium Phosphate 30 mmol/Sodium Chloride 250 ml @ 42 mls/hr UNSCH PRN IV 11/05/17 01:30 11/06/17 02:45 (K-Phos) 2,000 mg UNSCH PRN PO/TUBE 11/05/17 01:30 Potassium Phosphate 30 mmol/ Sodium Chloride 260 ml @ 42 mls/hr UNSCH PRN IV 11/05/17 01:30 (D50w (Vial) Inj) 50 ml UNSCH PRN IV PUSH 11/05/17 19:45 (Glucagon Inj) 1 mg UNSCH PRN OTHER 11/05/17 19:45 (Brethine Inj) 1 mg UNSCH PRN SQ 11/06/17 01:15 (NovoLIN R SUPPLEMENTAL SCALE) 1 Q4HR SQ 11/06/17 08:00 11/13/17 11:41 (Lactinex) 1 tab Q12HR PO 11/07/17 12:45 11/13/17 07:32 (Trandate Inj) 20 mg Q5M PRN IV PUSH 11/09/17 10:15 11/11/17 23:55 (Apresoline Inj) 10 mg Q30M PRN IV PUSH 11/09/17 10:15 11/13/17 00:10 (Levemir Inj) 10 units Q12HR SQ 11/11/17 21:00 11/13/17 07:31 Propofol 100 ml @ 3.84 mls/hr TITRATE PRN IV 11/11/17 09:30 Future hold 11/12/17 01:59 Heparin Sodium (Porcine) 03462 units/Sodium Chloride 250 ml @ 10 mls/hr TITRATE PRN IV 11/11/17 19:30 Future Hold 11/11/17 19:29 (Apresoline) 50 mg Q8H PO 11/12/17 15:00 11/13/17 06:34 Dexmedetomidine HCl 200 mcg/ Sodium Chloride 50 ml @ 6.4 mls/hr TITRATE PRN IV 11/13/17 03:00 11/13/17 07:00 (Cordarone) 200 mg Q12HR PO 11/13/17 09:00 11/13/17 08:52 (Free Water) VOLUME OF WATER: ( 250 ) ML Q8HR G-TUBE 11/13/17 08:15 11/13/17 11:41 Vital Signs / I&O Vital Signs Date Time Temp Pulse Resp B/P (MAP) Pulse Ox O2 Delivery O2 Flow Rate FiO2 11/13/17 16:00 87 11/13/17 15:12 96 Nasal Cannula 5.00 11/13/17 15:09 96 Nasal Cannula 5 40 11/13/17 14:00 85 11/13/17 12:03 97 35 11/13/17 12:00 79 11/13/17 12:00 99.4 79 22 148/71 (96) 97 11/13/17 12:00 35 11/13/17 11:01 78 22 144/67 (92) 97 18 10:01 75 20 148/68 (94) 98 18 10:00 72 18 09:00 70 24 148/96 (113) 96 11/13/17 08:34 Nasal Cannula 40 35 18 08:30 35 18 08:11 92 35 18 08:00 99.5 66 23 136/64 (88) 92 18 08:00 35 18 08:00 66 18 07:53 66 24 137/67 (90) 92 18 07:53 66 24 137/67 (90) 92 18 07:00 68 24 146/66 (92) 97 18 07:00 68 24 146/66 (92) 97 11/13/17 06:30 64 18 133/63 (86) 96 11/13/17 06:30 64 18 133/63 (86) 96 11/13/17 06:00 68 23 151/72 (98) 97 18 06:00 68 23 151/72 (98) 97 18 06:00 68 11/13/17 05:31 71 28 145/71 (95) 92 18 05:31 71 28 145/71 (95) 92 18 05:00 67 21 158/77 (104) 95 18 05:00 67 21 158/77 (104) 95 18 04:25 96 35 18 04:00 74 18 04:00 35 18 04:00 99.4 74 23 160/75 (103) 96 18 02:00 70 18 01:05 96 35 18 00:06 99.8 70 22 173/79 (110) 96 18 00:00 73 18 00:00 35 18 22:10 97 35 18 22:00 72 11/12/18 20:00 77 1818 20:00 35 18 20:00 100.2 77 27 184/79 (114) 96 11/12/17 19:07 96 35 I/O 11/12/17 11/12/17 11/12/17 11/13/17 11/13/17 11/13/17 06:59 14:59 22:59 06:59 14:59 22:59 Intake Total 758 ml 68 ml 185 ml 667 ml 155 ml Output Total 725 ml 3500 ml 500 ml Balance 33 ml 68 ml -3315 ml 167 ml 155 ml IV Total 198 ml 68 ml 155 ml Tube Feeding 360 ml 185 ml 667 ml Other 200 ml Output Urine Total 725 ml 3500 ml 500 ml Stool Total 0 ml # Voids 3 # Bowel Movements 2 Physical Exam GENERAL: Confused, in NAD SKIN: Warm and dry. HEAD: Normocephalic. EYES: No scleral icterus. No injection or drainage. NECK: Supple, trachea midline. No JVD or lymphadenopathy. CARDIOVASCULAR: Regular rate and rhythm without murmurs, gallops, or rubs. RESPIRATORY: Breath sounds equal bilaterally. No accessory muscle use. GASTROINTESTINAL: Abdomen soft, non-tender, nondistended. MUSCULOSKELETAL: No cyanosis, trace edema. Laboratory Laboratory Tests Test 11/13/17 05:27 11/13/17 14:22 White Blood Count 12.4 TH/MM3 Red Blood Count 3.45 MIL/MM3 Hemoglobin 10.7 GM/DL Hematocrit 32.2 % Mean Corpuscular Volume 93.2 FL Mean Corpuscular Hemoglobin 31.1 PG Mean Corpuscular Hemoglobin Concent 33.3 % Red Cell Distribution Width 13.8 % Platelet Count 169 TH/MM3 Mean Platelet Volume 10.7 FL Neutrophils (%) (Auto) 87.9 % Lymphocytes (%) (Auto) 5.5 % Monocytes (%) (Auto) 6.0 % Eosinophils (%) (Auto) 0.3 % Basophils (%) (Auto) 0.3 % Neutrophils # (Auto) 10.9 TH/MM3 Lymphocytes # (Auto) 0.7 TH/MM3 Monocytes # (Auto) 0.7 TH/MM3 Eosinophils # (Auto) 0.0 TH/MM3 Basophils # (Auto) 0.0 TH/MM3 CBC Comment AUTO DIFF Differential Total Cells Counted 100 Neutrophils % (Manual) 86 % Band Neutrophils % 1 % Lymphocytes % 5 % Monocytes % 6 % Neutrophils # (Manual) 11.0 TH/MM3 Myelocytes 2 % Differential Comment FINAL DIFF MANUAL Platelet Estimate NORMAL Platelet Morphology Comment ENLARGED Red Cell Morphology Comment NORMAL Blood Urea Nitrogen 52 MG/DL Creatinine 1.25 MG/DL Random Glucose 154 MG/DL Calcium Level 8.3 MG/DL Sodium Level 149 MEQ/L Potassium Level 3.2 MEQ/L Chloride Level 113 MEQ/L Carbon Dioxide Level 27.8 MEQ/L Anion Gap 8 MEQ/L Estimat Glomerular Filtration Rate 57 ML/MIN Phosphorus Level 3.3 MG/DL Magnesium Level 2.4 MG/DL Blood Gas Puncture Site RT RADIAL Blood Gas Patient Temperature 98.6 Blood Gas HCO3 26 mmol/L Blood Gas Base Excess 3.0 mmol/L Blood Gas Oxygen Saturation 96 % Arterial Blood pH 7.48 Arterial Blood Partial Pressure CO2 36 mmHg Arterial Blood Partial Pressure O2 92 mmHG Arterial Blood Oxygen Content 17.2 Vol % Arterial Blood Carboxyhemoglobin 1.0 % Arterial Blood Methemoglobin 0.9 % Blood Gas Hemoglobin 12.7 G/DL Oxygen Delivery Device VENTILATOR Blood Gas Ventilator Setting CPAP 10/5 Blood Gas Inspired Oxygen 35 % Imaging Last 24 hours Impressions Chest X-Ray 11/13/17 0000 Signed Impressions: Service Date/Time: Monday, November 13, 2017 08:09 - CONCLUSION: No significant change Sancho Preston MD Assessment and Plan Problem List: (1) VF (ventricular fibrillation) ICD Codes: I49.01 - Ventricular fibrillation Status: Acute (2) Respiratory failure ICD Codes: J96.90 - Respiratory failure, unspecified, unspecified whether with hypoxia or hypercapnia Status: Acute (3) Hyperglycemia ICD Codes: R73.9 - Hyperglycemia, unspecified Status: Acute (4) Anoxic encephalopathy ICD Codes: G93.1 - Anoxic brain damage, not elsewhere classified Assessment and Plan Neurologic status markedly improved. Now extubated and stable. Proceed with cath and possible PCI on Thu. D/w pt's family. Problem Qualifiers (1) Respiratory failure: Qualified Codes: J96.00 - Acute respiratory failure, unspecified whether with hypoxia or hypercapnia Lawrence Alvares MD Nov 13, 2017 18:24
[2017-11-13] MEDS: RESP: ALBUTEROL 2.5 MG/IPRATROPIUM 0.5 MG NEB (PRN) INH (23:15)
[2017-11-14] VITALS (19 sets, daily range): BP systolic 112–183; BP diastolic 69–93; PULSE 68–100; RESP 23–34; TEMP 98.2–98.8; O2SAT 91–98
[2017-11-14] MEDS: CHLORHEXIDINE GLUCONATE 2 % 1 PACK (2 CLOTHS) TOP SCH (00:10)
[2017-11-14] MEDS: hydrALAZINE HCL 20 MG/ML VIAL IV PUSH PRN ×6 (01:03→22:36)
[2017-11-14] MEDS: RESP: ALBUTEROL 2.5 MG/IPRATROPIUM 0.5 MG NEB (PRN) INH (03:58)
[2017-11-14] MEDS: MEDIUM DOSE INSULIN NOVOLIN REGULAR SUPPLEMENTAL SCALE SQ SCH ×7 (04:00→23:26)
[2017-11-14] MEDS: FREE WATER G-TUBE SCH (05:41)
[2017-11-14 06:13] LABS: BASOPHIL % 0.2 % (0.0-2.0); EOSINOPHIL % 0.1 % (0.0-4.0); HEMATOCRIT 36.4 % (39.0-51.0); LYMPH % 8.6 % (9.0-44.0); LYMPHOCYTE # 1.3 TH/MM3 (1.0-4.8); MEAN CELL VOLUME 94.2 FL (80.0-100.0); MEAN CORPUSCULAR HEMOGLOBIN 31.1 PG (27.0-34.0); MEAN PLATELET VOLUME 10.6 FL (7.0-11.0); MONO % 5.5 % (0.0-8.0); MONOCYTE # 0.8 TH/MM3 (0-0.9); NEUT % 85.6 % (16.0-70.0); PLATELET COUNT 230 TH/MM3 (150-450); RED BLOOD COUNT 3.86 MIL/MM3 (4.50-5.90); RED CELL DISTRIBUTION WIDTH 14.3 % (11.6-17.2); WHITE BLOOD COUNT 15.2 TH/MM3 (4.0-11.0)
[2017-11-14 06:35] LABS: BICARBONATE 27.6 MEQ/L (21.0-32.0); CALCIUM 8.7 MG/DL (8.5-10.1); CREATININE 1.24 MG/DL (0.60-1.30)
[2017-11-14] MEDS: hydrALAZINE HCL 50 MG TAB PO SCH ×3 (06:44→22:36)
[2017-11-14] MEDS: CHLORHEXIDINE 0.12% (ORAL KIT) 15 ML CUP MT SCH ×2 (07:20→20:00)
[2017-11-14] MEDS: SODIUM CHLORIDE 0.9% FLUSH 10 ML FLUSH IV FLUSH PRN (07:20)
[2017-11-14] MEDS: ARTIFICIAL TEARS OPTH SOLN 15 ML BTL EACH EYE SCH ×3 (07:21→17:27)
[2017-11-14] MEDS: INSULIN DETEMIR 100 UNITS/ML VIAL SQ SCH (07:21)
[2017-11-14] MEDS: FAMOTIDINE 20 MG/2 ML VIAL IV PUSH SCH ×2 (07:21→20:49)
[2017-11-14 07:24] LABS: BANDS 1 % (0-6); LYMPHOCYTES 5 % (9-44); MONOCYTES 6 % (0-8); MYELOCYTES 2 % (0-0); NEUTROPHIL # MANUAL DIFF 13.4 TH/MM3 (1.8-7.7); POLYS (SEG NEUTROPHILS) 85 % (16-70)
[2017-11-14] MEDS: DOCUSATE SODIUM 50 MG/SENNA 8.6 MG TAB PO SCH ×2 (08:22→20:46)
[2017-11-14] MEDS: AMIODARONE 200 MG TAB PO SCH ×2 (08:23→20:45)
[2017-11-14] MEDS: LACTOBACILLUS ACIDOPHILUS TAB PO SCH ×2 (08:23→20:45)
--- NOTE | 2017-11-14 08:51 | HHI.CCPN ---
Subjective Remarks/Hospital Course 72-year-old male was brought in by EMS after patient had a cardiopulmonary arrest. Patient was reportedly driving his and collapsed. Patient became unresponsive. Chest compression were started. EMS was called. Patient's rhythm was found to be in V. fib and the patient was defibrillated. He regained pulse and blood pressure. On the arrival to emergency department the patient remained unresponsive. Patient has a history of known coronary artery disease with a bun stent in place many years ago, no history of diabetes hypertension or COPD. Subjective: 11/05: Hypothermic cooling in progress. Amiodarone discontinued. She continues on propofol and fentanyl for sedation as well as Nimbex for paralysis. Norepinephrine has been discontinued. Blood urine and sputum cultures obtained. His blood culture specimen revealing gram-positive cocci. Empiric antibiotics initiated. 11/06-Patient rewarmed to 37 at approximately 1400 today. Muscle relaxants discontinued. Sedation, Versed and fentanyl infusions, currently being weaned off. The patient continues on dopamine at 5 mcgs, to maintain a map greater than 65mmHG. levo fed has been discontinued. Plan for EEG tomorrow. Echo revealed an EF of 30-35 %. 11/07: Patient continues to be nonresponsive all sedation 12 hours. Patient withdraws to pain. EEG in process, awaiting results. Neurology consulted. The patient continues on Dopamine at 5 mcgs. 11/08: encephalopathy persists. does ?localize. vigorously withdraws to pain. EEG c/w encephalopathy. on fentanyl at 100mcg/hr. 11/09: remains encephalopathic. on fentanyl. becomes agitated with sedation vacation. hemodynamics stabilized. 11/10 Patient remains intubated and sedated. T: 101.6/ For MRI brain and EEG today. 11/11: Remains encephalopathic, orally intubated on mechanical ventilation. Fingerstick glucose in the 200s. We will change tube feeds from Jevity to Glucerna. 11/12 No events overnight. Remains intubated and on low dose Diprivan drip for sedation. 11/13 Patient remains intubated improving neurologically and now following commands. On Precedex drip. T:100.2 last night. Tolerated CPAP for several hrs yesterday, Off Heparin drip. 11/14 Patient s/p extubation yesterday on 4L oxygen with good sats. Hypertensive. Objective Vital Signs Date Time Temp Pulse Resp B/P (MAP) Pulse Ox O2 Delivery O2 Flow Rate FiO2 11/14/17 08:04 95 Nasal Cannula 4.00 11/14/17 08:00 98.4 98 23 176/90 (118) 11/13/17 15:09 40 Intake and Output 11/14/17 11/14/17 11/15/17 08:00 16:00 00:00 Output Total 750 ml Balance -750 ml Result Diagram: 11/14/17 0425 11/14/17 0425 Other Results Laboratory Tests Test 11/13/17 14:22 11/14/17 04:25 Blood Gas Puncture Site RT RADIAL Blood Gas Patient Temperature 98.6 Blood Gas HCO3 26 mmol/L Blood Gas Base Excess 3.0 mmol/L Blood Gas Oxygen Saturation 96 % Arterial Blood pH 7.48 Arterial Blood Partial Pressure CO2 36 mmHg Arterial Blood Partial Pressure O2 92 mmHG Arterial Blood Oxygen Content 17.2 Vol % Arterial Blood Carboxyhemoglobin 1.0 % Arterial Blood Methemoglobin 0.9 % Blood Gas Hemoglobin 12.7 G/DL Oxygen Delivery Device VENTILATOR Blood Gas Ventilator Setting CPAP 10/5 Blood Gas Inspired Oxygen 35 % White Blood Count 15.2 TH/MM3 Red Blood Count 3.86 MIL/MM3 Hemoglobin 12.0 GM/DL Hematocrit 36.4 % Mean Corpuscular Volume 94.2 FL Mean Corpuscular Hemoglobin 31.1 PG Mean Corpuscular Hemoglobin Concent 33.0 % Red Cell Distribution Width 14.3 % Platelet Count 230 TH/MM3 Mean Platelet Volume 10.6 FL Neutrophils (%) (Auto) 85.6 % Lymphocytes (%) (Auto) 8.6 % Monocytes (%) (Auto) 5.5 % Eosinophils (%) (Auto) 0.1 % Basophils (%) (Auto) 0.2 % Neutrophils # (Auto) 13.0 TH/MM3 Lymphocytes # (Auto) 1.3 TH/MM3 Monocytes # (Auto) 0.8 TH/MM3 Eosinophils # (Auto) 0.0 TH/MM3 Basophils # (Auto) 0.0 TH/MM3 CBC Comment AUTO DIFF Differential Total Cells Counted 100 Neutrophils % (Manual) 85 % Band Neutrophils % 1 % Lymphocytes % 5 % Monocytes % 6 % Eosinophils % 1 % Neutrophils # (Manual) 13.4 TH/MM3 Myelocytes 2 % Differential Comment FINAL DIFF MANUAL Platelet Estimate NORMAL Platelet Morphology Comment ENLARGED Red Cell Morphology Comment NORMAL Blood Urea Nitrogen 41 MG/DL Creatinine 1.24 MG/DL Random Glucose 137 MG/DL Calcium Level 8.7 MG/DL Sodium Level 150 MEQ/L Potassium Level 3.5 MEQ/L Chloride Level 111 MEQ/L Carbon Dioxide Level 27.6 MEQ/L Anion Gap 11 MEQ/L Estimat Glomerular Filtration Rate 57 ML/MIN Imaging Last Impressions Chest X-Ray 11/13/17 0000 Signed Impressions: Service Date/Time: Monday, November 13, 2017 08:09 - CONCLUSION: No significant change Sancho Preston MD Brain MRI 11/10/17 0000 Signed Impressions: Service Date/Time: Friday, November 10, 2017 14:05 - CONCLUSION: No acute intracranial process. Periventricular and deep white matter coalesced demyelinization most likely microvascular ischemic basis Octaviano Holland MD Abdomen X-Ray 11/10/17 0000 Signed Impressions: Service Date/Time: Friday, November 10, 2017 10:59 - CONCLUSION: No metallic radiopaque foreign bodies are present to preclude MRI. Sancho Clifford MD Head CT 11/04/172011 Signed Impressions: Service Date/Time: Saturday, November 04, 2017 22:10 - CONCLUSION: No acute disease. Mike Davalos MD Objective Remarks GENERAL: elderly male lying in bed in NAD SKIN: Focused skin assessment warm/dry. HEAD: Normocephalic. EYES: No scleral icterus. No injection or drainage. Pupils 3 mm and reactive, sluggish. NECK: Supple, trachea midline. No JVD. CARDIOVASCULAR: RRR, nl S1, S2. RESPIRATORY: B/L equal air entry GASTROINTESTINAL: Abdomen soft, nondistended. no guarding. MUSCULOSKELETAL: No cyanosis, or edema. Neuro: Awake and alert A/P Assessment and Plan Acute hypoxic and hypercarbic Respiratory failure - Post cardiac arrest -Continue with oxygent keep sat >92% -Bronchodilators, IS Hypoxic ischemic encephalopathy Agitated Delirium Patient is awake and alert -Neurology consulted 11/07. -EEG 11/07 c/w severe encephalopathy. no ictal activity. - continue frequent neuro checks -MRI brain 11/10: No acute intracranial process EEG 11/10: Mod encephalopathy, no seizure activity. CV Hypertension Out of Hospital V. Fib Cardiac arrest - Monitor HR and BP keep MAP>65mmHg -Amiodarone 200mg BID, Hydralazine 50mg Q8, add Coreg 3.125mg BID, Lisinopril 2.5mg daily - V. fib arrest - Underlying coronary artery disease - cardiology Dr. Alvares- for possible cardiac cath with PCI on Thursday 11/16 - Rewarmed 11/06 1330 - 11/06 EF 30-35 %. No regional wall motion abnormalities. PAP 35. Mild MV stenosis trace TR ID Community Acquired Klebsiella UTI Coag negative staph bacteremia- likely contaminant Pneumonia _ sputum cx: + M. Catarrhalis, strep pneumonia Off abx ( Cipro) -ID following- last dose Cipro 11/12 Monitor for signs of infections ( Fever, WBC) BC 11/10: NGTD, sputum: normal resp lorrie GI: Place on Pureed with Necator thick liquid diet per speech On Pepcid for GI prophylaxis : Acute kidney injury -Resolved Hypernatremia -Monitor renal function, I/O's, avoid nephrotoxins -Electrolytes replacement per protocol. -Place on D5W@50ml/hr, monitor sodium level. Heme: Monitor CBC Endo: On medium SSI, DVT GI prophylaxis - Teds SCDs - Heparin SQ - Pepcid Level 3 Kesha Salcedo MD Nov 14, 2017 08:51
[2017-11-14] MEDS ORDERED: PILL SPLITTER OTHER PRN (09:00)
[2017-11-14] MEDS: LABETALOL HCL 100 MG/20 ML VIAL IV PUSH PRN ×4 (09:00→23:26)
[2017-11-14] MEDS: DEXTROSE 5% IN WATE 1000ML INJ 1,000 ML IV SCH (09:02)
[2017-11-14] MEDS: HEPARIN SODIUM - SQ 10,000 UNITS/ML VIAL SQ SCH ×2 (09:48→20:46)
[2017-11-14] MEDS: CARVEDILOL 3.125 MG TAB PO SCH ×2 (09:48→20:45)
[2017-11-14] MEDS: LISINOPRIL 5 MG TAB PO SCH (09:49)
[2017-11-14] MEDS: RESP: ALBUTEROL 2.5 MG/IPRATROPIUM 0.5 MG NEB (SCH) NEB ×4 (11:42→23:07)
[2017-11-15] VITALS (20 sets, daily range): BP systolic 136–166; BP diastolic 64–90; PULSE 61–85; RESP 19–33; TEMP 97.6–99.7; O2SAT 94–99
[2017-11-15] MEDS: ONDANSETRON HCL 4 MG/2 ML VIAL IV PUSH PRN ×2 (02:55→15:35)
[2017-11-15] MEDS: hydrALAZINE HCL 20 MG/ML VIAL IV PUSH PRN ×2 (02:55→18:42)
[2017-11-15] MEDS: CHLORHEXIDINE GLUCONATE 2 % 1 PACK (2 CLOTHS) TOP SCH (03:44)
[2017-11-15] MEDS: MEDIUM DOSE INSULIN NOVOLIN REGULAR SUPPLEMENTAL SCALE SQ SCH ×6 (03:44→23:45)
[2017-11-15] MEDS: LABETALOL HCL 100 MG/20 ML VIAL IV PUSH PRN (03:47)
[2017-11-15] MEDS: RESP: ALBUTEROL 2.5 MG/IPRATROPIUM 0.5 MG NEB (SCH) NEB ×6 (03:48→23:56)
[2017-11-15] MEDS: DEXTROSE 5% IN WATE 1000ML INJ 1,000 ML IV SCH (05:12)
[2017-11-15 06:21] LABS: HEMATOCRIT 33.7 % (39.0-51.0); HEMOGLOBIN 11.1 GM/DL (13.0-17.0); MEAN CELL VOLUME 94.6 FL (80.0-100.0); MEAN CORPUSCULAR HEMOGLOBIN 31.1 PG (27.0-34.0); MEAN CORPUSCULAR HGB CONC 32.8 % (32.0-36.0); MEAN PLATELET VOLUME 10.2 FL (7.0-11.0); PLATELET COUNT 236 TH/MM3 (150-450); RED BLOOD COUNT 3.56 MIL/MM3 (4.50-5.90); RED CELL DISTRIBUTION WIDTH 14.1 % (11.6-17.2); WHITE BLOOD COUNT 14.9 TH/MM3 (4.0-11.0)
[2017-11-15 06:36] LABS: BICARBONATE 29.6 MEQ/L (21.0-32.0); CALCIUM 8.4 MG/DL (8.5-10.1); CREATININE 1.27 MG/DL (0.60-1.30)
[2017-11-15] MEDS: hydrALAZINE HCL 50 MG TAB PO SCH ×3 (06:38→22:51)
[2017-11-15] MEDS: ARTIFICIAL TEARS OPTH SOLN 15 ML BTL EACH EYE SCH ×3 (07:56→17:23)
[2017-11-15] MEDS: LISINOPRIL 5 MG TAB PO SCH (07:58)
[2017-11-15] MEDS: CARVEDILOL 3.125 MG TAB PO SCH ×2 (07:58→19:37)
[2017-11-15] MEDS: FAMOTIDINE 20 MG/2 ML VIAL IV PUSH SCH ×2 (07:58→19:37)
[2017-11-15] MEDS: LACTOBACILLUS ACIDOPHILUS TAB PO SCH ×2 (07:59→19:37)
[2017-11-15] MEDS: AMIODARONE 200 MG TAB PO SCH ×2 (07:59→19:37)
[2017-11-15] MEDS: HEPARIN SODIUM - SQ 10,000 UNITS/ML VIAL SQ SCH ×2 (07:59→19:38)
[2017-11-15] MEDS: CHLORHEXIDINE 0.12% (ORAL KIT) 15 ML CUP MT SCH ×2 (08:00→20:00)
[2017-11-15] MEDS: SODIUM CHLORIDE 0.9% FLUSH 10 ML FLUSH IV FLUSH PRN (08:00)
[2017-11-15] MEDS: DOCUSATE SODIUM 50 MG/SENNA 8.6 MG TAB PO SCH ×2 (08:00→19:37)
--- NOTE | 2017-11-15 08:03 | HHI.CCPN ---
Subjective Remarks/Hospital Course 72-year-old male was brought in by EMS after patient had a cardiopulmonary arrest. Patient was reportedly driving his and collapsed. Patient became unresponsive. Chest compression were started. EMS was called. Patient's rhythm was found to be in V. fib and the patient was defibrillated. He regained pulse and blood pressure. On the arrival to emergency department the patient remained unresponsive. Patient has a history of known coronary artery disease with a bun stent in place many years ago, no history of diabetes hypertension or COPD. Subjective: 11/05: Hypothermic cooling in progress. Amiodarone discontinued. She continues on propofol and fentanyl for sedation as well as Nimbex for paralysis. Norepinephrine has been discontinued. Blood urine and sputum cultures obtained. His blood culture specimen revealing gram-positive cocci. Empiric antibiotics initiated. 11/06-Patient rewarmed to 37 at approximately 1400 today. Muscle relaxants discontinued. Sedation, Versed and fentanyl infusions, currently being weaned off. The patient continues on dopamine at 5 mcgs, to maintain a map greater than 65mmHG. levo fed has been discontinued. Plan for EEG tomorrow. Echo revealed an EF of 30-35 %. 11/07: Patient continues to be nonresponsive all sedation 12 hours. Patient withdraws to pain. EEG in process, awaiting results. Neurology consulted. The patient continues on Dopamine at 5 mcgs. 11/08: encephalopathy persists. does ?localize. vigorously withdraws to pain. EEG c/w encephalopathy. on fentanyl at 100mcg/hr. 11/09: remains encephalopathic. on fentanyl. becomes agitated with sedation vacation. hemodynamics stabilized. 11/10 Patient remains intubated and sedated. T: 101.6/ For MRI brain and EEG today. 11/11: Remains encephalopathic, orally intubated on mechanical ventilation. Fingerstick glucose in the 200s. We will change tube feeds from Jevity to Glucerna. 11/12 No events overnight. Remains intubated and on low dose Diprivan drip for sedation. 11/13 Patient remains intubated improving neurologically and now following commands. On Precedex drip. T:100.2 last night. Tolerated CPAP for several hrs yesterday, Off Heparin drip. 11/14 Patient s/p extubation yesterday on 4L oxygen with good sats. Hypertensive. 11/15 No events overnight. On 4L oxygen with good sats. Afebrile. For possible cardiac cath tomorrow, Objective Vital Signs Date Time Temp Pulse Resp B/P (MAP) Pulse Ox O2 Delivery O2 Flow Rate FiO2 11/15/17 06:00 61 11/15/17 04:00 98.5 24 139/64 (89) 97 11/14/17 19:19 Nasal Cannula 4.00 11/13/17 15:09 40 Intake and Output 11/15/17 11/15/17 11/16/17 08:00 16:00 00:00 Intake Total 1240 ml Output Total 500 ml Balance 740 ml Result Diagram: 11/15/17 0430 11/15/17 0430 Other Results Laboratory Tests Test 11/15/17 04:30 White Blood Count 14.9 TH/MM3 Red Blood Count 3.56 MIL/MM3 Hemoglobin 11.1 GM/DL Hematocrit 33.7 % Mean Corpuscular Volume 94.6 FL Mean Corpuscular Hemoglobin 31.1 PG Mean Corpuscular Hemoglobin Concent 32.8 % Red Cell Distribution Width 14.1 % Platelet Count 236 TH/MM3 Mean Platelet Volume 10.2 FL Blood Urea Nitrogen 38 MG/DL Creatinine 1.27 MG/DL Random Glucose 243 MG/DL Calcium Level 8.4 MG/DL Sodium Level 143 MEQ/L Potassium Level 3.4 MEQ/L Chloride Level 106 MEQ/L Carbon Dioxide Level 29.6 MEQ/L Anion Gap 7 MEQ/L Estimat Glomerular Filtration Rate 56 ML/MIN Imaging Last Impressions Chest X-Ray 11/13/17 0000 Signed Impressions: Service Date/Time: Monday, November 13, 2017 08:09 - CONCLUSION: No significant change Sancho Preston MD Brain MRI 11/10/17 0000 Signed Impressions: Service Date/Time: Friday, November 10, 2017 14:05 - CONCLUSION: No acute intracranial process. Periventricular and deep white matter coalesced demyelinization most likely microvascular ischemic basis Octaviano Holland MD Abdomen X-Ray 11/10/17 0000 Signed Impressions: Service Date/Time: Friday, November 10, 2017 10:59 - CONCLUSION: No metallic radiopaque foreign bodies are present to preclude MRI. Sancho Clifford MD Head CT 11/04/172011 Signed Impressions: Service Date/Time: Saturday, November 04, 2017 22:10 - CONCLUSION: No acute disease. Mike Davalos MD Objective Remarks GENERAL: elderly male lying in bed in NAD SKIN: Focused skin assessment warm/dry. HEAD: Normocephalic. EYES: No scleral icterus. No injection or drainage. Pupils 3 mm and reactive, sluggish. NECK: Supple, trachea midline. No JVD. CARDIOVASCULAR: RRR, nl S1, S2. RESPIRATORY: B/L equal air entry GASTROINTESTINAL: Abdomen soft, nondistended. no guarding. MUSCULOSKELETAL: No cyanosis, or edema. Neuro: Awake and alert A/P Assessment and Plan Acute hypoxic and hypercarbic Respiratory failure - Post cardiac arrest -Continue with oxygen keep sat >92% -Bronchodilators, IS Hypoxic ischemic encephalopathy Agitated Delirium Patient is awake and alert -Neurology consulted 11/07. -EEG 11/07 c/w severe encephalopathy. no ictal activity. - continue frequent neuro checks -MRI brain 11/10: No acute intracranial process EEG 11/10: Mod encephalopathy, no seizure activity. CV Hypertension Out of Hospital V. Fib Cardiac arrest - Monitor HR and BP keep MAP>65mmHg -Amiodarone 200mg BID, Hydralazine 50mg Q8, Coreg 3.125mg BID, Lisinopril 2.5mg daily - V. fib arrest - Underlying coronary artery disease - cardiology Dr. Alvares- for possible cardiac cath with PCI tomorrow - Rewarmed 11/06 1330 - 11/06 EF 30-35 %. No regional wall motion abnormalities. PAP 35. Mild MV stenosis trace TR ID Community Acquired Klebsiella UTI Coag negative staph bacteremia- likely contaminant Pneumonia _ sputum cx: + M. Catarrhalis, strep pneumonia Off abx ( Cipro) -ID following- last dose Cipro 11/12 Monitor for signs of infections ( Fever, WBC) BC 11/10: NGTD, sputum: normal resp lorrie GI: on Pureed with Necator thick liquid diet per speech On Pepcid for GI prophylaxis : Acute kidney injury -Resolved Hypernatremia -Monitor renal function, I/O's, avoid nephrotoxins -Electrolytes replacement per protocol. Will need K replacement today -D/c IVF Heme: Monitor CBC Endo: On medium SSI, DVT GI prophylaxis - Teds SCDs - Heparin SQ - Pepcid Level 3 Kesha Salcedo MD Nov 15, 2017 08:03
[2017-11-15] MEDS: POTASSIUM CHLORIDE 25 MEQ EFFERVESCENT TAB PO PRN (11:52)
[2017-11-16] VITALS (24 sets, daily range): BP systolic 138–183; BP diastolic 65–89; PULSE 67–89; RESP 15–30; TEMP 98–98.5; O2SAT 95–100
[2017-11-16] MEDS: hydrALAZINE HCL 20 MG/ML VIAL IV PUSH PRN ×3 (01:15→23:40)
[2017-11-16] MEDS: CHLORHEXIDINE GLUCONATE 2 % 1 PACK (2 CLOTHS) TOP SCH (04:00)
[2017-11-16] MEDS: MEDIUM DOSE INSULIN NOVOLIN REGULAR SUPPLEMENTAL SCALE SQ SCH ×6 (04:00→23:44)
[2017-11-16] MEDS: RESP: ALBUTEROL 2.5 MG/IPRATROPIUM 0.5 MG NEB (SCH) NEB ×6 (04:43→23:18)
[2017-11-16] MEDS: hydrALAZINE HCL 50 MG TAB PO SCH ×3 (07:58→22:13)
[2017-11-16] MEDS: ARTIFICIAL TEARS OPTH SOLN 15 ML BTL EACH EYE SCH ×3 (08:00→18:00)
[2017-11-16] MEDS: CHLORHEXIDINE 0.12% (ORAL KIT) 15 ML CUP MT SCH ×2 (08:00→20:00)
[2017-11-16 08:02] LABS: AUTOMATED NEUTROPHIL # 11.2 TH/MM3 (1.8-7.7); BASOPHIL % 0.2 % (0.0-2.0); EOSINOPHIL # 0.2 TH/MM3 (0-0.4); EOSINOPHIL % 1.5 % (0.0-4.0); HEMATOCRIT 34.5 % (39.0-51.0); HEMOGLOBIN 11.4 GM/DL (13.0-17.0); LYMPH % 6.5 % (9.0-44.0); LYMPHOCYTE # 0.8 TH/MM3 (1.0-4.8); MEAN CELL VOLUME 93.8 FL (80.0-100.0); MEAN CORPUSCULAR HEMOGLOBIN 30.9 PG (27.0-34.0); MEAN PLATELET VOLUME 9.4 FL (7.0-11.0); MONO % 5.6 % (0.0-8.0); MONOCYTE # 0.7 TH/MM3 (0-0.9); NEUT % 86.2 % (16.0-70.0); PLATELET COUNT 279 TH/MM3 (150-450); RED BLOOD COUNT 3.68 MIL/MM3 (4.50-5.90); RED CELL DISTRIBUTION WIDTH 13.9 % (11.6-17.2)
[2017-11-16] MEDS: LACTOBACILLUS ACIDOPHILUS TAB PO SCH ×2 (08:10→21:10)
[2017-11-16] MEDS: DOCUSATE SODIUM 50 MG/SENNA 8.6 MG TAB PO SCH ×2 (08:10→21:15)
[2017-11-16] MEDS: HEPARIN SODIUM - SQ 10,000 UNITS/ML VIAL SQ SCH ×2 (08:10→21:10)
[2017-11-16] MEDS: FAMOTIDINE 20 MG/2 ML VIAL IV PUSH SCH ×2 (08:12→21:14)
[2017-11-16 08:42] LABS: BICARBONATE 31.5 MEQ/L (21.0-32.0); CALCIUM 8.6 MG/DL (8.5-10.1); CREATININE 1.18 MG/DL (0.60-1.30); MAGNESIUM 2.4 MG/DL (1.5-2.5); PHOSPHORUS 3.4 MG/DL (2.5-4.9)
--- NOTE | 2017-11-16 08:42 | HHI.CCPN ---
Subjective Remarks/Hospital Course 72-year-old male was brought in by EMS after patient had a cardiopulmonary arrest. Patient was reportedly driving his and collapsed. Patient became unresponsive. Chest compression were started. EMS was called. Patient's rhythm was found to be in V. fib and the patient was defibrillated. He regained pulse and blood pressure. On the arrival to emergency department the patient remained unresponsive. Patient has a history of known coronary artery disease with a bun stent in place many years ago, no history of diabetes hypertension or COPD. Subjective: 11/05: Hypothermic cooling in progress. Amiodarone discontinued. She continues on propofol and fentanyl for sedation as well as Nimbex for paralysis. Norepinephrine has been discontinued. Blood urine and sputum cultures obtained. His blood culture specimen revealing gram-positive cocci. Empiric antibiotics initiated. 11/06-Patient rewarmed to 37 at approximately 1400 today. Muscle relaxants discontinued. Sedation, Versed and fentanyl infusions, currently being weaned off. The patient continues on dopamine at 5 mcgs, to maintain a map greater than 65mmHG. levo fed has been discontinued. Plan for EEG tomorrow. Echo revealed an EF of 30-35 %. 11/07: Patient continues to be nonresponsive all sedation 12 hours. Patient withdraws to pain. EEG in process, awaiting results. Neurology consulted. The patient continues on Dopamine at 5 mcgs. 11/08: encephalopathy persists. does ?localize. vigorously withdraws to pain. EEG c/w encephalopathy. on fentanyl at 100mcg/hr. 11/09: remains encephalopathic. on fentanyl. becomes agitated with sedation vacation. hemodynamics stabilized. 11/10 Patient remains intubated and sedated. T: 101.6/ For MRI brain and EEG today. 11/11: Remains encephalopathic, orally intubated on mechanical ventilation. Fingerstick glucose in the 200s. We will change tube feeds from Jevity to Glucerna. 11/12 No events overnight. Remains intubated and on low dose Diprivan drip for sedation. 11/13 Patient remains intubated improving neurologically and now following commands. On Precedex drip. T:100.2 last night. Tolerated CPAP for several hrs yesterday, Off Heparin drip. 11/14 Patient s/p extubation yesterday on 4L oxygen with good sats. Hypertensive. 11/15 No events overnight. On 4L oxygen with good sats. Afebrile. For possible cardiac cath tomorrow, 11/16 No events overnight. For cardiac cath today. Afebrile. Objective Vital Signs Date Time Temp Pulse Resp B/P (MAP) Pulse Ox O2 Delivery O2 Flow Rate FiO2 11/16/17 07:54 100 Nasal Cannula 4.00 11/16/17 06:00 77 11/16/17 04:00 98.4 24 150/71 (97) 11/13/17 15:09 40 Result Diagram: 11/16/17 0748 11/15/17 0430 Other Results Laboratory Tests Test 11/16/17 07:48 White Blood Count 13.0 TH/MM3 Red Blood Count 3.68 MIL/MM3 Hemoglobin 11.4 GM/DL Hematocrit 34.5 % Mean Corpuscular Volume 93.8 FL Mean Corpuscular Hemoglobin 30.9 PG Mean Corpuscular Hemoglobin Concent 33.0 % Red Cell Distribution Width 13.9 % Platelet Count 279 TH/MM3 Mean Platelet Volume 9.4 FL Neutrophils (%) (Auto) 86.2 % Lymphocytes (%) (Auto) 6.5 % Monocytes (%) (Auto) 5.6 % Eosinophils (%) (Auto) 1.5 % Basophils (%) (Auto) 0.2 % Neutrophils # (Auto) 11.2 TH/MM3 Lymphocytes # (Auto) 0.8 TH/MM3 Monocytes # (Auto) 0.7 TH/MM3 Eosinophils # (Auto) 0.2 TH/MM3 Basophils # (Auto) 0.0 TH/MM3 CBC Comment DIFF FINAL Differential Comment Imaging Last Impressions Chest X-Ray 11/13/17 0000 Signed Impressions: Service Date/Time: Monday, November 13, 2017 08:09 - CONCLUSION: No significant change Sancho Preston MD Brain MRI 11/10/17 0000 Signed Impressions: Service Date/Time: Friday, November 10, 2017 14:05 - CONCLUSION: No acute intracranial process. Periventricular and deep white matter coalesced demyelinization most likely microvascular ischemic basis Octaviano Holland MD Abdomen X-Ray 11/10/17 0000 Signed Impressions: Service Date/Time: Friday, November 10, 2017 10:59 - CONCLUSION: No metallic radiopaque foreign bodies are present to preclude MRI. Sancho Clifford MD Head CT 11/04/172011 Signed Impressions: Service Date/Time: Saturday, November 04, 2017 22:10 - CONCLUSION: No acute disease. Mike Davalos MD Objective Remarks GENERAL: elderly male lying in bed in NAD SKIN: Focused skin assessment warm/dry. HEAD: Normocephalic. EYES: No scleral icterus. No injection or drainage. Pupils 3 mm and reactive, sluggish. NECK: Supple, trachea midline. No JVD. CARDIOVASCULAR: RRR, nl S1, S2. RESPIRATORY: B/L equal air entry GASTROINTESTINAL: Abdomen soft, nondistended. no guarding. MUSCULOSKELETAL: No cyanosis, or edema. Neuro: Awake and alert A/P Assessment and Plan Acute hypoxic and hypercarbic Respiratory failure - Post cardiac arrest -Continue with oxygen keep sat >92% -Bronchodilators, IS -Check CXR Hypoxic ischemic encephalopathy Agitated Delirium Patient is awake and alert -Neurology consulted 11/07. -EEG 11/07 c/w severe encephalopathy. no ictal activity. - continue frequent neuro checks -MRI brain 11/10: No acute intracranial process EEG 11/10: Mod encephalopathy, no seizure activity. CV Hypertension Out of Hospital V. Fib Cardiac arrest - Monitor HR and BP keep MAP>65mmHg -Amiodarone 200mg BID, Hydralazine 50mg Q8, Coreg 3.125mg BID, Lisinopril 2.5mg daily - V. fib arrest - Underlying coronary artery disease - cardiology Dr. Alvares- for cardiac cath with PCI today - Rewarmed 11/06 1330 - 11/06 EF 30-35 %. No regional wall motion abnormalities. PAP 35. Mild MV stenosis trace TR ID Community Acquired Klebsiella UTI Coag negative staph bacteremia- likely contaminant Pneumonia _ sputum cx: + M. Catarrhalis, strep pneumonia Off abx ( Cipro) -ID following- last dose Cipro 11/12 Monitor for signs of infections ( Fever, WBC) BC 11/10: NGTD, sputum: normal resp lorrie GI: on Pureed with Necator thick liquid diet per speech On Pepcid for GI prophylaxis : Acute kidney injury -Resolved Hypernatremia -Monitor renal function, I/O's, avoid nephrotoxins -Electrolytes replacement per protocol. Diurese with Lasix 40mg daily Heme: Monitor CBC Endo: On medium SSI, DVT GI prophylaxis - Teds SCDs - Heparin SQ - Pepcid Level 3 Kesha Salcedo MD Nov 16, 2017 08:42
[2017-11-16] MEDS ORDERED: IOHEXOL 350 MG/ML 50 ML BTL (for Cath Lab) OTHER ONE (09:01)
[2017-11-16] MEDS ORDERED: IOHEXOL 350 MG/ML 100 ML BTL (for Cath Lab) OTHER ONE (09:01)
--- NOTE | 2017-11-16 09:33 | RADRPT ---
EXAM DATE/TIME: 11/16/2017 08:47 [facility] COMPARISON: CHEST SINGLE AP, November 13, 2017, 8:09. INDICATIONS : Shortness of breath. MEDICAL HISTORY : Venous insufficiency. VDRL, cardiopulmonary arrest SURGICAL HISTORY : None. ENCOUNTER: Subsequent ACUITY: 1 week PAIN SCORE: 0/10 LOCATION: Bilateral chest FINDINGS: Patient has been extubated and NGT removed. Low lung volumes with persistent diffuse patchy airspace disease and bilateral lower lung zone pleural parenchymal opacities. Cardiomediastinal contours are s table. Remainder of the exam is unchanged. CONCLUSION: 1. Positive fluid balance with persistent mild bilateral lower lung zone pleural-parenchymal opacitie s status post extubation. Toan Zavala MD on November 16, 2017 at 9:29 Board Certified Radiologist. This report was verified electronically.
[2017-11-16] MEDS ORDERED: FUROSEMIDE 40 MG/4 ML VIAL IV PUSH SCH (10:00)
[2017-11-16] MEDS: AMIODARONE 200 MG TAB PO SCH ×2 (11:18→21:10)
[2017-11-16] MEDS: CARVEDILOL 3.125 MG TAB PO SCH ×2 (11:18→21:10)
[2017-11-16] MEDS: LISINOPRIL 5 MG TAB PO SCH (11:19)
[2017-11-16] MEDS ORDERED: MIDAZOLAM HCL 2 MG/2 ML VIAL ONE (18:23)
[2017-11-16] MEDS ORDERED: HEPARIN-NS/PF INJ 1,000 ML ONE (18:23)
[2017-11-16] MEDS ORDERED: SODIUM CHLOR 0.9% 1000 ML INJ 500 ML IV SCH (19:15)
--- NOTE | 2017-11-16 19:21 | CATHPROC ---
[employer] HIS Report Study Information Study Number Admission Scheduled Start Study Start [id number] Nov 04 2017 9:25PM 11/16/2017 Nov 16 2017 5:51PM [place] Service Cardiac Catheterization Admit Source Facility Department Emergency department [facility] - Tool Shaper Set Up Operator Physician and Clinical Staff Initial Lawrence Cazares Green Meat Grader Ariane Leonardo BSN Other cathlab, cathlab Recorder Leroy Weller RCIS(BS) Scrub Brenda Holland,RT(R) Procedures Performed Procedure Location (Site) Vessel Name Angiogram LV LV Ventricle Coronary Angiograms LCA Left Coronary Coronary Angiograms RCA Right Coronary Coronary Angiograms DEGROOT DEGROOT L Heart Cath Equipment Time Assembly Machine Set Up Mechanic Description Size Mfg Part Number Used/Scraped TRANSDUCER, TRBridgeLuxKENNEY [id number] 17:51 GELI * Used W/STOCKCOCK *[id number] *[id number] *[id number] 17:51 [employer]sa[employer] INDUSTRIES PACK, CCL CUSTOM * Used *[id number] 17:51 Microsaic PACER PEN, SKIN DUAL W/ RULER * Used *[id number] 18:34 MEDTRONIC AR MOD DXTERITY CATHETER FR 5 [id number] Used [id number] 18:34 MEDTRONIC JL 4.0 DXTERITY CATHETER FR 5 Used *[id number] PIG ANG 145 DXTERITY 18:34 MEDTRONIC FR 5 [id number] Used CATHETER [id number] 18:48 VIS Research SHEATH, FR6.5 PRELUDE 11CM FR 6.5 038ACT Used *[id number] 17:51 VIS Research WIRE, 3MMJ .035 180CM 180CM Used *[id number] PROBE COVER, STERILE [id number] 17:51 Naldo * Used ULTRASOUND W/ GEL *[id number] 17:51 NAMIC MANIFOLD, 4 PORT * Used *[id number] 17:51 NAMIC TUBING, HIGH PRESSURE 48" 48" Used *[id number] 17:51 NYCOMED OMNIPAQUE, 350 MG, 150ML 150ML [id number] Used 18:30 NYCOMED OMNIPAQUE, 350 MG, 50ML 50ML [id number] Used [id number] 17:51 [employer] MEDICAL BLANKET,WARM AIR CCL * Used *[id number] 17:51 TERUMO MEDICAL SHEATH, FR5 TERUMO (10CM) FR 5 Used *[id number] Equipment Model, Serial, Lot Number and Expiration Data Description Model Number Serial Number Lot Number Expiration Date AR MARISA DXTERITY CATHETER [id number] 02-21-2020 JL 4.0 DXTERITY CATHETER [id number] 05-27-2020 History: Current Medications Medication Dosage/Unit Route Frequency Last Date/Time Taken Beta Hemant History: Allergies Allergy Reaction No Allergy Information Available No Known Allergies History: Risk Factors Family History of Hypertension Dyslipidemia Previous MD Previous Heart Failure Premature CAD Yes No No No No Prior Valve Prior PCI Prior CABG Surgery No No No Cerebrovascular Peripheral Artery Chronic Lung On Dialysis Diabetes Diabetes Therapy Disease Disease Disease No No No Yes Yes Insulin History: Stress Tests Stress or Imaging Studies Performed No History: Other Disease Selection Items HTN History: Other Current Smoker Quit Packs a Day Years Used Pack Years No 26 Years Ago 2 25 50 Labs Hgb (g/dl) Hct (%) WBC (l/cumm) Platelets (thousands) 11.60-17.00 35.00-51.00 4.00-11.00 150.00-450.00 11.4 34.5 13 279 Glucose (mg/dl) BUN (mg/dl) Creatinine (mg/dl) BUN:Creatinine (1:x) 74.00-106.00 7.00-18.00 0.50-1.30 10.00-20.00 236 31 1.2 25.8 Na (meq/l) K (meq/l) 136.00-145.00 3.50-5.10 142 4 INR (PTT:PT) 0.90-1.10 1 CPK-MB (ng/ML) 0.50-3.60 Not Drawn Medication Medication Total Dose (Bolus/Oral) Medication Total Dosage/Unit 1% XYLOCAINE 20 mL FENTANYL 50 mcg VERSED 1 mg Medications (Bolus/Oral) Medication Time Given Dosage/Unit Administered By Reason VERSED 11/16/2017 6:33:21 PM 1 mg Ariane Leonardo 1 mg VERSED given in lab by Ariane Leonardo BSN in Right Forearm via Peripheral IV. Ordered by Lawrence Iqbal. FENTANYL 11/16/2017 6:33:28 PM 50 mcg Ariane Leonardo 50 mcg FENTANYL given in lab by Ariane Leonardo BSN in Right Forearm via Peripheral IV. Ordered by Lawrence Alvares. 1% XYLOCAINE 11/16/2017 6:37:34 PM 20 mL Lawrence Alvares 20 mL 1% XYLOCAINE given in lab by Lawrence Alvares in Right Groin via Subcutaneous. Medication (Drip) Medication Time Given Dosage/Unit Concentration/Unit Diluent (ml) Solution IV Solutions 11/16/2017 5:50:57 PM 0 mL (IV) 500 NaCl .9 Patient arrived on IV Solutions given by jennifer rodriguez in Right Forearm via Peripheral IV. Pump/Dr ip Flow = 20 ml/hr using NaCl .9. Ordered by Lawrence Alvares. Initial Case Assessment Cardiovascular HR Rhythm NIBP Chest Pain 79 nsr 151/86 0 Edema Present Skin color Skin None Normal Warm Dry Circulatory - Right Pulses Dorsalis Pedis Femoral 3 3 Scale (0,1,2,3,4,d) Scale (0,1,2,3,4,d) Neurological State Oriented to time-place- Alert Moves all extremities person Respiration - General Respiration Rate SpO2 (%) (B/min) 15 95 Final Case Assessment Cardiovascular HR Rhythm NIBP Chest Pain 90 nsr 143/83 0 Edema Present Skin color Skin None Normal Warm Dry Circulatory - Right Pulses Dorsalis Pedis Femoral 3 3 Scale (0,1,2,3,4,d) Scale (0,1,2,3,4,d) Neurological State Oriented to time-place- Alert Moves all extremities person Respiration - General Respiration Rate SpO2 (%) (B/min) 15 95 Chronological Log Time Study Chronological Log 17:50:43 Patient arrived via Bed. 17:50:44 Patient Name, D.O.B, / Armband Verified By R.N. 17:50:44 Consent signed by the physician and the patient and verified by the Tool Shaper Set Up Operator staff. 17:50:45 Pre-op and post- op instructions given; patient acknowledges understanding of instructions. 17:50:45 Verbal Stimulation=2 Physical Stimulation=2 Airway=2 Respiration=2 TOTAL=8. (0=absent, 1=li mited, 2=present) 17:50:46 Presedation assessment performed by Tool Shaper Set Up Operator RN. 17:50:47 Immediate Presedation assesment performed by physician. 17:50:47 Patient has been NPO for More than 6Hrs. 17:50:48 Skin Breakdown- none per patient 17:50:53 Patient Warmer Placed on the Table. 17:50:54 Dave Prominences Protected 17:50:56 A # 20 IV was noted in the Forearm (right). Grade = 0 17:50:56 A # 20 IV was noted in the Forearm (right). Grade = 0 Patient arrived on IV Solutions given by cathlab catheulalio in Right Forearm via Peripheral IV. P ump/Drip Flow = 20 ml/hr 17:50:57 using NaCl .9. Ordered by Lawrence Alvares. 17:50:58 History and physical on the chart or being dictated. Vitals capture started with the following parameters, Patient=Adult, Interval=5 min, Initial Pr hqqcsu=708 mmHg, 18:21:37 Deflation Rate=5 mmHg, Cuff placed on Left Arm Assessment: Initial Case, HR=79 BPM, Rhythm=nsr, NLPZ=523/86 mmhg, Chest Pain=0, Edema=None, Co drea=Normal, Skin = Warm, Dry 18:21:37 Right Pulses: Marcin Ped=3, Femoral=3 Neurological: State=Alert, Ox3, PARK Respiration: Resp=15 B/min, SpO2=95 % 18:21:54 Reference ECG taken 18:22:19 HR=80 bpm, FDAL=508/86 mmhg, SpO2=95.0 %, Resp=15 B/min, Pain=0, Williams=10, Daley=2 18:25:54 Right groin prepped with 2% chlorhexidine, and draped after a 3 min. waiting time. 18:27:22 HR=81 bpm, QJIA=014/82 mmhg, SpO2=94.0 %, Resp=19 B/min, Pain=0, Williams=10, Daley=2 18:28:42 MD paged 18:29:29 MD responded 18:30:00 MD arrived. 18:31:00 Immediate Presedation assesment performed by physician. 18:32:00 Pressure channel 1 zeroed. 18:32:19 HR=78 bpm, IZRH=772/87 mmhg, SpO2=96.0 %, Resp=19 B/min, Pain=0, Williams=10, Daley=2 1 mg VERSED given in lab by Matuszczak, Ariane , BSN in Right Forearm via Peripheral IV. Ordere d by Giorgio, 18:33:21 Lawrence. 50 mcg FENTANYL given in lab by Ariane Leonardo BSN in Right Forearm via Peripheral IV. Or dered by Giorgio, 18:33:28 Lawrence. 18:33:33 Contrast Scanned Time Out. Correct patient, correct procedure, correct physician, power injector loaded with con trast with surgical team 18:36:27 present. Time Out Concurred by MD and individual staff in procedure. 18:36:35 Case Start 18:37:22 HR=79 bpm, DCTA=278/82 mmhg, SpO2=92.0 %, Resp=17 B/min, Pain=0, Williams=10, Daley=2 18:37:24 Verbal Stimulation=2 Physical Stimulation=2 Airway=2 Respiration=2 TOTAL=8. (0=absent, 1=li mited, 2=present) 18:37:34 20 mL 1% XYLOCAINE given in lab by Lawrence Alvares in Right Groin via Subcutaneous. 18:39:10 Access site was Right Femoral Artery using ultrasound guidance. 18:39:15 A SHEATH, FR5 TERUMO (10CM) FR 5 was advanced into the Fem Art (right) using the Percutaneo us technique. A PIG ANG 145 DXTERITY CATHETER FR 5 was advanced over a wire. OMNIPAQUE, 350 MG, 150ML 150ML w as used 18:39:59 for injections. Recorded Pressure: LV, HR=80, Condition=Condition 1 18:41:29 (Left Ventricle) LV 139/9/12 18:42:02 The LV was injected at 10 cc/sec for a total of 30. OMNIPAQUE, 350 MG, 50ML 50ML used. 18:42:21 HR=78 bpm, JZTX=391/78 mmhg, SpO2=93.0 %, Resp=15 B/min, Pain=0, Williams=10, Daley=2 Recorded Pressure: LV, Ao, HR=81, Condition=Condition 1 18:43:15 (Left Ventricle) LV 140/10/13, (Aorta) Ao 145/66/99 18:43:33 Catheter was removed A JL 4.0 DXTERITY CATHETER FR 5 was advanced over a wire. OMNIPAQUE, 350 MG, 150ML 150ML was us ed for 18:43:33 injections. Recorded Pressure: Ao, HR=81, Condition=Condition 1 18:44:37 (Aorta) Ao 145/70/101 18:45:05 The LCA was injected and visualized at various angles. OMNIPAQUE, 350 MG, 150ML 150ML used . 18:47:18 HR=88 bpm, PKBW=764/79 mmhg, SpO2=93.0 %, Resp=15 B/min, Pain=0, Williams=10, Daley=2 18:47:22 Catheter was removed A SHEATH, FR6.5 PRELUDE 11CM FR 6.5 was exchanged in the Fem Art (right). This was necessary in order to 18:47:52 accomodate a larger catheter. A XBLAD 4.0 GUIDE CATHETER FR 6 was advanced over a wire. OMNIPAQUE, 350 MG, 150ML 150ML was us ed for 18:48:41 injections. 18:50:02 The LCA was injected and visualized at various angles. OMNIPAQUE, 350 MG, 50ML 50ML used. 18:51:21 Catheter was removed A AR MOD INFINITI CATHETER FR 6 was advanced over a wire. OMNIPAQUE, 350 MG, 150ML 150ML was us ed for 18:51:22 injections. 18:52:19 HR=96 bpm, YQCB=445/84 mmhg, SpO2=93.0 %, Resp=18 B/min, Pain=0, Williams=10, Daley=2 18:52:49 The RCA was injected and visualized at various angles. OMNIPAQUE, 350 MG, 150ML 150ML used . 18:53:55 The DEGROOT was injected and visualized at various angles. OMNIPAQUE, 350 MG, 150ML 150ML used . 18:55:15 Catheter was removed 18:55:20 An injection in the Fem Art (right) was made through the SHEATH, FR6.5 PRELUDE 11CM FR 6.5. 18:56:37 Case End Assessment: Final Case, HR=90 BPM, Rhythm=nsr, SKQM=688/83 mmhg, Chest Pain=0, Edema=None, [place] r=Normal, Skin = Warm, Dry 18:56:45 Right Pulses: Marcin Ped=3, Femoral=3 Neurological: State=Alert, Ox3, PARK Respiration: Resp=15 B/min, SpO2=95 % 18:57:18 HR=91 bpm, MXJX=169/83 mmhg, SpO2=94.0 %, Resp=16 B/min, Pain=0, Williams=10, Daley=2 18:57:28 Catheter(s) removed without difficulty 18:57:30 No case complications noted. 18:57:31 Cine recording checked. 18:57:32 Bedside Report will be given. 18:57:33 Contrast Scanned 18:57:35 Verbal Stimulation=2 Physical Stimulation=2 Airway=2 Respiration=2 TOTAL=8. (0=absent, 1=li mited, 2=present) 18:57:43 A Left Heart Cath was performed. 19:00:56 Sheath removed; pressure applied to access site. 19:02:19 HR=85 bpm, HOKK=044/86 mmhg, SpO2=94.0 %, Resp=11 B/min, Pain=0, Williams=10, Daley=2 19:07:23 HR=84 bpm, DWLN=499/90 mmhg, SpO2=93.0 %, Resp=19 B/min, Pain=0, Williams=10, Daley=2 19:17:21 HR=85 bpm, WTHN=110/87 mmhg, SpO2=89.0 %, Resp=19 B/min, Pain=0, Williams=10, Daley=2 19:20:39 Sterile dressing applied to site 19:20:44 Patient moved to stretcher 19:20:45 Vitals capture stopped. End Study - Contrast Media Used In Study Contrast Total Opened (mL) Total Used (mL) Total Wasted (mL) Omnipaque 155 155 0 End Study - Maximum Contrast Load Max Contrast Load (mL) 533.3 End Study - Radiation Exposure Fluoro Time (minutes) 2.9 End Study - Patient Disposition Complications Transferred To Interventional Outcome No Critical Care Bed No attempt made
[2017-11-16 21:23] LABS: CHOLESTEROL/ HDL RATIO 5.45 RATIO; HDL CHOLESTEROL 21.8 MG/DL (40.0-60.0)
[2017-11-17] VITALS (29 sets, daily range): BP systolic 99–171; BP diastolic 55–85; PULSE 67–99; RESP 18–40; TEMP 97.6–98.6; O2SAT 91–99
[2017-11-17] MEDS: hydrALAZINE HCL 20 MG/ML VIAL IV PUSH PRN (02:04)
[2017-11-17] MEDS: RESP: ALBUTEROL 2.5 MG/IPRATROPIUM 0.5 MG NEB (SCH) NEB ×4 (03:43→21:34)
[2017-11-17] MEDS: CHLORHEXIDINE GLUCONATE 2 % 1 PACK (2 CLOTHS) TOP SCH (04:00)
[2017-11-17] MEDS: MEDIUM DOSE INSULIN NOVOLIN REGULAR SUPPLEMENTAL SCALE SQ SCH ×5 (04:00→21:21)
[2017-11-17 06:09] LABS: AUTOMATED NEUTROPHIL # 11.4 TH/MM3 (1.8-7.7); BASOPHIL % 0.2 % (0.0-2.0); EOSINOPHIL # 0.2 TH/MM3 (0-0.4); EOSINOPHIL % 1.2 % (0.0-4.0); HEMATOCRIT 33.4 % (39.0-51.0); LYMPH % 5.7 % (9.0-44.0); LYMPHOCYTE # 0.7 TH/MM3 (1.0-4.8); MEAN PLATELET VOLUME 10.2 FL (7.0-11.0); MONO % 5.5 % (0.0-8.0); MONOCYTE # 0.7 TH/MM3 (0-0.9); NEUT % 87.4 % (16.0-70.0); PLATELET COUNT 292 TH/MM3 (150-450); RED BLOOD COUNT 3.56 MIL/MM3 (4.50-5.90); RED CELL DISTRIBUTION WIDTH 13.7 % (11.6-17.2); WHITE BLOOD COUNT 13.1 TH/MM3 (4.0-11.0)
[2017-11-17 06:22] LABS: BICARBONATE 30.5 MEQ/L (21.0-32.0); CALCIUM 8.4 MG/DL (8.5-10.1); CREATININE 1.11 MG/DL (0.60-1.30)
[2017-11-17] MEDS: hydrALAZINE HCL 50 MG TAB PO SCH ×3 (07:09→23:53)
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
[2017-11-17] MEDS: CHLORHEXIDINE 0.12% (ORAL KIT) 15 ML CUP MT SCH ×2 (08:00→20:00)
[2017-11-17] MEDS ORDERED: IOHEXOL 350 MG/ML 100 ML BTL (for Cath Lab) OTHER ONE (08:47)
[2017-11-17] MEDS ORDERED: IOHEXOL 350 MG/ML 50 ML BTL (for Cath Lab) OTHER ONE (08:47)
[2017-11-17] MEDS: AMIODARONE 200 MG TAB PO SCH ×3 (09:00→21:20)
[2017-11-17] MEDS: ARTIFICIAL TEARS OPTH SOLN 15 ML BTL EACH EYE SCH ×3 (09:00→17:23)
[2017-11-17] MEDS: DOCUSATE SODIUM 50 MG/SENNA 8.6 MG TAB PO SCH ×2 (09:00→21:00)
[2017-11-17] MEDS: CARVEDILOL 3.125 MG TAB PO SCH ×3 (09:00→21:20)
[2017-11-17] MEDS ORDERED: MORPHINE SULFATE 2 MG/ML INJ IV PUSH ONE (09:45)
[2017-11-17] MEDS: HEPARIN SODIUM - SQ 10,000 UNITS/ML VIAL SQ SCH (09:53)
[2017-11-17] MEDS: LACTOBACILLUS ACIDOPHILUS TAB PO SCH ×2 (09:53→21:20)
[2017-11-17] MEDS: LISINOPRIL 5 MG TAB PO SCH (09:56)
[2017-11-17] MEDS: FAMOTIDINE 20 MG/2 ML VIAL IV PUSH SCH ×2 (10:35→21:20)
[2017-11-17] MEDS ORDERED: NITROGLYCERIN-D5W 50 MG/250 ML 250 ML ONE (11:35)
[2017-11-17] MEDS ORDERED: CHLORHEXIDINE GLUCONATE 4% SOLN 120 ML BTL TOPICAL SCH (12:00)
[2017-11-17] MEDS: NITROGLYCERIN/DEXTROSE 5% 250 ML for chest pain IV PRN (12:00)
[2017-11-17] MEDS ORDERED: ceFAZolin 2 GM PREMIX 50 ML IV SCH (12:00)
[2017-11-17] MEDS ORDERED: PAPAVERINE INJ 60 MG, NITROGLYCERIN INJ 100 MCG, DILTIAZEM INJ 100 MG in SODIUM CHLORID... IRRIGATION SCH (12:00)
[2017-11-17] MEDS ORDERED: INSULIN REGULAR (IV INFUSION) 100 UNITS in SODIUM CHLORIDE 0.9% INJ 99 ML IV PRN (12:00)
[2017-11-17] MEDS ORDERED: CEFAZOLIN INJ 500 MG in SODIUM CHLORIDE 0.9% IRR BTL 500 ML IRRIGATION SCH (12:00)
[2017-11-17] MEDS ORDERED: SODIUM CHLORIDE 0.9% FLUSH 10 ML FLUSH IV FLUSH PRN (12:00)
[2017-11-17] MEDS ORDERED: HEPARIN SODIUM - IV 10,000 UNITS/10 ML VIAL IV ONE (12:00)
[2017-11-17] MEDS ORDERED: METOPROLOL TARTRATE 25 MG TAB PO SCH (12:00)
[2017-11-17] MEDS ORDERED: DEXTROSE 50% IN WATER 50 ML VIAL(D50) IV PUSH PRN (12:00)
[2017-11-17] MEDS ORDERED: HEPARIN SODIUM - IV 10,000 UNITS/10 ML VIAL IV PUSH PRN (12:00)
[2017-11-17] MEDS: HEPARIN 25,000 UNITS-D5W 250 ML - PREMIX IV PRN (14:13)
--- NOTE | 2017-11-17 15:20 | PD.CARD.PN ---
Subjective Subjective Remarks Angina this AM, relieved w NTG, now painfree Objective Medications Current Medications Medications (Trade) Dose Ordered Sig/Juan Route Start Time Stop Time Status Last Admin (Tylenol) 650 mg Q6H PRN PO 11/04/17 22:00 (Pepcid Inj) 20 mg Q12HR IV PUSH 11/05/17 09:00 11/17/17 10:35 (Tears Naturale Opth Soln) 1 drop TID EACH EYE 11/05/17 09:00 11/17/17 09:00 (Zofran Inj) 4 mg Q6H PRN IV PUSH 11/04/17 22:00 11/15/17 15:35 (Duoneb Neb) 1 ampule Q2HR NEB PRN INH 11/04/17 22:00 11/14/17 03:58 Miscellaneous Information 1 Q361D XX 11/04/17 22:00 11/04/17 22:00 (Chlorhexidine 2% Cloth) Taper DAILY@04 TOP 11/05/17 04:00 11/01/18 03:59 11/17/17 04:00 (Chlorhexidine 2% Cloth) 3 pack UNSCH PRN TOP 11/04/17 22:00 (Ashley-Colace) 1 tab BID PO 11/05/17 09:00 11/16/17 21:15 (Milk Of Magnesia Liq) 30 ml Q12H PRN PO 11/04/17 22:00 (Senokot) 17.2 mg Q12H PRN PO 11/04/17 22:00 (Dulcolax Supp) 10 mg DAILY PRN RECTAL 11/04/17 22:00 (Lactulose Liq) 30 ml DAILY PRN PO 11/04/17 22:00 (Peridex 0.12% Liq) 15 ml BID@08,20 MT 11/05/17 08:00 11/13/17 07:33 (Ativan Inj) 1 mg Q1H PRN IV PUSH 11/05/17 01:15 11/09/17 04:20 Miscellaneous Information ml @ 0 mls/hr UNSCH IV 11/05/17 01:15 (NS Flush) 2 ml UNSCH PRN IV FLUSH 11/05/17 01:15 11/15/17 08:00 (NS Flush) 2 ml UNSCH PRN IV FLUSH 11/05/17 01:15 11/09/17 14:43 (Tylenol 650 Mg/ 20 ml Liq) 650 mg Q6H PRN NG 11/05/17 01:15 11/10/17 07:48 (Lacrilube Opht Oint) 1 applic Q4H PRN EACH EYE 11/05/17 01:15 Potassium Chloride 100 ml @ 50 mls/hr Q2H PRN IV 11/05/17 01:30 Potassium Chloride 100 ml @ 50 mls/hr Q2H PRN IV 11/05/17 01:30 11/13/17 08:51 (K-Lyte Cl Eff) 50 meq UNSCH PRN PO 11/05/17 01:30 11/13/17 08:51 Potassium Chloride 100 ml @ 25 mls/hr UNSCH PRN IV 11/05/17 01:30 11/06/17 08:53 Potassium Chloride 100 ml @ 50 mls/hr Q2H PRN IV 11/05/17 01:30 11/15/17 12:15 Magnesium Sulfate 4 gm/Sodium Chloride 100 ml @ 50 mls/hr UNSCH PRN IV 11/05/17 01:30 (Mag-Ox) 800 mg UNSCH PRN PO 11/05/17 01:30 Magnesium Sulfate 2 gm/Sodium Chloride 100 ml @ 50 mls/hr UNSCH PRN IV 11/05/17 01:30 11/06/17 09:12 (K-Phos) 2,000 mg Q4H PRN PO 11/05/17 01:30 Sodium Phosphate 30 mmol/Sodium Chloride 250 ml @ 42 mls/hr UNSCH PRN IV 11/05/17 01:30 11/06/17 02:45 (K-Phos) 2,000 mg UNSCH PRN PO/TUBE 11/05/17 01:30 Potassium Phosphate 30 mmol/ Sodium Chloride 260 ml @ 42 mls/hr UNSCH PRN IV 11/05/17 01:30 (D50w (Vial) Inj) 50 ml UNSCH PRN IV PUSH 11/05/17 19:45 (Glucagon Inj) 1 mg UNSCH PRN OTHER 11/05/17 19:45 (Brethine Inj) 1 mg UNSCH PRN SQ 11/06/17 01:15 (NovoLIN R SUPPLEMENTAL SCALE) 1 Q4HR SQ 11/06/17 08:00 11/17/17 12:00 (Lactinex) 1 tab Q12HR PO 11/07/17 12:45 11/17/17 09:53 (Trandate Inj) 20 mg Q5M PRN IV PUSH 11/09/17 10:15 11/15/17 03:47 (Apresoline Inj) 10 mg Q30M PRN IV PUSH 11/09/17 10:15 11/17/17 02:04 (Levemir Inj) 10 units Q12HR SQ 11/11/17 21:00 Future Hold 11/13/17 07:31 (Apresoline) 50 mg Q8H PO 11/12/17 15:00 11/17/17 07:09 (Cordarone) 200 mg Q12HR PO 11/13/17 09:00 11/16/17 21:10 (Duoneb Neb) 1 ampule Q4HR NEB NEB 11/14/17 12:00 11/16/17 20:26 (Coreg) 3.125 mg Q12HR PO 11/14/17 09:00 11/16/17 21:10 (Prinivil) 2.5 mg DAILY PO 11/14/17 09:00 Future Hold 11/17/17 09:56 (Heparin Inj) 5,000 units Q12HR SQ 11/14/17 09:00 Future Hold 11/17/17 09:53 (Pill Splitter) 1 ea UNSCH PRN OTHER 11/14/17 09:00 Nitroglycerin/ Dextrose 250 ml @ 1.5 mls/hr TITRATE PRN IV 11/17/17 11:45 11/17/17 12:00 Heparin Sodium/ Dextrose 250 ml @ 10 mls/hr TITRATE PRN IV 11/17/17 12:00 11/17/17 14:13 (Heparin Inj) 5,000 units UNSCH PRN IV PUSH 11/17/17 12:00 (Heparin Inj) 2,500 units UNSCH PRN IV PUSH 11/17/17 12:00 Papaverine HCl 60 mg/Nitroglycerin 100 mcg/Diltiazem HCl 100 mg/Sodium Chloride 100 ml @ 0 mls/hr IRONMOLDER IRRIGATION 11/17/17 12:00 11/24/17 11:59 Cefazolin Sodium 500 mg/Sodium Chloride 505 ml @ 0 mls/hr IRONMOLDER IRRIGATION 11/17/17 12:00 11/24/17 11:59 Cefazolin Sodium/ Dextrose 50 ml @ 100 mls/hr IRONMOLDER IV 11/17/17 12:00 11/24/17 11:59 (Lopressor) 12.5 mg IRONMOLDER PO 11/17/17 12:00 11/24/17 11:59 (Hibiclens 4% Top Soln) 1 applic IRONMOLDER TOPICAL 11/17/17 12:00 11/24/17 11:59 Insulin Human Regular 100 units/ Sodium Chloride 100 ml @ 3 mls/hr TITRATE PRN IV 11/17/17 12:00 11/24/17 11:59 (D50w (Vial) Inj) 50 ml UNSCH PRN IV PUSH 11/17/17 12:00 Vital Signs / I&O Vital Signs Date Time Temp Pulse Resp B/P (MAP) Pulse Ox O2 Delivery O2 Flow Rate FiO2 11/17/17 13:55 98.2 96 18 157/77 (103) 97 11/17/17 13:00 81 25 155/72 (99) 97 11/17/17 12:50 81 175/79 11/17/17 12:05 16 11/17/17 12:00 97.7 74 26 166/77 (106) 97 11/17/17 12:00 74 11/17/17 12:00 74 166/77 11/17/17 11:00 67 24 126/58 (80) 98 11/17/17 10:30 70 25 99/62 (74) 11/17/17 10:00 73 11/17/17 10:00 73 24 102/55 (71) 95 11/17/17 09:56 18 11/17/17 09:31 79 27 112/75 (87) 93 11/17/17 09:00 80 27 146/69 (94) 93 11/17/17 08:30 80 40 157/75 (102) 99 11/17/17 08:00 97.6 79 31 151/71 (97) 98 11/17/17 08:00 79 11/17/17 07:00 76 22 97 11/17/17 06:00 85 30 171/85 (113) 97 11/17/17 06:00 85 11/17/17 05:30 83 21 153/74 (100) 97 11/17/17 05:00 80 19 169/81 (110) 98 11/17/17 04:00 97.6 79 21 151/77 (101) 98 11/17/17 04:00 79 11/17/17 02:00 90 11/17/17 00:00 97.6 87 19 162/82 (108) 98 11/17/17 00:00 87 11/17/17 00:00 98.6 87 19 162/82 (108) 98 11/16/17 22:00 80 11/16/17 20:29 98 Nasal Cannula 4.00 11/16/17 20:00 98.0 78 20 163/80 (107) 97 11/16/17 20:00 78 11/16/17 16:00 98.3 78 27 153/74 (100) 100 11/16/17 16:00 78 I/O 11/16/17 11/16/17 11/16/17 11/17/17 11/17/17 11/17/17 06:59 14:59 22:59 06:59 14:59 22:59 Intake Total 0 ml 1000 ml Output Total 1400 ml 1800 ml 1800 ml Balance -1400 ml -1800 ml -800 ml Intake Oral 0 ml 500 ml IV Total 500 ml Output Urine Total 1400 ml 1800 ml 1800 ml # Bowel Movements 0 1 Physical Exam GENERAL: Confused, in NAD SKIN: Warm and dry. HEAD: Normocephalic. EYES: No scleral icterus. No injection or drainage. NECK: Supple, trachea midline. No JVD or lymphadenopathy. CARDIOVASCULAR: Regular rate and rhythm without murmurs, gallops, or rubs. RESPIRATORY: Breath sounds equal bilaterally. No accessory muscle use. GASTROINTESTINAL: Abdomen soft, non-tender, nondistended. MUSCULOSKELETAL: No cyanosis, trace edema. Laboratory Laboratory Tests Test 11/17/17 04:25 11/17/17 12:40 White Blood Count 13.1 TH/MM3 Red Blood Count 3.56 MIL/MM3 Hemoglobin 11.0 GM/DL Hematocrit 33.4 % Mean Corpuscular Volume 94.0 FL Mean Corpuscular Hemoglobin 31.0 PG Mean Corpuscular Hemoglobin Concent 33.0 % Red Cell Distribution Width 13.7 % Platelet Count 292 TH/MM3 Mean Platelet Volume 10.2 FL Neutrophils (%) (Auto) 87.4 % Lymphocytes (%) (Auto) 5.7 % Monocytes (%) (Auto) 5.5 % Eosinophils (%) (Auto) 1.2 % Basophils (%) (Auto) 0.2 % Neutrophils # (Auto) 11.4 TH/MM3 Lymphocytes # (Auto) 0.7 TH/MM3 Monocytes # (Auto) 0.7 TH/MM3 Eosinophils # (Auto) 0.2 TH/MM3 Basophils # (Auto) 0.0 TH/MM3 CBC Comment DIFF FINAL Differential Comment Blood Urea Nitrogen 27 MG/DL Creatinine 1.11 MG/DL Random Glucose 179 MG/DL Calcium Level 8.4 MG/DL Sodium Level 140 MEQ/L Potassium Level 3.8 MEQ/L Chloride Level 102 MEQ/L Carbon Dioxide Level 30.5 MEQ/L Anion Gap 8 MEQ/L Estimat Glomerular Filtration Rate 65 ML/MIN Activated Partial Thromboplast Time 25.9 SEC Assessment and Plan Problem List: (1) VF (ventricular fibrillation) ICD Codes: I49.01 - Ventricular fibrillation Status: Acute (2) Respiratory failure ICD Codes: J96.90 - Respiratory failure, unspecified, unspecified whether with hypoxia or hypercapnia Status: Acute (3) Hyperglycemia ICD Codes: R73.9 - Hyperglycemia, unspecified Status: Acute (4) Anoxic encephalopathy ICD Codes: G93.1 - Anoxic brain damage, not elsewhere classified Assessment and Plan Cath showed severe complex MV CAD. Continue heparin and NTG. Recommend CABG. Dr. Bishop consulted for CT surgery. Problem Qualifiers (1) Respiratory failure: Qualified Codes: J96.00 - Acute respiratory failure, unspecified whether with hypoxia or hypercapnia Lawrence Alvares MD Nov 17, 2017 15:19
--- NOTE | 2017-11-17 15:23 | PD.CAR.PN ---
CVT Progress Note Subjective/Hospital Course: pt seen and evaluated , s/Vfib arrest / Code Cool neurologically recovered , extubated post cath with multivessel disease sts data discussed with [t , tentatively scheduled for CABG on thursday RISK SCORES About the STS Risk Calculator Procedure: CAB Only Risk of Mortality: 2.282% Morbidity or Mortality: 20.461% Long Length of Stay: 9.591% Short Length of Stay: 29.222% Permanent Stroke: 1.037% Prolonged Ventilation: 15.367% DSW Infection: 1.06% Renal Failure: 5.98% Reoperation: 5.752% Objective: Vital Signs Date Time Temp Pulse Resp B/P (MAP) Pulse Ox O2 Delivery O2 Flow Rate FiO2 11/17/17 13:55 98.2 96 18 157/77 (103) 97 11/17/17 13:00 81 25 155/72 (99) 97 11/17/17 12:50 81 175/79 11/17/17 12:05 16 11/17/17 12:00 97.7 74 26 166/77 (106) 97 11/17/17 12:00 74 11/17/17 12:00 74 166/77 11/17/17 11:00 67 24 126/58 (80) 98 11/17/17 10:30 70 25 99/62 (74) 11/17/17 10:00 73 11/17/17 10:00 73 24 102/55 (71) 95 11/17/17 09:56 18 11/17/17 09:31 79 27 112/75 (87) 93 11/17/17 09:00 80 27 146/69 (94) 93 11/17/17 08:30 80 40 157/75 (102) 99 11/17/17 08:00 97.6 79 31 151/71 (97) 98 11/17/17 08:00 79 11/17/17 07:00 76 22 97 11/17/17 06:00 85 30 171/85 (113) 97 11/17/17 06:00 85 11/17/17 05:30 83 21 153/74 (100) 97 11/17/17 05:00 80 19 169/81 (110) 98 11/17/17 04:00 97.6 79 21 151/77 (101) 98 11/17/17 04:00 79 11/17/17 02:00 90 11/17/17 00:00 97.6 87 19 162/82 (108) 98 11/17/17 00:00 87 11/17/17 00:00 98.6 87 19 162/82 (108) 98 11/16/17 22:00 80 11/16/17 20:29 98 Nasal Cannula 4.00 11/16/17 20:00 98.0 78 20 163/80 (107) 97 11/16/17 20:00 78 11/16/17 16:00 98.3 78 27 153/74 (100) 100 11/16/17 16:00 78 Labs: Laboratory Tests Test 11/17/17 04:25 11/17/17 12:40 White Blood Count 13.1 TH/MM3 (4.0-11.0) Red Blood Count 3.56 MIL/MM3 (4.50-5.90) Hemoglobin 11.0 GM/DL (13.0-17.0) Hematocrit 33.4 % (39.0-51.0) Mean Corpuscular Volume 94.0 FL (80.0-100.0) Mean Corpuscular Hemoglobin 31.0 PG (27.0-34.0) Mean Corpuscular Hemoglobin Concent 33.0 % (32.0-36.0) Red Cell Distribution Width 13.7 % (11.6-17.2) Platelet Count 292 TH/MM3 (150-450) Mean Platelet Volume 10.2 FL (7.0-11.0) Neutrophils (%) (Auto) 87.4 % (16.0-70.0) Lymphocytes (%) (Auto) 5.7 % (9.0-44.0) Monocytes (%) (Auto) 5.5 % (0.0-8.0) Eosinophils (%) (Auto) 1.2 % (0.0-4.0) Basophils (%) (Auto) 0.2 % (0.0-2.0) Neutrophils # (Auto) 11.4 TH/MM3 (1.8-7.7) Lymphocytes # (Auto) 0.7 TH/MM3 (1.0-4.8) Monocytes # (Auto) 0.7 TH/MM3 (0-0.9) Eosinophils # (Auto) 0.2 TH/MM3 (0-0.4) Basophils # (Auto) 0.0 TH/MM3 (0-0.2) CBC Comment DIFF FINAL Differential Comment Blood Urea Nitrogen 27 MG/DL (7-18) Creatinine 1.11 MG/DL (0.60-1.30) Random Glucose 179 MG/DL (74-106) Calcium Level 8.4 MG/DL (8.5-10.1) Sodium Level 140 MEQ/L (136-145) Potassium Level 3.8 MEQ/L (3.5-5.1) Chloride Level 102 MEQ/L (98-107) Carbon Dioxide Level 30.5 MEQ/L (21.0-32.0) Anion Gap 8 MEQ/L (5-15) Estimat Glomerular Filtration Rate 65 ML/MIN (>89) Activated Partial Thromboplast Time 25.9 SEC (24.3-30.1) Result Diagram: 11/17/1742411/17/17424 (1) VF (ventricular fibrillation) (2) Respiratory failure (3) Hyperglycemia (4) Anoxic encephalopathy Problem Qualifiers (1) Respiratory failure: Qualified Codes: J96.00 - Acute respiratory failure, unspecified whether with hypoxia or hypercapnia Grecia Beavers Nov 17, 2017 15:23
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
--- NOTE | 2017-11-17 17:42 | RADRPT ---
EXAM DATE/TIME: 11/17/2017 15:50 [facility] COMPARISON: No previous studies available for comparison. INDICATIONS : Preop cardiac surgery. MEDICAL HISTORY : Dyspnea. Muscle stiffness. Joint pain. SURGICAL HISTORY : Cardiac stent. Cardiac cath. ENCOUNTER: Initial ACUITY: 1 day PAIN SCORE: 0/10 LOCATION: Bilateral neck PEAK SYSTOLIC VELOCITIES (cm/sec): ICA/CCA RATIO: Right: 0.6 Left: 0.6 ICA: Right: 90.6 Left: 80.6 CCA: Right: 141.0 Left: 139.6 ECA: Right: 134.9 Left: 134.9 VERTEBRAL: Right: 98.4 antegrade Left: 49.0 antegrade Elevated flow velocities and ICA/CCA ratios have been found to correlate with increased degrees of vessel stenosis, calculated as percentage of diameter relative to a normal segment of distal ICA/CCA FINDINGS: RIGHT CAROTID: Minimal plaquing in the carotid bulb. The waveforms are within normal limits. LEFT CAROTID: Minimal plaquing at the origin of the internal. The waveforms are within normal limits. VERTEBRAL ARTERIES: Antegrade flow is seen in both vertebral arteries. MISCELLANEOUS: None. CONCLUSION: 1. Minimal plaquing in both carotid systems. 2. However, no sonographic or Doppler findings of a hemodynamically significant stenosis. Antegrade f low in both vertebrals. David Saenz MD on November 17, 2017 at 17:37 Board Certified Radiologist. This report was verified electronically.
--- NOTE | 2017-11-17 17:47 | RADRPT ---
EXAM DATE/TIME: 11/17/2017 16:12 [facility] COMPARISON: No previous studies available for comparison. INDICATIONS : Preop cardiac surgery. MEDICAL HISTORY : Dyspnea. Muscle stiffness. Joint pain. SURGICAL HISTORY : Cardiac stnet. Cardiac cath. ENCOUNTER: Subsequent ACUITY: 1 day PAIN SCORE: 0/10 LOCATION: Bilateral leg. TECHNIQUE: Venous ultrasound of the left and right leg was performed from the inguinal ligament to the proximal calf. Real-time, color Doppler and spectral tracing, compression and augmentation techniques were us ed. FINDINGS: RIGHT LEG: Common femoral vein on the right appears to be incompletely compressible but there is no obvious echo genic thrombus on the images submitted. Remaining portions of the right lower extremity deep venous s ystem are fully compressible. No echogenic clot is seen in the lumen of the common femoral, femoral, popliteal, and posterior tibial veins. There is a normal response of the venous system to proximal and distal augmentation and respiration. LEFT LEG: There is normal compressibility of the deep venous system from the inguinal region to the proximal ca lf. No echogenic clot is seen in the lumen of the common femoral, femoral, popliteal, and posterior tibial veins. There is a normal response of the venous system to proximal and distal augmentation an d respiration. CONCLUSION: No DVT identified in either lower extremity. David Saenz MD on November 17, 2017 at 17:43 Board Certified Radiologist. This report was verified electronically.
--- NOTE | 2017-11-17 17:48 | RADRPT ---
EXAM DATE/TIME: 11/17/2017 16:20 [facility] COMPARISON: No previous studies available for comparison. INDICATIONS : Preop cardiac surgery. MEDICAL HISTORY : Dyspnea. Muscle stiffness. Joint pain. SURGICAL HISTORY : Dyspnea. Muscle stiffness. Joint pain. ENCOUNTER: Initial ACUITY: 1 day PAIN SCORE: 0/10 LOCATION: Bilateral leg. GREATER SAPHENOUS VEIN THIGH: PROXIMAL: Right 4 mm Left 4 mm MID: Right 2 mm Left 2 mm DISTAL: Right 1 mm Left 2 mm CALF: PROXIMAL: Right 2 mm Left Non-visualized MID: Right 2 mm Left Non-visualized DISTAL: Right 2 mm Left Non-visualized FINDINGS: The venous system of the lower extremities are patent by color Doppler imaging. Measurements of the leg veins (in mm) are listed above. CONCLUSION: Venous mapping as above. David Saenz MD on November 17, 2017 at 17:45 Board Certified Radiologist. This report was verified electronically.
[2017-11-17] MEDS: RESP: ALBUTEROL 2.5 MG/IPRATROPIUM 0.5 MG NEB (PRN) INH (18:29)
--- NOTE | 2017-11-17 18:43 | MA ---
cc: NATACHA GILMAN MD DATE: 11/16/2017 INDICATION Ventricular fibrillation arrest, non ST-elevation myocardial function, cardiomyopathy. PROCEDURE PERFORMED 1. Retrograde left heart catheterization with left ventriculography and selective coronary angiography. 2. Left internal mammary artery angiography. 3. Moderate sedation. ACCESS SITE Right femoral artery. EQUIPMENT USED 5 Albanian pigtail catheter, 6 Albanian XB LAD4 guide and AR1 guide. MEDICATIONS Versed IV, Fentanyl IV. CONTRAST Omnipaque 155 cc. COMPLICATIONS None. BLOOD LOSS: Less than 10 cc. METHOD OF HEMOSTASIS Manual compression. RESULTS HEMODYNAMICS Heart rate 82 beats per minute. Left ventricular end-diastolic pressure 10 mmHg. Left ventricle 146/10. Aorta 146/76/101 LEFT VENTRICULOGRAPHY Left ventricular ejection fraction 35%. Wall motion: moderate global hypokinesis. No mitral regurgitation. CORONARY ANGIOGRAPHY The left main coronary artery is patent. Left anterior descending coronary artery: 50% and 80% stenosis in the proximal portion, severe sequential 90% stenosis in the mid portion and subsequently 80% stenosis in the mid portion distally to the third diagonal branch. The third diagonal branch was a large vessel with 80% ostial stenosis. First and second diagonal branches were small and patent. The left circumflex artery was patent. OM1 was a very large branching vessel with 80% ostial stenosis and 80% stenosis of a secondary branch. Right coronary artery was totally occluded in the proximal portion. The distal vessel filled by [id number] collaterals. Left subclavian artery and left internal mammary artery were patent. DIAGNOSIS: 1. Severe multivessel coronary artery disease. 2. Moderate left ventricular systolic dysfunction. DISPOSITION Mr. Back was found to have evidence of severe multivessel coronary artery disease, not amenable to coronary intervention. He will be referred for coronary bypass for his further management. MD MAYRA Soria/JOHANNY /7:11 PM /6:21 PM PASTORA
[2017-11-17] MEDS ORDERED: FUROSEMIDE 40 MG/4 ML VIAL IV PUSH ONE (18:45)
[2017-11-17] MEDS ORDERED: SODIUM CHLORIDE 0.9% FLUSH 10 ML FLUSH IV FLUSH SCH (21:00)
[2017-11-17] MEDS: HEPARIN SODIUM - IV 10,000 UNITS/10 ML VIAL IV PUSH PRN (23:54)
[2017-11-18] VITALS (15 sets, daily range): BP systolic 120–153; BP diastolic 58–70; PULSE 76–90; RESP 17–20; TEMP 97.9–99; O2SAT 93–97
[2017-11-18] MEDS: RESP: ALBUTEROL 2.5 MG/IPRATROPIUM 0.5 MG NEB (SCH) NEB ×4 (00:54→20:39)
[2017-11-18 03:34] LABS: AUTOMATED NEUTROPHIL # 12.6 TH/MM3 (1.8-7.7); BASOPHIL # 0.1 TH/MM3 (0-0.2); BASOPHIL % 0.6 % (0.0-2.0); EOSINOPHIL # 0.1 TH/MM3 (0-0.4); EOSINOPHIL % 0.6 % (0.0-4.0); HEMATOCRIT 29.7 % (39.0-51.0); MEAN CELL VOLUME 91.9 FL (80.0-100.0); MEAN CORPUSCULAR HEMOGLOBIN 30.9 PG (27.0-34.0); MEAN CORPUSCULAR HGB CONC 33.6 % (32.0-36.0); MEAN PLATELET VOLUME 9.1 FL (7.0-11.0); MONO % 3.7 % (0.0-8.0); MONOCYTE # 0.5 TH/MM3 (0-0.9); NEUT % 88.1 % (16.0-70.0); PLATELET COUNT 299 TH/MM3 (150-450); RED BLOOD COUNT 3.23 MIL/MM3 (4.50-5.90); RED CELL DISTRIBUTION WIDTH 13.9 % (11.6-17.2); WHITE BLOOD COUNT 14.3 TH/MM3 (4.0-11.0)
[2017-11-18 03:46] LABS: INTERNATIONAL NORMALIZED RATIO 1.2 RATIO; PROTHROMBIN TIME - PATIENT 11.7 SEC (9.8-11.6)
[2017-11-18] MEDS: CHLORHEXIDINE GLUCONATE 2 % 1 PACK (2 CLOTHS) TOP SCH (04:00)
[2017-11-18] MEDS: MEDIUM DOSE INSULIN NOVOLIN REGULAR SUPPLEMENTAL SCALE SQ SCH ×3 (04:00→09:28)
[2017-11-18 04:03] LABS: ALBUMIN 2.2 GM/DL (3.4-5.0); ALT (GPT) 69 U/L (12-78); AST (GOT) 30 U/L (15-37); BICARBONATE 32.4 MEQ/L (21.0-32.0); BLOOD UREA NITROGEN 26 MG/DL (7-18); CALCIUM 8.3 MG/DL (8.5-10.1); CHLORIDE 102 MEQ/L (98-107); CREATININE 1.23 MG/DL (0.60-1.30); GLOMERULAR FILTRATION RATE 58 ML/MIN (>89); GLUCOSE,RANDOM 150 MG/DL (74-106); PHOSPHORUS 2.7 MG/DL (2.5-4.9); SODIUM (NA) 142 MEQ/L (136-145)
[2017-11-18 04:05] LABS: ALKALINE PHOSPHATASE 134 U/L (45-117); TOTAL BILIRUBIN ADULT 0.6 MG/DL (0.2-1.0); TOTAL PROTEIN 6.1 GM/DL (6.4-8.2)
--- NOTE | 2017-11-18 04:24 | RADRPT ---
EXAM DATE/TIME: 11/18/2017 03:41 [facility] COMPARISON: CHEST SINGLE AP, November 16, 2017, 8:47. INDICATIONS : Short of breath. MEDICAL HISTORY : Venous insufficiency. VDRL, cardiopulmonary arrest SURGICAL HISTORY : None. ENCOUNTER: Subsequent ACUITY: 1 week PAIN SCORE: 0/10 LOCATION: Bilateral chest FINDINGS: Moderate patient rotation towards the left. Interval development of left lower lung consolidation wi th loss of delineation of the entire left hemidiaphragm. The right lung is clear. The heart is stab le in size when taking into account the rotation. CONCLUSION: Increasing left lower lung consolidation. Quinn Miller MD on November 18, 2017 at 4:22 Board Certified Radiologist. This report was verified electronically.
[2017-11-18] MEDS: HEPARIN SODIUM - IV 10,000 UNITS/10 ML VIAL IV PUSH PRN ×3 (05:14→21:11)
[2017-11-18] MEDS ORDERED: POTASSIUM CHLORIDE 20 MEQ CONTROLLED RELEASE TAB PO ONE ×2 (09:00→14:45)
[2017-11-18] MEDS: DOCUSATE SODIUM 50 MG/SENNA 8.6 MG TAB PO SCH ×2 (09:00→21:00)
[2017-11-18] MEDS: AMIODARONE 200 MG TAB PO SCH (09:20)
[2017-11-18] MEDS: PANTOPRAZOLE SOD 40 MG DELAYED RELEASE TAB PO SCH (09:20)
[2017-11-18] MEDS: CARVEDILOL 3.125 MG TAB PO SCH ×2 (09:26→21:05)
[2017-11-18] MEDS: INSULIN DETEMIR 100 UNITS/ML VIAL SQ SCH ×2 (09:28→21:05)
[2017-11-18] MEDS: LACTOBACILLUS ACIDOPHILUS TAB PO SCH ×2 (09:32→21:04)
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
[2017-11-18] MEDS ORDERED: DEXTROSE 50% IN WATER 50 ML VIAL(D50) IV PUSH PRN (11:15)
[2017-11-18] MEDS ORDERED: GLUCAGON 1 MG/ML VIAL OTHER PRN (11:15)
[2017-11-18] MEDS: INSULIN ASPART SUPPLEMENTAL SCALE SQ SCH ×3 (12:45→21:00)
[2017-11-18] MEDS: ASPIRIN EC 81 MG TABEC PO SCH (12:47)
[2017-11-18] MEDS: HEPARIN 25,000 UNITS-D5W 250 ML - PREMIX IV PRN (14:05)
[2017-11-18] MEDS ORDERED: FUROSEMIDE 40 MG/4 ML VIAL IV PUSH ONE (14:45)
[2017-11-18] MEDS ORDERED: RESP: ALBUTEROL 2.5 MG/IPRATROPIUM 0.5 MG NEB (PRN) NEB (14:45)
--- NOTE | 2017-11-18 14:58 | HHI.HCPN ---
Supportive follow-up and ongoing conversation with patient and . Mr. Bcak is sitting up in recliner chair, and family friend at bedside. Mr. Back is alert, oriented, and able to make his needs known. Denies any pain or discomfort. Appears to be breathing well with nasal canula. Presents with a good appetite, finishing up lunch tray during my visit. Patient and deny any questions or concerns at this time. Report tentative change in surgery, now planned for Thursday. remains appreciative of ongoing support. Nurse in during my visit to provide care. Palliative care will continue to follow throughout hospitalization to assist with communication and support as this was a big concern of and daughter during first meeting with palliative care. Heidi Harding, [employer] Nov 18, 2017 14:58
[2017-11-18 15:08] LABS: HEMOGLOBIN A1C 9.2 % (4.3-6.0)
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
--- NOTE | 2017-11-18 17:25 | PD.CARD.PN ---
Subjective Subjective Remarks No recurrent angina, no SOB, ambulating, but weak Objective Medications Current Medications Medications (Trade) Dose Ordered Sig/Juan Route Start Time Stop Time Status Last Admin (Tylenol) 650 mg Q6H PRN PO 11/04/17 22:00 (Tears Naturale Opth Soln) 1 drop TID EACH EYE 11/05/17 09:00 11/17/17 17:23 (Zofran Inj) 4 mg Q6H PRN IV PUSH 11/04/17 22:00 11/15/17 15:35 (Ashley-Colace) 1 tab BID PO 11/05/17 09:00 11/16/17 21:15 (Milk Of Magnesia Liq) 30 ml Q12H PRN PO 11/04/17 22:00 (Senokot) 17.2 mg Q12H PRN PO 11/04/17 22:00 (Dulcolax Supp) 10 mg DAILY PRN RECTAL 11/04/17 22:00 (Lactulose Liq) 30 ml DAILY PRN PO 11/04/17 22:00 (Peridex 0.12% Liq) 15 ml BID@08,20 MT 11/05/17 08:00 11/13/17 07:33 Miscellaneous Information ml @ 0 mls/hr UNSCH IV 11/05/17 01:15 (NS Flush) 2 ml UNSCH PRN IV FLUSH 11/05/17 01:15 11/15/17 08:00 (NS Flush) 2 ml UNSCH PRN IV FLUSH 11/05/17 01:15 11/09/17 14:43 (Tylenol 650 Mg/ 20 ml Liq) 650 mg Q6H PRN NG 11/05/17 01:15 11/10/17 07:48 (Lacrilube Opht Oint) 1 applic Q4H PRN EACH EYE 11/05/17 01:15 (Lactinex) 1 tab Q12HR PO 11/07/17 12:45 11/18/17 09:32 (Trandate Inj) 20 mg Q5M PRN IV PUSH 11/09/17 10:15 11/15/17 03:47 (Apresoline Inj) 10 mg Q30M PRN IV PUSH 11/09/17 10:15 11/17/17 02:04 (Apresoline) 50 mg Q8H PO 11/12/17 15:00 11/17/17 23:53 (Coreg) 3.125 mg Q12HR PO 11/14/17 09:00 11/18/17 09:26 (Prinivil) 2.5 mg DAILY PO 11/14/17 09:00 Future Hold 11/17/17 09:56 (Heparin Inj) 5,000 units Q12HR SQ 11/14/17 09:00 Future Hold 11/17/17 09:53 (Pill Splitter) 1 ea UNSCH PRN OTHER 11/14/17 09:00 Nitroglycerin/ Dextrose 250 ml @ 1.5 mls/hr TITRATE PRN IV 11/17/17 11:45 11/17/17 12:00 Heparin Sodium/ Dextrose 250 ml @ 10 mls/hr TITRATE PRN IV 11/17/17 12:00 11/18/17 14:05 (Heparin Inj) 5,000 units UNSCH PRN IV PUSH 11/17/17 12:00 (Heparin Inj) 2,500 units UNSCH PRN IV PUSH 11/17/17 12:00 11/18/17 14:06 Papaverine HCl 60 mg/Nitroglycerin 100 mcg/Diltiazem HCl 100 mg/Sodium Chloride 100 ml @ 0 mls/hr T[employer] I TEACHER IRRIGATION 11/17/17 12:00 11/24/17 11:59 Cefazolin Sodium 500 mg/Sodium Chloride 505 ml @ 0 mls/hr T[employer] I TEACHER IRRIGATION 11/17/17 12:00 11/24/17 11:59 Cefazolin Sodium/ Dextrose 50 ml @ 100 mls/hr TITLE I TEACHER IV 11/17/17 12:00 11/24/17 11:59 (Hibiclens 4% Top Soln) 1 applic TITLE I TEACHER TOPICAL 11/17/17 12:00 11/24/17 11:59 Insulin Human Regular 100 units/ Sodium Chloride 100 ml @ 3 mls/hr TITRATE PRN IV 11/17/17 12:00 11/24/17 11:59 (D50w (Vial) Inj) 50 ml UNSCH PRN IV PUSH 11/17/17 12:00 (Lipitor) 40 mg HS PO 11/18/17 21:00 (Protonix) 40 mg DAILY PO 11/18/17 09:00 11/18/17 09:20 (Levemir Inj) 10 units Q12HR SQ 11/18/17 09:00 11/18/17 09:28 (Ecotrin Ec) 81 mg DAILY PO 11/18/17 11:15 11/18/17 12:47 (D50w (Vial) Inj) 50 ml UNSCH PRN IV PUSH 11/18/17 11:15 (Glucagon Inj) 1 mg UNSCH PRN OTHER 11/18/17 11:15 (NovoLOG SUPPLEMENTAL SCALE) 1 ACHS SLIDING SCALE SQ 11/18/17 12:00 11/18/17 12:45 (Cordarone) 200 mg DAILY PO 11/19/17 09:00 (Duoneb Neb) 1 ampule Q6HR WHILE AWAKE NEB NEB 11/18/17 20:00 (Duoneb Neb) 1 ampule Q2HR NEB PRN NEB 11/18/17 14:45 Vital Signs / I&O Vital Signs Date Time Temp Pulse Resp B/P (MAP) Pulse Ox O2 Delivery O2 Flow Rate FiO2 11/18/17 09:09 97 Nasal Cannula 3.00 11/18/17 08:15 99.0 79 20 142/67 (92) 95 11/18/17 08:15 76 11/18/17 06:11 79 11/18/17 05:45 80 11/18/17 04:33 81 11/18/17 03:15 97.9 82 17 120/58 (78) 95 11/18/17 03:15 84 11/18/17 02:08 84 11/18/17 01:00 76 11/18/17 00:00 82 11/17/17 23:40 98.2 78 19 138/65 (89) 94 11/17/17 23:30 93 11/17/17 22:30 94 11/17/17 21:35 92 Nasal Cannula 4.00 11/17/17 21:15 86 11/17/17 20:00 88 11/17/17 19:48 98.4 92 20 128/60 (82) 91 11/17/17 19:25 99 11/17/17 18:00 86 I/O 11/17/17 11/17/17 11/17/17 11/18/17 11/18/17 11/18/17 06:59 14:59 22:59 06:59 14:59 22:59 Intake Total 1000 ml 560 ml Output Total 1800 ml 350 ml 700 ml Balance -800 ml -350 ml -140 ml Intake Oral 500 ml 560 ml IV Total 500 ml Output Urine Total 1800 ml 350 ml 700 ml # Voids 2 2 # Bowel Movements 1 2 0 Physical Exam GENERAL: In NAD SKIN: Warm and dry. HEAD: Normocephalic. EYES: No scleral icterus. No injection or drainage. NECK: Supple, trachea midline. No JVD or lymphadenopathy. CARDIOVASCULAR: Regular rate and rhythm without murmurs, gallops, or rubs. RESPIRATORY: Breath sounds equal bilaterally. No accessory muscle use. GASTROINTESTINAL: Abdomen soft, non-tender, nondistended. MUSCULOSKELETAL: No cyanosis, trace edema. Laboratory Laboratory Tests Test 11/17/17 20:55 11/18/17 03:19 11/18/17 12:43 Activated Partial Thromboplast Time 27.8 SEC 33.0 SEC 26.8 SEC White Blood Count 14.3 TH/MM3 Red Blood Count 3.23 MIL/MM3 Hemoglobin 10.0 GM/DL Hematocrit 29.7 % Mean Corpuscular Volume 91.9 FL Mean Corpuscular Hemoglobin 30.9 PG Mean Corpuscular Hemoglobin Concent 33.6 % Red Cell Distribution Width 13.9 % Platelet Count 299 TH/MM3 Mean Platelet Volume 9.1 FL Neutrophils (%) (Auto) 88.1 % Lymphocytes (%) (Auto) 7.0 % Monocytes (%) (Auto) 3.7 % Eosinophils (%) (Auto) 0.6 % Basophils (%) (Auto) 0.6 % Neutrophils # (Auto) 12.6 TH/MM3 Lymphocytes # (Auto) 1.0 TH/MM3 Monocytes # (Auto) 0.5 TH/MM3 Eosinophils # (Auto) 0.1 TH/MM3 Basophils # (Auto) 0.1 TH/MM3 CBC Comment DIFF FINAL Differential Comment Prothrombin Time 11.7 SEC Prothromb Time International Ratio 1.2 RATIO Blood Urea Nitrogen 26 MG/DL Creatinine 1.23 MG/DL Random Glucose 150 MG/DL Total Protein 6.1 GM/DL Albumin 2.2 GM/DL Calcium Level 8.3 MG/DL Phosphorus Level 2.7 MG/DL Magnesium Level 2.0 MG/DL Alkaline Phosphatase 134 U/L Aspartate Amino Transf (AST/SGOT) 30 U/L Alanine Aminotransferase (ALT/SGPT) 69 U/L Total Bilirubin 0.6 MG/DL Sodium Level 142 MEQ/L Potassium Level 3.6 MEQ/L Chloride Level 102 MEQ/L Carbon Dioxide Level 32.4 MEQ/L Anion Gap 8 MEQ/L Estimat Glomerular Filtration Rate 58 ML/MIN Imaging Last 24 hours Impressions Chest X-Ray 11/18/17 0600 Signed Impressions: Service Date/Time: Saturday, November 18, 2017 03:41 - CONCLUSION: Increasing left lower lung consolidation. Quinn Miller MD Assessment and Plan Problem List: (1) VF (ventricular fibrillation) ICD Codes: I49.01 - Ventricular fibrillation Status: Acute (2) Respiratory failure ICD Codes: J96.90 - Respiratory failure, unspecified, unspecified whether with hypoxia or hypercapnia Status: Acute (3) Hyperglycemia ICD Codes: R73.9 - Hyperglycemia, unspecified Status: Acute (4) Anoxic encephalopathy ICD Codes: G93.1 - Anoxic brain damage, not elsewhere classified (5) acute kidney injury (6) Cardiopulmonary arrest ICD Codes: I46.9 - Cardiac arrest, cause unspecified Status: Acute Assessment and Plan No recurrent angina. Cath showed severe complex MV CAD. Continue IV heparin and NTG. Increase activity. CABG tentatively Fri. Problem Qualifiers (1) Respiratory failure: Qualified Codes: J96.00 - Acute respiratory failure, unspecified whether with hypoxia or hypercapnia Lawrence Alvares MD Nov 18, 2017 17:25
[2017-11-18] MEDS: hydrALAZINE HCL 50 MG TAB PO SCH ×2 (18:47→22:57)
[2017-11-18] MEDS: CHLORHEXIDINE 0.12% (ORAL KIT) 15 ML CUP MT SCH (20:00)
[2017-11-18] MEDS: ATORVASTATIN 40 MG TAB PO SCH (21:04)
[2017-11-19] VITALS (24 sets, daily range): BP systolic 134–157; BP diastolic 64–75; PULSE 66–92; RESP 18–20; TEMP 98.4–99.1; O2SAT 93–97
[2017-11-19 03:36] LABS: AUTOMATED NEUTROPHIL # 9.2 TH/MM3 (1.8-7.7); BASOPHIL # 0.1 TH/MM3 (0-0.2); BASOPHIL % 0.8 % (0.0-2.0); EOSINOPHIL # 0.3 TH/MM3 (0-0.4); EOSINOPHIL % 2.4 % (0.0-4.0); HEMATOCRIT 30.4 % (39.0-51.0); HEMOGLOBIN 10.2 GM/DL (13.0-17.0); LYMPH % 9.4 % (9.0-44.0); LYMPHOCYTE # 1.1 TH/MM3 (1.0-4.8); MEAN CELL VOLUME 92.5 FL (80.0-100.0); MEAN CORPUSCULAR HGB CONC 33.6 % (32.0-36.0); MEAN PLATELET VOLUME 9.6 FL (7.0-11.0); MONO % 5.4 % (0.0-8.0); MONOCYTE # 0.6 TH/MM3 (0-0.9); PLATELET COUNT 323 TH/MM3 (150-450); RED BLOOD COUNT 3.29 MIL/MM3 (4.50-5.90); RED CELL DISTRIBUTION WIDTH 13.9 % (11.6-17.2); WHITE BLOOD COUNT 11.2 TH/MM3 (4.0-11.0)
[2017-11-19 03:50] LABS: BICARBONATE 33.3 MEQ/L (21.0-32.0); CALCIUM 8.4 MG/DL (8.5-10.1); CREATININE 1.35 MG/DL (0.60-1.30)
[2017-11-19] MEDS: HEPARIN SODIUM - IV 10,000 UNITS/10 ML VIAL IV PUSH PRN ×2 (04:51→21:40)
[2017-11-19] MEDS: hydrALAZINE HCL 50 MG TAB PO SCH ×3 (06:35→22:09)
[2017-11-19] MEDS: RESP: ALBUTEROL 2.5 MG/IPRATROPIUM 0.5 MG NEB (SCH) NEB ×3 (07:29→19:50)
[2017-11-19] MEDS: CHLORHEXIDINE 0.12% (ORAL KIT) 15 ML CUP MT SCH (08:00)
[2017-11-19] MEDS: INSULIN DETEMIR 100 UNITS/ML VIAL SQ SCH ×2 (09:15→21:37)
[2017-11-19] MEDS: PANTOPRAZOLE SOD 40 MG DELAYED RELEASE TAB PO SCH (09:15)
[2017-11-19] MEDS: CARVEDILOL 3.125 MG TAB PO SCH ×2 (09:16→21:19)
[2017-11-19] MEDS: AMIODARONE 200 MG TAB PO SCH (09:16)
[2017-11-19] MEDS: ASPIRIN EC 81 MG TABEC PO SCH (09:17)
[2017-11-19] MEDS: LACTOBACILLUS ACIDOPHILUS TAB PO SCH ×2 (09:20→21:37)
[2017-11-19] MEDS: DOCUSATE SODIUM 50 MG/SENNA 8.6 MG TAB PO SCH ×2 (09:20→21:00)
[2017-11-19] MEDS: INSULIN ASPART SUPPLEMENTAL SCALE SQ SCH ×4 (09:23→21:00)
[2017-11-19] MEDS: HEPARIN 25,000 UNITS-D5W 250 ML - PREMIX IV PRN (10:02)
--- NOTE | 2017-11-19 10:20 | HHI.PR ---
Subjective Remarks Follow up diabetes, hypertension. Patient states that he feels OK today. Denies chest pain, dyspnea, nausea, vomiting. Objective Vitals Vital Signs Date Time Temp Pulse Resp B/P (MAP) Pulse Ox O2 Delivery O2 Flow Rate FiO2 11/19/17 07:30 93 21 11/19/17 06:03 87 11/19/17 05:13 86 11/19/17 04:35 76 11/19/17 03:25 84 11/19/17 03:25 98.6 78 18 140/64 (89) 94 11/19/17 02:13 80 11/19/17 01:34 82 11/19/17 00:09 74 11/18/17 23:25 98.6 84 18 138/70 (92) 93 11/18/17 23:25 77 11/18/17 22:15 81 11/18/17 21:00 90 11/18/17 20:39 93 21 11/18/17 20:15 78 11/18/17 19:25 98.4 88 17 153/69 (97) 94 11/18/17 19:25 89 I/O 11/18/17 11/18/17 11/18/17 11/19/17 11/19/17 11/19/17 07:00 15:00 23:00 07:00 15:00 23:00 Intake Total 560 ml 358 ml Output Total 700 ml 2525 ml Balance -140 ml -2167 ml Intake Oral 560 ml 358 ml Output Urine Total 700 ml 2525 ml # Voids 2 # Bowel Movements 0 Result Diagram: 11/19/17 0312 11/19/17 0312 Imaging Last Impressions Chest X-Ray 11/18/17 0600 Signed Impressions: Service Date/Time: Saturday, November 18, 2017 03:41 - CONCLUSION: Increasing left lower lung consolidation. Quinn Miller MD Lower Extremity Ultrasound 11/17/17 0000 Signed Impressions: Service Date/Time: Friday, November 17, 2017 16:20 - CONCLUSION: Venous mapping as above. David Saenz MD Carotid Artery Ultrasound 11/17/17 0000 Signed Impressions: Service Date/Time: Friday, November 17, 2017 15:50 - CONCLUSION: 1. Minimal plaquing in both carotid systems. 2. However, no sonographic or Doppler findings of a hemodynamically significant stenosis. Antegrade flow in both vertebrals. David Saenz MD Brain MRI 11/10/17 0000 Signed Impressions: Service Date/Time: Friday, November 10, 2017 14:05 - CONCLUSION: No acute intracranial process. Periventricular and deep white matter coalesced demyelinization most likely microvascular ischemic basis Octaviano Holland MD Abdomen X-Ray 11/10/17 0000 Signed Impressions: Service Date/Time: Friday, November 10, 2017 10:59 - CONCLUSION: No metallic radiopaque foreign bodies are present to preclude MRI. Sancho Clifford MD Head CT 11/04/172011 Signed Impressions: Service Date/Time: Saturday, November 04, 2017 22:10 - CONCLUSION: No acute disease. Mike Davalos MD Objective Remarks GENERAL: Elderly male in no acute distress. CARDIOVASCULAR: Regular rate and rhythm without murmurs, gallops, or rubs. RESPIRATORY: Clear to auscultation. No wheezes, rales, or rhonchi. Breathing is non-labored. GASTROINTESTINAL: Abdomen soft, non-tender, nondistended. EXTREMITIES: No lower extremity edema. No calf tenderness. PSYCH: Alert and oriented x 3. Urinary Catheter: No Vascular Central Line Catheter: No A/P Problem List: (1) Coronary artery disease ICD Code: I25.10 - Atherosclerotic heart disease of [place] coronary artery without angina pectoris (2) Cardiopulmonary arrest ICD Code: I46.9 - Cardiac arrest, cause unspecified Status: Acute (3) Respiratory failure ICD Code: J96.90 - Respiratory failure, unspecified, unspecified whether with hypoxia or hypercapnia Status: Acute (4) VF (ventricular fibrillation) ICD Code: I49.01 - Ventricular fibrillation Status: Acute Assessment and Plan 1. Coronary artery disease, ventricular fibrillation cardiac arrest: Status post hypothermia protocol. Ischemic workup including cardiac catheterization shows severe multivessel coronary artery disease. Cardiothoracic surgery is planning CABG on Thursday. Continue amiodarone, hydralazine, Coreg, lisinopril. Continue nitroglycerin drip, heparin drip. 2. Acute hypoxic and hypercarbic respiratory failure: Resolved. Patient extubated on 11/13/17. Continue oxygen, bronchodilators as needed. 3. Community-acquired Klebsiella UTI: Completed course of antibiotics ( ciprofloxacin). 4. Coag negative staph bacteremia: Likely contaminant. 5. Pneumonia: Sputum culture growing Moraxella catarrhalis, strep pneumonia. Blood cultures are negative. Completed antibiotics. Leukocytosis is improving. 6. Acute kidney injury: Creatinine trending up. Add gentle IV fluid hydration. 7. Diabetes mellitus: Monitor Accu-Cheks and cover with sliding scale insulin. Continue Levemir. A1c is 9.2. 8. Hypertension: Continue Coreg, lisinopril. 9. GI prophylaxis: PPI. 10. DVT prophylaxis: Heparin drip. Problem Qualifiers (1) Respiratory failure: Qualified Codes: J96.00 - Acute respiratory failure, unspecified whether with hypoxia or hypercapnia Juan Lenz MD Nov 19, 2017 10:20
[2017-11-19] MEDS ORDERED: NS + KCL 20 MEQ INJ 1,000 ML IV SCH (10:30)
--- NOTE | 2017-11-19 12:55 | PD.CARD.PN ---
Subjective Subjective Remarks Minimal chest discomfort, no SOB, ambulating better Objective Medications Current Medications Medications (Trade) Dose Ordered Sig/Juan Route Start Time Stop Time Status Last Admin (Tylenol) 650 mg Q6H PRN PO 11/04/17 22:00 (Tears Naturale Opth Soln) 1 drop TID EACH EYE 11/05/17 09:00 11/17/17 17:23 (Zofran Inj) 4 mg Q6H PRN IV PUSH 11/04/17 22:00 11/15/17 15:35 (Ashley-Colace) 1 tab BID PO 11/05/17 09:00 11/16/17 21:15 (Milk Of Magnesia Liq) 30 ml Q12H PRN PO 11/04/17 22:00 (Senokot) 17.2 mg Q12H PRN PO 11/04/17 22:00 (Dulcolax Supp) 10 mg DAILY PRN RECTAL 11/04/17 22:00 (Lactulose Liq) 30 ml DAILY PRN PO 11/04/17 22:00 (Peridex 0.12% Liq) 15 ml BID@08,20 MT 11/05/17 08:00 11/13/17 07:33 Miscellaneous Information ml @ 0 mls/hr UNSCH IV 11/05/17 01:15 (NS Flush) 2 ml UNSCH PRN IV FLUSH 11/05/17 01:15 11/15/17 08:00 (NS Flush) 2 ml UNSCH PRN IV FLUSH 11/05/17 01:15 11/09/17 14:43 (Tylenol 650 Mg/ 20 ml Liq) 650 mg Q6H PRN NG 11/05/17 01:15 11/10/17 07:48 (Lacrilube Opht Oint) 1 applic Q4H PRN EACH EYE 11/05/17 01:15 (Lactinex) 1 tab Q12HR PO 11/07/17 12:45 11/19/17 09:20 (Trandate Inj) 20 mg Q5M PRN IV PUSH 11/09/17 10:15 11/15/17 03:47 (Apresoline Inj) 10 mg Q30M PRN IV PUSH 11/09/17 10:15 11/17/17 02:04 (Apresoline) 50 mg Q8H PO 11/12/17 15:00 11/19/17 06:35 (Coreg) 3.125 mg Q12HR PO 11/14/17 09:00 11/19/17 09:16 (Prinivil) 2.5 mg DAILY PO 11/14/17 09:00 Future Hold 11/17/17 09:56 (Heparin Inj) 5,000 units Q12HR SQ 11/14/17 09:00 Future Hold 11/17/17 09:53 (Pill Splitter) 1 ea UNSCH PRN OTHER 11/14/17 09:00 Nitroglycerin/ Dextrose 250 ml @ 1.5 mls/hr TITRATE PRN IV 11/17/17 11:45 11/17/17 12:00 Heparin Sodium/ Dextrose 250 ml @ 10 mls/hr TITRATE PRN IV 11/17/17 12:00 11/19/17 10:02 (Heparin Inj) 5,000 units UNSCH PRN IV PUSH 11/17/17 12:00 (Heparin Inj) 2,500 units UNSCH PRN IV PUSH 11/17/17 12:00 11/19/17 04:51 Papaverine HCl 60 mg/Nitroglycerin 100 mcg/Diltiazem HCl 100 mg/Sodium Chloride 100 ml @ 0 mls/hr CONTINUITY MANAGER IRRIGATION 11/17/17 12:00 11/24/17 11:59 Cefazolin Sodium 500 mg/Sodium Chloride 505 ml @ 0 mls/hr CONTINUITY MANAGER IRRIGATION 11/17/17 12:00 11/24/17 11:59 Cefazolin Sodium/ Dextrose 50 ml @ 100 mls/hr CONTINUITY MANAGER IV 11/17/17 12:00 11/24/17 11:59 (Hibiclens 4% Top Soln) 1 applic CONTINUITY MANAGER TOPICAL 11/17/17 12:00 11/24/17 11:59 Insulin Human Regular 100 units/ Sodium Chloride 100 ml @ 3 mls/hr TITRATE PRN IV 11/17/17 12:00 11/24/17 11:59 (D50w (Vial) Inj) 50 ml UNSCH PRN IV PUSH 11/17/17 12:00 (Lipitor) 40 mg HS PO 11/18/17 21:00 11/18/17 21:04 (Protonix) 40 mg DAILY PO 11/18/17 09:00 11/19/17 09:15 (Levemir Inj) 10 units Q12HR SQ 11/18/17 09:00 11/19/17 09:15 (Ecotrin Ec) 81 mg DAILY PO 11/18/17 11:15 11/19/17 09:17 (D50w (Vial) Inj) 50 ml UNSCH PRN IV PUSH 11/18/17 11:15 (Glucagon Inj) 1 mg UNSCH PRN OTHER 11/18/17 11:15 (NovoLOG SUPPLEMENTAL SCALE) 1 ACHS SLIDING SCALE SQ 11/18/17 12:00 11/19/17 12:49 (Cordarone) 200 mg DAILY PO 11/19/17 09:00 11/19/17 09:16 (Duoneb Neb) 1 ampule Q6HR WHILE AWAKE NEB NEB 11/18/17 20:00 11/19/17 07:29 (Duoneb Neb) 1 ampule Q2HR NEB PRN NEB 11/18/17 14:45 Potassium Chloride/Sodium Chloride 1,000 ml @ 42 mls/hr [id number] IV 11/19/17 10:30 11/20/17 10:18 11/19/17 12:48 Vital Signs / I&O Vital Signs Date Time Temp Pulse Resp B/P (MAP) Pulse Ox O2 Delivery O2 Flow Rate FiO2 11/19/17 07:30 93 21 11/19/17 06:03 87 11/19/17 05:13 86 11/19/17 04:35 76 11/19/17 03:25 84 11/19/17 03:25 98.6 78 18 140/64 (89) 94 11/19/17 02:13 80 11/19/17 01:34 82 11/19/17 00:09 74 11/18/17 23:25 98.6 84 18 138/70 (92) 93 11/18/17 23:25 77 11/18/17 22:15 81 11/18/17 21:00 90 11/18/17 20:39 93 21 11/18/17 20:15 78 11/18/17 19:25 98.4 88 17 153/69 (97) 94 11/18/17 19:25 89 I/O 11/18/17 11/18/17 11/18/17 11/19/17 11/19/17 11/19/17 07:00 15:00 23:00 07:00 15:00 23:00 Intake Total 560 ml 358 ml Output Total 700 ml 2525 ml Balance -140 ml -2167 ml Intake Oral 560 ml 358 ml Output Urine Total 700 ml 2525 ml # Voids 2 # Bowel Movements 0 Physical Exam GENERAL: In NAD SKIN: Warm and dry. HEAD: Normocephalic. EYES: No scleral icterus. No injection or drainage. NECK: Supple, trachea midline. No JVD or lymphadenopathy. CARDIOVASCULAR: Regular rate and rhythm without murmurs, gallops, or rubs. RESPIRATORY: Breath sounds equal bilaterally. No accessory muscle use. GASTROINTESTINAL: Abdomen soft, non-tender, nondistended. MUSCULOSKELETAL: No cyanosis, trace edema. Laboratory Laboratory Tests Test 11/18/17 18:54 11/19/17 03:12 11/19/17 10:16 Activated Partial Thromboplast Time 30.6 SEC 31.5 SEC 49.2 SEC White Blood Count 11.2 TH/MM3 Red Blood Count 3.29 MIL/MM3 Hemoglobin 10.2 GM/DL Hematocrit 30.4 % Mean Corpuscular Volume 92.5 FL Mean Corpuscular Hemoglobin 31.0 PG Mean Corpuscular Hemoglobin Concent 33.6 % Red Cell Distribution Width 13.9 % Platelet Count 323 TH/MM3 Mean Platelet Volume 9.6 FL Neutrophils (%) (Auto) 82.0 % Lymphocytes (%) (Auto) 9.4 % Monocytes (%) (Auto) 5.4 % Eosinophils (%) (Auto) 2.4 % Basophils (%) (Auto) 0.8 % Neutrophils # (Auto) 9.2 TH/MM3 Lymphocytes # (Auto) 1.1 TH/MM3 Monocytes # (Auto) 0.6 TH/MM3 Eosinophils # (Auto) 0.3 TH/MM3 Basophils # (Auto) 0.1 TH/MM3 CBC Comment DIFF FINAL Differential Comment Blood Urea Nitrogen 21 MG/DL Creatinine 1.35 MG/DL Random Glucose 174 MG/DL Calcium Level 8.4 MG/DL Sodium Level 138 MEQ/L Potassium Level 3.6 MEQ/L Chloride Level 100 MEQ/L Carbon Dioxide Level 33.3 MEQ/L Anion Gap 5 MEQ/L Estimat Glomerular Filtration Rate 52 ML/MIN Assessment and Plan Problem List: (1) VF (ventricular fibrillation) ICD Codes: I49.01 - Ventricular fibrillation Status: Acute (2) Respiratory failure ICD Codes: J96.90 - Respiratory failure, unspecified, unspecified whether with hypoxia or hypercapnia Status: Acute (3) Hyperglycemia ICD Codes: R73.9 - Hyperglycemia, unspecified Status: Acute (4) Anoxic encephalopathy ICD Codes: G93.1 - Anoxic brain damage, not elsewhere classified (5) acute kidney injury (6) Cardiopulmonary arrest ICD Codes: I46.9 - Cardiac arrest, cause unspecified Status: Acute Assessment and Plan Ambulating better, getting stronger. No recurrent angina. Cath showed severe complex MV CAD. Continue IV heparin and NTG. Increase activity, continue PT. CABG tentatively next week. Problem Qualifiers (1) Respiratory failure: Qualified Codes: J96.00 - Acute respiratory failure, unspecified whether with hypoxia or hypercapnia Lawrence Alvares MD Nov 19, 2017 12:55
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
[2017-11-19] MEDS ORDERED: diphenhydrAMINE HCL 25 MG CAP PO PRN (17:00)
[2017-11-19] MEDS: ARTIFICIAL TEARS OPTH SOLN 15 ML BTL EACH EYE SCH (18:00)
[2017-11-19] MEDS: ATORVASTATIN 40 MG TAB PO SCH (21:19)
[2017-11-20] VITALS (24 sets, daily range): BP systolic 112–166; BP diastolic 57–77; PULSE 68–104; RESP 16–20; TEMP 98.1–98.8; O2SAT 95–100
[2017-11-20] MEDS: NITROGLYCERIN/DEXTROSE 5% 250 ML for chest pain IV PRN ×2 (02:15→22:38)
[2017-11-20] MEDS: HEPARIN 25,000 UNITS-D5W 250 ML - PREMIX IV PRN ×2 (02:27→20:34)
[2017-11-20 04:10] LABS: AUTOMATED NEUTROPHIL # 7.3 TH/MM3 (1.8-7.7); BASOPHIL # 0.1 TH/MM3 (0-0.2); BASOPHIL % 0.7 % (0.0-2.0); EOSINOPHIL # 0.3 TH/MM3 (0-0.4); EOSINOPHIL % 3.2 % (0.0-4.0); HEMATOCRIT 29.1 % (39.0-51.0); HEMOGLOBIN 9.9 GM/DL (13.0-17.0); LYMPH % 11.5 % (9.0-44.0); LYMPHOCYTE # 1.1 TH/MM3 (1.0-4.8); MEAN CELL VOLUME 92.5 FL (80.0-100.0); MEAN CORPUSCULAR HEMOGLOBIN 31.5 PG (27.0-34.0); MEAN PLATELET VOLUME 9.1 FL (7.0-11.0); MONO % 7.3 % (0.0-8.0); MONOCYTE # 0.7 TH/MM3 (0-0.9); NEUT % 77.3 % (16.0-70.0); PLATELET COUNT 329 TH/MM3 (150-450); RED BLOOD COUNT 3.14 MIL/MM3 (4.50-5.90); RED CELL DISTRIBUTION WIDTH 13.4 % (11.6-17.2); WHITE BLOOD COUNT 9.4 TH/MM3 (4.0-11.0)
[2017-11-20 04:34] LABS: BICARBONATE 30.9 MEQ/L (21.0-32.0); CALCIUM 8.3 MG/DL (8.5-10.1); CREATININE 1.21 MG/DL (0.60-1.30)
[2017-11-20] MEDS: hydrALAZINE HCL 50 MG TAB PO SCH ×3 (06:22→22:40)
[2017-11-20] MEDS: CHLORHEXIDINE 0.12% (ORAL KIT) 15 ML CUP MT SCH ×2 (08:00→20:52)
[2017-11-20] MEDS: INSULIN ASPART SUPPLEMENTAL SCALE SQ SCH ×4 (08:00→20:35)
--- NOTE | 2017-11-20 08:23 | HHI.PR ---
Subjective Remarks Follow up hypertension, diabetes. Patient states he did not sleep well last night. Denies chest pain, dyspnea. Objective Vitals Vital Signs Date Time Temp Pulse Resp B/P (MAP) Pulse Ox O2 Delivery O2 Flow Rate FiO2 11/20/17 06:00 71 11/20/17 04:00 76 11/20/17 04:00 98.1 82 20 161/77 (105) 97 11/20/17 03:35 78 153/74 11/20/17 02:15 84 142/64 11/20/17 02:00 104 11/20/17 00:00 98.2 80 20 166/75 (105) 97 11/20/17 00:00 86 11/19/17 22:00 80 11/19/17 20:00 98.4 77 18 134/65 (88) 97 11/19/17 20:00 72 11/19/17 19:53 97 21 11/19/17 18:00 84 11/19/17 17:00 66 11/19/17 16:00 68 11/19/17 15:30 98.8 68 18 142/67 (92) 94 11/19/17 15:00 78 11/19/17 14:00 78 11/19/17 13:00 92 11/19/17 12:00 70 11/19/17 11:00 76 11/19/17 11:00 99.1 70 18 141/66 (91) 95 11/19/17 10:00 82 11/19/17 09:00 86 I/O 11/19/17 11/19/17 11/19/17 11/20/17 11/20/17 11/20/17 07:00 15:00 23:00 07:00 15:00 23:00 Intake Total 358 ml 1282 ml 980 ml Output Total 2525 ml 800 ml 800 ml Balance -2167 ml 482 ml 180 ml Intake Oral 358 ml 860 ml 480 ml IV Total 422 ml 500 ml Output Urine Total 2525 ml 800 ml 800 ml # Voids 2 # Bowel Movements 2 2 Result Diagram: 11/20/17 0340 11/20/17 0340 Imaging Last Impressions Chest X-Ray 11/18/17 0600 Signed Impressions: Service Date/Time: Saturday, November 18, 2017 03:41 - CONCLUSION: Increasing left lower lung consolidation. Quinn Miller MD Lower Extremity Ultrasound 11/17/17 0000 Signed Impressions: Service Date/Time: Friday, November 17, 2017 16:20 - CONCLUSION: Venous mapping as above. David Saenz MD Carotid Artery Ultrasound 11/17/17 0000 Signed Impressions: Service Date/Time: Friday, November 17, 2017 15:50 - CONCLUSION: 1. Minimal plaquing in both carotid systems. 2. However, no sonographic or Doppler findings of a hemodynamically significant stenosis. Antegrade flow in both vertebrals. David Saenz MD Brain MRI 11/10/17 0000 Signed Impressions: Service Date/Time: Friday, November 10, 2017 14:05 - CONCLUSION: No acute intracranial process. Periventricular and deep white matter coalesced demyelinization most likely microvascular ischemic basis Octaviano Holland MD Abdomen X-Ray 11/10/17 0000 Signed Impressions: Service Date/Time: Friday, November 10, 2017 10:59 - CONCLUSION: No metallic radiopaque foreign bodies are present to preclude MRI. Sancho Clifford MD Head CT 11/04/172011 Signed Impressions: Service Date/Time: Saturday, November 04, 2017 22:10 - CONCLUSION: No acute disease. Mike Davalos MD Objective Remarks GENERAL: Elderly male in no acute distress. Sitting up in a chair. CARDIOVASCULAR: Regular rate and rhythm without murmurs, gallops, or rubs. RESPIRATORY: Clear to auscultation. No wheezes, rales, or rhonchi. Breathing is non-labored. GASTROINTESTINAL: Abdomen soft, non-tender, nondistended. EXTREMITIES: No lower extremity edema. No calf tenderness. PSYCH: Alert and oriented x 3. Urinary Catheter: No Vascular Central Line Catheter: No A/P Problem List: (1) Coronary artery disease ICD Code: I25.10 - Atherosclerotic heart disease of [place] coronary artery without angina pectoris (2) Cardiopulmonary arrest ICD Code: I46.9 - Cardiac arrest, cause unspecified Status: Acute (3) Respiratory failure ICD Code: J96.90 - Respiratory failure, unspecified, unspecified whether with hypoxia or hypercapnia Status: Acute (4) VF (ventricular fibrillation) ICD Code: I49.01 - Ventricular fibrillation Status: Acute Assessment and Plan 1. Coronary artery disease, ventricular fibrillation cardiac arrest: Status post hypothermia protocol. Ischemic workup including cardiac catheterization shows severe multivessel coronary artery disease. Cardiothoracic surgery is planning CABG on Thursday. Continue amiodarone, hydralazine, Coreg, lisinopril. Continue nitroglycerin drip, heparin drip. 2. Acute hypoxic and hypercarbic respiratory failure: Resolved. Patient extubated on 11/13/17. Continue oxygen, bronchodilators as needed. 3. Community-acquired Klebsiella UTI: Completed course of antibiotics ( ciprofloxacin). 4. Coag negative staph bacteremia: Likely contaminant. 5. Pneumonia: Sputum culture growing Moraxella catarrhalis, strep pneumonia. Blood cultures are negative. Completed antibiotics. Leukocytosis has resolved. 6. Acute kidney injury: Creatinine trending up. Add gentle IV fluid hydration. 7. Diabetes mellitus: Monitor Accu-Cheks and cover with sliding scale insulin. A1c is 9.2. Increase Levemir. 8. Hypertension: Continue Coreg, lisinopril. 9. GI prophylaxis: PPI. 10. DVT prophylaxis: Heparin drip. Problem Qualifiers (1) Respiratory failure: Qualified Codes: J96.00 - Acute respiratory failure, unspecified whether with hypoxia or hypercapnia Juan Lenz MD Nov 20, 2017 08:23
[2017-11-20] MEDS: RESP: ALBUTEROL 2.5 MG/IPRATROPIUM 0.5 MG NEB (SCH) NEB ×3 (08:40→19:31)
[2017-11-20] MEDS: INSULIN DETEMIR 100 UNITS/ML VIAL SQ SCH ×2 (09:00→20:35)
[2017-11-20] MEDS: DOCUSATE SODIUM 50 MG/SENNA 8.6 MG TAB PO SCH ×2 (09:00→20:35)
[2017-11-20] MEDS: ARTIFICIAL TEARS OPTH SOLN 15 ML BTL EACH EYE SCH ×3 (09:00→17:37)
[2017-11-20] MEDS: LACTOBACILLUS ACIDOPHILUS TAB PO SCH ×2 (09:18→20:34)
[2017-11-20] MEDS: PANTOPRAZOLE SOD 40 MG DELAYED RELEASE TAB PO SCH (09:18)
[2017-11-20] MEDS: CARVEDILOL 6.25 MG TAB PO SCH ×2 (09:18→20:34)
[2017-11-20] MEDS: AMIODARONE 200 MG TAB PO SCH ×2 (09:18→20:34)
[2017-11-20] MEDS: ASPIRIN EC 81 MG TABEC PO SCH (09:18)
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
--- NOTE | 2017-11-20 19:02 | PD.CARD.PN ---
Subjective Subjective Remarks Still w episodes of CP, no SOB, ambulating in the room, still weak Objective Medications Current Medications Medications (Trade) Dose Ordered Sig/Juan Route Start Time Stop Time Status Last Admin (Tylenol) 650 mg Q6H PRN PO 11/04/17 22:00 (Tears Naturale Opth Soln) 1 drop TID EACH EYE 11/05/17 09:00 11/20/17 17:37 (Zofran Inj) 4 mg Q6H PRN IV PUSH 11/04/17 22:00 11/15/17 15:35 (Ashley-Colace) 1 tab BID PO 11/05/17 09:00 11/16/17 21:15 (Milk Of Magnesia Liq) 30 ml Q12H PRN PO 11/04/17 22:00 (Senokot) 17.2 mg Q12H PRN PO 11/04/17 22:00 (Dulcolax Supp) 10 mg DAILY PRN RECTAL 11/04/17 22:00 (Lactulose Liq) 30 ml DAILY PRN PO 11/04/17 22:00 (Peridex 0.12% Liq) 15 ml BID@08,20 MT 11/05/17 08:00 11/13/17 07:33 Miscellaneous Information ml @ 0 mls/hr UNSCH IV 11/05/17 01:15 (NS Flush) 2 ml UNSCH PRN IV FLUSH 11/05/17 01:15 11/15/17 08:00 (NS Flush) 2 ml UNSCH PRN IV FLUSH 11/05/17 01:15 11/09/17 14:43 (Tylenol 650 Mg/ 20 ml Liq) 650 mg Q6H PRN NG 11/05/17 01:15 11/10/17 07:48 (Lacrilube Opht Oint) 1 applic Q4H PRN EACH EYE 11/05/17 01:15 (Lactinex) 1 tab Q12HR PO 11/07/17 12:45 11/20/17 09:18 (Trandate Inj) 20 mg Q5M PRN IV PUSH 11/09/17 10:15 11/15/17 03:47 (Apresoline Inj) 10 mg Q30M PRN IV PUSH 11/09/17 10:15 11/17/17 02:04 (Apresoline) 50 mg Q8H PO 11/12/17 15:00 11/20/17 15:09 (Prinivil) 2.5 mg DAILY PO 11/14/17 09:00 Future Hold 11/17/17 09:56 (Heparin Inj) 5,000 units Q12HR SQ 11/14/17 09:00 Future Hold 11/17/17 09:53 (Pill Splitter) 1 ea UNSCH PRN OTHER 11/14/17 09:00 Nitroglycerin/ Dextrose 250 ml @ 1.5 mls/hr TITRATE PRN IV 11/17/17 11:45 11/20/17 02:15 Heparin Sodium/ Dextrose 250 ml @ 10 mls/hr TITRATE PRN IV 11/17/17 12:00 11/20/17 02:27 (Heparin Inj) 5,000 units UNSCH PRN IV PUSH 11/17/17 12:00 (Heparin Inj) 2,500 units UNSCH PRN IV PUSH 11/17/17 12:00 11/19/17 21:40 Papaverine HCl 60 mg/Nitroglycerin 100 mcg/Diltiazem HCl 100 mg/Sodium Chloride 100 ml @ 0 mls/hr NCA CERTIFIED CONCIERGE IRRIGATION 11/17/17 12:00 11/24/17 11:59 Cefazolin Sodium 500 mg/Sodium Chloride 505 ml @ 0 mls/hr NCA CERTIFIED CONCIERGE IRRIGATION 11/17/17 12:00 11/24/17 11:59 Cefazolin Sodium/ Dextrose 50 ml @ 100 mls/hr NCA CERTIFIED CONCIERGE IV 11/17/17 12:00 11/24/17 11:59 (Hibiclens 4% Top Soln) 1 applic NCA CERTIFIED CONCIERGE TOPICAL 11/17/17 12:00 11/24/17 11:59 Insulin Human Regular 100 units/ Sodium Chloride 100 ml @ 3 mls/hr TITRATE PRN IV 11/17/17 12:00 11/24/17 11:59 (D50w (Vial) Inj) 50 ml UNSCH PRN IV PUSH 11/17/17 12:00 (Lipitor) 40 mg HS PO 11/18/17 21:00 11/19/17 21:19 (Protonix) 40 mg DAILY PO 11/18/17 09:00 11/20/17 09:18 (Ecotrin Ec) 81 mg DAILY PO 11/18/17 11:15 11/20/17 09:18 (D50w (Vial) Inj) 50 ml UNSCH PRN IV PUSH 11/18/17 11:15 (Glucagon Inj) 1 mg UNSCH PRN OTHER 11/18/17 11:15 (NovoLOG SUPPLEMENTAL SCALE) 1 ACHS SLIDING SCALE SQ 11/18/17 12:00 11/20/17 17:37 (Duoneb Neb) 1 ampule Q6HR WHILE AWAKE NEB NEB 11/18/17 20:00 11/20/17 12:56 (Duoneb Neb) 1 ampule Q2HR NEB PRN NEB 11/18/17 14:45 (Coreg) 6.25 mg Q12HR PO 11/20/17 09:00 11/20/17 09:18 (Levemir Inj) 12 units Q12HR SQ 11/20/17 09:00 11/20/17 09:00 (Ambien) 5 mg HS PRN PO 11/20/17 21:00 (Cordarone) 200 mg BID PO 11/20/17 21:00 Vital Signs / I&O Vital Signs Date Time Temp Pulse Resp B/P (MAP) Pulse Ox O2 Delivery O2 Flow Rate FiO2 11/20/17 18:00 70 11/20/17 17:00 72 11/20/17 16:00 70 11/20/17 15:00 75 11/20/17 15:00 98.8 78 16 112/58 (76) 99 11/20/17 14:00 72 11/20/17 13:00 68 11/20/17 12:00 72 11/20/17 11:00 98.6 75 16 115/58 (77) 95 11/20/17 11:00 70 11/20/17 10:00 70 11/20/17 09:00 90 11/20/17 08:41 95 21 11/20/17 08:00 98.4 76 20 119/57 (77) 95 11/20/17 08:00 86 11/20/17 07:00 78 11/20/17 06:00 71 11/20/17 04:00 76 11/20/17 04:00 98.1 82 20 161/77 (105) 97 11/20/17 03:35 78 153/74 11/20/17 02:15 84 142/64 11/20/17 02:00 104 11/20/17 00:00 98.2 80 20 166/75 (105) 97 11/20/17 00:00 86 11/19/17 22:00 80 11/19/17 20:00 98.4 77 18 134/65 (88) 97 11/19/17 20:00 72 11/19/17 19:53 97 21 I/O 11/19/17 11/19/17 11/19/17 11/20/17 11/20/17 11/20/17 07:00 15:00 23:00 07:00 15:00 23:00 Intake Total 358 ml 1282 ml 980 ml 105 ml 480 ml Output Total 2525 ml 800 ml 800 ml 950 ml Balance -2167 ml 482 ml 180 ml 105 ml -470 ml Intake Oral 358 ml 860 ml 480 ml 480 ml IV Total 422 ml 500 ml 105 ml Output Urine Total 2525 ml 800 ml 800 ml 250 ml Stool Total 700 ml # Voids 2 # Bowel Movements 2 2 1 Physical Exam GENERAL: In NAD SKIN: Warm and dry. HEAD: Normocephalic. EYES: No scleral icterus. No injection or drainage. NECK: Supple, trachea midline. No JVD or lymphadenopathy. CARDIOVASCULAR: Regular rate and rhythm without murmurs, gallops, or rubs. RESPIRATORY: Breath sounds equal bilaterally. No accessory muscle use. GASTROINTESTINAL: Abdomen soft, non-tender, nondistended. MUSCULOSKELETAL: No cyanosis, trace edema. Laboratory Laboratory Tests Test 11/19/17 19:20 11/20/17 03:40 11/20/17 12:00 Activated Partial Thromboplast Time 33.3 SEC 41.9 SEC 40.3 SEC White Blood Count 9.4 TH/MM3 Red Blood Count 3.14 MIL/MM3 Hemoglobin 9.9 GM/DL Hematocrit 29.1 % Mean Corpuscular Volume 92.5 FL Mean Corpuscular Hemoglobin 31.5 PG Mean Corpuscular Hemoglobin Concent 34.0 % Red Cell Distribution Width 13.4 % Platelet Count 329 TH/MM3 Mean Platelet Volume 9.1 FL Neutrophils (%) (Auto) 77.3 % Lymphocytes (%) (Auto) 11.5 % Monocytes (%) (Auto) 7.3 % Eosinophils (%) (Auto) 3.2 % Basophils (%) (Auto) 0.7 % Neutrophils # (Auto) 7.3 TH/MM3 Lymphocytes # (Auto) 1.1 TH/MM3 Monocytes # (Auto) 0.7 TH/MM3 Eosinophils # (Auto) 0.3 TH/MM3 Basophils # (Auto) 0.1 TH/MM3 CBC Comment DIFF FINAL Differential Comment Blood Urea Nitrogen 18 MG/DL Creatinine 1.21 MG/DL Random Glucose 127 MG/DL Calcium Level 8.3 MG/DL Sodium Level 142 MEQ/L Potassium Level 4.0 MEQ/L Chloride Level 103 MEQ/L Carbon Dioxide Level 30.9 MEQ/L Anion Gap 8 MEQ/L Estimat Glomerular Filtration Rate 59 ML/MIN Assessment and Plan Problem List: (1) VF (ventricular fibrillation) ICD Codes: I49.01 - Ventricular fibrillation Status: Acute (2) Respiratory failure ICD Codes: J96.90 - Respiratory failure, unspecified, unspecified whether with hypoxia or hypercapnia Status: Acute (3) Hyperglycemia ICD Codes: R73.9 - Hyperglycemia, unspecified Status: Acute (4) Anoxic encephalopathy ICD Codes: G93.1 - Anoxic brain damage, not elsewhere classified (5) acute kidney injury (6) Cardiopulmonary arrest ICD Codes: I46.9 - Cardiac arrest, cause unspecified Status: Acute (7) Insomnia ICD Codes: G47.00 - Insomnia, unspecified Assessment and Plan Occ episodes of angina. Cath showed severe complex MV CAD. Continue IV heparin and NTG. Increase activity, continue PT, still quite deconditioned. CABG next week. D/w pt and family. Problem Qualifiers (1) Respiratory failure: Qualified Codes: J96.00 - Acute respiratory failure, unspecified whether with hypoxia or hypercapnia Lawrence Alvares MD Nov 20, 2017 19:02
[2017-11-20] MEDS ORDERED: LOPERAMIDE HCL 2 MG CAP PO ONE (19:45)
[2017-11-20] MEDS: ZOLPIDEM TARTRATE 5 MG TAB PO PRN (20:35)
[2017-11-20] MEDS: ATORVASTATIN 40 MG TAB PO SCH (20:35)
[2017-11-21] VITALS (29 sets, daily range): BP systolic 102–122; BP diastolic 52–60; PULSE 5–93; RESP 18–20; TEMP 97.9–100.1; O2SAT 93–98
[2017-11-21] MEDS: hydrALAZINE HCL 50 MG TAB PO SCH ×3 (06:19→23:00)
[2017-11-21] MEDS: RESP: ALBUTEROL 2.5 MG/IPRATROPIUM 0.5 MG NEB (SCH) NEB ×3 (07:23→20:45)
[2017-11-21] MEDS: CHLORHEXIDINE 0.12% (ORAL KIT) 15 ML CUP MT SCH ×2 (08:00→19:43)
[2017-11-21] MEDS: INSULIN ASPART SUPPLEMENTAL SCALE SQ SCH ×4 (08:00→21:22)
[2017-11-21] MEDS: MORPHINE SULFATE 2 MG/ML INJ IV PUSH PRN (08:47)
[2017-11-21] MEDS: ARTIFICIAL TEARS OPTH SOLN 15 ML BTL EACH EYE SCH ×3 (08:51→17:05)
[2017-11-21] MEDS: PANTOPRAZOLE SOD 40 MG DELAYED RELEASE TAB PO SCH (09:00)
[2017-11-21] MEDS: DOCUSATE SODIUM 50 MG/SENNA 8.6 MG TAB PO SCH ×2 (09:00→19:51)
[2017-11-21] MEDS: AMIODARONE 200 MG TAB PO SCH ×2 (09:09→20:01)
[2017-11-21] MEDS: ASPIRIN EC 81 MG TABEC PO SCH (09:09)
[2017-11-21] MEDS: ONDANSETRON HCL 4 MG/2 ML VIAL IV PUSH PRN (09:09)
[2017-11-21] MEDS: LACTOBACILLUS ACIDOPHILUS TAB PO SCH ×2 (09:09→20:01)
[2017-11-21] MEDS: CARVEDILOL 6.25 MG TAB PO SCH (09:09)
[2017-11-21] MEDS: INSULIN DETEMIR 100 UNITS/ML VIAL SQ SCH ×2 (09:10→21:22)
--- NOTE | 2017-11-21 10:24 | HHI.PR ---
Subjective Remarks Follow-up hypertension, diabetes. The patient is complaining of chest pressure, which he rates a 7/10. It started again this morning. He is on nitro drip and that has not relieved the pain. Objective Vitals Vital Signs Date Time Temp Pulse Resp B/P (MAP) Pulse Ox O2 Delivery O2 Flow Rate FiO2 11/21/17 09:00 86 11/21/17 08:00 78 11/21/17 07:30 73 11/21/17 07:30 98.0 83 20 122/58 (79) 98 11/21/17 07:23 98 Nasal Cannula 2.00 11/21/17 06:04 70 11/21/17 05:27 72 11/21/17 04:07 76 11/21/17 03:50 98.4 76 20 108/52 (70) 97 11/21/17 03:13 69 11/21/17 02:25 62 11/21/17 01:53 76 11/21/17 00:02 71 11/20/17 23:15 98.6 80 20 128/64 (85) 98 11/20/17 23:06 75 11/20/17 22:38 80 128/64 11/20/17 22:30 75 11/20/17 21:34 82 11/20/17 20:30 70 11/20/17 19:31 95 21 11/20/17 19:30 74 11/20/17 19:30 98.4 69 19 144/70 (94) 100 11/20/17 18:00 70 11/20/17 17:00 72 11/20/17 16:00 70 11/20/17 15:00 75 11/20/17 15:00 98.8 78 16 112/58 (76) 99 11/20/17 14:00 72 11/20/17 13:00 68 11/20/17 12:00 72 11/20/17 11:00 98.6 75 16 115/58 (77) 95 11/20/17 11:00 70 I/O 11/20/17 11/20/17 11/20/17 11/21/17 11/21/17 11/21/17 07:00 15:00 23:00 07:00 15:00 23:00 Intake Total 980 ml 105 ml 480 ml 595 ml Output Total 800 ml 950 ml 1425 ml Balance 180 ml 105 ml -470 ml -830 ml Intake Oral 480 ml 480 ml 595 ml IV Total 500 ml 105 ml Output Urine Total 800 ml 250 ml 1425 ml Stool Total 700 ml # Bowel Movements 2 2 4 Result Diagram: 11/20/17 0340 11/20/17 0340 Imaging Last Impressions Chest X-Ray 11/18/17 0600 Signed Impressions: Service Date/Time: Saturday, November 18, 2017 03:41 - CONCLUSION: Increasing left lower lung consolidation. Quinn Miller MD Lower Extremity Ultrasound 11/17/17 0000 Signed Impressions: Service Date/Time: Friday, November 17, 2017 16:20 - CONCLUSION: Venous mapping as above. David Saenz MD Carotid Artery Ultrasound 11/17/17 0000 Signed Impressions: Service Date/Time: Friday, November 17, 2017 15:50 - CONCLUSION: 1. Minimal plaquing in both carotid systems. 2. However, no sonographic or Doppler findings of a hemodynamically significant stenosis. Antegrade flow in both vertebrals. David Saenz MD Brain MRI 11/10/17 0000 Signed Impressions: Service Date/Time: Friday, November 10, 2017 14:05 - CONCLUSION: No acute intracranial process. Periventricular and deep white matter coalesced demyelinization most likely microvascular ischemic basis Octaviano Holland MD Abdomen X-Ray 11/10/17 0000 Signed Impressions: Service Date/Time: Friday, November 10, 2017 10:59 - CONCLUSION: No metallic radiopaque foreign bodies are present to preclude MRI. Sancho Clifford MD Head CT 11/04/172011 Signed Impressions: Service Date/Time: Saturday, November 04, 2017 22:10 - CONCLUSION: No acute disease. Mike Davalos MD Objective Remarks GENERAL: Elderly male in no acute distress. CARDIOVASCULAR: Regular rate and rhythm without murmurs, gallops, or rubs. RESPIRATORY: Clear to auscultation. No wheezes, rales, or rhonchi. Breathing is non-labored. GASTROINTESTINAL: Abdomen soft, non-tender, nondistended. EXTREMITIES: No lower extremity edema. No calf tenderness. PSYCH: Alert and oriented x 3. Urinary Catheter: No Vascular Central Line Catheter: No A/P Problem List: (1) Coronary artery disease ICD Code: I25.10 - Atherosclerotic heart disease of [place] coronary artery without angina pectoris (2) Cardiopulmonary arrest ICD Code: I46.9 - Cardiac arrest, cause unspecified Status: Acute (3) Respiratory failure ICD Code: J96.90 - Respiratory failure, unspecified, unspecified whether with hypoxia or hypercapnia Status: Acute (4) VF (ventricular fibrillation) ICD Code: I49.01 - Ventricular fibrillation Status: Acute Assessment and Plan 1. Coronary artery disease, ventricular fibrillation cardiac arrest: Status post hypothermia protocol. Ischemic workup including cardiac catheterization shows severe multivessel coronary artery disease. Cardiothoracic surgery is planning CABG on Thursday. Continue amiodarone, hydralazine, Coreg, lisinopril. Continue nitroglycerin drip, heparin drip. Patient having chest pain today. Add morphine as needed. 2. Acute hypoxic and hypercarbic respiratory failure: Resolved. Patient extubated on 11/13/17. Continue oxygen, bronchodilators as needed. 3. Community-acquired Klebsiella UTI: Completed course of antibiotics ( ciprofloxacin). 4. Coag negative staph bacteremia: Likely contaminant. 5. Pneumonia: Sputum culture growing Moraxella catarrhalis, strep pneumonia. Blood cultures are negative. Completed antibiotics. Leukocytosis has resolved. 6. Acute kidney injury: Creatinine trending up. Add gentle IV fluid hydration. 7. Diabetes mellitus: Monitor Accu-Cheks and cover with sliding scale insulin. A1c is 9.2. Continue Levemir. 8. Hypertension: Continue Coreg, lisinopril. 9. GI prophylaxis: PPI. 10. DVT prophylaxis: Heparin drip. Problem Qualifiers (1) Respiratory failure: Qualified Codes: J96.00 - Acute respiratory failure, unspecified whether with hypoxia or hypercapnia Juan Lenz MD Nov 21, 2017 10:24
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
--- NOTE | 2017-11-21 16:44 | PD.CARD.PN ---
Subjective Subjective Remarks Occ exertional angina and dyspnea Objective Medications Current Medications Medications (Trade) Dose Ordered Sig/Juan Route Start Time Stop Time Status Last Admin (Tylenol) 650 mg Q6H PRN PO 11/04/17 22:00 (Tears Naturale Opth Soln) 1 drop TID EACH EYE 11/05/17 09:00 11/21/17 08:51 (Zofran Inj) 4 mg Q6H PRN IV PUSH 11/04/17 22:00 11/21/17 09:09 (Ashley-Colace) 1 tab BID PO 11/05/17 09:00 11/16/17 21:15 (Milk Of Magnesia Liq) 30 ml Q12H PRN PO 11/04/17 22:00 (Senokot) 17.2 mg Q12H PRN PO 11/04/17 22:00 (Dulcolax Supp) 10 mg DAILY PRN RECTAL 11/04/17 22:00 (Lactulose Liq) 30 ml DAILY PRN PO 11/04/17 22:00 (Peridex 0.12% Liq) 15 ml BID@08,20 MT 11/05/17 08:00 11/13/17 07:33 Miscellaneous Information ml @ 0 mls/hr UNSCH IV 11/05/17 01:15 (NS Flush) 2 ml UNSCH PRN IV FLUSH 11/05/17 01:15 11/15/17 08:00 (NS Flush) 2 ml UNSCH PRN IV FLUSH 11/05/17 01:15 11/09/17 14:43 (Tylenol 650 Mg/ 20 ml Liq) 650 mg Q6H PRN NG 11/05/17 01:15 11/10/17 07:48 (Lacrilube Opht Oint) 1 applic Q4H PRN EACH EYE 11/05/17 01:15 (Lactinex) 1 tab Q12HR PO 11/07/17 12:45 11/21/17 09:09 (Trandate Inj) 20 mg Q5M PRN IV PUSH 11/09/17 10:15 11/15/17 03:47 (Apresoline Inj) 10 mg Q30M PRN IV PUSH 11/09/17 10:15 11/17/17 02:04 (Apresoline) 50 mg Q8H PO 11/12/17 15:00 11/21/17 14:08 (Prinivil) 2.5 mg DAILY PO 11/14/17 09:00 Future Hold 11/17/17 09:56 (Heparin Inj) 5,000 units Q12HR SQ 11/14/17 09:00 Future Hold 11/17/17 09:53 (Pill Splitter) 1 ea UNSCH PRN OTHER 11/14/17 09:00 Nitroglycerin/ Dextrose 250 ml @ 1.5 mls/hr TITRATE PRN IV 11/17/17 11:45 11/20/17 22:38 Heparin Sodium/ Dextrose 250 ml @ 10 mls/hr TITRATE PRN IV 11/17/17 12:00 11/20/17 20:34 (Heparin Inj) 5,000 units UNSCH PRN IV PUSH 11/17/17 12:00 (Heparin Inj) 2,500 units UNSCH PRN IV PUSH 11/17/17 12:00 11/19/17 21:40 Papaverine HCl 60 mg/Nitroglycerin 100 mcg/Diltiazem HCl 100 mg/Sodium Chloride 100 ml @ 0 mls/hr ASSET PROTECTION LEAD IRRIGATION 11/17/17 12:00 11/24/17 11:59 Cefazolin Sodium 500 mg/Sodium Chloride 505 ml @ 0 mls/hr ASSET PROTECTION LEAD IRRIGATION 11/17/17 12:00 11/24/17 11:59 Cefazolin Sodium/ Dextrose 50 ml @ 100 mls/hr ASSET PROTECTION LEAD IV 11/17/17 12:00 11/24/17 11:59 (Hibiclens 4% Top Soln) 1 applic ASSET PROTECTION LEAD TOPICAL 11/17/17 12:00 11/24/17 11:59 Insulin Human Regular 100 units/ Sodium Chloride 100 ml @ 3 mls/hr TITRATE PRN IV 11/17/17 12:00 11/24/17 11:59 (D50w (Vial) Inj) 50 ml UNSCH PRN IV PUSH 11/17/17 12:00 (Lipitor) 40 mg HS PO 11/18/17 21:00 11/20/17 20:35 (Protonix) 40 mg DAILY PO 11/18/17 09:00 11/21/17 09:00 (Ecotrin Ec) 81 mg DAILY PO 11/18/17 11:15 11/21/17 09:09 (D50w (Vial) Inj) 50 ml UNSCH PRN IV PUSH 11/18/17 11:15 (Glucagon Inj) 1 mg UNSCH PRN OTHER 11/18/17 11:15 (NovoLOG SUPPLEMENTAL SCALE) 1 ACHS SLIDING SCALE SQ 11/18/17 12:00 11/21/17 11:48 (Duoneb Neb) 1 ampule Q6HR WHILE AWAKE NEB NEB 11/18/17 20:00 11/21/17 13:21 (Duoneb Neb) 1 ampule Q2HR NEB PRN NEB 11/18/17 14:45 (Levemir Inj) 12 units Q12HR SQ 11/20/17 09:00 11/21/17 09:10 (Ambien) 5 mg HS PRN PO 11/20/17 21:00 11/20/17 20:35 (Cordarone) 200 mg BID PO 11/20/17 21:00 11/21/17 09:09 (Morphine Inj) 2 mg Q4H PRN IV PUSH 11/21/17 08:45 11/21/17 08:47 (Coreg) 12.5 mg Q12HR PO 11/21/17 21:00 Vital Signs / I&O Vital Signs Date Time Temp Pulse Resp B/P (MAP) Pulse Ox O2 Delivery O2 Flow Rate FiO2 11/21/17 16:02 80 11/21/17 15:00 98.1 83 20 102/55 (71) 93 11/21/17 15:00 78 11/21/17 14:00 78 11/21/17 13:00 83 11/21/17 12:00 93 11/21/17 11:00 97.9 85 20 105/60 (75) 94 11/21/17 11:00 85 11/21/17 10:00 83 11/21/17 09:00 86 11/21/17 08:00 78 11/21/17 07:30 73 11/21/17 07:30 98.0 83 20 122/58 (79) 98 11/21/17 07:23 98 Nasal Cannula 2.00 11/21/17 06:04 70 11/21/17 05:27 72 11/21/17 04:07 76 11/21/17 03:50 98.4 76 20 108/52 (70) 97 11/21/17 03:13 69 11/21/17 02:25 62 11/21/17 01:53 76 11/21/17 00:02 71 11/20/17 23:15 98.6 80 20 128/64 (85) 98 11/20/17 23:06 75 11/20/17 22:38 80 128/64 11/20/17 22:30 75 11/20/17 21:34 82 11/20/17 20:30 70 11/20/17 19:31 95 21 11/20/17 19:30 74 11/20/17 19:30 98.4 69 19 144/70 (94) 100 11/20/17 18:00 70 11/20/17 17:00 72 I/O 11/20/17 11/20/17 11/20/17 11/21/17 11/21/17 11/21/17 07:00 15:00 23:00 07:00 15:00 23:00 Intake Total 980 ml 105 ml 480 ml 595 ml Output Total 800 ml 950 ml 1425 ml Balance 180 ml 105 ml -470 ml -830 ml Intake Oral 480 ml 480 ml 595 ml IV Total 500 ml 105 ml Output Urine Total 800 ml 250 ml 1425 ml Stool Total 700 ml # Bowel Movements 2 2 4 Physical Exam GENERAL: In NAD SKIN: Warm and dry. HEAD: Normocephalic. EYES: No scleral icterus. No injection or drainage. NECK: Supple, trachea midline. No JVD or lymphadenopathy. CARDIOVASCULAR: Regular rate and rhythm without murmurs, gallops, or rubs. RESPIRATORY: Breath sounds equal bilaterally. No accessory muscle use. GASTROINTESTINAL: Abdomen soft, non-tender, nondistended. MUSCULOSKELETAL: No cyanosis, trace edema. Laboratory Laboratory Tests Test 11/21/17 05:37 Activated Partial Thromboplast Time 41.2 SEC Assessment and Plan Problem List: (1) VF (ventricular fibrillation) ICD Codes: I49.01 - Ventricular fibrillation Status: Acute (2) Respiratory failure ICD Codes: J96.90 - Respiratory failure, unspecified, unspecified whether with hypoxia or hypercapnia Status: Acute (3) Hyperglycemia ICD Codes: R73.9 - Hyperglycemia, unspecified Status: Acute (4) Anoxic encephalopathy ICD Codes: G93.1 - Anoxic brain damage, not elsewhere classified (5) acute kidney injury (6) Cardiopulmonary arrest ICD Codes: I46.9 - Cardiac arrest, cause unspecified Status: Acute (7) Insomnia ICD Codes: G47.00 - Insomnia, unspecified Assessment and Plan Still has intermittent angina. Cath showed severe complex MV CAD. Continue IV heparin and NTG (titrate as needed). Increase activity, continue PT. CABG next week. Problem Qualifiers (1) Respiratory failure: Qualified Codes: J96.00 - Acute respiratory failure, unspecified whether with hypoxia or hypercapnia Lawrence Alvares MD Nov 21, 2017 16:44
[2017-11-21] MEDS: ATORVASTATIN 40 MG TAB PO SCH (20:01)
[2017-11-21] MEDS: CARVEDILOL 12.5 MG TAB PO SCH (20:01)
[2017-11-21] MEDS: ZOLPIDEM TARTRATE 5 MG TAB PO PRN (21:22)
[2017-11-22] VITALS (24 sets, daily range): BP systolic 93–148; BP diastolic 44–80; PULSE 54–90; RESP 16–24; TEMP 98.2–99.9; O2SAT 94–99
[2017-11-22] MEDS: NITROGLYCERIN/DEXTROSE 5% 250 ML for chest pain IV PRN (01:40)
--- NOTE | 2017-11-22 02:48 | RADRPT ---
EXAM DATE/TIME: 11/22/2017 02:03 [facility] COMPARISON: No previous studies available for comparison. INDICATIONS : Right lower leg pain from a fall three days ago. MEDICAL HISTORY : Venous insufficiency. Myocardial infarction. SURGICAL HISTORY : None. ENCOUNTER: Initial ACUITY: 3 days PAIN SCORE: 8/10 LOCATION: Right leg FINDINGS: No fracture is seen. There is calcification between the distal fibula and the talus which could be fr om prior injury. There are mild calcaneal spurs at the Achilles and plantar aponeurosis attachment si carline. There is calcification seen at the plantar aponeurosis. CONCLUSION: No acute bony injury is seen. Sancho Ruiz MD on November 22, 2017 at 2:45 Board Certified Radiologist. This report was verified electronically.
--- NOTE | 2017-11-22 02:54 | RADRPT ---
EXAM DATE/TIME: 11/22/2017 02:13 [facility] COMPARISON: No previous studies available for comparison. INDICATIONS : Right lower leg pain from a fall three days ago. MEDICAL HISTORY : Venous insufficiency. Myocardial infarction. SURGICAL HISTORY : None. ENCOUNTER: Initial ACUITY: 3 days PAIN SCORE: 8/10 LOCATION: Right leg FINDINGS: Three view examination of the right foot demonstrates no soft tissue swelling, dislocation, or fractu re. The tarsal bones appear intact. The interphalangeal and metatarsophalangeal joints are intact. The calcaneus is intact. Bony mineralization is normal. CONCLUSION: No acute disease. Sancho Ruiz MD on November 22, 2017 at 2:51 Board Certified Radiologist. This report was verified electronically.
[2017-11-22] MEDS: MORPHINE SULFATE 2 MG/ML INJ IV PUSH PRN (03:13)
[2017-11-22 04:14] LABS: HEMOGLOBIN 7.8 GM/DL (13.0-17.0); MEAN CELL VOLUME 92.7 FL (80.0-100.0); MEAN CORPUSCULAR HEMOGLOBIN 31.6 PG (27.0-34.0); MEAN CORPUSCULAR HGB CONC 34.1 % (32.0-36.0); MEAN PLATELET VOLUME 9.3 FL (7.0-11.0); PLATELET COUNT 304 TH/MM3 (150-450); RED BLOOD COUNT 2.48 MIL/MM3 (4.50-5.90); RED CELL DISTRIBUTION WIDTH 13.3 % (11.6-17.2); WHITE BLOOD COUNT 10.2 TH/MM3 (4.0-11.0)
[2017-11-22] MEDS: HEPARIN 25,000 UNITS-D5W 250 ML - PREMIX IV PRN (05:41)
[2017-11-22] MEDS: hydrALAZINE HCL 50 MG TAB PO SCH ×3 (06:55→23:00)
[2017-11-22] MEDS: RESP: ALBUTEROL 2.5 MG/IPRATROPIUM 0.5 MG NEB (SCH) NEB ×2 (07:27→13:04)
[2017-11-22] MEDS: INSULIN ASPART SUPPLEMENTAL SCALE SQ SCH ×4 (08:00→21:00)
[2017-11-22] MEDS: CHLORHEXIDINE 0.12% (ORAL KIT) 15 ML CUP MT SCH ×2 (08:00→20:00)
--- NOTE | 2017-11-22 08:12 | RADRPT ---
EXAM DATE/TIME: 11/22/2017 07:42 [facility] COMPARISON: CHEST SINGLE AP, November 16, 2017, 8:47. CHEST SINGLE AP, November 18, 2017, 3:41. INDICATIONS : Chest pain. Evaluate for pneumonia. MEDICAL HISTORY : None. SURGICAL HISTORY : None. ENCOUNTER: Subsequent ACUITY: 3 days PAIN SCORE: 0/10 LOCATION: Bilateral chest FINDINGS: The lungs are adequately inflated. There is bilateral hazy areas of airspace opacities concerning for multifocal pneumonia versus fluid secondary to pulmonary edema. The heart size is mildly enlarged, s table. There is diffuse cephalization of pulmonary vasculature. CONCLUSION: Persistent hazy ill-defined bilateral airspace opacities consistent with either multifocal pneumonia or fluid secondary to pulmonary edema. Correlation with clinical presentation is required.. Grecia Enciso MD on November 22, 2017 at 8:08 Board Certified Radiologist. This report was verified electronically.
[2017-11-22] MEDS ORDERED: SODIUM CHLOR 0.9% 250 ML INJ 250 ML IV ONE (08:45)
[2017-11-22] MEDS: LEVOFLOXACIN 750 MG PREMIX INJ 150 ML IV SCH (08:50)
[2017-11-22] MEDS: ASPIRIN EC 81 MG TABEC PO SCH (08:51)
[2017-11-22] MEDS: ARTIFICIAL TEARS OPTH SOLN 15 ML BTL EACH EYE SCH ×3 (08:51→18:00)
[2017-11-22] MEDS: INSULIN DETEMIR 100 UNITS/ML VIAL SQ SCH ×2 (08:52→21:00)
[2017-11-22] MEDS: DOCUSATE SODIUM 50 MG/SENNA 8.6 MG TAB PO SCH ×2 (08:52→21:21)
[2017-11-22] MEDS: CARVEDILOL 12.5 MG TAB PO SCH ×2 (08:52→21:21)
[2017-11-22] MEDS: AMIODARONE 200 MG TAB PO SCH ×2 (08:52→21:21)
[2017-11-22] MEDS: PANTOPRAZOLE SOD 40 MG DELAYED RELEASE TAB PO SCH (08:52)
[2017-11-22] MEDS: LACTOBACILLUS ACIDOPHILUS TAB PO SCH ×2 (08:52→21:21)
[2017-11-22] MEDS ORDERED: FUROSEMIDE 20 MG/2 ML VIAL IV PUSH ONE (09:00)
--- NOTE | 2017-11-22 09:09 | HHI.PR ---
Subjective Remarks Follow-up hypertension, diabetes, pneumonia. Patient states that the chest pain is better. Some dyspnea this morning. Cough is nonproductive. Patient has significant pain in the right ankle and is unable to bear weight on that leg. Objective Vitals Vital Signs Date Time Temp Pulse Resp B/P (MAP) Pulse Ox O2 Delivery O2 Flow Rate FiO2 11/22/17 08:00 68 11/22/17 07:30 98.8 90 20 109/76 (87) 98 11/22/17 07:30 70 11/22/17 07:27 95 Nasal Cannula 2.00 11/22/17 06:00 65 11/22/17 05:00 68 11/22/17 04:00 72 11/22/17 03:20 99.9 73 18 108/56 (73) 97 11/22/17 03:00 70 11/22/17 02:00 77 11/22/17 01:40 73 128/60 11/22/17 01:00 72 11/22/17 00:25 99.4 11/22/17 00:20 81 99/51 11/22/17 00:00 73 11/21/17 23:30 100.1 76 18 116/59 (78) 94 11/21/17 23:00 78 11/21/17 22:00 83 11/21/17 21:00 80 11/21/17 20:51 94 11/21/17 20:00 80 11/21/17 19:45 99.6 81 18 121/58 (79) 93 11/21/17 19:00 82 11/21/17 18:04 77 11/21/17 17:12 79 11/21/17 16:02 80 11/21/17 15:00 98.1 83 20 102/55 (71) 93 11/21/17 15:00 78 11/21/17 14:00 78 11/21/17 13:00 83 11/21/17 12:00 93 11/21/17 11:00 97.9 85 20 105/60 (75) 94 11/21/17 11:00 85 11/21/17 10:00 83 I/O 11/21/17 11/21/17 11/21/17 11/22/17 11/22/17 11/22/17 07:00 15:00 23:00 07:00 15:00 23:00 Intake Total 595 ml 810 ml 1060 ml Output Total 1425 ml 700 ml 525 ml Balance -830 ml 110 ml 535 ml Intake Oral 595 ml 660 ml 600 ml IV Total 150 ml 460 ml Output Urine Total 1425 ml 700 ml 525 ml # Voids 3 # Bowel Movements 4 1 0 Result Diagram: 11/22/17 0336 11/20/17 0340 Imaging Last Impressions Foot X-Ray 11/22/17134 Signed Impressions: Service Date/Time: Wednesday, November 22, 2017 02:13 - CONCLUSION: No acute disease. Sancho Ruiz MD Ankle X-Ray 11/22/17134 Signed Impressions: Service Date/Time: Wednesday, November 22, 2017 02:03 - CONCLUSION: No acute bony injury is seen. Sancho Ruiz MD Chest X-Ray 11/22/17 0000 Signed Impressions: Service Date/Time: Wednesday, November 22, 2017 07:42 - CONCLUSION: Persistent hazy ill-defined bilateral airspace opacities consistent with either multifocal pneumonia or fluid secondary to pulmonary edema. Correlation with clinical presentation is required.. Grecia Enciso MD Lower Extremity Ultrasound 11/17/17 0000 Signed Impressions: Service Date/Time: Friday, November 17, 2017 16:20 - CONCLUSION: Venous mapping as above. David Saenz MD Carotid Artery Ultrasound 11/17/17 0000 Signed Impressions: Service Date/Time: Friday, November 17, 2017 15:50 - CONCLUSION: 1. Minimal plaquing in both carotid systems. 2. However, no sonographic or Doppler findings of a hemodynamically significant stenosis. Antegrade flow in both vertebrals. David Saenz MD Brain MRI 11/10/17 0000 Signed Impressions: Service Date/Time: Friday, November 10, 2017 14:05 - CONCLUSION: No acute intracranial process. Periventricular and deep white matter coalesced demyelinization most likely microvascular ischemic basis Octaviano Holland MD Abdomen X-Ray 11/10/17 0000 Signed Impressions: Service Date/Time: Friday, November 10, 2017 10:59 - CONCLUSION: No metallic radiopaque foreign bodies are present to preclude MRI. Sancho Clifford MD Head CT 11/04/172011 Signed Impressions: Service Date/Time: Saturday, November 04, 2017 22:10 - CONCLUSION: No acute disease. Mike Davalos MD Objective Remarks General: Elderly male in no acute distress. Sitting up in a chair. Heart: Regular rate and rhythm. No murmur. Lungs: Clear to auscultation bilaterally. No wheezes, rales, or rhonchi. Breathing is nonlabored. Abdomen: Soft, nontender, nondistended. Extremities: No lower extremity edema. There is pain with rotation of the right ankle. No pain with flexion or extension. Psych: Alert and oriented. Urinary Catheter: No Vascular Central Line Catheter: No A/P Problem List: (1) Coronary artery disease ICD Code: I25.10 - Atherosclerotic heart disease of [place] coronary artery without angina pectoris (2) Cardiopulmonary arrest ICD Code: I46.9 - Cardiac arrest, cause unspecified Status: Acute (3) Respiratory failure ICD Code: J96.90 - Respiratory failure, unspecified, unspecified whether with hypoxia or hypercapnia Status: Acute (4) VF (ventricular fibrillation) ICD Code: I49.01 - Ventricular fibrillation Status: Acute Assessment and Plan 1. Coronary artery disease, ventricular fibrillation cardiac arrest: Status post hypothermia protocol. Ischemic workup including cardiac catheterization shows severe multivessel coronary artery disease. Cardiothoracic surgery is planning CABG on Thursday. Continue amiodarone, hydralazine, Coreg, lisinopril. Continue nitroglycerin drip, heparin drip. Chest pain is improved. Morphine as needed. 2. Acute hypoxic and hypercarbic respiratory failure: Resolved. Patient extubated on 11/13/17. Continue oxygen, bronchodilators as needed. 3. Community-acquired Klebsiella UTI: Completed course of antibiotics ( ciprofloxacin). 4. Coag negative staph bacteremia: Likely contaminant. 5. Pneumonia: Sputum culture growing Moraxella catarrhalis, strep pneumonia. Blood cultures are negative. Leukocytosis has resolved. Patient had low-grade fever overnight. Repeat chest x-ray. Start Levaquin. 6. Acute kidney injury: Improved. 7. Diabetes mellitus: Monitor Accu-Cheks and cover with sliding scale insulin. A1c is 9.2. Continue Levemir. 8. Hypertension: Continue Coreg, lisinopril. 9. GI prophylaxis: PPI. 10. DVT prophylaxis: Heparin drip. 11. Anemia: Hemoglobin has decreased over the last 2 days. Check stool Hemoccult. Transfuse 2 units PRBCs. 12. Right foot/ankle pain: X-rays show no acute bony injury. Consult podiatry. Patient is unable to bear weight. Problem Qualifiers (1) Respiratory failure: Qualified Codes: J96.00 - Acute respiratory failure, unspecified whether with hypoxia or hypercapnia Juan Lenz MD Nov 22, 2017 09:09
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
--- NOTE | 2017-11-22 12:24 | EKG ---
Date Performed: 11/21/2017 Time Performed: 15:48:30 PTAGE: 72 years EKG: Sinus rhythm . Inferior infarct - age undetermined Anterolateral ST-T changes may be due to myocardial ischemia Co mpared to previous tracing, ST depression anterolaterally is new, cannot rule out ischemia Abnormal E CG PREVIOUS TRACING : 11/04/2017 20.08 DOCTOR: Bryan Cuevas Interpretating Date/Time 11/22/2017 12:21:39
--- NOTE | 2017-11-22 17:00 | PD.CARD.PN ---
Subjective Subjective Remarks No angina or CHF symptoms Objective Medications Current Medications Medications (Trade) Dose Ordered Sig/Juan Route Start Time Stop Time Status Last Admin (Tylenol) 650 mg Q6H PRN PO 11/04/17 22:00 (Tears Naturale Opth Soln) 1 drop TID EACH EYE 11/05/17 09:00 11/22/17 14:52 (Zofran Inj) 4 mg Q6H PRN IV PUSH 11/04/17 22:00 11/21/17 09:09 (Ashley-Colace) 1 tab BID PO 11/05/17 09:00 11/16/17 21:15 (Milk Of Magnesia Liq) 30 ml Q12H PRN PO 11/04/17 22:00 (Senokot) 17.2 mg Q12H PRN PO 11/04/17 22:00 (Dulcolax Supp) 10 mg DAILY PRN RECTAL 11/04/17 22:00 (Lactulose Liq) 30 ml DAILY PRN PO 11/04/17 22:00 (Peridex 0.12% Liq) 15 ml BID@08,20 MT 11/05/17 08:00 11/13/17 07:33 Miscellaneous Information ml @ 0 mls/hr UNSCH IV 11/05/17 01:15 (NS Flush) 2 ml UNSCH PRN IV FLUSH 11/05/17 01:15 11/15/17 08:00 (NS Flush) 2 ml UNSCH PRN IV FLUSH 11/05/17 01:15 11/09/17 14:43 (Tylenol 650 Mg/ 20 ml Liq) 650 mg Q6H PRN NG 11/05/17 01:15 11/10/17 07:48 (Lacrilube Opht Oint) 1 applic Q4H PRN EACH EYE 11/05/17 01:15 (Lactinex) 1 tab Q12HR PO 11/07/17 12:45 11/21/17 20:01 (Trandate Inj) 20 mg Q5M PRN IV PUSH 11/09/17 10:15 11/15/17 03:47 (Apresoline Inj) 10 mg Q30M PRN IV PUSH 11/09/17 10:15 11/17/17 02:04 (Apresoline) 50 mg Q8H PO 11/12/17 15:00 11/21/17 14:08 (Prinivil) 2.5 mg DAILY PO 11/14/17 09:00 Future Hold 11/17/17 09:56 (Heparin Inj) 5,000 units Q12HR SQ 11/14/17 09:00 Future Hold 11/17/17 09:53 (Pill Splitter) 1 ea UNSCH PRN OTHER 11/14/17 09:00 Nitroglycerin/ Dextrose 250 ml @ 1.5 mls/hr TITRATE PRN IV 11/17/17 11:45 11/22/17 01:40 Heparin Sodium/ Dextrose 250 ml @ 10 mls/hr TITRATE PRN IV 11/17/17 12:00 11/22/17 05:41 (Heparin Inj) 5,000 units UNSCH PRN IV PUSH 11/17/17 12:00 (Heparin Inj) 2,500 units UNSCH PRN IV PUSH 11/17/17 12:00 11/19/17 21:40 Papaverine HCl 60 mg/Nitroglycerin 100 mcg/Diltiazem HCl 100 mg/Sodium Chloride 100 ml @ 0 mls/hr PROCESS LINE OPERATOR IRRIGATION 11/17/17 12:00 11/24/17 11:59 Cefazolin Sodium 500 mg/Sodium Chloride 505 ml @ 0 mls/hr PROCESS LINE OPERATOR IRRIGATION 11/17/17 12:00 11/24/17 11:59 Cefazolin Sodium/ Dextrose 50 ml @ 100 mls/hr PROCESS LINE OPERATOR IV 11/17/17 12:00 11/24/17 11:59 (Hibiclens 4% Top Soln) 1 applic PROCESS LINE OPERATOR TOPICAL 11/17/17 12:00 11/24/17 11:59 Insulin Human Regular 100 units/ Sodium Chloride 100 ml @ 3 mls/hr TITRATE PRN IV 11/17/17 12:00 11/24/17 11:59 (D50w (Vial) Inj) 50 ml UNSCH PRN IV PUSH 11/17/17 12:00 (Lipitor) 40 mg HS PO 11/18/17 21:00 11/21/17 20:01 (Protonix) 40 mg DAILY PO 11/18/17 09:00 11/22/17 08:52 (Ecotrin Ec) 81 mg DAILY PO 11/18/17 11:15 11/22/17 08:51 (D50w (Vial) Inj) 50 ml UNSCH PRN IV PUSH 11/18/17 11:15 (Glucagon Inj) 1 mg UNSCH PRN OTHER 11/18/17 11:15 (NovoLOG SUPPLEMENTAL SCALE) 1 ACHS SLIDING SCALE SQ 11/18/17 12:00 11/22/17 13:31 (Duoneb Neb) 1 ampule Q6HR WHILE AWAKE NEB NEB 11/18/17 20:00 11/22/17 13:04 (Duoneb Neb) 1 ampule Q2HR NEB PRN NEB 11/18/17 14:45 (Levemir Inj) 12 units Q12HR SQ 11/20/17 09:00 11/22/17 08:52 (Ambien) 5 mg HS PRN PO 11/20/17 21:00 11/21/17 21:22 (Cordarone) 200 mg BID PO 11/20/17 21:00 11/22/17 08:52 (Morphine Inj) 2 mg Q4H PRN IV PUSH 11/21/17 08:45 11/22/17 03:13 (Coreg) 12.5 mg Q12HR PO 11/21/17 21:00 11/22/17 08:52 Levofloxacin/ Dextrose 150 ml @ 100 mls/hr Q24H IV 11/22/17 09:00 11/22/17 08:50 Sodium Chloride 250 ml @ 15 mls/hr ONCE ONCE IV 11/22/17 08:45 11/23/17 01:24 Vital Signs / I&O Vital Signs Date Time Temp Pulse Resp B/P (MAP) Pulse Ox O2 Delivery O2 Flow Rate FiO2 11/22/17 15:00 59 11/22/17 15:00 98.3 59 20 129/79 (96) 99 11/22/17 13:40 98.4 58 22 118/62 98 11/22/17 13:00 61 11/22/17 12:00 57 11/22/17 11:06 99.3 54 20 103/44 97 11/22/17 11:00 58 11/22/17 11:00 99.3 54 20 103/44 (63) 97 11/22/17 10:48 99.2 69 24 93/54 99 11/22/17 10:00 59 11/22/17 09:00 67 11/22/17 08:00 68 11/22/17 07:30 98.8 90 20 109/76 (87) 98 11/22/17 07:30 70 11/22/17 07:27 95 Nasal Cannula 2.00 11/22/17 06:00 65 11/22/17 05:00 68 11/22/17 04:00 72 11/22/17 03:20 99.9 73 18 108/56 (73) 97 11/22/17 03:00 70 11/22/17 02:00 77 11/22/17 01:40 73 128/60 11/22/17 01:00 72 11/22/17 00:25 99.4 11/22/17 00:20 81 99/51 11/22/17 00:00 73 11/21/17 23:30 100.1 76 18 116/59 (78) 94 11/21/17 23:00 78 11/21/17 22:00 83 11/21/17 21:00 80 11/21/17 20:51 94 11/21/17 20:00 80 11/21/17 19:45 99.6 81 18 121/58 (79) 93 11/21/17 19:00 82 11/21/17 18:04 77 11/21/17 17:12 79 I/O 11/21/17 11/21/17 11/21/17 11/22/17 11/22/17 11/22/17 07:00 15:00 23:00 07:00 15:00 23:00 Intake Total 595 ml 810 ml 1060 ml 410 ml Output Total 1425 ml 700 ml 525 ml Balance -830 ml 110 ml 535 ml 410 ml Intake Oral 595 ml 660 ml 600 ml IV Total 150 ml 460 ml Packed Cells 400 ml Blood Product IV Normal Saline Flush 10 ml Output Urine Total 1425 ml 700 ml 525 ml # Voids 3 # Bowel Movements 4 1 0 Physical Exam GENERAL: In NAD SKIN: Warm and dry. HEAD: Normocephalic. EYES: No scleral icterus. No injection or drainage. NECK: Supple, trachea midline. No JVD or lymphadenopathy. CARDIOVASCULAR: Regular rate and rhythm without murmurs, gallops, or rubs. RESPIRATORY: Breath sounds equal bilaterally. No accessory muscle use. GASTROINTESTINAL: Abdomen soft, non-tender, nondistended. MUSCULOSKELETAL: No cyanosis, trace edema. Laboratory Laboratory Tests Test 11/22/17 03:36 White Blood Count 10.2 TH/MM3 Red Blood Count 2.48 MIL/MM3 Hemoglobin 7.8 GM/DL Hematocrit 23.0 % Mean Corpuscular Volume 92.7 FL Mean Corpuscular Hemoglobin 31.6 PG Mean Corpuscular Hemoglobin Concent 34.1 % Red Cell Distribution Width 13.3 % Platelet Count 304 TH/MM3 Mean Platelet Volume 9.3 FL Activated Partial Thromboplast Time 40.3 SEC Imaging Last 24 hours Impressions Foot X-Ray 11/22/17134 Signed Impressions: Service Date/Time: Wednesday, November 22, 2017 02:13 - CONCLUSION: No acute disease. Sancho Ruiz MD Ankle X-Ray 11/22/17134 Signed Impressions: Service Date/Time: Wednesday, November 22, 2017 02:03 - CONCLUSION: No acute bony injury is seen. Sancho Ruiz MD Chest X-Ray 11/22/17 0000 Signed Impressions: Service Date/Time: Wednesday, November 22, 2017 07:42 - CONCLUSION: Persistent hazy ill-defined bilateral airspace opacities consistent with either multifocal pneumonia or fluid secondary to pulmonary edema. Correlation with clinical presentation is required.. Grecia Enciso MD Assessment and Plan Problem List: (1) VF (ventricular fibrillation) ICD Codes: I49.01 - Ventricular fibrillation Status: Acute (2) Respiratory failure ICD Codes: J96.90 - Respiratory failure, unspecified, unspecified whether with hypoxia or hypercapnia Status: Acute (3) Hyperglycemia ICD Codes: R73.9 - Hyperglycemia, unspecified Status: Acute (4) Anoxic encephalopathy ICD Codes: G93.1 - Anoxic brain damage, not elsewhere classified (5) acute kidney injury (6) Cardiopulmonary arrest ICD Codes: I46.9 - Cardiac arrest, cause unspecified Status: Acute (7) Insomnia ICD Codes: G47.00 - Insomnia, unspecified Assessment and Plan Remains stable, no new cardiac issues. Cath showed severe complex MV CAD. Continue IV heparin. CABG tomorrow. Problem Qualifiers (1) Respiratory failure: Qualified Codes: J96.00 - Acute respiratory failure, unspecified whether with hypoxia or hypercapnia Lawrence Alvares MD Nov 22, 2017 17:00
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
[2017-11-22] MEDS: ATORVASTATIN 40 MG TAB PO SCH (21:21)
[2017-11-22] MEDS: ZOLPIDEM TARTRATE 5 MG TAB PO PRN (23:11)
[2017-11-23] VITALS (10 sets, daily range): BP systolic 104–148; BP diastolic 47–81; PULSE 60–79; RESP 14–19; TEMP 79–99.7; O2SAT 92–98
[2017-11-23] MEDS: HEPARIN 25,000 UNITS-D5W 250 ML - PREMIX IV PRN (00:30)
[2017-11-23] MEDS ORDERED: CHLORHEXIDINE GLUCONATE 2 % 1 PACK (2 CLOTHS) TOPICAL PRN (03:15)
[2017-11-23] MEDS ORDERED: LACTATED RINGER'S 1000 ML IV PRN (03:15)
[2017-11-23] MEDS ORDERED: POVIDONE IODINE 5% (ANTISEPSIS KIT) 4 APPLICATIONS EACH NARE PRN (03:15)
[2017-11-23 04:39] LABS: BASOPHIL # 0.1 TH/MM3 (0-0.2); BASOPHIL % 1.4 % (0.0-2.0); EOSINOPHIL # 0.1 TH/MM3 (0-0.4); EOSINOPHIL % 1.1 % (0.0-4.0); HEMATOCRIT 29.6 % (39.0-51.0); HEMOGLOBIN 10.4 GM/DL (13.0-17.0); LYMPH % 13.3 % (9.0-44.0); LYMPHOCYTE # 1.2 TH/MM3 (1.0-4.8); MEAN CELL VOLUME 90.4 FL (80.0-100.0); MEAN CORPUSCULAR HEMOGLOBIN 31.7 PG (27.0-34.0); MEAN PLATELET VOLUME 10.2 FL (7.0-11.0); MONO % 7.9 % (0.0-8.0); MONOCYTE # 0.7 TH/MM3 (0-0.9); NEUT % 76.3 % (16.0-70.0); PLATELET COUNT 275 TH/MM3 (150-450); RED BLOOD COUNT 3.27 MIL/MM3 (4.50-5.90); RED CELL DISTRIBUTION WIDTH 13.5 % (11.6-17.2); WHITE BLOOD COUNT 9.2 TH/MM3 (4.0-11.0)
[2017-11-23 04:52] LABS: BICARBONATE 29.5 MEQ/L (21.0-32.0); CALCIUM 8.7 MG/DL (8.5-10.1); CREATININE 1.35 MG/DL (0.60-1.30)
[2017-11-23] MEDS: HEPARIN SODIUM - IV 10,000 UNITS/10 ML VIAL IV PUSH PRN (06:35)
[2017-11-23] MEDS: hydrALAZINE HCL 50 MG TAB PO SCH ×2 (07:00→15:00)
[2017-11-23] MEDS: CHLORHEXIDINE 0.12% (ORAL KIT) 15 ML CUP MT SCH (08:00)
[2017-11-23] MEDS: INSULIN ASPART SUPPLEMENTAL SCALE SQ SCH ×3 (08:00→17:00)
--- NOTE | 2017-11-23 08:20 | HHI.PR ---
Subjective Remarks Follow up anemia, pneumonia, ankle pain. The patient states that he feels much better today. No chest pain or dyspnea this morning. Mild non-productive cough. Ankle pain is "much better". Objective Vitals Vital Signs Date Time Temp Pulse Resp B/P (MAP) Pulse Ox O2 Delivery O2 Flow Rate FiO2 11/23/17 04:00 71 11/23/17 04:00 99.7 71 18 120/55 (76) 92 11/23/17 00:00 66 11/23/17 00:00 98 Room Air 11/22/17 23:00 98.2 67 16 137/69 (91) 94 11/22/17 20:00 97 Nasal Cannula 2.00 Humidified 11/22/17 20:00 61 11/22/17 20:00 98.6 74 18 148/80 (102) 97 11/22/17 15:00 59 11/22/17 15:00 98.3 59 20 129/79 (96) 99 11/22/17 14:00 98.3 59 24 131/65 99 11/22/17 14:00 98.4 59 24 131/65 99 11/22/17 13:40 98.4 58 22 118/62 98 11/22/17 13:00 61 11/22/17 12:00 57 11/22/17 11:06 99.3 54 20 103/44 97 11/22/17 11:00 58 11/22/17 11:00 99.3 54 20 103/44 (63) 97 11/22/17 10:48 99.2 69 24 93/54 99 11/22/17 10:00 59 11/22/17 09:00 67 I/O 11/22/17 11/22/17 11/22/17 11/23/17 11/23/17 11/23/17 07:00 15:00 23:00 07:00 15:00 23:00 Intake Total 1060 ml 410 ml 1995 ml 490 ml Output Total 525 ml 250 ml 1330 ml Balance 535 ml 410 ml 1745 ml -840 ml Intake Oral 600 ml 840 ml 240 ml IV Total 460 ml 745 ml 250 ml Packed Cells 400 ml 400 ml Blood Product IV Normal Saline Flush 10 ml 10 ml Output Urine Total 525 ml 250 ml 1330 ml # Voids 3 4 # Bowel Movements 0 2 1 Result Diagram: 11/23/17 0350 11/23/17 0350 Imaging Last Impressions Foot X-Ray 11/22/17134 Signed Impressions: Service Date/Time: Wednesday, November 22, 2017 02:13 - CONCLUSION: No acute disease. Sancho Ruiz MD Ankle X-Ray 11/22/17134 Signed Impressions: Service Date/Time: Wednesday, November 22, 2017 02:03 - CONCLUSION: No acute bony injury is seen. Sancho Ruiz MD Chest X-Ray 11/22/17 0000 Signed Impressions: Service Date/Time: Wednesday, November 22, 2017 07:42 - CONCLUSION: Persistent hazy ill-defined bilateral airspace opacities consistent with either multifocal pneumonia or fluid secondary to pulmonary edema. Correlation with clinical presentation is required.. Grecia Enciso MD Lower Extremity Ultrasound 11/17/17 Signed Impressions: Service Date/Time: Friday, November 17, 2017 16:20 - CONCLUSION: Venous mapping as above. David Saenz MD Carotid Artery Ultrasound 11/17/17 Signed Impressions: Service Date/Time: Friday, November 17, 2017 15:50 - CONCLUSION: 1. Minimal plaquing in both carotid systems. 2. However, no sonographic or Doppler findings of a hemodynamically significant stenosis. Antegrade flow in both vertebrals. David Saenz MD Brain MRI 11/10/17 0000 Signed Impressions: Service Date/Time: Friday, November 10, 2017 14:05 - CONCLUSION: No acute intracranial process. Periventricular and deep white matter coalesced demyelinization most likely microvascular ischemic basis Octaviano Holland MD Abdomen X-Ray 11/10/17 0000 Signed Impressions: Service Date/Time: Friday, November 10, 2017 10:59 - CONCLUSION: No metallic radiopaque foreign bodies are present to preclude MRI. Sancho Clifford MD Head CT 11/04/172011 Signed Impressions: Service Date/Time: Saturday, November 04, 2017 22:10 - CONCLUSION: No acute disease. Mike Davalos MD Objective Remarks General: Elderly male in no acute distress. Heart: Regular rate and rhythm. No murmur. Lungs: Clear to auscultation bilaterally. No wheezes, rales, or rhonchi. Breathing is nonlabored. Abdomen: Soft, nontender, nondistended. Extremities: No lower extremity edema. Psych: Alert and oriented. Urinary Catheter: No Vascular Central Line Catheter: No A/P Problem List: (1) Coronary artery disease ICD Code: I25.10 - Atherosclerotic heart disease of elem coronary artery without angina pectoris (2) Cardiopulmonary arrest ICD Code: I46.9 - Cardiac arrest, cause unspecified Status: Acute (3) Respiratory failure ICD Code: J96.90 - Respiratory failure, unspecified, unspecified whether with hypoxia or hypercapnia Status: Acute (4) VF (ventricular fibrillation) ICD Code: I49.01 - Ventricular fibrillation Status: Acute Assessment and Plan 1. Coronary artery disease, ventricular fibrillation cardiac arrest: Status post hypothermia protocol. Ischemic workup including cardiac catheterization shows severe multivessel coronary artery disease. Cardiothoracic surgery is planning CABG today. Continue amiodarone, hydralazine, Coreg, lisinopril. Continue nitroglycerin drip, heparin drip. Chest pain is improved. Morphine as needed. 2. Acute hypoxic and hypercarbic respiratory failure: Resolved. Patient extubated on 11/13/17. Continue oxygen, bronchodilators as needed. 3. Community-acquired Klebsiella UTI: Completed course of antibiotics ( ciprofloxacin). 4. Coag negative staph bacteremia: Likely contaminant. 5. Pneumonia: Sputum culture growing Moraxella catarrhalis, strep pneumonia. Blood cultures are negative. Leukocytosis has resolved. Patient had low-grade fever overnight. Repeat chest x-ray shows persistent opacities consistent with pneumonia or pulmonary edema. Continue Levaquin. Patient now on room air. 6. Acute kidney injury: Improved. 7. Diabetes mellitus: Monitor Accu-Cheks and cover with sliding scale insulin. A1c is 9.2. Continue Levemir. 8. Hypertension: Continue Coreg, lisinopril. 9. GI prophylaxis: PPI. 10. DVT prophylaxis: Heparin drip. 11. Anemia: H/H improved following transfusion of 2 units PRBCs. Stool hemoccult pending. 12. Right foot/ankle pain: X-rays show no acute bony injury. Pain is improved today. Appreciate podiatry recommendations. Problem Qualifiers (1) Respiratory failure: Qualified Codes: J96.00 - Acute respiratory failure, unspecified whether with hypoxia or hypercapnia Juan Lenz MD Nov 23, 2017 08:20
[2017-11-23] MEDS: LACTOBACILLUS ACIDOPHILUS TAB PO SCH ×2 (09:00→23:45)
[2017-11-23] MEDS: ARTIFICIAL TEARS OPTH SOLN 15 ML BTL EACH EYE SCH ×3 (09:00→17:42)
[2017-11-23] MEDS: INSULIN DETEMIR 100 UNITS/ML VIAL SQ SCH (09:00)
[2017-11-23] MEDS: AMIODARONE 200 MG TAB PO SCH ×2 (09:00→23:44)
[2017-11-23] MEDS: ASPIRIN EC 81 MG TABEC PO SCH (09:00)
[2017-11-23] MEDS: LEVOFLOXACIN 750 MG PREMIX INJ 150 ML IV SCH (09:14)
[2017-11-23] MEDS: CARVEDILOL 12.5 MG TAB PO SCH (09:15)
[2017-11-23] MEDS: PANTOPRAZOLE SOD 40 MG DELAYED RELEASE TAB PO SCH (09:15)
[2017-11-23] MEDS: DOCUSATE SODIUM 50 MG/SENNA 8.6 MG TAB PO SCH ×2 (09:15→23:44)
[2017-11-23] MEDS ORDERED: SUGAMMADEX SODIUM 200 MG/2 ML VIAL IV PUSH ONE (10:42)
[2017-11-23] MEDS ORDERED: methylPREDNISolone SOD SUCC 125 MG/2 ML VIAL ONE (11:04)
[2017-11-23] MEDS ORDERED: ceFAZolin 2 GM PREMIX 0 ML ONE (11:05)
[2017-11-23] MEDS ORDERED: HEPARIN SODIUM - SQ 10,000 UNITS/ML VIAL ONE ×3 (11:05→11:10)
[2017-11-23] MEDS ORDERED: VANCOMYCIN HCL 1000 MG VIAL ONE (11:05)
[2017-11-23] MEDS ORDERED: MANNITOL INJ 100 ML ONE (11:09)
[2017-11-23] MEDS ORDERED: POTASSIUM CHLORIDE 40 MEQ/20 ML VIAL ONE (11:09)
[2017-11-23] MEDS ORDERED: CARDIOPLEGIC IRR 2,000 ML ONE (11:09)
[2017-11-23] MEDS ORDERED: SODIUM BICARBONATE 8.4% INJ 100 ML ONE (11:10)
[2017-11-23] MEDS ORDERED: HEPARIN SODIUM - IV 10,000 UNITS/10 ML VIAL ONE (11:10)
[2017-11-23] MEDS ORDERED: ALBUMIN 25% INJ 50 ML IV ONE (11:11)
[2017-11-23] MEDS ORDERED: DEXMEDETOMIDINE HCL 200 MCG/2 ML VIAL ONE (11:12)
[2017-11-23] MEDS ORDERED: VECURONIUM BROMIDE 20 MG VIAL ONE (15:22)
[2017-11-23] MEDS ORDERED: ceFAZolin 2 GM PREMIX 50 ML ONE (15:48)
[2017-11-23] MEDS ORDERED: ceFAZolin INJ 1,000 MG VIAL ONE (15:51)
[2017-11-23] MEDS ORDERED: LACTATED RINGER'S 1000 ML INJ 500 ML IV PRN (18:38)
[2017-11-23] MEDS ORDERED: hydrALAZINE HCL 20 MG/ML VIAL IV PUSH PRN (18:45)
[2017-11-23] MEDS ORDERED: ALBUMIN 5% INJ 250 ML IV PRN (18:45)
[2017-11-23] MEDS ORDERED: INSULIN REGULAR (IV INFUSION) 100 UNITS in SODIUM CHLORIDE 0.9% INJ 99 ML IV PRN (18:45)
[2017-11-23] MEDS ORDERED: CALCIUM CHLORIDE INJ 1 GM in SODIUM CHLORIDE 0.9% INJ 100 ML IV PRN (18:45)
[2017-11-23] MEDS ORDERED: DEXTROSE 50% IN WATER 50 ML VIAL(D50) IV PUSH PRN (18:45)
[2017-11-23] MEDS ORDERED: METOPROLOL TARTRATE 5 MG/5 ML VIAL IV PUSH PRN (18:45)
[2017-11-23] MEDS ORDERED: RESP: RACEPINEPHRINE 2.25% 0.5 ML NEB NEB PRN (18:45)
[2017-11-23] MEDS ORDERED: SODIUM CHLORIDE 0.9% FLUSH 10 ML FLUSH IV FLUSH PRN (18:45)
[2017-11-23] MEDS ORDERED: MAGNESIUM SULFATE INJ 2 GM in SODIUM CHLORIDE 0.9% INJ 100 ML IV PRN ×4 (18:45)
[2017-11-23] MEDS ORDERED: Post-op Orders (for Pharmacy) OTHER ONE (18:45)
[2017-11-23] MEDS ORDERED: ACETAMINOPHEN 650 MG SUPP RECTAL PRN (18:45)
[2017-11-23] MEDS ORDERED: SODIUM BICARBONATE 8.4% SOLN 50 MEQ/50 ML VIAL IV PUSH PRN ×2 (18:45)
[2017-11-23] MEDS ORDERED: CALCIUM CHLORIDE 10% 1 GRAM/10 ML VIAL IV PUSH PRN (18:45)
[2017-11-23] MEDS ORDERED: ONDANSETRON HCL 4 MG/2 ML VIAL IV PUSH PRN (18:45)
[2017-11-23] MEDS ORDERED: POTASSIUM CHLOR 20 MEQ PREMIX 100 ML IV PRN ×3 (18:45)
[2017-11-23] MEDS ORDERED: CLEVIDIPINE INJ 50 ML IV PRN (18:45)
[2017-11-23] MEDS ORDERED: ACETAMINOPHEN 325 MG TAB PO PRN (18:45)
[2017-11-23] MEDS ORDERED: POTASSIUM CHLORIDE 20 MEQ CONTROLLED RELEASE TAB PO PRN ×2 (18:45)
--- NOTE | 2017-11-23 19:01 | PD.OP ---
cc: Arleen Bishop MD; Lawrence Alvares MD Operative Report Date of Surgery: Nov 23, 2017 Preoperative Diagnosis: (1) STEMI (ST elevation myocardial infarction) (2) Cardiopulmonary arrest (3) Coronary artery disease (4) Systolic and diastolic CHF, acute Postoperative Diagnosis: same Procedure: Urgent CABG x 5 DEGROOT to LAD SVG to D1 SVG to OM1 SVG to OM2 SVG to PDA Bilateral EVH Anesthesia: Dr. Haro Surgeon: Arleen Bishop Repairing Calibrator(s): PAVAN Jones Operation and Findings: The risks, benefits, complications, treatment options, and expected outcomes were discussed with the patient. The possibilities of reaction to medication, pulmonary aspiration, perforation of viscus, bleeding, recurrent infection, the need for additional procedures, failure to diagnose a condition, and creating a complication requiring transfusion or operation were discussed with the patient. The patient concurred with the proposed plan, giving informed consent. The site of surgery properly noted/marked. The patient was taken to Operating Room, identified as Flaco Back and the procedure verified as CABG, EVH. A Time Out was held and the above information confirmed. Standard monitoring lines and Fortune catheter were placed. General anesthesia was induced. The patient was prepped and draped in a sterile fashion. A median sternotomy was performed and electrocautery was used to obtain hemostasis. The left internal mammary artery was procured as a pedicle from the 7th rib to the 1st rib in the usual manner. Simultaneously left greater saphenous vein was procured from the left leg using a minimally invasive endoscopic technique. The vein was prepared for anastomosis and the leg wound was irrigated and closed in 2 layers. The pericardium was opened and a pericardial sling was created using interrupted 0 silk sutures. The patient was heparinized for cardiopulmonary bypass and the distal mammary pedicle was instrumented for anastomosis. The heart was instrumented for cardiopulmonary bypass in the usual manner. Antegrade blood cardioplegia was employed. The patient was placed on cardiopulmonary bypass. An aortic cross-clamp was applied and the heart was arrested using cold blood cardioplegia. Antegrade cardioplegia was administered after he each anastomosis. After adequate arrest, the distal right coronary circulation was investigated and the PDA was opened with a [place] blade and found to be a 1 millimeter diffusely diseased poor target. Saphenous vein was approximated to the PDA artery using a running 7 0 Prolene suture. The graft was measured for length and orientation and the proximal anastomosis was constructed to the ascending aorta using a running 5 0 Prolene suture after creating an aortotomy with a 5 millimeter punch. The OM2 was opened with a [place] blade and found to be a 1.5 millimeter good target. Saphenous vein was approximated to the OM2 artery using a running 7 0 Prolene suture. The graft was measured for length and orientation and the proximal anastomosis was constructed to the ascending aorta using a running 5 0 Prolene suture after creating an aortotomy with a 5 millimeter punch. The OM1 was opened with a [place] blade and found to be a 1.5 millimeter good target. Saphenous vein was approximated to the OM1 artery using a running 7 0 Prolene suture. The graft was measured for length and orientation and the proximal anastomosis was constructed to the ascending aorta using a running 5 0 Prolene suture after creating an aortotomy with a 5 millimeter punch. The 1st diagonal artery was then opened with a [place] blade and found to be a 1.5 millimeter good target. Saphenous vein was approximated to the D1 artery using a running 7 0 Prolene suture. The graft was measured for length and orientation and was suspended from the pericardium. The distal LAD was opened with a [place] blade and found to be a 1.5 millimeter good target. The left internal mammary artery was approximated to the LAD using a running 7 0 Prolene suture. The pedicle was attached to the epicardium using interrupted 5 0 silk suture. The patient was systemically rewarmed and received a hotshot dose of warm blood cardioplegia. The aorta was vented and the proximal anastomosis to the D1 graft was accomplished using a running 5 0 Prolene suture after creating an aortotomy was a 5 millimeter punch. The cross -clamp was removed and all proximal and distal anastomoses were examined for hemostasis. Temporary atrial and ventricular pacing wires were positioned and brought out through the skin in the usual manner. The patient was paced at 80 beats per minute and weaned from cardiopulmonary bypass. Protamine was given. There was no adverse reaction. Decannulation was carried out without incident. Wound was checked for hemostasis which was obtained using electrocautery. A 36 [place] mediastinal and 32 [place] left pleural chest tubes were placed and secured to the skin with 0 silk suture. The sternum was closed with stainless steel wire. The fascia was closed with 1. PDS. The subcutaneous tissue was closed using a running 2-0 Vicryl suture. The skin was closed with 4-0 Monocryl. Sterile dressings were placed. At the end of the operation, all sponge, instruments, and needle counts were correct. The patient was transferred to the CVICU in stable condition. Findings: Cardiomegaly, diffuse CAD XC: 90 min CPB: 114 min Drains: mediastinal x 1 pleural x 1 Complications: none Disposition: to CVICU in stable condition Arleen Bishop MD Nov 23, 2017 19:01
[2017-11-23] MEDS ORDERED: fentaNYL CITRATE 1000 MCG/20 ML VIAL ONE (19:31)
[2017-11-23] MEDS ORDERED: MIDAZOLAM HCL 2 MG/2 ML VIAL ONE (19:31)
[2017-11-23] MEDS: RESP: ALBUTEROL 2.5 MG/IPRATROPIUM 0.5 MG NEB (PRN) NEB (19:53)
[2017-11-23] MEDS: ACETAMINOPHEN 1000 MG/100 ML 100 ML IV SCH (20:16)
--- NOTE | 2017-11-23 20:45 | RADRPT ---
EXAM DATE/TIME: 11/23/2017 19:59 [facility] COMPARISON: CHEST SINGLE AP, November 22, 2017, 7:42. INDICATIONS : Status post CABG. MEDICAL HISTORY : None. SURGICAL HISTORY : CABG. ENCOUNTER: Subsequent ACUITY: 3 days PAIN SCORE: Non-responsive. LOCATION: Bilateral chest FINDINGS: Endotracheal tube has its tip 2 cm above the opal. A nasogastric tube has its tip below diaphragm. Left-sided chest tube is noted within the left lung base. Left subclavian central line has its tip in superior vena cava. No pneumothorax is noted. Mediastinal drain is noted. Median sternotomy wires ar e noted status post cardiac surgery. Cardiomegaly is noted. Right upper lung field infiltrate and/or atelectasis is noted. CONCLUSION: 1. Right upper lung field infiltrate and/or atelectasis. 2. Cardiomegaly. 3. Multiple tubes and lines are stable. Dago Garcia MD on November 23, 2017 at 20:41 Board Certified Radiologist. This report was verified electronically.
[2017-11-23] MEDS: SODIUM CHLORIDE 0.9% FLUSH 10 ML FLUSH IV FLUSH SCH (21:03)
[2017-11-23] MEDS: RESP: ALBUTEROL 2.5 MG/IPRATROPIUM 0.5 MG NEB (SCH) NEB (21:24)
[2017-11-23] MEDS ORDERED: FUROSEMIDE 40 MG/4 ML VIAL ONE (23:16)
[2017-11-23] MEDS ORDERED: FUROSEMIDE 40 MG/4 ML VIAL IV PUSH ONE (23:30)
[2017-11-23] MEDS: ATORVASTATIN 40 MG TAB PO SCH (23:44)
[2017-11-24] VITALS (15 sets, daily range): BP systolic 110–141; BP diastolic 54–68; PULSE 61–76; RESP 15–20; TEMP 97.5–98; O2SAT 88–98
[2017-11-24] MEDS: ACETAMINOPHEN 1000 MG/100 ML 100 ML IV SCH ×3 (01:35→14:54)
[2017-11-24] MEDS: oxyCODONE/ACETAMINOPHEN 5 MG/325 MG TAB PO PRN ×4 (03:16→21:43)
[2017-11-24] MEDS: RESP: ALBUTEROL 2.5 MG/IPRATROPIUM 0.5 MG NEB (SCH) NEB ×6 (03:31→20:50)
[2017-11-24 04:46] LABS: AUTOMATED NEUTROPHIL # 15.9 TH/MM3 (1.8-7.7); BASOPHIL % 0.1 % (0.0-2.0); HEMOGLOBIN 11.5 GM/DL (13.0-17.0); LYMPH % 4.2 % (9.0-44.0); LYMPHOCYTE # 0.7 TH/MM3 (1.0-4.8); MEAN CELL VOLUME 90.6 FL (80.0-100.0); MEAN CORPUSCULAR HEMOGLOBIN 30.6 PG (27.0-34.0); MEAN CORPUSCULAR HGB CONC 33.8 % (32.0-36.0); MEAN PLATELET VOLUME 9.3 FL (7.0-11.0); MONO % 5.3 % (0.0-8.0); MONOCYTE # 0.9 TH/MM3 (0-0.9); NEUT % 90.4 % (16.0-70.0); PLATELET COUNT 279 TH/MM3 (150-450); RED BLOOD COUNT 3.76 MIL/MM3 (4.50-5.90); RED CELL DISTRIBUTION WIDTH 14.4 % (11.6-17.2); WHITE BLOOD COUNT 17.5 TH/MM3 (4.0-11.0)
--- NOTE | 2017-11-24 05:10 | RADRPT ---
EXAM DATE/TIME: 11/24/2017 04:11 [facility] COMPARISON: CHEST SINGLE AP, November 23, 2017, 19:59. INDICATIONS : Short of breath. MEDICAL HISTORY : None. SURGICAL HISTORY : CABG. ENCOUNTER: Subsequent ACUITY: 1 week PAIN SCORE: 0/10 LOCATION: Bilateral chest FINDINGS: A single view of the chest demonstrates interval extubation and removal of NG tube compared with . Central and left chest tubes remain without pneumothorax. Basilar and perihilar airspace dise ase similar to November 23. CONCLUSION: 1. Postoperative median sternotomy with central and left-sided chest tube. No pneumothorax. Basilar a nd perihilar air space disease relatively stable. Mandeep You MD on November 24, 2017 at 5:08 Board Certified Radiologist. This report was verified electronically.
[2017-11-24 05:22] LABS: BICARBONATE 25.4 MEQ/L (21.0-32.0); CREATININE 1.99 MG/DL (0.60-1.30); MAGNESIUM 3.1 MG/DL (1.5-2.5)
[2017-11-24] MEDS: PANTOPRAZOLE SOD 40 MG DELAYED RELEASE TAB PO SCH (05:42)
[2017-11-24] MEDS ORDERED: ALBUMIN 25% INJ 50 ML IV ONE (09:00)
[2017-11-24] MEDS: AMIODARONE 200 MG TAB PO SCH ×2 (09:00→21:43)
[2017-11-24] MEDS ORDERED: FUROSEMIDE 40 MG/4 ML VIAL IV PUSH ONE (09:00)
[2017-11-24] MEDS: ARTIFICIAL TEARS OPTH SOLN 15 ML BTL EACH EYE SCH ×3 (09:00→18:45)
[2017-11-24] MEDS ORDERED: BISACODYL 10 MG SUPP RECTAL PRN (09:15)
[2017-11-24] MEDS ORDERED: GLUCAGON 1 MG/ML VIAL OTHER PRN (09:15)
[2017-11-24] MEDS ORDERED: DEXTROSE 50% IN WATER 50 ML VIAL(D50) IV PUSH PRN (09:15)
[2017-11-24] MEDS: LACTOBACILLUS ACIDOPHILUS TAB PO SCH ×2 (09:18→21:43)
[2017-11-24] MEDS: LEVOFLOXACIN 750 MG PREMIX INJ 150 ML IV SCH (09:18)
[2017-11-24] MEDS: ASPIRIN 81 MG CHEW TAB PO SCH (09:19)
[2017-11-24] MEDS: DOCUSATE SODIUM 50 MG/SENNA 8.6 MG TAB PO SCH ×2 (09:19→21:43)
[2017-11-24] MEDS: SODIUM CHLORIDE 0.9% FLUSH 10 ML FLUSH IV FLUSH SCH ×2 (09:20→21:43)
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
[2017-11-24] MEDS: INSULIN ASPART SUPPLEMENTAL SCALE SQ SCH ×4 (10:00→21:51)
--- NOTE | 2017-11-24 14:55 | HHI.HCPN ---
Reason for visit a. To assist with evaluation and management of symptoms including: pain; dyspnea. b. To assist medical decision maker(s) with: better understanding of current medical conditions; weighing benefits/burdens of medical treatment options; making medical treatment decisions. . Subjective/Interval History Patient seen and examined in ICU. No family at bedside during exam. Also present Heidi Harding LCSW and [employer] medical student. Reintroduced my team, as I had not seen him since early last week. Reviewed our team will be here to assist with communication throughout admission. Advised we were communicating with his while he was unable to communicate. He is very appreciative. Patient underwent CABG x 5 vessel on 11/23/[address] Bishop. Patient is awake and alert, sitting in recliner chair. He indicates he "did not have a choice about getting up to chair." I explained he has to get up in order to prevent pneumonia, going back on the ventilator, etc. He says "I already have double pneumonia and I will not go back on the ventilator." I encouraged conversations with his , as she struggled with medical decisions while he was incapacitated. He agrees they need to talk about these things. He reports he feels "terrible." He has weak cough. Feels chest pain and mildly short of breath. He also declines need for pain medication during my visit. Rates pain "6" on 0-10 scale. Afebrile. HR 64. On oxygen via NC. WBC 17.5, hemoglobin 11.5, platelets 279. Creatinine 1.99, potassium 5.4. . Advance Directives Living Will: Never completed Health Care Surrogate: Never completed Durable Power of Victim Advocate: Never completed Advance Directive Specifics Health Care Surrogate(s): Patient is incapacitated to make his own health care decision, unlikely he will regain capacity due to anoxic brain injury. In the absence of written advanced directives, according to [place] statutes, health care proxy decision making falls to his spouse. . Significant change in goals: FULL CODE. Goals remain aggressive. . Objective Vital Signs Date Time Temp Pulse Resp B/P (MAP) Pulse Ox O2 Delivery O2 Flow Rate FiO2 11/24/17 11:23 64 11/24/17 11:23 97 Nasal Cannula 4.00 11/24/17 11:23 64 11/24/17 11:00 97.7 64 18 115/59 (77) 97 Arterial Line 11/24/17 10:22 98 Nasal Cannula 3.00 11/24/17 07:59 93 Nasal Cannula 6.00 11/24/17 07:24 91 Nasal Cannula 2.00 11/24/17 07:23 88 21 11/24/17 07:18 16 11/24/17 07:00 97.9 70 20 113/60 (77) 93 119/56 (77) 11/24/17 07:00 70 11/24/17 07:00 70 11/24/17 07:00 93 Nasal Cannula 4.00 11/24/17 03:35 95 Simple Mask 6.00 11/24/17 03:31 70 11/24/17 03:22 76 11/24/17 03:22 97.5 70 15 113/68 (83) 97 141/66 (91) 11/24/17 03:22 98 Simple Mask 7.00 11/24/17 01:33 96 Nasal Cannula 4.00 11/24/17 01:30 96 Nasal Cannula 4 11/24/17 00:45 96 40 11/24/17 00:29 70 11/23/17 23:05 77 11/23/17 23:05 95 Mechanical Ventilator 40 11/23/17 23:05 98.1 72 19 110/66 (81) 95 104/53 (70) 11/23/17 23:00 72 11/23/17 23:00 93 40 11/23/17 22:14 98 40 11/23/17 20:00 70 11/23/17 19:54 94 70 11/23/17 19:30 92 Mechanical Ventilator 40 11/23/17 19:30 78 11/23/17 19:30 79.0 79 17 126/68 (87) 92 110/47 (68) 11/23/17 19:30 79 11/23/17 19:18 94 70 11/23/17 19:16 40 Intake & Output 11/24/17 11/24/17 06:59 18:59 Intake Total 5290 ml Output Total 3235 ml Balance 2055 ml Intake Oral 240 ml IV Total 800 ml Autotransfusion 500 ml Packed Cells 250 ml Other 3500 ml Output Urine Total 1785 ml Gastric Drainage Total 200 ml Chest Tube Drainage Total 250 ml Estimated Blood Loss 1000 ml # Bowel Movements 0 Physical Exam CONSTITUTIONAL/GENERAL: This is an adequately nourished patient, in no apparent distress, on mechanical ventilation. TUBES/LINES/DRAINS: Left subclavian sheath/ central line, chest tube, PIV, catheter. SKIN: No jaundice, rashes, or lesions. Midline dressing to chest. NOBLE dressings bilateral LEs. Ecchymoses on upper extremities. Skin temperature appropriate. Not diaphoretic. EYES: Pupils equal and reactive. ENT: Unable to assess hearing. no bleeding or drainage; oral mucosa difficult to visualize given multiple oral tubes CARDIOVASCULAR: RRR. RESPIRATORY/CHEST: Symmetric, unlabored respirations. Course breath sounds. chest tube, unable to visualize site due to position. GASTROINTESTINAL: Abdomen soft, protuberant. No guarding. Bowel sounds present. GENITOURINARY: Without palpable bladder distension. Catheter in place. MUSCULOSKELETAL: Extremities without clubbing or cyanosis. trace edema. NEUROLOGICAL: Awake and alert. Follows some simple and complex commands. Generalized weakness. PSYCHIATRIC: Awake and calm. . Diagnostic Tests Laboratory Laboratory Tests Test 11/21/17 16:34 11/22/17 03:36 11/23/17 03:50 11/24/17 04:32 Troponin I 0.04 NG/ML (0.02-0.05) White Blood Count 10.2 TH/MM3 (4.0-11.0) 9.2 TH/MM3 (4.0-11.0) 17.5 TH/MM3 (4.0-11.0) Red Blood Count 2.48 MIL/MM3 (4.50-5.90) 3.27 MIL/MM3 (4.50-5.90) 3.76 MIL/MM3 (4.50-5.90) Hemoglobin 7.8 GM/DL (13.0-17.0) 10.4 GM/DL (13.0-17.0) 11.5 GM/DL (13.0-17.0) Hematocrit 23.0 % (39.0-51.0) 29.6 % (39.0-51.0) 34.0 % (39.0-51.0) Mean Corpuscular Volume 92.7 FL (80.0-100.0) 90.4 FL (80.0-100.0) 90.6 FL (80.0-100.0) Mean Corpuscular Hemoglobin 31.6 PG (27.0-34.0) 31.7 PG (27.0-34.0) 30.6 PG (27.0-34.0) Mean Corpuscular Hemoglobin Concent 34.1 % (32.0-36.0) 35.0 % (32.0-36.0) 33.8 % (32.0-36.0) Red Cell Distribution Width 13.3 % (11.6-17.2) 13.5 % (11.6-17.2) 14.4 % (11.6-17.2) Platelet Count 304 TH/MM3 (150-450) 275 TH/MM3 (150-450) 279 TH/MM3 (150-450) Mean Platelet Volume 9.3 FL (7.0-11.0) 10.2 FL (7.0-11.0) 9.3 FL (7.0-11.0) Activated Partial Thromboplast Time 40.3 SEC (24.3-30.1) 35.7 SEC (24.3-30.1) Neutrophils (%) (Auto) 76.3 % (16.0-70.0) 90.4 % (16.0-70.0) Lymphocytes (%) (Auto) 13.3 % (9.0-44.0) 4.2 % (9.0-44.0) Monocytes (%) (Auto) 7.9 % (0.0-8.0) 5.3 % (0.0-8.0) Eosinophils (%) (Auto) 1.1 % (0.0-4.0) 0.0 % (0.0-4.0) Basophils (%) (Auto) 1.4 % (0.0-2.0) 0.1 % (0.0-2.0) Neutrophils # (Auto) 7.0 TH/MM3 (1.8-7.7) 15.9 TH/MM3 (1.8-7.7) Lymphocytes # (Auto) 1.2 TH/MM3 (1.0-4.8) 0.7 TH/MM3 (1.0-4.8) Monocytes # (Auto) 0.7 TH/MM3 (0-0.9) 0.9 TH/MM3 (0-0.9) Eosinophils # (Auto) 0.1 TH/MM3 (0-0.4) 0.0 TH/MM3 (0-0.4) Basophils # (Auto) 0.1 TH/MM3 (0-0.2) 0.0 TH/MM3 (0-0.2) CBC Comment DIFF FINAL DIFF FINAL Differential Comment Blood Urea Nitrogen 17 MG/DL (7-18) 30 MG/DL (7-18) Creatinine 1.35 MG/DL (0.60-1.30) 1.99 MG/DL (0.60-1.30) Random Glucose 163 MG/DL (74-106) 113 MG/DL (74-106) Calcium Level 8.7 MG/DL (8.5-10.1) 8.0 MG/DL (8.5-10.1) Sodium Level 134 MEQ/L (136-145) 136 MEQ/L (136-145) Potassium Level 3.9 MEQ/L (3.5-5.1) 5.4 MEQ/L (3.5-5.1) Chloride Level 100 MEQ/L (98-107) 102 MEQ/L (98-107) Carbon Dioxide Level 29.5 MEQ/L (21.0-32.0) 25.4 MEQ/L (21.0-32.0) Anion Gap 5 MEQ/L (5-15) 9 MEQ/L (5-15) Estimat Glomerular Filtration Rate 52 ML/MIN (>89) 33 ML/MIN (>89) Phosphorus Level 6.0 MG/DL (2.5-4.9) Magnesium Level 3.1 MG/DL (1.5-2.5) Result Diagram: 11/24/17 0432 11/24/17 0432 Microbiology Microbiology Date/Time Source Procedure Growth Status 11/10/17 19:35 Blood Peripheral Aerobic Blood Culture - Final NO GROWTH IN 5 DAYS Complete 11/10/17 19:35 Blood Peripheral Anaerobic Blood Culture - Final NO GROWTH IN 5 DAYS Complete 11/10/17 12:30 Sputum Endotracheal Gram Stain - Final Complete 11/10/17 12:30 Sputum Endotracheal Sputum Culture - Final MODERATE GROWTH NORMAL RESPIRATORY BENNY Complete 11/05/17 13:20 Urine Catheterized Urine Urine Culture - Final Klebsiella Oxytoca Complete Imaging Last Impressions Chest X-Ray 11/24/17 0500 Signed Impressions: Service Date/Time: Friday, November 24, 2017 04:11 - CONCLUSION: 1. Postoperative median sternotomy with central and left-sided chest tube. No pneumothorax. Basilar and perihilar air space disease relatively stable. Mandeep You MD Foot X-Ray 11/22/17134 Signed Impressions: Service Date/Time: Wednesday, November 22, 2017 02:13 - CONCLUSION: No acute disease. Sancho Ruiz MD Ankle X-Ray 11/22/17134 Signed Impressions: Service Date/Time: Wednesday, November 22, 2017 02:03 - CONCLUSION: No acute bony injury is seen. Sancho Ruiz MD Lower Extremity Ultrasound 11/17/17 0000 Signed Impressions: Service Date/Time: Friday, November 17, 2017 16:20 - CONCLUSION: Venous mapping as above. David Saenz MD Carotid Artery Ultrasound 11/17/17 Signed Impressions: Service Date/Time: Friday, November 17, 2017 15:50 - CONCLUSION: 1. Minimal plaquing in both carotid systems. 2. However, no sonographic or Doppler findings of a hemodynamically significant stenosis. Antegrade flow in both vertebrals. David Saenz MD Brain MRI 11/10/17 0000 Signed Impressions: Service Date/Time: Friday, November 10, 2017 14:05 - CONCLUSION: No acute intracranial process. Periventricular and deep white matter coalesced demyelinization most likely microvascular ischemic basis Octaviano Holland MD Abdomen X-Ray 11/10/17 0000 Signed Impressions: Service Date/Time: Friday, November 10, 2017 10:59 - CONCLUSION: No metallic radiopaque foreign bodies are present to preclude MRI. Sancho Clifford MD Head CT 11/04/172011 Signed Impressions: Service Date/Time: Saturday, November 04, 2017 22:10 - CONCLUSION: No acute disease. Mike Davalos MD Procedures * 11/04/17 - emergent intubation * 11/04/17 - right groin central line placement . Assessment and Plan Disease Oriented Problem List: (1) VF (ventricular fibrillation) (2) Cardiopulmonary arrest (3) Respiratory failure (4) Anoxic encephalopathy (5) Hyperglycemia Symptom Scale: (1) Pain 0-10 Scale: 6 Comment: Off sedation, no evidence of neurologic improvement. . (2) Dyspnea 0-10 Scale: Unable to quantify Comment: Continues on mechanical ventilation Pertinent Non-Medical Issues Psychosocial: . Spiritual: Jainism celine. Legal: Patient is incapacitated to make his own health care decision, unlikely he will regain capacity due to anoxic brain injury. In the absence of written advanced directives, according to [place] statutes, health care proxy decision making falls to his spouse. Ethical issues impacting care: Important Contacts * Katie Back, spouse/ HCP; (call this number 1st) or * Nargis Back, daughter: [phone] lives in [place], here until Thursday . Prognosis Mr. Back is a 72 year old male with hypoxic ischemic encephalopathy s/p out-of- hospital V. fib arrest. He remains intubated and encephalopathic, critically ill. Overall prognosis for meaningful recovery is poor. 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 . Code Status: Full Code Plan * Patient is capacitated to make his own health care decisions. If he loses capacity, according to [place] statutes, health care proxy decision making falls to his spouse. * FULL CODE * Goals remain aggressive. * SYMPTOMS: Pain: due to recent V. Fib arrest, resuscitation, tubes, CABG. Has PRN Oxycodone 5/325mg PO every 3 hours pain. 2 doses in the past 24 hours. Dyspnea: due to recent surgery, intubation, pneumonia etc. On Oxygen via NC. Weakness: continue PT/OT. No new medication recommendations at this time. * Palliative care will continue to follow to assist with symptom management and clarification of treatment goals throughout hospital course. . Attestation To help prompt me to consider important information that might be impacting today's encounter and assessment, information from prior notes written by myself or my colleagues may have been "brought forward" into today's note. My signature on this note, however, is an attestation that I personally performed the exam, history, and/or decision-making noted today, and, unless otherwise indicated, the interactions with patient, family, and staff as well as the review of records all occurred today. I also attest that the listed assessment and stated plan reflect my best clinical judgment today based on the combination of historical information, prior notes, and today's exam/ interactions. When time spent is documented, it refers only to time spent today by the signer, or if indicated, combined time spent today by collaborating physician/nurse practitioner. Kerri Lord Nov 24, 2017 14:55
--- NOTE | 2017-11-24 15:07 | HHI.PR ---
Subjective Remarks Follow-up for pneumonia, CABG, ankle pain Ankle pain is a lot better. Denies any chest pain, status post CABG, denies shortness of breath, fever or chills. On 4 L of oxygen. Objective Vitals Vital Signs Date Time Temp Pulse Resp B/P (MAP) Pulse Ox O2 Delivery O2 Flow Rate FiO2 11/24/17 11:23 64 11/24/17 11:23 97 Nasal Cannula 4.00 11/24/17 11:23 64 11/24/17 11:00 97.7 64 18 115/59 (77) 97 Arterial Line 11/24/17 10:22 98 Nasal Cannula 3.00 11/24/17 07:59 93 Nasal Cannula 6.00 11/24/17 07:24 91 Nasal Cannula 2.00 11/24/17 07:23 88 21 11/24/17 07:18 16 11/24/17 07:00 97.9 70 20 113/60 (77) 93 119/56 (77) 11/24/17 07:00 70 11/24/17 07:00 70 11/24/17 07:00 93 Nasal Cannula 4.00 11/24/17 03:35 95 Simple Mask 6.00 11/24/17 03:31 70 11/24/17 03:22 76 11/24/17 03:22 97.5 70 15 113/68 (83) 97 141/66 (91) 11/24/17 03:22 98 Simple Mask 7.00 11/24/17 01:33 96 Nasal Cannula 4.00 11/24/17 01:30 96 Nasal Cannula 4 11/24/17 00:45 96 40 11/24/17 00:29 70 11/23/17 23:05 77 11/23/17 23:05 95 Mechanical Ventilator 40 11/23/17 23:05 98.1 72 19 110/66 (81) 95 104/53 (70) 11/23/17 23:00 72 11/23/17 23:00 93 40 11/23/17 22:14 98 40 11/23/17 20:00 70 11/23/17 19:54 94 70 11/23/17 19:30 92 Mechanical Ventilator 40 11/23/17 19:30 78 11/23/17 19:30 79.0 79 17 126/68 (87) 92 110/47 (68) 11/23/17 19:30 79 11/23/17 19:18 94 70 11/23/17 19:16 40 I/O 11/23/17 11/23/17 11/23/17 11/24/17 11/24/17 11/24/17 07:00 15:00 23:00 07:00 15:00 23:00 Intake Total 490 ml 4350 ml 940 ml Output Total 1330 ml 1675 ml 1835 ml Balance -840 ml 2675 ml -895 ml Intake Oral 240 ml 0 ml 240 ml IV Total 250 ml 100 ml 700 ml Autotransfusion 500 ml Packed Cells 250 ml Other 3500 ml Output Urine Total 1330 ml 675 ml 1385 ml Gastric Drainage Total 200 ml Chest Tube Drainage Total 250 ml Estimated Blood Loss 1000 ml # Bowel Movements 1 1 0 Result Diagram: 11/24/1743111/24/17431 Objective Remarks General: Not in distress, appears weak. Heart: Regular rate and rhythm. No murmur. Lungs: Clear to auscultation bilaterally. No wheezes, rales, or rhonchi. Breathing is nonlabored. Chest tube in place Abdomen: Soft, nontender, nondistended. Extremities: Bilateral lower extremities in [place] band. Alert awake and oriented 3, no focal deficits. A/P Problem List: (1) Coronary artery disease ICD Code: I25.10 - Atherosclerotic heart disease of [place] coronary artery without angina pectoris (2) Cardiopulmonary arrest ICD Code: I46.9 - Cardiac arrest, cause unspecified Status: Acute (3) Respiratory failure ICD Code: J96.90 - Respiratory failure, unspecified, unspecified whether with hypoxia or hypercapnia Status: Acute (4) VF (ventricular fibrillation) ICD Code: I49.01 - Ventricular fibrillation Status: Acute Assessment and Plan This is a 72-year-old male being treated for coronary artery disease, ventricular fibrillation and pneumonia Coronary artery disease, ventricular fibrillation cardiac arrest: Status post hypothermia protocol. Ischemic workup including cardiac catheterization shows severe multivessel coronary artery disease. Status post CABG 11/23/17. Continue amiodarone. Stopped Coreg and lisinopril because of bradycardia and renal insufficiency. improved. Morphine as needed. Continue statins. Acute hypoxic and hypercarbic respiratory failure: Resolved. Patient extubated on 11/13/17. Continue oxygen, bronchodilators as needed. Community-acquired Klebsiella UTI: Completed course of antibiotics ( ciprofloxacin). Coag negative staph bacteremia: Likely contaminant. Pneumonia: Sputum culture growing Moraxella catarrhalis, strep pneumonia, both should be sensitive to Levaquin. Blood cultures are negative. Leukocytosis has resolved. Patient had low-grade fever overnight, follow-up blood culture, Repeat chest x-ray shows persistent opacities consistent with pneumonia. Continue Levaquin, continue duo nebs. Repeat CBC tomorrow. Acute kidney injury: Creatinine creeping up, recheck BMP tomorrow. Diabetes mellitus: Monitor Accu-Cheks and cover with sliding scale insulin. A1c is 9.2. Continue Levemir. Hypertension: Controlled, off Coreg, lisinopril because of bradycardia and renal insufficiency Anemia: H/H improved following transfusion of 2 units PRBCs. Stool hemoccult pending. Right foot/ankle pain: X-rays show no acute bony injury. Pain is improved today. Appreciate podiatry recommendations, follow-up as outpatient. GI prophylaxis: PPI. DVT prophylaxis: Per surgery Discharge Planning Will eventually need rehabilitation when medically ready Problem Qualifiers (1) Respiratory failure: Qualified Codes: J96.00 - Acute respiratory failure, unspecified whether with hypoxia or hypercapnia Diaz Cardenas MD Nov 24, 2017 15:07
[2017-11-24] MEDS: ATORVASTATIN 40 MG TAB PO SCH (21:43)
[2017-11-24] MEDS: SENNOSIDES 8.6 MG TAB PO SCH (21:43)
[2017-11-25] VITALS (10 sets, daily range): BP systolic 112–136; BP diastolic 55–78; PULSE 60–88; RESP 16–24; TEMP 97.6–98.8; O2SAT 95–99
--- NOTE | 2017-11-25 00:32 | EKG ---
Date Performed: 11/24/2017 Time Performed: 04:40:24 PTAGE: 72 years EKG: Atrial pacing Prolonged QT interval Possible inferior infarct - age undetermined Abnormal E CG PREVIOUS TRACING : 11/21/2017 15.48 Compared to prior tracing, now atrial paced DOCTOR: Dima Guadarrama Interpretating Date/Time 11/25/2017 00:31:54
[2017-11-25] MEDS: oxyCODONE/ACETAMINOPHEN 5 MG/325 MG TAB PO PRN ×4 (01:35→22:00)
[2017-11-25] MEDS: INSULIN ASPART SUPPLEMENTAL SCALE SQ SCH ×5 (01:36→21:00)
[2017-11-25] MEDS: RESP: ALBUTEROL 2.5 MG/IPRATROPIUM 0.5 MG NEB (SCH) NEB ×4 (03:22→20:13)
[2017-11-25 04:57] LABS: BASOPHIL % 0.2 % (0.0-2.0); EOSINOPHIL % 0.1 % (0.0-4.0); HEMATOCRIT 29.7 % (39.0-51.0); LYMPH % 7.6 % (9.0-44.0); MEAN CELL VOLUME 91.7 FL (80.0-100.0); MEAN CORPUSCULAR HGB CONC 33.8 % (32.0-36.0); MEAN PLATELET VOLUME 9.3 FL (7.0-11.0); MONO % 8.5 % (0.0-8.0); MONOCYTE # 1.1 TH/MM3 (0-0.9); NEUT % 83.6 % (16.0-70.0); PLATELET COUNT 269 TH/MM3 (150-450); RED BLOOD COUNT 3.24 MIL/MM3 (4.50-5.90); RED CELL DISTRIBUTION WIDTH 14.1 % (11.6-17.2); WHITE BLOOD COUNT 13.1 TH/MM3 (4.0-11.0)
[2017-11-25 05:10] LABS: BICARBONATE 27.2 MEQ/L (21.0-32.0); CALCIUM 7.7 MG/DL (8.5-10.1); CREATININE 2.34 MG/DL (0.60-1.30); MAGNESIUM 2.9 MG/DL (1.5-2.5)
[2017-11-25] MEDS: PANTOPRAZOLE SOD 40 MG DELAYED RELEASE TAB PO SCH (06:36)
[2017-11-25] MEDS ORDERED: MIDAZOLAM HCL 2 MG/2 ML VIAL ONE (08:09)
[2017-11-25] MEDS: POLYETHYLENE GLYCOL 17 GM PKG PO SCH (09:10)
[2017-11-25] MEDS: LACTOBACILLUS ACIDOPHILUS TAB PO SCH ×2 (09:10→21:59)
[2017-11-25] MEDS: DOCUSATE SODIUM 50 MG/SENNA 8.6 MG TAB PO SCH ×2 (09:11→22:00)
[2017-11-25] MEDS: ASPIRIN 81 MG CHEW TAB PO SCH (09:12)
[2017-11-25] MEDS: AMIODARONE 200 MG TAB PO SCH ×2 (09:12→22:00)
[2017-11-25] MEDS: MULTIVITAMINS/MINERALS THERAPEUTIC TAB PO SCH (09:12)
[2017-11-25] MEDS: SODIUM CHLORIDE 0.9% FLUSH 10 ML FLUSH IV FLUSH SCH ×2 (09:20→21:00)
[2017-11-25] MEDS: ARTIFICIAL TEARS OPTH SOLN 15 ML BTL EACH EYE SCH ×3 (09:22→18:23)
--- NOTE | 2017-11-25 11:02 | PD.CONS ---
HPI Service Nephrology Consult Requested By Dakota Beavers NP Reason for Consult GINO on CKD Primary Care Physician No Primary Care Physician History of Present Illness Patient is a 72-year-old male was brought in by EMS after patient had a cardiopulmonary arrest. Patient's rhythm was found to be in V. fib and the patient was defibrillated and hypothermic cooling was used. He is s/p CABG X 5 on the . VSS, afebrile with O2 at 3 liters. Nephrology was consulted for rising creatinine at 2.34 today and GFR 28 ml/min. He denies any previous history of kidney disease and has not been followed by nephrology in the past. He is non-oliguric. Potassium WNL. (Ana Reyes) Review of Systems Constitutional: COMPLAINS OF: Fatigue Respiratory: DENIES: Shortness of breath Cardiovascular: COMPLAINS OF: Chest pain, DENIES: Lower Extremity Edema Gastrointestinal: DENIES: Diarrhea, Nausea, Vomiting (Ana Reyes) Past Family Social History Allergies: Coded Allergies: No Known Allergies (Verified Allergy, Unknown, 11/07/17) Past Medical History CAD with stent placement Past Surgical History appendectomy Active Ordered Medications Current Medications Medications (Trade) Dose Ordered Sig/Juan Route Start Time Stop Time Status Last Admin (Tears Naturale Opth Soln) 1 drop TID EACH EYE 11/05/17 09:00 11/25/17 09:22 (Ashley-Colace) 1 tab BID PO 11/05/17 09:00 11/25/17 09:11 (Milk Of Magnesia Liq) 30 ml Q12H PRN PO 11/04/17 22:00 (Dulcolax Supp) 10 mg DAILY PRN RECTAL 11/04/17 22:00 (Lactulose Liq) 30 ml DAILY PRN PO 11/04/17 22:00 Miscellaneous Information ml @ 0 mls/hr UNSCH IV 11/05/17 01:15 (Lacrilube Opht Oint) 1 applic Q4H PRN EACH EYE 11/05/17 01:15 (Lactinex) 1 tab Q12HR PO 11/07/17 12:45 11/25/17 09:10 (Pill Splitter) 1 ea UNSCH PRN OTHER 11/14/17 09:00 (Lipitor) 40 mg HS PO 11/18/17 21:00 11/24/17 21:43 (Cordarone) 200 mg BID PO 11/20/17 21:00 11/25/17 09:12 (NS Flush) 2 ml BID IV FLUSH 11/23/17 21:00 11/25/17 09:20 (NS Flush) 2 ml UNSCH PRN IV FLUSH 11/23/17 18:45 (Aspirin Chew) 81 mg DAILY PO 11/24/17 09:00 11/25/17 09:12 (Protonix) 40 mg DAILY@06 PO 11/24/17 06:00 11/25/17 06:36 (Tylenol) 650 mg Q4H PRN PO 11/23/17 18:45 (Percocet 5-325 Mg) 1 tab Q3H PRN PO 11/23/17 18:45 11/25/17 09:11 (Zofran Inj) 4 mg Q6H PRN IV PUSH 11/23/17 18:45 (Apresoline Inj) 10 mg Q4H PRN IV PUSH 11/23/17 18:45 (D50w (Vial) Inj) 50 ml UNSCH PRN IV PUSH 11/23/17 18:45 (Duoneb Neb) 1 ampule Q6HR NEB NEB 11/23/17 22:00 11/24/17 16:48 (Duoneb Neb) 1 ampule Q2HR NEB PRN NEB 11/23/17 18:45 11/23/17 19:53 (Duoneb Neb) 1 ampule Q6HR WHILE AWAKE NEB NEB 11/24/17 14:00 11/26/17 13:59 11/25/17 07:33 (Theragran M Tab) 1 tab DAILY PO 11/25/17 09:00 11/25/17 09:12 (Dulcolax Supp) 10 mg UNSCH PRN RECTAL 11/24/17 09:15 (Miralax) 17 gm DAILY PO 11/25/17 09:00 11/25/17 09:10 (Senokot) 8.6 mg HS PO 11/24/17 21:00 11/24/17 21:43 (Fleets Enema (Adult)) 118 ml UNSCH PRN RECTAL 11/26/17 09:00 (D50w (Vial) Inj) 50 ml UNSCH PRN IV PUSH 11/24/17 09:15 (Glucagon Inj) 1 mg UNSCH PRN OTHER 11/24/17 09:15 (NovoLOG SUPPLEMENTAL SCALE) 1 ACHS SQ 11/25/17 12:00 Levofloxacin/ Dextrose 150 ml @ 100 mls/hr Q48H IV 11/26/17 11:00 Family History No family history of kidney disease Social History Quit smoking in 1991 Denies ETOH or illicit drug use Lives with (Ana Reyes ANA) Physical Exam Vital Signs Vital Signs Date Time Temp Pulse Resp B/P (MAP) Pulse Ox O2 Delivery O2 Flow Rate FiO2 11/25/17 07:33 95 Nasal Cannula 3.00 11/25/17 07:00 73 11/25/17 07:00 73 11/25/17 07:00 95 Nasal Cannula 3.00 11/25/17 07:00 98.2 73 24 136/68 (90) 95 11/25/17 03:19 16 11/25/17 03:00 98.3 69 16 117/69 (85) 96 11/25/17 03:00 97 Nasal Cannula 3.00 11/25/17 03:00 63 11/25/17 03:00 70 11/25/17 00:00 97.8 63 16 112/55 (74) 97 11/25/17 00:00 61 11/25/17 00:00 60 11/25/17 00:00 97 Nasal Cannula 3.00 11/24/17 20:46 94 Nasal Cannula 3.00 11/24/17 19:00 61 11/24/17 19:00 98.0 61 16 110/55 (73) 95 11/24/17 19:00 95 Nasal Cannula 3.00 11/24/17 19:00 62 11/24/17 15:00 97.8 63 18 120/54 (76) 97 11/24/17 15:00 63 11/24/17 15:00 63 11/24/17 15:00 97 Nasal Cannula 4.00 11/24/17 11:23 64 11/24/17 11:23 97 Nasal Cannula 4.00 11/24/17 11:23 64 11/24/17 11:00 97.7 64 18 115/59 (77) 97 Arterial Line Physical Exam GENERAL: alert and oriented SKIN: Warm and dry. Drg on chest wall, CT HEAD: Normocephalic. EYES: No scleral icterus. No injection or drainage. NECK: Supple, trachea midline. No JVD or lymphadenopathy. CARDIOVASCULAR: Regular rate and rhythm without murmurs, gallops, or rubs. RESPIRATORY: Breath sounds equal bilaterally. No accessory muscle use. GASTROINTESTINAL: Abdomen soft, non-tender, nondistended. MUSCULOSKELETAL: No cyanosis, or edema. BACK: Nontender without obvious deformity. No CVA tenderness. Laboratory Laboratory Tests Test 11/25/17 04:20 White Blood Count 13.1 Red Blood Count 3.24 Hemoglobin 10.0 Hematocrit 29.7 Mean Corpuscular Volume 91.7 Mean Corpuscular Hemoglobin 31.0 Mean Corpuscular Hemoglobin Concent 33.8 Red Cell Distribution Width 14.1 Platelet Count 269 Mean Platelet Volume 9.3 Neutrophils (%) (Auto) 83.6 Lymphocytes (%) (Auto) 7.6 Monocytes (%) (Auto) 8.5 Eosinophils (%) (Auto) 0.1 Basophils (%) (Auto) 0.2 Neutrophils # (Auto) 11.0 Lymphocytes # (Auto) 1.0 Monocytes # (Auto) 1.1 Eosinophils # (Auto) 0.0 Basophils # (Auto) 0.0 CBC Comment DIFF FINAL Differential Comment Blood Urea Nitrogen 40 Creatinine 2.34 Random Glucose 113 Calcium Level 7.7 Magnesium Level 2.9 Sodium Level 133 Potassium Level 4.9 Chloride Level 96 Carbon Dioxide Level 27.2 Anion Gap 10 Estimat Glomerular Filtration Rate 28 Date/Time Source Procedure Growth Status 11/10/17 19:35 Blood Peripheral Aerobic Blood Culture - Final NO GROWTH IN 5 DAYS Complete 11/10/17 19:35 Blood Peripheral Anaerobic Blood Culture - Final NO GROWTH IN 5 DAYS Complete 11/10/17 12:30 Sputum Endotracheal Gram Stain - Final Complete 11/10/17 12:30 Sputum Endotracheal Sputum Culture - Final MODERATE GROWTH NORMAL RESPIRATORY BENNY Complete 11/05/17 13:20 Urine Catheterized Urine Urine Culture - Final Klebsiella Oxytoca Complete (Ana Reyes) Result Diagram: 11/25/1741911/25/17419 Assessment and Plan Problem List: (1) acute kidney injury Plan: GINO from possible prerenal vs ATN with recent CABG Patient denies any previous history of kidney disease and baseline GFR is not available. UA on admission negative for proteinuria. Potassium and phosphorus was elevated yesterday. Normal today. No edema noted Plan Renal US Hold lasix Continue to monitor I+O Monitor labs. Avoid nephrotoxins. (2) S/P CABG x 5 ICD Codes: Z95.1 - Presence of aortocoronary bypass graft (3) Systolic and diastolic CHF, acute ICD Codes: I50.41 - Acute combined systolic (congestive) and diastolic ( congestive) heart failure (Ana Reyes) Problem List: (1) acute kidney injury Plan: GINO from possible prerenal vs ATN with recent CABG Patient denies any previous history of kidney disease and baseline GFR is not available. UA on admission negative for proteinuria. Potassium and phosphorus was elevated yesterday. Normal today. No edema noted Plan Renal US Hold lasix Continue to monitor I+O Monitor labs. Avoid nephrotoxins. Patient seen and examined, agree with above. Started taking oral liquids, now the BP is better. Non oliguric, avoid Nephrotoxins, and follow the BMP. (2) S/P CABG x 5 ICD Codes: Z95.1 - Presence of aortocoronary bypass graft (3) Systolic and diastolic CHF, acute ICD Codes: I50.41 - Acute combined systolic (congestive) and diastolic ( congestive) heart failure (Jenny oJseph MD) Ana Reyes Nov 25, 2017 11:02 Jenny Joseph MD Nov 25, 2017 12:07
[2017-11-25 12:40] LABS: BACTERIA, URINE RARE /hpf; BILIRUBIN, URINE NEG (NEG); BLOOD, URINE NEG (NEG); GLUCOSE,URINE NEG (NEG); HYALINE CAST, URINE 6 /lpf (RARE); KETONE, URINE NEG (NEG); MUCUS URINE FEW /lpf (OCC); NITRITE,URINE NEG (NEG); SQUAMOUS EPITHELIAL CELL URINE <1 /hpf (0-5); URINE COLOR YELLOW (YELLW/STRAW); URINE LEUKOCYTE ESTERASE NEG (NEG)
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
--- NOTE | 2017-11-25 14:36 | RADRPT ---
EXAM DATE/TIME: 11/25/2017 14:09 [facility] COMPARISON: CHEST SINGLE AP, November 24, 2017, 4:11. INDICATIONS : Short of breath. MEDICAL HISTORY : None. SURGICAL HISTORY : None. ENCOUNTER: Initial ACUITY: 1 week PAIN SCORE: 0/10 LOCATION: Bilateral chest FINDINGS: A single AP erect portable view of the chest was obtained. Study is Midinspiratory with patchy opacit y at the lung bases. The previously noted left-sided chest tube has been removed with no pneumothorax . There is a left subclavian central venous line remain in place. The patient is status post median s ternotomy and the heart size is mildly prominent with no perihilar edema. CONCLUSION: 1. Interval removal of the left-sided chest tube with no pneumothorax. 2. Midinspiratory study with apparent atelectasis in the lung bases. Alfredo Gonzales MD on November 25, 2017 at 14:32 Board Certified Radiologist. This report was verified electronically.
--- NOTE | 2017-11-25 16:11 | HHI.PR ---
Subjective Remarks Patient is status post CABG on 11/23/17. Renal function shows a creatinine change from 1.9922 0.3 for today. Blood sugars are controlled. White blood cell count has a downward trend. Objective Vital Signs Date Time Temp Pulse Resp B/P (MAP) Pulse Ox O2 Delivery O2 Flow Rate FiO2 11/25/17 15:00 67 11/25/17 15:00 99 Nasal Cannula 3.00 11/25/17 15:00 98.4 67 24 125/67 (86) 99 11/25/17 11:00 98.0 75 22 136/78 (97) 96 11/25/17 11:00 95 Nasal Cannula 3.00 11/25/17 11:00 73 11/25/17 07:33 95 Nasal Cannula 3.00 11/25/17 07:00 73 11/25/17 07:00 73 11/25/17 07:00 95 Nasal Cannula 3.00 11/25/17 07:00 98.2 73 24 136/68 (90) 95 11/25/17 03:19 16 11/25/17 03:00 98.3 69 16 117/69 (85) 96 11/25/17 03:00 97 Nasal Cannula 3.00 11/25/17 03:00 63 11/25/17 03:00 70 11/25/17 00:00 97.8 63 16 112/55 (74) 97 11/25/17 00:00 61 11/25/17 00:00 60 11/25/17 00:00 97 Nasal Cannula 3.00 11/24/17 20:46 94 Nasal Cannula 3.00 11/24/17 19:00 61 11/24/17 19:00 98.0 61 16 110/55 (73) 95 11/24/17 19:00 95 Nasal Cannula 3.00 11/24/17 19:00 62 I/O 11/24/17 11/24/17 11/24/17 11/25/17 11/25/17 11/25/17 07:00 15:00 23:00 07:00 15:00 23:00 Intake Total 940 ml 317 ml 1780 ml 680 ml 100 ml Output Total 1835 ml 1150 ml 1800 ml Balance -895 ml 317 ml 630 ml -1120 ml 100 ml Intake Oral 240 ml 1680 ml 480 ml IV Total 700 ml 317 ml 100 ml 200 ml 100 ml Output Urine Total 1385 ml 1000 ml 900 ml Gastric Drainage Total 200 ml 0 ml Chest Tube Drainage Total 250 ml 150 ml 900 ml # Bowel Movements 0 0 0 Result Diagram: 11/25/1741911/25/17419 Objective Remarks GENERAL: NAD, A&Ox3 HEAD: Normocephalic. NECK: Supple, trachea midline. No lymphadenopathy. EYES: No scleral icterus. No injection or drainage. CARDIOVASCULAR: Regular rate and rhythm without murmurs, gallops, or rubs. RESPIRATORY: Breath sounds equal bilaterally. No accessory muscle use. GASTROINTESTINAL: Abdomen soft, non-tender, nondistended. MUSCULOSKELETAL: No cyanosis, or edema. Sternal wound. SKIN: Warm and dry. NEURO: No focal neurological deficitis. A/P Problem List: (1) S/P CABG x 5 ICD Code: Z95.1 - Presence of aortocoronary bypass graft (2) acute kidney injury Assessment and Plan 72-year-old male admitted secondary to ventricular fibrillation and pneumonia with coronary artery disease, now status post CABG on 11/23/17 Status post CABGx5, 11/23/17 CAD Acute V-fib (at admit) Cartia thoracic surgery following Continue monitoring postop Continue physical therapy Acute hypoxia Hypercarbic respiratory failure Resolved Patient extubated 11/13/17 Continue oxygen as needed Klebsiella UTI Ciprofloxacin was provided as a treatment and treatment completed Community-acquired pneumonia Continue Levaquin Continue oxygen Continue to monitor CBC Acute kidney injury Slight upper trend No drastic changes Continue to monitor renal function Diabetes mellitus type 2 Follow blood sugars Insulin sliding scale Diabetic diet Hypertension Continue baseline treatment Follow blood pressures Adjust treatments as needed Coreg and lisinopril on hold secondary to bradycardia DVT prophylaxis Per surgical discretion Discharge planning Anticipate possible need for SNF Reggie Guadalupe MD Nov 25, 2017 16:11
--- NOTE | 2017-11-25 20:32 | RADRPT ---
EXAM DATE/TIME: 11/25/2017 19:09 [facility] COMPARISON: No previous studies available for comparison. INDICATIONS : Increased BUN/creatinine. MEDICAL HISTORY : Myocardial infarction. Gastroesophageal reflux disease. Coronary artery disease. Cardiopulmonary ar rest. Respiratory failure. Ventricular fibrillation. Dyspnea. SURGICAL HISTORY : CABG. Cardiac cath. Cardiac stent. ENCOUNTER: Initial ACUITY: 1 day PAIN SCORE: 5/10 LOCATION: Bilateral flank MEASUREMENTS: RIGHT KIDNEY: 12.5 x 5.6 x 6.1 cm LEFT KIDNEY: 13.1 x 5.9 x 5.6 cm FINDINGS: RIGHT KIDNEY: Renal cortex is normal in thickness and echotexture. No hydronephrosis, stone, or mass. LEFT KIDNEY: Renal cortex is normal in thickness and echotexture. No hydronephrosis, stone, or mass. BLADDER: Within normal limits given the degree of distension. CONCLUSION: No acute disease. Dago Garcia MD on November 25, 2017 at 20:29 Board Certified Radiologist. This report was verified electronically.
[2017-11-25] MEDS: ATORVASTATIN 40 MG TAB PO SCH (21:59)
[2017-11-25] MEDS: SENNOSIDES 8.6 MG TAB PO SCH (21:59)
[2017-11-25] MEDS: CARVEDILOL 3.125 MG TAB PO SCH (22:00)
[2017-11-26] VITALS (20 sets, daily range): BP systolic 118–146; BP diastolic 60–84; PULSE 62–82; RESP 16–22; TEMP 97.5–98.7; O2SAT 95–98
[2017-11-26 05:24] LABS: AUTOMATED NEUTROPHIL # 8.2 TH/MM3 (1.8-7.7); BASOPHIL % 0.2 % (0.0-2.0); EOSINOPHIL % 0.4 % (0.0-4.0); HEMATOCRIT 28.5 % (39.0-51.0); HEMOGLOBIN 9.7 GM/DL (13.0-17.0); LYMPH % 6.9 % (9.0-44.0); LYMPHOCYTE # 0.7 TH/MM3 (1.0-4.8); MEAN CELL VOLUME 91.7 FL (80.0-100.0); MEAN CORPUSCULAR HEMOGLOBIN 31.2 PG (27.0-34.0); MEAN CORPUSCULAR HGB CONC 34.1 % (32.0-36.0); MEAN PLATELET VOLUME 9.3 FL (7.0-11.0); MONO % 7.6 % (0.0-8.0); MONOCYTE # 0.7 TH/MM3 (0-0.9); NEUT % 84.9 % (16.0-70.0); PLATELET COUNT 236 TH/MM3 (150-450); RED CELL DISTRIBUTION WIDTH 14.2 % (11.6-17.2); WHITE BLOOD COUNT 9.6 TH/MM3 (4.0-11.0)
[2017-11-26 05:43] LABS: AST (GOT) 25 U/L (15-37); BICARBONATE 29.4 MEQ/L (21.0-32.0); BLOOD UREA NITROGEN 34 MG/DL (7-18); CALCIUM 8.4 MG/DL (8.5-10.1); CHLORIDE 98 MEQ/L (98-107); GLOMERULAR FILTRATION RATE 37 ML/MIN (>89); GLUCOSE,RANDOM 130 MG/DL (74-106); SODIUM (NA) 133 MEQ/L (136-145)
[2017-11-26 05:44] LABS: ALT (GPT) 16 U/L (12-78)
--- NOTE | 2017-11-26 05:44 | RADRPT ---
EXAM DATE/TIME: 11/26/2017 03:53 [facility] COMPARISON: CHEST SINGLE AP, November 25, 2017, 14:09. INDICATIONS : Shortness of breath, possible pulmonary disease. MEDICAL HISTORY : Myocardial infarction. Gastroesophageal reflux disease. CAD SURGICAL HISTORY : CABG. Coronary artery stent. ENCOUNTER: Subsequent ACUITY: 3 weeks PAIN SCORE: 0/10 LOCATION: Bilateral chest FINDINGS: A single view of the chest demonstrates interstitial prominence and subsegmental basilar airspace dis ease. No effusion or pneumothorax. Previous median sternotomy. A left central line in superior vena c shirley. CONCLUSION: 1. Mild basilar airspace disease stable to slightly improved from November 25. No new infiltrate or ef fusion. Mandeep You MD on November 26, 2017 at 5:41 Board Certified Radiologist. This report was verified electronically.
[2017-11-26 05:57] LABS: ALKALINE PHOSPHATASE 97 U/L (45-117); PHOSPHORUS 4.3 MG/DL (2.5-4.9); TOTAL BILIRUBIN ADULT 0.5 MG/DL (0.2-1.0); TOTAL PROTEIN 6.2 GM/DL (6.4-8.2)
[2017-11-26] MEDS: PANTOPRAZOLE SOD 40 MG DELAYED RELEASE TAB PO SCH (06:06)
[2017-11-26] MEDS: RESP: ALBUTEROL 2.5 MG/IPRATROPIUM 0.5 MG NEB (SCH) NEB ×3 (08:01→20:50)
[2017-11-26] MEDS: INSULIN ASPART SUPPLEMENTAL SCALE SQ SCH ×4 (08:20→20:38)
[2017-11-26] MEDS: POLYETHYLENE GLYCOL 17 GM PKG PO SCH (08:20)
[2017-11-26] MEDS: ASPIRIN 81 MG CHEW TAB PO SCH (08:20)
[2017-11-26] MEDS: DOCUSATE SODIUM 50 MG/SENNA 8.6 MG TAB PO SCH ×2 (08:20→20:35)
[2017-11-26] MEDS: AMIODARONE 200 MG TAB PO SCH ×2 (08:20→20:34)
[2017-11-26] MEDS: LACTOBACILLUS ACIDOPHILUS TAB PO SCH ×2 (08:20→20:34)
[2017-11-26] MEDS: MULTIVITAMINS/MINERALS THERAPEUTIC TAB PO SCH (08:20)
[2017-11-26] MEDS: ARTIFICIAL TEARS OPTH SOLN 15 ML BTL EACH EYE SCH ×3 (08:21→16:45)
[2017-11-26] MEDS: CARVEDILOL 3.125 MG TAB PO SCH ×2 (08:21→20:34)
[2017-11-26] MEDS: SODIUM CHLORIDE 0.9% FLUSH 10 ML FLUSH IV FLUSH SCH ×2 (08:21→20:35)
[2017-11-26] MEDS ORDERED: SOD PHOSPHATE/SOD BIPHOSPHATE (ADULT) ENEMA 133ML RECTAL PRN (09:00)
[2017-11-26] MEDS ORDERED: LEVOFLOXACIN 750 MG PREMIX INJ 150 ML IV SCH (11:00)
--- NOTE | 2017-11-26 12:07 | HHI.PR ---
Subjective Remarks Patient is status post CABG on 11/23/17. Tubes removed today. Patient is doing well with PT. Renal function shows improvement now with a downward trend in his creatinine. This is a good sign and further suggests that his elevation in creatinine was transient and related to acute cardiac change and/or surgery. Blood sugars are controlled. White blood cell count has a downward trend. Objective Vital Signs Date Time Temp Pulse Resp B/P (MAP) Pulse Ox O2 Delivery O2 Flow Rate FiO2 11/26/17 11:00 75 11/26/17 11:00 98.7 81 22 131/60 (83) 96 11/26/17 11:00 96 Nasal Cannula 2.00 11/26/17 10:00 64 11/26/17 09:00 82 11/26/17 08:01 98 Nasal Cannula 2.00 11/26/17 08:00 76 11/26/17 07:30 98.1 81 22 118/84 (95) 97 11/26/17 07:30 97 Nasal Cannula 2.00 11/26/17 07:30 75 11/26/17 03:00 98 Nasal Cannula 2.00 11/26/17 03:00 79 11/26/17 03:00 97.5 79 16 128/61 (83) 98 11/25/17 23:00 88 11/25/17 23:00 97 Nasal Cannula 3.00 11/25/17 23:00 16 11/25/17 23:00 98.0 88 16 127/59 (81) 95 11/25/17 20:13 97 Nasal Cannula 3.00 11/25/17 19:00 75 11/25/17 19:00 98.8 75 16 130/60 (83) 98 11/25/17 19:00 98 Nasal Cannula 3.00 11/25/17 18:15 97.6 74 18 136/60 (85) 99 11/25/17 15:00 67 11/25/17 15:00 99 Nasal Cannula 3.00 11/25/17 15:00 98.4 67 24 125/67 (86) 99 I/O 11/25/17 11/25/17 11/25/17 11/26/17 11/26/17 11/26/17 07:00 15:00 23:00 07:00 15:00 23:00 Intake Total 680 ml 100 ml 480 ml Output Total 1800 ml 500 ml Balance -1120 ml 100 ml -20 ml Intake Oral 480 ml 480 ml IV Total 200 ml 100 ml Output Urine Total 900 ml 500 ml Chest Tube Drainage Total 900 ml # Voids 4 # Bowel Movements 0 Result Diagram: 11/26/175 11/26/175 Objective Remarks GENERAL: NAD, A&Ox3 HEAD: Normocephalic. NECK: Supple, trachea midline. No lymphadenopathy. EYES: No scleral icterus. No injection or drainage. CARDIOVASCULAR: Regular rate and rhythm without murmurs, gallops, or rubs. RESPIRATORY: Breath sounds equal bilaterally. No accessory muscle use. GASTROINTESTINAL: Abdomen soft, non-tender, nondistended. MUSCULOSKELETAL: No cyanosis, or edema. Sternal wound. SKIN: Warm and dry. NEURO: No focal neurological deficitis. A/P Problem List: (1) S/P CABG x 5 ICD Code: Z95.1 - Presence of aortocoronary bypass graft (2) acute kidney injury Assessment and Plan 72-year-old male admitted secondary to ventricular fibrillation and pneumonia with coronary artery disease, now status post CABG on 11/23/17. Labs reviewed. Continue to monitor CBC to ensure no progressive anemia and further stability white blood cell count and renal function. Labs ordered further monitoring. Status post CABGx5, 11/23/17 CAD Acute V-fib (at admit) Cartia thoracic surgery following Continue monitoring postop Continue physical therapy Acute hypoxia Hypercarbic respiratory failure Resolved Patient extubated 11/13/17 Continue oxygen as needed Klebsiella UTI Ciprofloxacin was provided as a treatment and treatment completed Community-acquired pneumonia Continue Levaquin Continue oxygen Continue to monitor CBC Acute kidney injury Slight upper trend No drastic changes Continue to monitor renal function Diabetes mellitus type 2 Follow blood sugars Insulin sliding scale Diabetic diet Hypertension Continue baseline treatment Follow blood pressures Adjust treatments as needed Coreg and lisinopril on hold secondary to bradycardia DVT prophylaxis Per surgical discretion Discharge planning Anticipate possible need for SNF Reggie Guadalupe MD Nov 26, 2017 12:07
--- NOTE | 2017-11-26 12:50 | HHI.NPPN ---
Subjective History of Present Illness Patient is a 72-year-old male was brought in by EMS after patient had a cardiopulmonary arrest. Patient's rhythm was found to be in V. fib and the patient was defibrillated and hypothermic cooling was used. He is s/p CABG X 5 on the . VSS, afebrile with O2 at 3 liters. Nephrology was consulted for rising creatinine at 2.34 today and GFR 28 ml/min. He denies any previous history of kidney disease and has not been followed by nephrology in the past. He is non-oliguric. Potassium WNL. Additional Remarks Patient OOB in chair. Denies any SOB, minimal edema (Ana Reyes) Review of Systems Respiratory Respiratory Remarks Denies any SOb (Ana Reyes) Cardiovascular Cardiac Remarks Denies CP (Ana Reyes) Gastrointestinal GI Remarks Denies abdominal pain (Ana Reyes) Genitourinary Remarks Denies any dysuria (Ana Reyes) Objective Data Data Vital Signs Date Time Temp Pulse Resp B/P (MAP) Pulse Ox O2 Delivery O2 Flow Rate FiO2 11/26/17 12:00 62 11/26/17 11:00 75 11/26/17 11:00 98.7 81 22 131/60 (83) 96 11/26/17 11:00 96 Nasal Cannula 2.00 11/26/17 10:00 64 11/26/17 09:00 82 11/26/17 08:01 98 Nasal Cannula 2.00 11/26/17 08:00 76 11/26/17 07:30 98.1 81 22 118/84 (95) 97 11/26/17 07:30 97 Nasal Cannula 2.00 11/26/17 07:30 75 11/26/17 03:00 98 Nasal Cannula 2.00 11/26/17 03:00 79 11/26/17 03:00 97.5 79 16 128/61 (83) 98 11/25/17 23:00 88 11/25/17 23:00 97 Nasal Cannula 3.00 11/25/17 23:00 16 11/25/17 23:00 98.0 88 16 127/59 (81) 95 11/25/17 20:13 97 Nasal Cannula 3.00 11/25/17 19:00 75 11/25/17 19:00 98.8 75 16 130/60 (83) 98 11/25/17 19:00 98 Nasal Cannula 3.00 11/25/17 18:15 97.6 74 18 136/60 (85) 99 11/25/17 15:00 67 11/25/17 15:00 99 Nasal Cannula 3.00 11/25/17 15:00 98.4 67 24 125/67 (86) 99 (Ana Reyes) -: 11/26/17 0445 11/26/17 0445 Imaging Last Impressions Chest X-Ray 11/26/17 0600 Signed Impressions: Service Date/Time: November 03:53 - CONCLUSION: 1. Mild basilar airspace disease stable to slightly improved from November 25. No new infiltrate or effusion. Mandeep You MD Renal Ultrasound 11/25/17 0000 Signed Impressions: Service Date/Time: Saturday, November 25, 2017 19:09 - CONCLUSION: No acute disease. Dago Garcia MD Foot X-Ray 11/22/17134 Signed Impressions: Service Date/Time: Wednesday, November 22, 2017 02:13 - CONCLUSION: No acute disease. Sancho Ruiz MD Ankle X-Ray 11/22/17134 Signed Impressions: Service Date/Time: Wednesday, November 22, 2017 02:03 - CONCLUSION: No acute bony injury is seen. Sancho Ruiz MD Lower Extremity Ultrasound 11/17/17 0000 Signed Impressions: Service Date/Time: Friday, November 17, 2017 16:20 - CONCLUSION: Venous mapping as above. David Saenz MD Carotid Artery Ultrasound 11/17/17 0000 Signed Impressions: Service Date/Time: Friday, November 17, 2017 15:50 - CONCLUSION: 1. Minimal plaquing in both carotid systems. 2. However, no sonographic or Doppler findings of a hemodynamically significant stenosis. Antegrade flow in both vertebrals. David Saenz MD Brain MRI 11/10/17 0000 Signed Impressions: Service Date/Time: Friday, November 10, 2017 14:05 - CONCLUSION: No acute intracranial process. Periventricular and deep white matter coalesced demyelinization most likely microvascular ischemic basis Octaviano Holland MD Abdomen X-Ray 11/10/17 0000 Signed Impressions: Service Date/Time: Friday, November 10, 2017 10:59 - CONCLUSION: No metallic radiopaque foreign bodies are present to preclude MRI. Sancho Clifford MD Head CT 11/04/172011 Signed Impressions: Service Date/Time: Saturday, November 04, 2017 22:10 - CONCLUSION: No acute disease. Mike Davalos MD (GellermannAna M. COFFEE FARMER) Physical Exam General Appearance: No Acute Distress, Comfortable, Obese (Gellermann,Ana M. [employer] FARMER) Eyes Eye Exam: Pupils Equal (GellermannAna M. [employer]EE FARMER) Throat Throat Exam: Oral Mucosa [place] & Moist (GellermannAna M. [employer]EE FARMER) Pulmonary Resp Exam: Breath Sounds Equal, No Distress, Decreased Bases (Gellermann,Ana M. [employer]FFEE FARMER) Cardiology CV Exam: Regular (GellermannKatiaAna M. COFFEE FARMER) Gastrointestinal/Abdomen GI Exam: Soft, Non-Tender, Bowel Sounds Present (GellermannKatiaAna M. [employer]FFEE FARMER) Genitourinary Exam: Clear Urine, Flank Non-Tender (GellermannKatiaAna M. COFFEE FARMER) Integumentary Skin Exam: Clear, Warm (GellermannAna M. COFFEE FARMER) Extremeties Extremities Exam: Trace Edema (GellermannAna M. [employer]FFEE FARMER) Neurologic Neuro Exam: Alert, Awake, Oriented (GellermannKatiaAna M. [employer]EE FARMER) Psychiatric Psych Exam: Appropriate Responses (GellerAna coello M. COFFEE FARMER) Assessment/Plan Problem List: (1) acute kidney injury Plan: GINO from possible prerenal vs ATN with recent CABG Patient denies any previous history of kidney disease and baseline GFR is not available. UA on admission negative for proteinuria. Potassium and phosphorus was elevated yesterday. Normal today. Renal US with no acute findings Creatinine improving at 1.80 today from 2.34 Plan Continue Hold lasix Continue to monitor I+O Non oliguric, avoid Nephrotoxins, and follow the BMP. (2) S/P CABG x 5 ICD Codes: Z95.1 - Presence of aortocoronary bypass graft (3) Systolic and diastolic CHF, acute ICD Codes: I50.41 - Acute combined systolic (congestive) and diastolic ( congestive) heart failure (Ana Reyes) Problem List: (1) acute kidney injury Plan: GINO from possible prerenal vs ATN with recent CABG Patient denies any previous history of kidney disease and baseline GFR is not available. UA on admission negative for proteinuria. Potassium and phosphorus was elevated yesterday. Normal today. Renal US with no acute findings Creatinine improving at 1.80 today from 2.34 Plan Continue Hold lasix Continue to monitor I+O Non oliguric, avoid Nephrotoxins, and follow the BMP. Patient seen, examined and agree with above. Continue to hold Lasix, Creatinine is improving. (2) S/P CABG x 5 ICD Codes: Z95.1 - Presence of aortocoronary bypass graft (3) Systolic and diastolic CHF, acute ICD Codes: I50.41 - Acute combined systolic (congestive) and diastolic ( congestive) heart failure (Jenny Joseph MD) Ana Reyes Nov 26, 2017 12:50 Jenny Joseph MD Nov 26, 2017 17:02
[2017-11-26] MEDS: RESP: ALBUTEROL 2.5 MG/IPRATROPIUM 0.5 MG NEB (PRN) NEB (13:07)
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
[2017-11-26] MEDS: ATORVASTATIN 40 MG TAB PO SCH (20:34)
[2017-11-26] MEDS: SENNOSIDES 8.6 MG TAB PO SCH (20:35)
[2017-11-26] MEDS: INSULIN DETEMIR 100 UNITS/ML VIAL SQ SCH (20:57)
[2017-11-26] MEDS: ZOLPIDEM TARTRATE 5 MG TAB PO PRN (21:23)
[2017-11-27] VITALS (26 sets, daily range): BP systolic 115–159; BP diastolic 57–71; PULSE 59–98; RESP 18–20; TEMP 97.9–98.4; O2SAT 93–100
[2017-11-27 04:59] LABS: BASOPHIL % 0.4 % (0.0-2.0); EOSINOPHIL # 0.1 TH/MM3 (0-0.4); EOSINOPHIL % 1.2 % (0.0-4.0); HEMATOCRIT 28.9 % (39.0-51.0); HEMOGLOBIN 9.7 GM/DL (13.0-17.0); LYMPH % 11.2 % (9.0-44.0); MEAN CELL VOLUME 92.1 FL (80.0-100.0); MEAN CORPUSCULAR HEMOGLOBIN 30.9 PG (27.0-34.0); MEAN CORPUSCULAR HGB CONC 33.5 % (32.0-36.0); MEAN PLATELET VOLUME 8.9 FL (7.0-11.0); MONO % 7.6 % (0.0-8.0); MONOCYTE # 0.7 TH/MM3 (0-0.9); NEUT % 79.6 % (16.0-70.0); PLATELET COUNT 242 TH/MM3 (150-450); RED BLOOD COUNT 3.13 MIL/MM3 (4.50-5.90); RED CELL DISTRIBUTION WIDTH 14.2 % (11.6-17.2); WHITE BLOOD COUNT 8.8 TH/MM3 (4.0-11.0)
[2017-11-27] MEDS: RESP: ALBUTEROL 2.5 MG/IPRATROPIUM 0.5 MG NEB (SCH) NEB ×4 (05:14→20:03)
[2017-11-27 05:16] LABS: ALBUMIN 1.9 GM/DL (3.4-5.0); ALT (GPT) 14 U/L (12-78); AST (GOT) 18 U/L (15-37); BICARBONATE 29.5 MEQ/L (21.0-32.0); BLOOD UREA NITROGEN 30 MG/DL (7-18); CALCIUM 8.3 MG/DL (8.5-10.1); CHLORIDE 99 MEQ/L (98-107); CREATININE 1.51 MG/DL (0.60-1.30); GLOMERULAR FILTRATION RATE 46 ML/MIN (>89); GLUCOSE,RANDOM 115 MG/DL (74-106); SODIUM (NA) 133 MEQ/L (136-145)
[2017-11-27 05:19] LABS: ALKALINE PHOSPHATASE 85 U/L (45-117); TOTAL BILIRUBIN ADULT 0.5 MG/DL (0.2-1.0); TOTAL PROTEIN 6.1 GM/DL (6.4-8.2)
[2017-11-27] MEDS: PANTOPRAZOLE SOD 40 MG DELAYED RELEASE TAB PO SCH (05:24)
[2017-11-27] MEDS: INSULIN ASPART SUPPLEMENTAL SCALE SQ SCH ×4 (07:55→22:15)
[2017-11-27] MEDS: ARTIFICIAL TEARS OPTH SOLN 15 ML BTL EACH EYE SCH ×3 (08:28→17:56)
[2017-11-27] MEDS: POLYETHYLENE GLYCOL 17 GM PKG PO SCH (08:29)
[2017-11-27] MEDS: DOCUSATE SODIUM 50 MG/SENNA 8.6 MG TAB PO SCH ×2 (08:29→21:00)
[2017-11-27] MEDS: SODIUM CHLORIDE 0.9% FLUSH 10 ML FLUSH IV FLUSH SCH ×2 (08:38→22:12)
[2017-11-27] MEDS: CARVEDILOL 3.125 MG TAB PO SCH ×2 (08:39→22:11)
[2017-11-27] MEDS: AMIODARONE 200 MG TAB PO SCH ×2 (08:39→22:11)
[2017-11-27] MEDS: INSULIN DETEMIR 100 UNITS/ML VIAL SQ SCH ×2 (08:39→22:15)
[2017-11-27] MEDS: ASPIRIN 81 MG CHEW TAB PO SCH (08:39)
[2017-11-27] MEDS: MULTIVITAMINS/MINERALS THERAPEUTIC TAB PO SCH (08:39)
[2017-11-27] MEDS: LACTOBACILLUS ACIDOPHILUS TAB PO SCH ×2 (08:39→22:12)
--- NOTE | 2017-11-27 12:01 | HHI.PR ---
Subjective Remarks Patient is status post CABG on 11/23/17. Patient has been progressing well postop. Today his hemoglobin shows stability at 9.7 which reflected previous days hemoglobin 9.7. He has a continued downward trend in his creatinine currently at 1.5 down from 1.8 yesterday. No acute concerns or needs for further monitoring this regard. Patient is medically stable for discharge when determined to be so by cardiothoracic surgery team. Objective Vital Signs Date Time Temp Pulse Resp B/P (MAP) Pulse Ox O2 Delivery O2 Flow Rate FiO2 11/27/17 11:00 93 Nasal Cannula 2.00 11/27/17 11:00 98.1 94 20 119/58 (78) 93 11/27/17 11:00 74 11/27/17 10:00 75 11/27/17 09:00 72 11/27/17 08:47 Nasal Cannula 3.00 11/27/17 08:00 75 11/27/17 07:45 98.4 74 20 138/70 (92) 96 11/27/17 07:45 77 11/27/17 07:45 96 Nasal Cannula 2.00 11/27/17 06:00 76 11/27/17 05:00 78 11/27/17 04:00 98.4 59 20 115/57 (76) 100 11/27/17 04:00 79 11/27/17 04:00 Nasal Cannula 3.00 11/27/17 03:00 62 11/27/17 02:00 72 11/27/17 01:00 76 11/27/17 00:00 98.1 77 20 130/60 (83) 100 11/27/17 00:00 Nasal Cannula 3.00 11/27/17 00:00 79 11/26/17 23:00 80 11/26/17 22:00 78 11/26/17 21:00 81 11/26/17 20:52 96 Nasal Cannula 2.00 11/26/17 20:00 79 11/26/17 19:00 74 11/26/17 19:00 98.1 78 20 146/70 (95) 95 11/26/17 19:00 Nasal Cannula 3.00 11/26/17 18:00 78 11/26/17 17:00 64 11/26/17 16:00 66 11/26/17 15:00 67 11/26/17 15:00 96 Nasal Cannula 2.00 11/26/17 15:00 98.2 68 22 138/60 (86) 96 11/26/17 14:00 68 11/26/17 13:00 66 11/26/17 12:00 62 I/O 11/26/17 11/26/17 11/26/17 11/27/17 11/27/17 11/27/17 07:00 15:00 23:00 07:00 15:00 23:00 Intake Total 480 ml 900 ml 240 ml Output Total 500 ml 900 ml 650 ml Balance -20 ml 0 ml -410 ml Intake Oral 480 ml 900 ml 240 ml Output Urine Total 500 ml 900 ml 650 ml Emesis 0 ml # Voids 2 # Bowel Movements 1 5 Result Diagram: 11/27/1742711/27/17427 Objective Remarks GENERAL: NAD, A&Ox3 HEAD: Normocephalic. NECK: Supple, trachea midline. No lymphadenopathy. EYES: No scleral icterus. No injection or drainage. CARDIOVASCULAR: Regular rate and rhythm without murmurs, gallops, or rubs. RESPIRATORY: Breath sounds equal bilaterally. No accessory muscle use. GASTROINTESTINAL: Abdomen soft, non-tender, nondistended. MUSCULOSKELETAL: No cyanosis, or edema. Sternal wound. SKIN: Warm and dry. NEURO: No focal neurological deficitis. A/P Problem List: (1) S/P CABG x 5 ICD Code: Z95.1 - Presence of aortocoronary bypass graft (2) acute kidney injury Assessment and Plan 72-year-old male admitted secondary to ventricular fibrillation and pneumonia with coronary artery disease, now status post CABG on 11/23/17. Patient is medically stable for discharge when determined to be so by cardiothoracic surgery. Status post CABGx5, 11/23/17 CAD Acute V-fib (at admit) [facility] thoracic surgery following Continue monitoring postop Continue physical therapy Acute hypoxia Hypercarbic respiratory failure Resolved Patient extubated 11/13/17 Continue oxygen as needed Klebsiella UTI Ciprofloxacin was provided as a treatment and treatment completed Community-acquired pneumonia Continue Levaquin Continue oxygen Continue to monitor CBC Acute kidney injury Slight upper trend No drastic changes Continue to monitor renal function Diabetes mellitus type 2 Follow blood sugars Insulin sliding scale Diabetic diet Hypertension Continue baseline treatment Follow blood pressures Adjust treatments as needed Coreg and lisinopril on hold secondary to bradycardia DVT prophylaxis Per surgical discretion Discharge planning Medically stable for discharge to senior living facility when cleared by cardiothoracic surgery. Reggie Guadalupe MD Nov 27, 2017 12:01
--- NOTE | 2017-11-27 12:51 | HHI.NPPN ---
Subjective History of Present Illness Patient is a 72-year-old male was brought in by EMS after patient had a cardiopulmonary arrest. Patient's rhythm was found to be in V. fib and the patient was defibrillated and hypothermic cooling was used. He is s/p CABG X 5 on the . VSS, afebrile with O2 at 3 liters. Nephrology was consulted for rising creatinine at 2.34 today and GFR 28 ml/min. He denies any previous history of kidney disease and has not been followed by nephrology in the past. He is non-oliguric. Potassium WNL. Additional Remarks Patient OOB in chair. Denies any SOB, eating, no chest pain. Review of Systems Respiratory Respiratory Remarks Denies any SOb Cardiovascular Cardiac Remarks Denies CP Gastrointestinal GI Remarks Denies abdominal pain Genitourinary Remarks Denies any dysuria Objective Data Data Vital Signs Date Time Temp Pulse Resp B/P (MAP) Pulse Ox O2 Delivery O2 Flow Rate FiO2 11/27/17 12:00 78 11/27/17 11:00 93 Nasal Cannula 2.00 11/27/17 11:00 98.1 94 20 119/58 (78) 93 11/27/17 11:00 74 11/27/17 10:00 75 11/27/17 09:00 72 11/27/17 08:47 Nasal Cannula 3.00 11/27/17 08:00 75 11/27/17 07:45 98.4 74 20 138/70 (92) 96 11/27/17 07:45 77 11/27/17 07:45 96 Nasal Cannula 2.00 11/27/17 06:00 76 11/27/17 05:00 78 11/27/17 04:00 98.4 59 20 115/57 (76) 100 11/27/17 04:00 79 11/27/17 04:00 Nasal Cannula 3.00 11/27/17 03:00 62 11/27/17 02:00 72 11/27/17 01:00 76 11/27/17 00:00 98.1 77 20 130/60 (83) 100 11/27/17 00:00 Nasal Cannula 3.00 11/27/17 00:00 79 11/26/17 23:00 80 11/26/17 22:00 78 11/26/17 21:00 81 11/26/17 20:52 96 Nasal Cannula 2.00 11/26/17 20:00 79 11/26/17 19:00 74 11/26/17 19:00 98.1 78 20 146/70 (95) 95 11/26/17 19:00 Nasal Cannula 3.00 11/26/17 18:00 78 11/26/17 17:00 64 11/26/17 16:00 66 11/26/17 15:00 67 11/26/17 15:00 96 Nasal Cannula 2.00 11/26/17 15:00 98.2 68 22 138/60 (86) 96 11/26/17 14:00 68 11/26/17 13:00 66 -: 11/27/17 0428 11/27/17 0428 Physical Exam General Appearance: No Acute Distress, Comfortable, Obese Eyes Eye Exam: Pupils Equal Throat Throat Exam: Oral Mucosa [place] & Moist Pulmonary Resp Exam: Breath Sounds Equal, No Distress, Decreased Bases Cardiology CV Exam: Regular Gastrointestinal/Abdomen GI Exam: Soft, Non-Tender, Bowel Sounds Present Genitourinary Exam: Clear Urine, Flank Non-Tender Integumentary Skin Exam: Clear, Warm Extremeties Extremities Exam: Trace Edema Neurologic Neuro Exam: Alert, Awake, Oriented Psychiatric Psych Exam: Appropriate Responses Assessment/Plan Problem List: (1) acute kidney injury Plan: GINO from possible prerenal vs ATN with recent CABG Patient denies any previous history of kidney disease and baseline GFR is not available. UA on admission negative for proteinuria. Potassium and phosphorus was elevated yesterday. Normal today. Renal US with no acute findings Creatinine improving at 1.80 today from 2.34 Plan Continue Hold lasix Continue to monitor I+O Non oliguric, avoid Nephrotoxins, and follow the BMP. Patient seen, examined and agree with above. Continue to hold Lasix, Creatinine is improving. Now it is 1.5, has V.Tach., awaiting cardiology follow up. Possible D/C. (2) S/P CABG x 5 ICD Codes: Z95.1 - Presence of aortocoronary bypass graft (3) Systolic and diastolic CHF, acute ICD Codes: I50.41 - Acute combined systolic (congestive) and diastolic ( congestive) heart failure Jenny Joseph MD Nov 27, 2017 12:51
[2017-11-27] MEDS ORDERED: DEFIB EXTERNAL (12:58)
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
--- NOTE | 2017-11-27 20:21 | PD.CARD.PN ---
Subjective Subjective Remarks NO COMPLAINTS OF CHEST PAIN OR SOB STARTING TO AMBULATE POD #4, 12 BEAT NSVT REPORTED HE IS ON AMIODARONE AND COREG Objective Medications Current Medications Medications (Trade) Dose Ordered Sig/Juan Route Start Time Stop Time Status Last Admin (Tears Naturale Opth Soln) 1 drop TID EACH EYE 11/05/17 09:00 11/25/17 09:22 (Ashley-Colace) 1 tab BID PO 11/05/17 09:00 11/26/17 08:20 (Milk Of Magnesia Liq) 30 ml Q12H PRN PO 11/04/17 22:00 11/26/17 14:12 (Dulcolax Supp) 10 mg DAILY PRN RECTAL 11/04/17 22:00 (Lactulose Liq) 30 ml DAILY PRN PO 11/04/17 22:00 Miscellaneous Information ml @ 0 mls/hr UNSCH IV 11/05/17 01:15 (Lacrilube Opht Oint) 1 applic Q4H PRN EACH EYE 11/05/17 01:15 (Lactinex) 1 tab Q12HR PO 11/07/17 12:45 11/27/17 08:39 (Pill Splitter) 1 ea UNSCH PRN OTHER 11/14/17 09:00 (Lipitor) 40 mg HS PO 11/18/17 21:00 11/26/17 20:34 (Cordarone) 200 mg BID PO 11/20/17 21:00 11/27/17 08:39 (NS Flush) 2 ml BID IV FLUSH 11/23/17 21:00 11/27/17 08:38 (NS Flush) 2 ml UNSCH PRN IV FLUSH 11/23/17 18:45 (Aspirin Chew) 81 mg DAILY PO 11/24/17 09:00 11/27/17 08:39 (Protonix) 40 mg DAILY@06 PO 11/24/17 06:00 11/27/17 05:24 (Tylenol) 650 mg Q4H PRN PO 11/23/17 18:45 (Percocet 5-325 Mg) 1 tab Q3H PRN PO 11/23/17 18:45 11/25/17 22:00 (Zofran Inj) 4 mg Q6H PRN IV PUSH 11/23/17 18:45 (Apresoline Inj) 10 mg Q4H PRN IV PUSH 11/23/17 18:45 (Duoneb Neb) 1 ampule Q6HR NEB NEB 11/23/17 22:00 11/27/17 20:03 (Duoneb Neb) 1 ampule Q2HR NEB PRN NEB 11/23/17 18:45 11/26/17 13:07 (Theragran M Tab) 1 tab DAILY PO 11/25/17 09:00 11/27/17 08:39 (Dulcolax Supp) 10 mg UNSCH PRN RECTAL 11/24/17 09:15 (Miralax) 17 gm DAILY PO 11/25/17 09:00 11/26/17 08:20 (Senokot) 8.6 mg HS PO 11/24/17 21:00 11/25/17 21:59 (Fleets Enema (Adult)) 118 ml UNSCH PRN RECTAL 11/26/17 09:00 (D50w (Vial) Inj) 50 ml UNSCH PRN IV PUSH 11/24/17 09:15 (Glucagon Inj) 1 mg UNSCH PRN OTHER 11/24/17 09:15 (NovoLOG SUPPLEMENTAL SCALE) 1 ACHS SQ 11/25/17 12:00 11/27/17 17:47 (Coreg) 3.125 mg Q12HR PO 11/25/17 21:00 11/27/17 08:39 (Levemir Inj) 10 units BID SQ 11/26/17 21:00 11/27/17 08:39 (Ambien) 5 mg HS PRN PO 11/26/17 15:45 11/26/17 21:23 (Levaquin) 750 mg Q48H PO 11/28/17 11:00 Vital Signs / I&O Vital Signs Date Time Temp Pulse Resp B/P (MAP) Pulse Ox O2 Delivery O2 Flow Rate FiO2 11/27/17 20:03 96 Nasal Cannula 2.00 11/27/17 18:00 74 11/27/17 17:00 71 11/27/17 16:00 60 11/27/17 15:00 61 11/27/17 15:00 97.9 98 20 145/68 (93) 98 11/27/17 15:00 98 Nasal Cannula 2.00 11/27/17 14:00 72 11/27/17 13:00 75 11/27/17 12:00 78 11/27/17 11:00 93 Nasal Cannula 2.00 11/27/17 11:00 98.1 94 20 119/58 (78) 93 11/27/17 11:00 74 11/27/17 10:00 75 11/27/17 09:00 72 11/27/17 08:47 Nasal Cannula 3.00 11/27/17 08:00 75 11/27/17 07:45 98.4 74 20 138/70 (92) 96 11/27/17 07:45 77 11/27/17 07:45 96 Nasal Cannula 2.00 11/27/17 06:00 76 11/27/17 05:00 78 11/27/17 04:00 98.4 59 20 115/57 (76) 100 11/27/17 04:00 79 11/27/17 04:00 Nasal Cannula 3.00 11/27/17 03:00 62 11/27/17 02:00 72 11/27/17 01:00 76 11/27/17 00:00 98.1 77 20 130/60 (83) 100 11/27/17 00:00 Nasal Cannula 3.00 11/27/17 00:00 79 11/26/17 23:00 80 11/26/17 22:00 78 11/26/17 21:00 81 11/26/17 20:52 96 Nasal Cannula 2.00 I/O 11/26/17 11/26/17 11/26/17 11/27/17 11/27/17 11/27/17 07:00 15:00 23:00 07:00 15:00 23:00 Intake Total 480 ml 900 ml 240 ml 720 ml Output Total 500 ml 900 ml 650 ml 800 ml Balance -20 ml 0 ml -410 ml -80 ml Intake Oral 480 ml 900 ml 240 ml 720 ml Output Urine Total 500 ml 900 ml 650 ml 800 ml Emesis 0 ml # Voids 2 # Bowel Movements 1 5 2 Physical Exam NAD THICK NECK, NO BRUIT FEW BIBASILAR CRACKLES RRR. 1-2/6 SYSTOLIC MURMUR LLSB ABD SOFT EXTR WITH +1 EDEMA Laboratory Laboratory Tests Test 11/27/17 04:28 White Blood Count 8.8 TH/MM3 Red Blood Count 3.13 MIL/MM3 Hemoglobin 9.7 GM/DL Hematocrit 28.9 % Mean Corpuscular Volume 92.1 FL Mean Corpuscular Hemoglobin 30.9 PG Mean Corpuscular Hemoglobin Concent 33.5 % Red Cell Distribution Width 14.2 % Platelet Count 242 TH/MM3 Mean Platelet Volume 8.9 FL Neutrophils (%) (Auto) 79.6 % Lymphocytes (%) (Auto) 11.2 % Monocytes (%) (Auto) 7.6 % Eosinophils (%) (Auto) 1.2 % Basophils (%) (Auto) 0.4 % Neutrophils # (Auto) 7.0 TH/MM3 Lymphocytes # (Auto) 1.0 TH/MM3 Monocytes # (Auto) 0.7 TH/MM3 Eosinophils # (Auto) 0.1 TH/MM3 Basophils # (Auto) 0.0 TH/MM3 CBC Comment DIFF FINAL Differential Comment Blood Urea Nitrogen 30 MG/DL Creatinine 1.51 MG/DL Random Glucose 115 MG/DL Total Protein 6.1 GM/DL Albumin 1.9 GM/DL Calcium Level 8.3 MG/DL Alkaline Phosphatase 85 U/L Aspartate Amino Transf (AST/SGOT) 18 U/L Alanine Aminotransferase (ALT/SGPT) 14 U/L Total Bilirubin 0.5 MG/DL Sodium Level 133 MEQ/L Potassium Level 4.5 MEQ/L Chloride Level 99 MEQ/L Carbon Dioxide Level 29.5 MEQ/L Anion Gap 5 MEQ/L Estimat Glomerular Filtration Rate 46 ML/MIN Magnesium Level 2.7 MG/DL Assessment and Plan Problem List: (1) VF (ventricular fibrillation) ICD Codes: I49.01 - Ventricular fibrillation Status: Acute (2) S/P CABG x 5 Status: Acute (3) Respiratory failure ICD Codes: J96.90 - Respiratory failure, unspecified, unspecified whether with hypoxia or hypercapnia Status: Acute (4) Hyperglycemia ICD Codes: R73.9 - Hyperglycemia, unspecified Status: Acute (5) Anoxic encephalopathy ICD Codes: G93.1 - Anoxic brain damage, not elsewhere classified (6) acute kidney injury (7) Atelectasis of left lung ICD Codes: J98.11 - Atelectasis (8) Ventricular arrhythmia ICD Codes: I49.9 - Cardiac arrhythmia, unspecified Status: Acute Assessment and Plan MEDICATIONS REVIEWED WILL NEED LIFE VEST ON DISCHARGE INCREASE COREG 6.25 MG BID CONTINUE AMIODARONE 200MG BID FOLLOW UP WITH DR GILMAN 1-2 WEEKS Problem Qualifiers (1) Respiratory failure: Qualified Codes: J96.00 - Acute respiratory failure, unspecified whether with hypoxia or hypercapnia Donald Kaur MD Nov 27, 2017 20:21
[2017-11-27] MEDS: SENNOSIDES 8.6 MG TAB PO SCH (21:00)
[2017-11-27] MEDS: ATORVASTATIN 40 MG TAB PO SCH (22:11)
[2017-11-27] MEDS: ZOLPIDEM TARTRATE 5 MG TAB PO PRN (22:12)
[2017-11-28] VITALS (17 sets, daily range): BP systolic 134–156; BP diastolic 61–75; PULSE 58–75; RESP 16–18; TEMP 97.6–98.4; O2SAT 93–98
[2017-11-28 04:41] LABS: AUTOMATED NEUTROPHIL # 6.9 TH/MM3 (1.8-7.7); BASOPHIL % 0.4 % (0.0-2.0); EOSINOPHIL # 0.2 TH/MM3 (0-0.4); EOSINOPHIL % 1.9 % (0.0-4.0); HEMATOCRIT 30.3 % (39.0-51.0); LYMPH % 10.4 % (9.0-44.0); LYMPHOCYTE # 0.9 TH/MM3 (1.0-4.8); MEAN CELL VOLUME 92.1 FL (80.0-100.0); MEAN CORPUSCULAR HEMOGLOBIN 30.5 PG (27.0-34.0); MEAN CORPUSCULAR HGB CONC 33.1 % (32.0-36.0); MEAN PLATELET VOLUME 8.4 FL (7.0-11.0); MONO % 7.5 % (0.0-8.0); MONOCYTE # 0.6 TH/MM3 (0-0.9); NEUT % 79.8 % (16.0-70.0); PLATELET COUNT 268 TH/MM3 (150-450); RED BLOOD COUNT 3.29 MIL/MM3 (4.50-5.90); RED CELL DISTRIBUTION WIDTH 13.8 % (11.6-17.2); WHITE BLOOD COUNT 8.6 TH/MM3 (4.0-11.0)
[2017-11-28 05:08] LABS: AST (GOT) 17 U/L (15-37); BICARBONATE 31.7 MEQ/L (21.0-32.0); BLOOD UREA NITROGEN 30 MG/DL (7-18); CALCIUM 8.3 MG/DL (8.5-10.1); CHLORIDE 99 MEQ/L (98-107); CREATININE 1.45 MG/DL (0.60-1.30); GLOMERULAR FILTRATION RATE 48 ML/MIN (>89); GLUCOSE,RANDOM 95 MG/DL (74-106); SODIUM (NA) 136 MEQ/L (136-145)
[2017-11-28 05:10] LABS: ALT (GPT) 15 U/L (12-78)
[2017-11-28 05:11] LABS: ALKALINE PHOSPHATASE 110 U/L (45-117); TOTAL BILIRUBIN ADULT 0.5 MG/DL (0.2-1.0); TOTAL PROTEIN 6.3 GM/DL (6.4-8.2)
[2017-11-28] MEDS: PANTOPRAZOLE SOD 40 MG DELAYED RELEASE TAB PO SCH (06:00)
[2017-11-28] MEDS: INSULIN ASPART SUPPLEMENTAL SCALE SQ SCH ×2 (08:00→12:02)
[2017-11-28] MEDS: ARTIFICIAL TEARS OPTH SOLN 15 ML BTL EACH EYE SCH ×2 (09:16→12:02)
[2017-11-28] MEDS: ASPIRIN 81 MG CHEW TAB PO SCH (09:17)
[2017-11-28] MEDS: LACTOBACILLUS ACIDOPHILUS TAB PO SCH (09:17)
[2017-11-28] MEDS: MULTIVITAMINS/MINERALS THERAPEUTIC TAB PO SCH (09:17)
[2017-11-28] MEDS: CARVEDILOL 3.125 MG TAB PO SCH (09:17)
[2017-11-28] MEDS: DOCUSATE SODIUM 50 MG/SENNA 8.6 MG TAB PO SCH (09:17)
[2017-11-28] MEDS: INSULIN DETEMIR 100 UNITS/ML VIAL SQ SCH (09:17)
[2017-11-28] MEDS: AMIODARONE 200 MG TAB PO SCH (09:17)
[2017-11-28] MEDS: POLYETHYLENE GLYCOL 17 GM PKG PO SCH (09:18)
[2017-11-28] MEDS: SODIUM CHLORIDE 0.9% FLUSH 10 ML FLUSH IV FLUSH SCH (09:18)
[2017-11-28] MEDS ORDERED: ATOR40TA16 PO (10:07)
[2017-11-28] MEDS ORDERED: SENN187 PO (10:07)
[2017-11-28] MEDS ORDERED: ASPI81 PO (10:07)
[2017-11-28] MEDS ORDERED: CARV3.125 PO (10:07)
[2017-11-28] MEDS ORDERED: AMIO200T PO (10:07)
[2017-11-28] MEDS ORDERED: OXYC1TAB63 PO (10:07)
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
--- NOTE | 2017-11-28 10:38 | HHI.PR ---
Subjective Remarks in no acute distress. denies chest pain. no fever. no new complaints. d/w the RN. Objective Vitals Vital Signs Date Time Temp Pulse Resp B/P (MAP) Pulse Ox O2 Delivery O2 Flow Rate FiO2 11/28/17 10:13 75 11/28/17 09:00 68 11/28/17 08:00 68 11/28/17 07:42 98 Nasal Cannula 2.00 11/28/17 07:42 97.6 64 16 156/75 (102) 98 11/28/17 07:00 68 11/28/17 05:16 93 Nasal Cannula 2.00 11/28/17 05:00 68 11/28/17 04:00 70 11/28/17 04:00 98.4 72 18 134/61 (85) 93 11/28/17 03:00 72 11/28/17 02:00 68 11/28/17 01:36 98 Nasal Cannula 2.00 11/28/17 01:00 62 11/28/17 00:00 72 11/27/17 23:00 98.1 75 18 159/71 (100) 95 11/27/17 23:00 74 11/27/17 22:00 72 11/27/17 21:00 64 11/27/17 20:30 100 Nasal Cannula 2.00 11/27/17 20:30 98.1 76 18 148/70 (96) 100 11/27/17 20:03 96 Nasal Cannula 2.00 11/27/17 20:00 62 11/27/17 19:00 74 11/27/17 18:00 74 11/27/17 17:00 71 11/27/17 16:00 60 11/27/17 15:00 61 11/27/17 15:00 97.9 98 20 145/68 (93) 98 11/27/17 15:00 98 Nasal Cannula 2.00 11/27/17 14:00 72 11/27/17 13:00 75 11/27/17 12:00 78 11/27/17 11:00 93 Nasal Cannula 2.00 11/27/17 11:00 98.1 94 20 119/58 (78) 93 11/27/17 11:00 74 I/O 11/27/17 11/27/17 11/27/17 11/28/17 11/28/17 11/28/17 07:00 15:00 23:00 07:00 15:00 23:00 Intake Total 240 ml 720 ml 480 ml Output Total 650 ml 800 ml 1100 ml Balance -410 ml -80 ml -620 ml Intake Oral 240 ml 720 ml 480 ml Output Urine Total 650 ml 800 ml 1100 ml Emesis 0 ml # Voids 2 # Bowel Movements 5 2 0 Result Diagram: 11/28/177 11/28/17 0407 Imaging Last Impressions Chest X-Ray 11/26/17 0600 Signed Impressions: Service Date/Time: November 03:53 - CONCLUSION: 1. Mild basilar airspace disease stable to slightly improved from November 25. No new infiltrate or effusion. Mandeep You MD Renal Ultrasound 11/25/17 0000 Signed Impressions: Service Date/Time: Saturday, November 25, 2017 19:09 - CONCLUSION: No acute disease. Dago Garcia MD Foot X-Ray 11/22/17134 Signed Impressions: Service Date/Time: Wednesday, November 22, 2017 02:13 - CONCLUSION: No acute disease. Sancho Ruiz MD Ankle X-Ray 11/22/17134 Signed Impressions: Service Date/Time: Wednesday, November 22, 2017 02:03 - CONCLUSION: No acute bony injury is seen. Sancho Ruiz MD Lower Extremity Ultrasound 11/17/17 0000 Signed Impressions: Service Date/Time: Friday, November 17, 2017 16:20 - CONCLUSION: Venous mapping as above. David Saenz MD Carotid Artery Ultrasound 11/17/17 0000 Signed Impressions: Service Date/Time: Friday, November 17, 2017 15:50 - CONCLUSION: 1. Minimal plaquing in both carotid systems. 2. However, no sonographic or Doppler findings of a hemodynamically significant stenosis. Antegrade flow in both vertebrals. David Saenz MD Brain MRI 11/10/17 0000 Signed Impressions: Service Date/Time: Friday, November 10, 2017 14:05 - CONCLUSION: No acute intracranial process. Periventricular and deep white matter coalesced demyelinization most likely microvascular ischemic basis Octaviano Holland MD Abdomen X-Ray 11/10/17 0000 Signed Impressions: Service Date/Time: Friday, November 10, 2017 10:59 - CONCLUSION: No metallic radiopaque foreign bodies are present to preclude MRI. Sancho Clifford MD Head CT 11/04/172011 Signed Impressions: Service Date/Time: Saturday, November 04, 2017 22:10 - CONCLUSION: No acute disease. Mike Davalos MD Objective Remarks GENERAL: This is a well-nourished, well-developed patient, in no apparent distress. CARDIOVASCULAR: Regular rate and regular rhythm without murmurs, gallops, or rubs. RESPIRATORY: Clear to auscultation. Breath sounds equal bilaterally. No wheezes , rales, or rhonchi. GASTROINTESTINAL: Abdomen soft, non-tender, nondistended. Normal, active bowel sounds MUSCULOSKELETAL: Extremities with mild bilateral pedal edema. NEURO: Alert & Oriented x4 to person, place, time, situation. Moves all ext x4 Medications and IVs Inpatient Medications Acetaminophen 100 ml @ 400 mls/hr Q6H IV Last administered on 11/24/17at 14:54 ; Start 11/23/17 at 18:45; Stop 11/24/17 at 12:59; Status DC Acetaminophen (Tylenol 650 Mg/ 20 ml Liq) 650 mg Q6H PRN NG SHIVERING Last administered on 11/10/17at 07:48; Start 11/05/17 at 01:15; Stop 11/23/17 at 19:01 ; Status DC Acetaminophen (Tylenol Supp) 650 mg Q4H PRN RECTAL TEMPERATURE > 101 F; Start 11/23/17 at 18:45; Stop 11/24/17 at 09:10; Status DC Acetaminophen (Tylenol) 650 mg Q4H PRN PO TEMPERATURE > 101 F; Start 11/23/17 at 18:45 Albumin Human 50 ml @ 60 mls/hr ONCE ONCE IV Last administered on 11/24/17at 09 :18; Start 11/24/17 at 09:00; Stop 11/24/17 at 09:50; Status DC Albuterol/ Ipratropium (Duoneb Neb) 1 ampule Q6HR WHILE AWAKE NEB NEB Last administered on 11/26/17at 08:01; Start 11/24/17 at 14:00; Stop 11/26/17 at 13:59; Status DC Amiodarone HCl (Cordarone) 200 mg BID PO Last administered on 11/28/17at 09:17; Start 11/20/17 at 21:00 Amiodarone HCl 150 mg/Dextrose 100 ml @ 600 mls/hr Q10M ONCE IV Last administered on 11/04/17at 20:15; Start 11/04/17 at 20:09; Stop 11/04/17 at 20:18 ; Status DC Amiodarone HCl 450 mg/Dextrose 250 ml @ 33.33 mls/ hr Q7H31M PRN IV Per Protocol Last administered on 11/05/17at 05:36; Start 11/04/17 at 22:03; Stop 09/12 at 05:42; Status DC Amiodarone HCl 450 mg/Sodium Chloride 250 ml @ 33.33 mls/ hr Q7H31M PRN IV Per Protocol Last administered on 11/05/17at 06:03; Start 11/05/17 at 05:45; Stop at 10:20; Status DC Artificial Tears (Lacrilube Opht Oint) 1 applic Q4H PRN EACH EYE SEE LABEL COMMENTS; Start 11/05/17 at 01:15 Artificial Tears (Tears Naturale Opth Soln) 1 drop TID EACH EYE Last administered on 11/25/17at 09:22; Start 11/05/17 at 09:00 Aspirin (Aspirin Chew) 81 mg DAILY PO Last administered on 11/28/17at 09:17; Start 11/24/17 at 09:00 Aspirin (Ecotrin Ec) 81 mg DAILY PO Last administered on 11/22/17at 08:51; Start 11/18/17 at 11:15; Stop 11/23/17 at 19:01; Status DC Atorvastatin Calcium (Lipitor) 40 mg HS PO Last administered on 11/27/17at 22:11 ; Start 11/18/17 at 21:00 Azithromycin 250 mg/Sodium Chloride 250 ml @ 250 mls/hr Q24H IV Last administered on 11/06/17at 16:48; Start 11/05/17 at 18:00; Stop 11/07/17 at 12:39 ; Status DC Bisacodyl (Dulcolax Supp) 10 mg UNSCH PRN RECTAL SEE LABEL COMMENTS; Start at 09:15 Buspirone HCl (Buspar) 15 mg BID PRN NG SHIVERING Last administered on at 01:42; Start 11/05/17 at 01:15; Stop 11/08/17 at 12:49; Status DC Calcium Chloride (Calcium Chloride Inj) 0.5 gm UNSCH PRN IV PUSH SEE LABEL COMMENTS; Start 11/23/17 at 18:45; Stop 11/24/17 at 09:10; Status DC Calcium Chloride 1 gm/Sodium Chloride 110 ml @ 100 mls/hr UNSCH PRN IV SEE LABEL COMMENTS; Start 11/23/17 at 18:45; Stop 11/24/17 at 09:10; Status DC Calcium Gluconate 2 gm/Sodium Chloride 120 ml @ 60 mls/hr NOW ONCE IV Last administered on 11/06/17at 11:13; Start 11/06/17 at 10:15; Stop 11/06/17 at 12:14 ; Status DC Carvedilol (Coreg) 6.25 mg Q12HR PO Last administered on 11/28/17at 09:17; Start 11/27/17 at 21:00 Cefazolin Sodium 500 mg/Sodium Chloride 505 ml @ 0 mls/hr [employer] IRRIGATION Last administered on 11/23/17at 13:40; Start 11/17/17 at 12:00; Stop 11/23/17 at 19:00; Status DC Cefazolin Sodium 1000 mg/Sodium Chloride 100 ml @ 200 mls/hr Q8H IV Last administered on 11/25/17at 09:10; Start 11/24/17 at 01:00; Stop 11/25/17 at 09:29 ; Status DC Cefazolin Sodium/ Dextrose 50 ml @ 100 mls/hr [employer] IV Last administered on 11/23/17at 12:30; Start 11/17/17 at 12:00; Stop 11/23/17 at 19:00; Status DC Cefepime HCl 2000 mg/Sodium Chloride 100 ml @ 200 mls/hr Q12H IV Last administered on 11/09/17at 08:35; Start 11/07/17 at 21:00; Stop 11/09/17 at 11:47 ; Status DC Chlorhexidine Gluconate (Chlorhexidine 2% Cloth) 3 pack [employer] PRN TOPICAL SEE LABEL COMMENTS; Start 11/23/17 at 03:15; Stop 11/23/17 at 19:00; Status DC Chlorhexidine Gluconate (Hibiclens 4% Top Soln) 1 applic [employer] TOPICAL Last administered on 11/22/17at 23:55; Start 11/17/17 at 12:00; Stop 11/23/17 at 19:00 ; Status DC Chlorhexidine Gluconate (Peridex 0.12% Liq) 15 ml BID@08,20 MT Last administered on 11/13/17at 07:33; Start 11/05/17 at 08:00; Stop 11/23/17 at 19:00 ; Status DC Ciprofloxacin (Cipro) 500 mg Q12HR PO Last administered on 11/12/17at 08:03; Start 11/09/17 at 13:00; Stop 11/12/17 at 12:59; Status DC Cisatracurium Besylate 100 mg/ Sodium Chloride 250 ml @ 63.36 mls/ hr TITRATE PRN IV paralyzing agent Last administered on 11/05/17at 16:40; Start 11/05/17 at 01:15; Stop 11/05/17 at 16:47; Status DC Cisatracurium Besylate 200 mg/ Sodium Chloride 500 ml @ 63.36 mls/ hr TITRATE PRN IV paralyzing agent Last administered on 11/06/17at 11:29; Start 11/05/17 at 17:00; Stop 11/08/17 at 12:49; Status DC Clevidipine 50 ml @ 2 mls/hr TITRATE PRN IV Maintain BP < 140/90 mmHg; Start at 18:45; Stop 11/24/17 at 09:10; Status DC Dexmedetomidine HCl 200 mcg/ Sodium Chloride 50 ml @ 6.4 mls/hr TITRATE PRN IV Desired RASS Last administered on 11/13/17at 07:00; Start 11/13/17 at 03:00; Stop 11/14/17 at 08:49; Status DC Dextrose (D50w (Vial) Inj) 50 ml UNSCH PRN IV PUSH HYPOGLYCEMIA-SEE COMMENTS; Start 11/24/17 at 09:15 Diphenhydramine HCl (Benadryl) 25 mg HS PRN PO SLEEP Last administered on at 21:37; Start 11/19/17 at 17:00; Stop 11/20/17 at 09:47; Status DC Dopamine HCl/ Dextrose 500 ml @ 24 mls/hr CONTINUOUS PRN IV Blood Pressure Management Last administered on 11/07/17at 20:55; Start 11/06/17 at 01:15; Stop 11/08/17 at 12:49; Status DC Famotidine (Pepcid Inj) 20 mg Q12HR IV PUSH Last administered on 11/17/17at 21: 20; Start 11/05/17 at 09:00; Stop 11/18/17 at 08:24; Status DC Fentanyl Citrate (fentaNYL INJ) 25 mcg Q1H PRN IV PUSH BREAKTHROUGH PAIN Last administered on 11/24/17at 03:15; Start 11/23/17 at 18:45; Stop 11/24/17 at 09:10 ; Status DC Furosemide (Lasix Inj) 40 mg ONCE ONCE IV PUSH Last administered on 11/24/17at 09:19; Start 11/24/17 at 09:00; Stop 11/24/17 at 09:06; Status DC Glucagon (Glucagon Inj) 1 mg UNSCH PRN OTHER HYPOGLYCEMIA-SEE COMMENTS; Start 11/24/17 at 09:15 Haloperidol Lactate (Haldol Inj) 10 mg Q1H PRN IV PUSH agitation Last administered on 11/10/17at 21:44; Start 11/09/17 at 10:30; Stop 11/11/17 at 09:27 ; Status DC Heparin Sodium (Porcine) (Heparin Inj) 4,000 units NOW ONCE IV Last administered on 11/17/17at 14:12; Start 11/17/17 at 12:00; Stop 11/17/17 at 12:03 ; Status DC Heparin Sodium (Porcine) 86297 units/Sodium Chloride 250 ml @ 10 mls/hr TITRATE PRN IV Coagulation Management Last administered on 11/11/17at 19:29; Start 11/11/17 at 19:30; Stop 11/14/17 at 08:49; Status DC Heparin Sodium/ Dextrose 250 ml @ 10 mls/hr TITRATE PRN IV Coagulation Management Last administered on 11/23/17at 00:30; Start 11/17/17 at 12:00; Stop 11/23/17 at 18:50; Status DC Hydralazine HCl (Apresoline Inj) 10 mg Q4H PRN IV PUSH SEE LABEL COMMENTS; Start 11/23/17 at 18:45 Hydralazine HCl (Apresoline) 50 mg Q8H PO Last administered on 11/22/17at 23:00 ; Start 11/12/17 at 15:00; Stop 11/23/17 at 18:50; Status DC Insulin Aspart (NovoLOG SUPPLEMENTAL SCALE) 1 ACHS SQ Last administered on at 22:15; Start 11/25/17 at 12:00 Insulin Detemir (Levemir Inj) 10 units BID SQ Last administered on 11/28/17at 09: 17; Start 11/26/17 at 21:00 Insulin Human Regular (NovoLIN R SUPPLEMENTAL SCALE) 1 Q4HR SQ Last administered on 11/18/17at 09:28; Start 11/06/17 at 08:00; Stop 11/18/17 at 11:14 ; Status DC Insulin Human Regular 100 units/ Sodium Chloride 100 ml @ 3 mls/hr TITRATE PRN IV for blood glucose control Last administered on 11/23/17at 19:00; Start at 18:45; Stop 11/24/17 at 09:10; Status DC Labetalol HCl (Trandate Inj) 40 mg ONCE ONCE IV PUSH Last administered on 11/09at 15:16; Start 11/09/17 at 15:15; Stop 11/09/17 at 15:16; Status DC Lactated Ringer's 500 ml @ 500 mls/hr Q1H PRN IV SEE LABEL COMMENTS; Start at 18:38; Stop 11/24/17 at 09:10; Status DC Lactobacillus Acidophilus (Lactinex) 1 tab Q12HR PO Last administered on at 09:17; Start 11/07/17 at 12:45 Lactulose (Lactulose Liq) 30 ml DAILY PRN PO SEVERE CONSITIPATION; Start at 22:00 Levofloxacin (Levaquin) 750 mg Q48H PO ; Start 11/28/17 at 11:00 Levofloxacin/ Dextrose 150 ml @ 100 mls/hr Q48H IV Last administered on at 11:00; Start 11/26/17 at 11:00; Stop 11/27/17 at 10:02; Status DC Lisinopril (Prinivil) 2.5 mg DAILY PO Last administered on 11/17/17at 09:56; Start 11/14/17 at 09:00; Stop 11/23/17 at 18:50; Status DC Loperamide HCl (Imodium) 2 mg ONCE ONCE PO ; Start 11/20/17 at 19:45; Stop at 19:46; Status DC Lorazepam (Ativan Inj) 1 mg Q1H PRN IV PUSH SEIZURES Last administered on at 04:20; Start 11/05/17 at 01:15; Stop 11/18/17 at 08:24; Status DC Magnesium Hydroxide (Milk Of Magnesia Liq) 30 ml Q12H PRN PO Mild constipation Last administered on 11/26/17at 14:12; Start 11/04/17 at 22:00 Magnesium Oxide (Mag-Ox) 800 mg UNSCH PRN PO For Magnesium 1.2 - 1.6 mg/dL; Start 11/05/17 at 01:30; Stop 11/18/17 at 08:24; Status DC Magnesium Sulfate 2 gm/Sodium Chloride 104 ml @ 50 mls/hr UNSCH PRN IV SEE LABEL COMMENTS; Start 11/23/17 at 18:45; Stop 11/24/17 at 09:10; Status DC Magnesium Sulfate 4 gm/Sodium Chloride 100 ml @ 50 mls/hr UNSCH PRN IV For Magnesium 0.9 - 1.1 mg/dL; Start 11/05/17 at 01:30; Stop 11/18/17 at 08:24; Status DC Meperidine HCl (Demerol Inj) 25 mg Q2H PRN IV PUSH SHIVERING Last administered on 11/05/17at 01:32; Start 11/05/17 at 01:15; Stop 11/08/17 at 12:49; Status DC Metoprolol Tartrate (Lopressor Inj) 2.5 mg Q1H PRN IV PUSH SEE LABEL COMMENTS; Start 11/23/17 at 18:45; Stop 11/24/17 at 09:10; Status DC Metoprolol Tartrate (Lopressor) 12.5 mg [employer] PO ; Start 11/17/17 at 12:00; Stop 11/18/17 at 08:24; Status DC Midazolam HCl 100 ml @ 2 mls/hr TITRATE PRN IV SEDATION Last administered on 10/12at 21:42; Start 11/05/17 at 12:15; Stop 11/08/17 at 12:49; Status DC Midazolam HCl (Versed Inj) 2 mg Q1H PRN IV PUSH SEDATION Last administered on at 03:23; Start 11/04/17 at 22:00; Stop 11/08/17 at 12:49; Status DC Miscellaneous (Pill Splitter) 1 ea UNSCH PRN OTHER SEE LABEL COMMENTS; Start at 09:00 Miscellaneous Information (Post-op Orders (for Pharmacy)) STAT ONCE OTHER ; Start 11/23/17 at 18:45; Stop 11/23/17 at 19:08; Status DC Miscellaneous Medication [place] [place] Please discontinue previ... ONCE ONCE .XX ; Start 11/05/17 at 19:45; Stop 11/05/17 at 19:46; Status DC Morphine Sulfate (Morphine Inj) 2 mg Q4H PRN IV PUSH CHEST PAIN Last administered on 11/22/17at 03:13; Start 11/21/17 at 08:45; Stop 11/23/17 at 18:50 ; Status DC Multivitamins/ Minerals Therapeutic (Theragran M Tab) 1 tab DAILY PO Last administered on 11/28/17at 09:17; Start 11/25/17 at 09:00 Nitroglycerin/ Dextrose 250 ml @ 1.5 mls/hr TITRATE PRN IV Chest pain Last administered on 11/22/17at 01:40; Start 11/17/17 at 11:45; Stop 11/23/17 at 18:50 ; Status DC Norepinephrine Bitartrate 4 mg/ Sodium Chloride 250 ml @ 7.5 mls/hr Q24H PRN IV Maintain blood pressure Last administered on 11/05/17at 18:39; Start 11/05/17 at 01:15; Stop 11/08/17 at 12:49; Status DC Ondansetron HCl (Zofran Inj) 4 mg Q6H PRN IV PUSH NAUSEA OR VOMITING; Start at 18:45 Oxycodone/ Acetaminophen (Percocet 5-325 Mg) 1 tab Q3H PRN PO PAIN SCALE 1 TO 5 Last administered on 11/25/17at 22:00; Start 11/23/17 at 18:45 Pantoprazole Sodium (Protonix) 40 mg DAILY@06 PO Last administered on 11/28/17at 06:00; Start 11/24/17 at 06:00 Papaverine HCl 60 mg/Nitroglycerin 100 mcg/Diltiazem HCl 100 mg/Sodium Chloride 100 ml @ 0 mls/hr [employer] IRRIGATION Last administered on 11/23/17at 13:41; Start 11/17/17 at 12:00; Stop 11/23/17 at 19:00; Status DC Pharmacy Profile Note 0 ml @ 0 mls/hr UNSCH OTHER ; Start 11/05/17 at 16:15; Stop 11/07/17 at 12:39; Status DC Polyethylene Glycol (Miralax) 17 gm DAILY PO Last administered on 11/26/17at 08: 20; Start 11/25/17 at 09:00 Potassium Chloride/Sodium Chloride 1,000 ml @ 42 mls/hr [id number] IV Last administered on 11/19/17at 12:48; Start 11/19/17 at 10:30; Stop 11/20/17 at 08:09 ; Status DC Potassium Phosphate (K-Phos) 2,000 mg UNSCH PRN PO/TUBE SEE LABEL COMMENTS; Start 11/05/17 at 01:30; Stop 11/18/17 at 08:24; Status DC Potassium Phosphate 30 mmol/ Sodium Chloride 260 ml @ 42 mls/hr UNSCH PRN IV SEE LABEL COMMENTS; Start 11/05/17 at 01:30; Stop 11/18/17 at 08:24; Status DC Potassium Bicarb/ Potassium Chloride (K-Lyte Cl Eff) 50 meq UNSCH PRN PO For Potassium 3.3 - 3.5 mEq/L Last administered on 11/13/17at 08:51; Start 11/05/17 at 01:30; Stop 11/18/17 at 08:24; Status DC Potassium Chloride (KCl) 40 meq UNSCH PRN PO SEE LABEL COMMENTS; Start at 18:45; Stop 11/24/17 at 09:10; Status DC Povidone Iodine (Betadine 5% Antisepsis Kit) 1 applic [employer] PRN EACH NARE SEE LABEL COMMENTS; Start 11/23/17 at 03:15; Stop 11/23/17 at 19:00; Status DC Propofol 100 ml @ 3.84 mls/hr TITRATE PRN IV SEDATION Last administered on at 01:59; Start 11/11/17 at 09:30; Stop 11/14/17 at 08:49; Status DC Propranolol HCl (Inderal) 40 mg Q6H PO Last administered on 11/12/17at 10:29; Start 11/09/17 at 16:00; Stop 11/12/17 at 14:45; Status DC Racepinephrine (Racepinephrine 2.25% Neb) 0.5 ml UNSCH X1 PRN NEB STRIDOR; Start 11/23/17 at 18:45; Stop 11/24/17 at 09:10; Status DC Senna/Docusate Sodium (Ashley-Colace) 1 tab BID PO Last administered on 11/26/17at 08:20; Start 11/05/17 at 09:00 Sennosides (Senokot) 8.6 mg HS PO Last administered on 11/25/17at 21:59; Start 11/24/17 at 21:00 Sodium Biphosphate/ Sodium Phosphate (Fleets Enema (Adult)) 118 ml UNSCH PRN RECTAL SEE LABEL COMMENTS; Start 11/26/17 at 09:00 Sodium Bicarbonate (Sodium Bicarbonate 8.4% Inj) 100 meq UNSCH PRN IV PUSH SEE LABEL COMMENTS; Start 11/23/17 at 18:45; Stop 11/24/17 at 09:10; Status DC Sodium Chloride (NS Flush) 2 ml UNSCH PRN IV FLUSH FLUSH AFTER USING IV ACCESS ; Start 11/23/17 at 18:45 Sodium Phosphate 30 mmol/Sodium Chloride 250 ml @ 42 mls/hr UNSCH PRN IV For Phosphorus < 2.5 mg/dL Last administered on 11/06/17at 02:45; Start 11/05/17 at 01:30; Stop 11/18/17 at 08:24; Status DC Terbutaline Sulfate (Brethine Inj) 1 mg UNSCH PRN SQ For Extravasation; Start 11/06/17 at 01:15; Stop 11/18/17 at 08:24; Status DC Vancomycin HCl 1500 mg/Sodium Chloride 515 ml @ 250 mls/hr Q12H IV Last administered on 11/06/17at 17:38; Start 11/05/17 at 18:00; Stop 11/07/17 at 12:39 ; Status DC Water (Free Water) VOLUME OF WATER: ( 250 ) ML Q8HR G-TUBE Last administered on 11/13/17at 11:41; Start 11/13/17 at 08:15; Stop 11/14/17 at 08:49; Status DC Zolpidem Tartrate (Ambien) 5 mg HS PRN PO SLEEP Last administered on 11/27/17at 22:12; Start 11/26/17 at 15:45 A/P Problem List: (1) Coronary artery disease ICD Code: I25.10 - Atherosclerotic heart disease of [place] coronary artery without angina pectoris (2) Cardiopulmonary arrest ICD Code: I46.9 - Cardiac arrest, cause unspecified Status: Acute (3) Respiratory failure ICD Code: J96.90 - Respiratory failure, unspecified, unspecified whether with hypoxia or hypercapnia Status: Acute (4) VF (ventricular fibrillation) ICD Code: I49.01 - Ventricular fibrillation Status: Acute Assessment and Plan Status post CABGx5, 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 Acute kidney injury No drastic changes Continue to monitor renal function Diabetes mellitus type 2 Follow blood sugars Insulin sliding scale Diabetic diet Hypertension Continue baseline treatment Follow blood pressures Adjust treatments as needed Coreg and lisinopril on hold secondary to bradycardia DVT prophylaxis Per surgical discretion Discharge Planning per CT surgery. Problem Qualifiers (1) Respiratory failure: Qualified Codes: J96.00 - Acute respiratory failure, unspecified whether with hypoxia or hypercapnia Jaqueline Perez MD Nov 28, 2017 10:38
[2017-11-28] MEDS ORDERED: LEVA250T14 PO (10:39)
[2017-11-28] MEDS ORDERED: LEVEMIR SQ (10:41)
[2017-11-28] MEDS ORDERED: NOVOLOGSS SQ (10:41)
[2017-11-28] MEDS ORDERED: LEVOFLOXACIN 750 MG TAB PO SCH (11:00)
--- NOTE | 2017-11-30 11:53 | RSPPFT ---
DATE OF PROCEDURE: 11/17/17 COMMENTS: Spirometry demonstrates an FEV1 of 0.9 at 29% of predicted, FVC of 1.3 at 31%, FEF 25-75 at 21%. Post-bronchodilator study was not conducted. Flow volume loops suggest a restrictive defect. IMPRESSION: 1. Moderately severe obstructive disease. 2. Additional moderate restrictive disease.
== END 2017-11-28 14:45 | DRG 233 ==
LOC: NEPE 19:55 → NEDA 21:25 → HIMW 22:30 → HCPC 11-17 13:46 → HCVI 11-22 10:30 → HCPC 11-25 18:00
PROVIDERS: ADMIT Thoracic Surgery (Cardiothoracic Vascular Surgery); ATTEND Thoracic Surgery (Cardiothoracic Vascular Surgery)
PROC: 5A1955Z Respiratory Ventilation, Greater than 96 Consecutive Hours (ICD-10-PCS; 2017-11-04)
PROC: 0BH17EZ Insertion of Endotracheal Airway into Trachea, Via Natural or Artificial Opening (ICD-10-PCS; 2017-11-04)
PROC: 0T9B70Z Drainage of Bladder with Drainage Device, Via Natural or Artificial Opening (ICD-10-PCS; 2017-11-04)
PROC: 6A4Z0ZZ Hypothermia, Single (ICD-10-PCS; 2017-11-04)
PROC: 4A023N7 Measurement of Cardiac Sampling and Pressure, Left Heart, Percutaneous Approach (ICD-10-PCS; 2017-11-16)
PROC: B2111ZZ Fluoroscopy of Multiple Coronary Arteries using Low Osmolar Contrast (ICD-10-PCS; 2017-11-16)
PROC: B2151ZZ Fluoroscopy of Left Heart using Low Osmolar Contrast (ICD-10-PCS; 2017-11-16)
PROC: B3121ZZ Fluoroscopy of Left Subclavian Artery using Low Osmolar Contrast (ICD-10-PCS; 2017-11-16)
PROC: B31N1ZZ Fluoroscopy of Other Upper Arteries using Low Osmolar Contrast (ICD-10-PCS; 2017-11-16)
PROC: 30233N1 Transfusion of Nonautologous Red Blood Cells into Peripheral Vein, Percutaneous Approach (ICD-10-PCS; 2017-11-22)
PROC: 021309W Bypass Coronary Artery, Four or More Arteries from Aorta with Autologous Venous Tissue, Open Approach (ICD-10-PCS; 2017-11-23)
PROC: 06BQ4ZZ Excision of Left Saphenous Vein, Percutaneous Endoscopic Approach (ICD-10-PCS; 2017-11-23)
PROC: 06BP4ZZ Excision of Right Saphenous Vein, Percutaneous Endoscopic Approach (ICD-10-PCS; 2017-11-23)
PROC: 5A1221Z Performance of Cardiac Output, Continuous (ICD-10-PCS; 2017-11-23)
PROC: 02100Z9 Bypass Coronary Artery, One Artery from Left Internal Mammary, Open Approach (ICD-10-PCS; principal; 2017-11-23 11:43)
DX: I49.01 Ventricular fibrillation (principal); J96.01 Acute respiratory failure with hypoxia; I21.4 Non-ST elevation (NSTEMI) myocardial infarction; I50.41 Acute combined systolic (congestive) and diastolic (congestive) heart failure; J96.02 Acute respiratory failure with hypercapnia; J15.4 Pneumonia due to other streptococci; G93.1 Anoxic brain damage, not elsewhere classified; N17.9 Acute kidney failure, unspecified; I13.0 Hypertensive heart and chronic kidney disease with heart failure and stage 1 through stage 4 chronic kidney disease, or unspecified chronic kidney disease; E87.2 Acidosis; N39.0 Urinary tract infection, site not specified; E87.0 Hyperosmolality and hypernatremia; J98.11 Atelectasis; R13.10 Dysphagia, unspecified; Z78.1 Physical restraint status; I25.119 Atherosclerotic heart disease of native coronary artery with unspecified angina pectoris; I25.2 Old myocardial infarction; Z87.891 Personal history of nicotine dependence; Z90.49 Acquired absence of other specified parts of digestive tract; E66.9 Obesity, unspecified; Z68.39 Body mass index [BMI] 39.0-39.9, adult; Z51.5 Encounter for palliative care; K44.9 Diaphragmatic hernia without obstruction or gangrene; J45.909 Unspecified asthma, uncomplicated; K21.9 Gastro-esophageal reflux disease without esophagitis; M19.90 Unspecified osteoarthritis, unspecified site; E11.65 Type 2 diabetes mellitus with hyperglycemia; N18.9 Chronic kidney disease, unspecified; M65.30 Trigger finger, unspecified finger; I07.1 Rheumatic tricuspid insufficiency; I05.0 Rheumatic mitral stenosis; E11.22 Type 2 diabetes mellitus with diabetic chronic kidney disease; I42.9 Cardiomyopathy, unspecified; B96.1 Klebsiella pneumoniae [K. pneumoniae] as the cause of diseases classified elsewhere; R35.0 Frequency of micturition; Z83.3 Family history of diabetes mellitus; Z82.49 Family history of ischemic heart disease and other diseases of the circulatory system; M25.571 Pain in right ankle and joints of right foot; M79.671 Pain in right foot; G47.00 Insomnia, unspecified; D64.9 Anemia, unspecified; I47.2 Ventricular tachycardia
CPT/HCPCS: 31500; 36430; 36556; 36600; 36620; 43753; 51702; 70450; 70551; 71045; 73610; 73630; 74018; 76775; 76937; 80048; 80053; 80061; 80202; 81001; 82040; 82140; 82247; 82533; 82550; 82565; 82805; 82948; 83036; 83605; 83735; 83880; 84075; 84100; 84132; 84155; 84439; 84443; 84450; 84460; 84484; 85007; 85014; 85025; 85027; 85610; 85730; 86403; 86850; 86900; 86901; 86920; 87040; 87070; 87077; 87086; 87184; 87186; 87205; 87641; 93005; 93306; 93458; 93880; 93970; 93998; 94002; 94003; 94010; 94150; 94618; 94640; 94664; 94667; 94668; 95819; 96365; 96368; 96375; 99152; 99153; C1769; C1887; C1893; J0131; J0282; J0360; J0456; J0610; J0690; J0692; J1265; J1630; J1644; J1815; J1817; J1940; J1956; J2060; J2150; J2175; J2250; J2270; J2405; J2440; J2930; J3010; J3370; J3475; J3480; J7030; J7040; J7050; J7060; J7070; L2114; P9016; P9047; Q9967